=== PATIENT | female | born 1990 | race African-American/Black ===

== ENCOUNTER 2017-10-10 21:17 | Inpatient (IN) ==
[2017-10-23] MEDS ORDERED: Benzonatate 100 MG Capsule PO PRN (00:01)
[2017-10-23] MEDS ORDERED: LORazepam 0.5 MG Tablet PO PRN (00:01)
[2017-10-23] MEDS ORDERED: Acetaminophen 325 MG Tablet PO PRN (00:01)
[2017-10-23] MEDS ORDERED: Heparin Central Flush 100 UNIT/ML 5 ML Syringe IV.FLUSH PRN (00:01)
[2017-10-23] MEDS ORDERED: Sodium Chloride 0.65% Nasal Spray 45 ML Bottle EACH NARE PRN (00:01)
[2017-10-23] MEDS ORDERED: Naloxone Inj 0.4 MG/ML Vial IV.PUSH PRN (00:01)
[2017-10-23 06:29] LABS: Baso # (Auto) 0.1 th/mm3 (0.0-0.2); Baso % (Auto) 0.8 % (0.0-2.0); Eos % (Auto) 0.3 % (0.0-4.0); Hematocrit 26.7 % (35.0-46.0); Lymph # (Auto) 2.8 th/mm3 (1.0-4.8); Mean Corpuscular HGB Conc 33.6 % (32.0-36.0); Mean Corpuscular Hemoglobin 32.7 pg (27.0-34.0); Mean Corpuscular Volume 97.4 fL (80.0-100.0); Mean Platelet Volume 7.2 fL (7.0-11.0); Mono # (Auto) 2.1 th/mm3 (0.0-0.9); Mono % (Auto) 14.2 % (0.0-8.0); Neut # (Auto) 9.6 th/mm3 (1.8-7.7); Neut % (Auto) 65.7 % (16.0-70.0); Platelet Count 327 th/mm3 (150-450); Red Blood Count 2.74 mil/mm3 (4.00-5.30); Red Cell Distribution Width 20.8 % (11.6-17.2); White Blood Count 14.7 th/mm3 (4.0-11.0)
[2017-10-23 06:35] LABS: Anion Gap 9 meq/L (5-15); Blood Urea Nitrogen 7 mg/dL (7-18); Calcium 8.3 mg/dL (8.5-10.1); Carbon Dioxide 21.8 meq/L (21.0-32.0); Chloride 110 meq/L (98-107); Glomerular Filtration Rate Greater Than 89 mL/min (>89); Glucose,Random 105 mg/dL (74-106); Potassium 3.8 meq/L (3.5-5.1); Sodium 141 meq/L (136-145)
[2017-10-23 08:15] LABS: Blast Cells 2 % (0-0); Lymphocytes 5 % (9-44); Monocytes 6 % (0-8); Myelocytes 4 % (0-0); Platelet Estimate Normal (Normal); Platelet Morphology Normal (Normal); Tallied Nucleated RBC 21 (0-0)
[2017-10-23 08:16] LABS: Ovalocytes 1+; Polychromasia 2.3 % (0.0-1.9); Toxic Granulation 1+
--- NOTE | 2017-10-23 09:10 | P.PNONC ---
Subjective Interval history: Afebrile Patient denies any acute complaints Committed to staying in the hospital as long as needed Denies shortness of breath, chest pain or any GI symptoms Objective Vital Signs/Intake & Output: Vital Signs 10/23/17 04:00 10/23/17 07:31 Temperature 98 F 97.9 F Pulse Rate 102 H 121 H Respiratory Rate 18 16 Blood Pressure 112/63 121/68 Pulse Oximetry 96 99 Intake & Output 10/22/17 10/23/17 10/23/17 18:59 06:59 18:59 Intake Total 1919 Balance 1919 Intake: Oral 1919 Other: # Voids 4 Date of Last Bowel Movement 10/22/17 Result Diagrams: 10/23/17 03:45 10/23/17 03:45 Laboratory Results: Laboratory Results - last 24 hr 10/19/17 10/20/17 10/20/17 18:45 04:35 04:35 WBC 23.1 H RBC 2.90 L Hgb 9.0 L Hct 27.3 L MCV 94.2 MCH 31.1 MCHC 33.0 RDW 20.8 H Plt Count 486 H MPV 7.1 Prelim Diff (Auto) Neut % (Auto) Lymph % (Auto) [place] % (Auto) Eos % (Auto) Baso % (Auto) Neut # (Auto) Lymph # (Auto) [place] # (Auto) Eos # (Auto) Baso # (Auto) CBC Comment AUTO DIFF WBC Differential Total Counted 100 Neutrophils % (Manual) 26 Seg Neuts % (Manual) Band Neutrophils % 32 H Band Neuts % (Manual) Lymphocytes % 6 L Lymphocytes % (Manual) Monocytes % 13 H Monocytes % (Manual) Myelocytes % (Man) Blast Cells % (Manual) Neutrophils # (Manual) 17.8 H Abs Neuts (Manual) Metamyelocytes 11 H Myelocytes 6 H Promyelocytes 2 H Nucleated RBCs 17 H Nucleated RBCs/100 WBC Differential Comment FINAL DIFF MANUAL Blast Cells 4 H Toxic Granulation Platelet Estimate HIGH H Platelet Morphology Plt Morphology Comment NORMAL Polychromasia Spherocytes OCC H Ovalocytes Sodium 138 Potassium 4.0 Chloride 106 Carbon Dioxide 23.1 Anion Gap 9 BUN 6 L Creatinine 0.72 Estimated GFR 117 Random Glucose 112 H Calcium 9.0 Lactate Dehydrogenase Urine Color YELLOW Urine Turbidity CLEAR Urine pH 5.0 Ur Specific [place] 1.019 Urine Protein NEG Urine Glucose (UA) NEG Urine Ketones TRACE H Urine Occult Blood SMALL H Urine Nitrite NEG Urine Bilirubin NEG Urine Urobilinogen LESS THAN 2 Ur Leukocyte Esterase NEG Urine WBC 1 Ur Squamous Epith Cells 2 Urine Mucus MOD H Micro UA Comment CULT NOT INDICATED 10/20/17 10/21/17 10/21/17 04:35 05:20 05:20 WBC 22.4 H RBC 2.89 L Hgb 8.9 L Hct 27.2 L MCV 94.0 MCH 30.6 MCHC 32.6 RDW 21.0 H Plt Count 443 MPV 7.1 Prelim Diff (Auto) Neut % (Auto) Lymph % (Auto) [place] % (Auto) Eos % (Auto) Baso % (Auto) Neut # (Auto) Lymph # (Auto) [place] # (Auto) Eos # (Auto) Baso # (Auto) CBC Comment AUTO DIFF WBC Differential Total Counted 100 Neutrophils % (Manual) 41 Seg Neuts % (Manual) Band Neutrophils % 17 H Band Neuts % (Manual) Lymphocytes % 11 Lymphocytes % (Manual) Monocytes % 9 H Monocytes % (Manual) Myelocytes % (Man) Blast Cells % (Manual) Neutrophils # (Manual) 17.2 H Abs Neuts (Manual) Metamyelocytes 12 H Myelocytes 6 H Promyelocytes 1 H Nucleated RBCs 12 H Nucleated RBCs/100 WBC Differential Comment FINAL DIFF MANUAL Blast Cells 3 H Toxic Granulation Platelet Estimate NORMAL Platelet Morphology Plt Morphology Comment NORMAL Polychromasia 2.1 H Spherocytes Ovalocytes Sodium 140 Potassium 3.9 Chloride 106 Carbon Dioxide 25.5 Anion Gap 9 BUN 7 Creatinine 0.70 Estimated GFR 121 Random Glucose 116 H Calcium 8.5 Lactate Dehydrogenase 893 H Urine Color Urine Turbidity Urine pH Ur Specific [place] Urine Protein Urine Glucose (UA) Urine Ketones Urine Occult Blood Urine Nitrite Urine Bilirubin Urine Urobilinogen Ur Leukocyte Esterase Urine WBC Ur Squamous Epith Cells Urine Mucus Micro UA Comment 10/22/17 10/22/17 10/23/17 04:11 04:11 03:45 WBC 16.6 H 14.7 H RBC 2.77 L 2.74 L Hgb 8.7 L 9.0 L Hct 26.3 L 26.7 L MCV 94.9 97.4 MCH 31.5 32.7 MCHC 33.2 33.6 RDW 20.3 H 20.8 H Plt Count 369 327 MPV 7.4 7.2 Prelim Diff (Auto) Slide review pending Neut % (Auto) 65.7 Lymph % (Auto) 19.0 [place] % (Auto) 14.2 H Eos % (Auto) 0.3 Baso % (Auto) 0.8 Neut # (Auto) 9.6 H Lymph # (Auto) 2.8 [place] # (Auto) 2.1 H Eos # (Auto) 0.0 Baso # (Auto) 0.1 CBC Comment AUTO DIFF WBC Differential Manual diff final Total Counted 100 Neutrophils % (Manual) 44 Seg Neuts % (Manual) 70 Band Neutrophils % 14 H Band Neuts % (Manual) 13 H Lymphocytes % 16 Lymphocytes % (Manual) 5 L Monocytes % 12 H Monocytes % (Manual) 6 Myelocytes % (Man) 4 H Blast Cells % (Manual) 2 H Neutrophils # (Manual) 12.0 H Abs Neuts (Manual) 12.8 H Metamyelocytes 8 H Myelocytes 6 H Promyelocytes Nucleated RBCs 10 H Nucleated RBCs/100 WBC 21 H Differential Comment FINAL DIFF MANUAL . Blast Cells Toxic Granulation 2+ H 1+ H Platelet Estimate NORMAL Normal Platelet Morphology Normal Plt Morphology Comment NORMAL Polychromasia 3.3 H 2.3 H Spherocytes Ovalocytes 1+ H 1+ H Sodium 140 Potassium 3.7 Chloride 106 Carbon Dioxide 21.8 Anion Gap 12 BUN 7 Creatinine 0.68 Estimated GFR 125 Random Glucose 109 H Calcium 8.3 L Lactate Dehydrogenase Urine Color Urine Turbidity Urine pH Ur Specific [place] Urine Protein Urine Glucose (UA) Urine Ketones Urine Occult Blood Urine Nitrite Urine Bilirubin Urine Urobilinogen Ur Leukocyte Esterase Urine WBC Ur Squamous Epith Cells Urine Mucus Micro UA Comment 10/23/17 03:45 WBC RBC Hgb Hct MCV MCH MCHC RDW Plt Count MPV Prelim Diff (Auto) Neut % (Auto) Lymph % (Auto) [place] % (Auto) Eos % (Auto) Baso % (Auto) Neut # (Auto) Lymph # (Auto) [place] # (Auto) Eos # (Auto) Baso # (Auto) CBC Comment WBC Differential Total Counted Neutrophils % (Manual) Seg Neuts % (Manual) Band Neutrophils % Band Neuts % (Manual) Lymphocytes % Lymphocytes % (Manual) Monocytes % Monocytes % (Manual) Myelocytes % (Man) Blast Cells % (Manual) Neutrophils # (Manual) Abs Neuts (Manual) Metamyelocytes Myelocytes Promyelocytes Nucleated RBCs Nucleated RBCs/100 WBC Differential Comment Blast Cells Toxic Granulation Platelet Estimate Platelet Morphology Plt Morphology Comment Polychromasia Spherocytes Ovalocytes Sodium 141 Potassium 3.8 Chloride 110 H Carbon Dioxide 21.8 Anion Gap 9 BUN 7 Creatinine 0.68 Estimated GFR Greater than 89 Random Glucose 105 Calcium 8.3 L Lactate Dehydrogenase Urine Color Urine Turbidity Urine pH Ur Specific [place] Urine Protein Urine Glucose (UA) Urine Ketones Urine Occult Blood Urine Nitrite Urine Bilirubin Urine Urobilinogen Ur Leukocyte Esterase Urine WBC Ur Squamous Epith Cells Urine Mucus Micro UA Comment Medications: Active Medications Generic Name Dose Route Start Last Admin Trade Name Freq PRN Reason Stop Dose Admin Cefepime HCl 2,000 mg/ Sodium 100 mls @ 200 mls/hr 10/23/17 04:00 10/23/17 04 :33 Chloride IV.SIG 200 mls/hr Q8H SHELLEY Administration Objective Remarks: GENERAL: Overweight female resting in bed in no obvious distress SKIN: Warm and dry. HEAD: Normocephalic. EYES: No injection or drainage. NECK: Supple, trachea midline. CARDIOVASCULAR: Regular rate and rhythm without murmurs. RESPIRATORY: Breath sounds equal bilaterally. No accessory muscle use. GASTROINTESTINAL: Abdomen obese, soft, non-tender. EXTREMITIES: No cyanosis, or edema. MUSCULOSKELETAL: Adequate muscle tone. NEUROLOGICAL: No obvious focal deficit. Awake, alert, and oriented x3. 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 was discharged on 09/24 from [facility] and has been following up outpatient. last seen at [facility] 6.11 when she received Cytarabine 196mg. --had LP with IT chemo on 09/27 --repeat bone marrow biopsy on 09/28 showed no residual B-cell ALL. --Bone marrow biopsy on 10/21 pending --on prophylactic Bactrim, Fluconazole. 2. Bilateral PE: diagnosed during her August 2017 admission at [facility]--has been on Lovenox 150mg SQ BID since that time. 3. Pancytopenia: d/t chemotherapy + B-cell ALL --Transfuse for hemoglobin less than 7, platelets less than 10,000 - Attending Statement The exam, history, and the medical decision-making described in the above note were completed with the assistance of the mid-level provider. I reviewed and agree with the findings presented. I attest that I had a [id number] encounter with the patient on the same day, and personally performed and documented my assessment and findings in the medical record. Afebrile, counts decreasing bone marrow biopsy pending. Awaiting return call from Dr. Malhotra at [facility]. Follow up cultures.
[2017-10-23] MEDS: Gabapentin 300 MG Capsule PO SCH ×3 (09:20→17:00)
[2017-10-23] MEDS: amLODIPine 5 MG Tablet PO SCH (09:20)
[2017-10-23] MEDS: Senna/Docusate Sodium 8.6/50 MG Tablet PO SCH ×2 (09:20→21:18)
[2017-10-23] MEDS: valACYclovir 500 MG Tab PO SCH ×2 (09:20→21:17)
[2017-10-23] MEDS: Sulfamethoxazole/Trimethoprim 400/80 MG Tablet PO SCH (09:20)
--- NOTE | 2017-10-23 10:10 | P.PNFP ---
Subjective Interval history: Patient was seen and examined this morning with Dr. Sweeney. She has been afebrile and denies any new symptoms. She had a temper time sleeping last night but denies fevers, chills, nausea, vomiting, chest pain, shortness of breath, lower extremity edema, abdominal pain. She has been ambulating urinating and defecating without difficulty. Normal appetite. She continues to be ready to go home but we discussed that pathology reports are still pending from bone marrow biopsy. She denies pain or irritation around biopsy site. Results - Labs Result diagrams: 10/23/17 03:45 10/23/17 03:45 Abnormal lab results 10/19/17 10/20/17 10/20/17 Range/Units 18:45 04:35 04:35 WBC 23.1 H (4.0-11.0) TH/MM3 RBC 2.90 L (4.00-5.30) MIL/MM3 Hgb 9.0 L (11.6-15.3) GM/DL Hct 27.3 L (35.0-46.0) % RDW 20.8 H (11.6-17.2) % Plt Count 486 H (150-450) TH/MM3 [place] % (Auto) (0.0-8.0) % Neut # (Auto) (1.8-7.7) th/mm3 [place] # (Auto) (0.0-0.9) th/mm3 Band Neutrophils % 32 H (0-6) % Band Neuts % (Manual) (0-6) % Lymphocytes % 6 L (9-44) % Lymphocytes % (Manual) (9-44) % Monocytes % 13 H (0-8) % Myelocytes % (Man) (0-0) % Blast Cells % (Manual) (0-0) % Neutrophils # (Manual) 17.8 H (1.8-7.7) TH/MM3 Abs Neuts (Manual) (1.8-7.7) th/mm3 Metamyelocytes 11 H (0-1) % Myelocytes 6 H (0-0) % Promyelocytes 2 H (0-0) % Nucleated RBCs 17 H (0-0) /100 WBC Nucleated RBCs/100 WBC (0-0) /100 WBC Blast Cells 4 H (0-0) % Toxic Granulation (NORMAL) Platelet Estimate HIGH H (NORMAL) Polychromasia (0.0-1.9) % Spherocytes OCC H (NORMAL) Ovalocytes (NORMAL) Chloride (98-107) meq/L BUN 6 L (7-18) MG/DL Random Glucose 112 H (74-106) MG/DL Calcium (8.5-10.1) MG/DL Lactate Dehydrogenase (84-246) U/L Urine Ketones TRACE H (NEG) mg/dL Urine Occult Blood SMALL H (NEG) Urine Mucus MOD H (OCC) /lpf 10/20/17 10/21/17 10/21/17 Range/Units 04:35 05:20 05:20 WBC 22.4 H (4.0-11.0) TH/MM3 RBC 2.89 L (4.00-5.30) MIL/MM3 Hgb 8.9 L (11.6-15.3) GM/DL Hct 27.2 L (35.0-46.0) % RDW 21.0 H (11.6-17.2) % Plt Count (150-450) TH/MM3 [place] % (Auto) (0.0-8.0) % Neut # (Auto) (1.8-7.7) th/mm3 [place] # (Auto) (0.0-0.9) th/mm3 Band Neutrophils % 17 H (0-6) % Band Neuts % (Manual) (0-6) % Lymphocytes % (9-44) % Lymphocytes % (Manual) (9-44) % Monocytes % 9 H (0-8) % Myelocytes % (Man) (0-0) % Blast Cells % (Manual) (0-0) % Neutrophils # (Manual) 17.2 H (1.8-7.7) TH/MM3 Abs Neuts (Manual) (1.8-7.7) th/mm3 Metamyelocytes 12 H (0-1) % Myelocytes 6 H (0-0) % Promyelocytes 1 H (0-0) % Nucleated RBCs 12 H (0-0) /100 WBC Nucleated RBCs/100 WBC (0-0) /100 WBC Blast Cells 3 H (0-0) % Toxic Granulation (NORMAL) Platelet Estimate (NORMAL) Polychromasia 2.1 H (0.0-1.9) % Spherocytes (NORMAL) Ovalocytes (NORMAL) Chloride (98-107) meq/L BUN (7-18) MG/DL Random Glucose 116 H (74-106) MG/DL Calcium (8.5-10.1) MG/DL Lactate Dehydrogenase 893 H (84-246) U/L Urine Ketones (NEG) mg/dL Urine Occult Blood (NEG) Urine Mucus (OCC) /lpf 10/22/17 10/22/17 10/23/17 Range/Units 04:11 04:11 03:45 WBC 16.6 H 14.7 H (4.0-11.0) TH/MM3 RBC 2.77 L 2.74 L (4.00-5.30) MIL/MM3 Hgb 8.7 L 9.0 L (11.6-15.3) GM/DL Hct 26.3 L 26.7 L (35.0-46.0) % RDW 20.3 H 20.8 H (11.6-17.2) % Plt Count (150-450) TH/MM3 [place] % (Auto) 14.2 H (0.0-8.0) % Neut # (Auto) 9.6 H (1.8-7.7) th/mm3 [place] # (Auto) 2.1 H (0.0-0.9) th/mm3 Band Neutrophils % 14 H (0-6) % Band Neuts % (Manual) 13 H (0-6) % Lymphocytes % (9-44) % Lymphocytes % (Manual) 5 L (9-44) % Monocytes % 12 H (0-8) % Myelocytes % (Man) 4 H (0-0) % Blast Cells % (Manual) 2 H (0-0) % Neutrophils # (Manual) 12.0 H (1.8-7.7) TH/MM3 Abs Neuts (Manual) 12.8 H (1.8-7.7) th/mm3 Metamyelocytes 8 H (0-1) % Myelocytes 6 H (0-0) % Promyelocytes (0-0) % Nucleated RBCs 10 H (0-0) /100 WBC Nucleated RBCs/100 WBC 21 H (0-0) /100 WBC Blast Cells (0-0) % Toxic Granulation 2+ H 1+ H (NORMAL) Platelet Estimate (NORMAL) Polychromasia 3.3 H 2.3 H (0.0-1.9) % Spherocytes (NORMAL) Ovalocytes 1+ H 1+ H (NORMAL) Chloride (98-107) meq/L BUN (7-18) MG/DL Random Glucose 109 H (74-106) MG/DL Calcium 8.3 L (8.5-10.1) MG/DL Lactate Dehydrogenase (84-246) U/L Urine Ketones (NEG) mg/dL Urine Occult Blood (NEG) Urine Mucus (OCC) /lpf 10/23/17 Range/Units 03:45 WBC (4.0-11.0) TH/MM3 RBC (4.00-5.30) MIL/MM3 Hgb (11.6-15.3) GM/DL Hct (35.0-46.0) % RDW (11.6-17.2) % Plt Count (150-450) TH/MM3 [place] % (Auto) (0.0-8.0) % Neut # (Auto) (1.8-7.7) th/mm3 [place] # (Auto) (0.0-0.9) th/mm3 Band Neutrophils % (0-6) % Band Neuts % (Manual) (0-6) % Lymphocytes % (9-44) % Lymphocytes % (Manual) (9-44) % Monocytes % (0-8) % Myelocytes % (Man) (0-0) % Blast Cells % (Manual) (0-0) % Neutrophils # (Manual) (1.8-7.7) TH/MM3 Abs Neuts (Manual) (1.8-7.7) th/mm3 Metamyelocytes (0-1) % Myelocytes (0-0) % Promyelocytes (0-0) % Nucleated RBCs (0-0) /100 WBC Nucleated RBCs/100 WBC (0-0) /100 WBC Blast Cells (0-0) % Toxic Granulation (NORMAL) Platelet Estimate (NORMAL) Polychromasia (0.0-1.9) % Spherocytes (NORMAL) Ovalocytes (NORMAL) Chloride 110 H (98-107) meq/L BUN (7-18) MG/DL Random Glucose (74-106) MG/DL Calcium 8.3 L (8.5-10.1) MG/DL Lactate Dehydrogenase (84-246) U/L Urine Ketones (NEG) mg/dL Urine Occult Blood (NEG) Urine Mucus (OCC) /lpf Short CBC 10/20/17 10/21/17 10/22/17 Range/Units 04:35 05:20 04:11 WBC 23.1 H 22.4 H 16.6 H (4.0-11.0) TH/MM3 Hgb 9.0 L 8.9 L 8.7 L (11.6-15.3) GM/DL Hct 27.3 L 27.2 L 26.3 L (35.0-46.0) % Plt Count 486 H 443 369 (150-450) TH/MM3 10/23/17 Range/Units 03:45 WBC 14.7 H (4.0-11.0) TH/MM3 Hgb 9.0 L (11.6-15.3) GM/DL Hct 26.7 L (35.0-46.0) % Plt Count 327 (150-450) TH/MM3 BMP 10/20/17 10/21/17 10/22/17 04:35 05:20 04:11 Sodium 138 140 140 Potassium 4.0 3.9 3.7 Chloride 106 106 106 Carbon Dioxide 23.1 25.5 21.8 BUN 6 L 7 7 Creatinine 0.72 0.70 0.68 Calcium 9.0 8.5 8.3 L 10/23/17 03:45 Sodium 141 Potassium 3.8 Chloride 110 H Carbon Dioxide 21.8 BUN 7 Creatinine 0.68 Calcium 8.3 L Urine 10/19/17 Range/Units 18:45 Urine Color YELLOW (YELLW/STRAW) Urine pH 5.0 (5.0-8.5) Ur Specific [place] 1.019 (1.002-1.035) Urine Protein NEG (NEG-TRACE) mg/dL Urine Glucose (UA) NEG (NEG) mg/dL Physical Exam Vital signs: Vital Signs 10/23/17 04:00 10/23/17 07:31 Temperature 98 F 97.9 F Pulse Rate 102 H 121 H Respiratory Rate 18 16 Blood Pressure 112/63 121/68 Pulse Oximetry 96 99 Intake & Output 10/22/17 10/23/17 10/23/17 18:59 06:59 18:59 Intake Total 1919 Balance 1919 Intake: Oral 1919 Other: # Voids 4 Date of Last Bowel Movement 10/22/17 Narrative: GENERAL: No acute distress Skin: No visible lesions CARDIOVASCULAR: sinus tachycardia, regular rhythm without murmurs to auscultation. Normal LE perfusion grossly. RESPIRATORY: Normal rate. Clear to auscultation bilaterally without wheezes or congestion GASTROINTESTINAL: Abdomen soft, non-tender, obese, normal bowel sounds MUSCULOSKELETAL: Extremities without edema. No calf tenderness. NEUROLOGICAL: Awake and alert. 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 Bone marrow biopsy was performed 10/21 with results pending. -Discharge pending bone marrow biopsy results and oncology team clearance. Patient will follow up with Dr. Wilkerson upon discharge -CT angiogram 10/10 negative for PE -PICC line placed 10/19/17 right chest Impression: 2-month history of B-Cell ALL; s/p treatment at [facility] with CALG; patient has been following up as outpatient 09/2017 with [facility]. s/p 4 -5 rounds of chemotherapy and w/ multiple intrathecal treatments Per Heme Onc documentation, had intrathecal chemotherapy 09/27, repeat BM biopsy showing no residual B cell ALL, and was last seen 10/03 when she received Cytarabine Patient no longer treated at [facility] due to insurance issues. -Oncology consulted, appreciated recommendations -Bone marrow biopsy 10/21; results pending -Continue home PPX for immunosuppression -Continue Bactrim 80mg once daily ppx at home -Continue home fluconazole 200mg PO daily ppx -Continue home valacyclovir 500mg PO BID ppx -f/u with Dr. Wilkerson as outpatient Pain control: Roxicodone 5mg PO q4h pain 6-10 -ANC improved, Neupogen discontinued (10/15/17-10/18/17) (2) Neutropenic fever Code(s): D70.9 - Neutropenia, unspecified; R50.81 - Fever presenting with conditions classified elsewhere Status: Resolved Plan: Fever resolved at this time. 10/23 labs showing WBC 14.7, percent neutrophils 70, percent bands 13, with ANC > 12,000. Impression: Intermittent fevers during hospitalization; ANC 1 on admission. Initially on Neupogen ( 10/15/17-10/18/17) but subsequently discontinued with normal WBC's currently CXR negative UA negative Cultures: Blood- 10/12-negative final Urine- 10/12- negative final (10-50K CFUs/mixed GM+) Blood- 10/18- negative 4 days Blood- 10/19- negative 3 days Repeat CXR negative for acute process. UA negative. -Heme/Onc consulted, appreciate recommendations - Continue cefepime 2000 mg IV q8h (started 10/12-) -If blood transfusion is needed, will transfuse leuko-reduced irradiated red blood products for hemoglobin less than 7 and for platelet count of less than 10 ,000 -Continue home Bactrim, Fluconazole, Acyclovir PPX -Continue to monitor VS, blood cultures (3) Pulmonary embolism Code(s): I26.99 - Other pulmonary embolism without acute cor pulmonale Status : Acute Plan: Plan: Continue Lovenox 150mg SQ q12h Impression: Patient reports history of pulmonary embolism 3 weeks ago at [facility]. Patient was started on heparin and transitioned to Lovenox. CTA on 09-19 from [facility] demonstrated bilateral PEs with right lobar, segmental, and subsegmental and left segmental and subsegmental pulmonary emboli involving all lobes of the lungs. No right heart strain. No sufficient change in degree of clot burden compared to CTA on 09-18-17. Normal caliber main pulmonary artery. Normal caliber thoracic. CTA on 10/20- negative for PE Echocardiogram -EF 60%, mild concentric left ventricular hypertrophy, pulmonary pressure 35mmHg (4) Bronchitis Code(s): J40 - Bronchitis, not specified as acute or chronic Status: Resolved Plan: Plan: 10/23: No respiratory complaints. Normal exam and saturations, will monitor closely especially given immunosuppression Impression: Recent productive cough productive of sputum. PMH childhood asthma. Current treatment for bilateral PE CXR negative for signs of PNA, pleural effusion CTA negative for PE. Suspect exacerbation of asthma due to being neutropenic. Patient had initial peak flow of 160 pretreatment on 10/11, peak flow increased to 320 post treatment on 10/12 -Continue PPX antibiotics, Cefepime -Continue Duonebs -Contine Tessalon Perles -Monitor VS, O2 -Spirometry when nonambulatory (5) Anemia Code(s): D64.9 - Anemia, unspecified Status: Chronic Plan: Plan: H&H on 10/23 is 8.7/26.3, stable. Transfuse if Hgb <7.0 with leuko-reduced irradiated products. Impression: History of ALL with chemotherapy induced anemia suspected. On Lovenox due to history of PE. Will continue to monitor CBC closely given complicated history. Hgb: 8.7 (10/22) --> 8.7 (10/23) (6) Morbid obesity Code(s): E66.01 - Morbid (severe) obesity due to excess calories Status: Chronic Plan: Plan: Consider sleep study as outpt Impression: BMI 55 (7) HTN (hypertension) Code(s): I10 - Essential (primary) hypertension Status: Chronic Plan: Plan: Continue home amlodipine 5mg daily Clonidine 0.1 mg p.o. 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 Continue home gabapentin 600mg PO TID - Plan Fluids/Electrolytes/Nutrition/Prophylaxis: Fluids: tolerating PO Electrolytes: monitor and replete as needed Nutrition: Regular diet DVT Prophylaxis: Early ambulation. Lovenox 150mg q12h (wt based) and SCDs GI Prophylaxis: not indicated PRN anti-HTN: Clonidine 0.1mg PO PRN for SBP > 180/ and/or DBP > 100 Tylenol 650mg PO q6h if temp >100.4 (3) Pulmonary embolism Qualifiers: Pulmonary embolism type: other Chronicity: acute Acute cor pulmonale presence: without acute cor pulmonale Qualified Code(s): I26.99 - Other pulmonary embolism without acute cor pulmonale (5) Anemia Qualifiers: Anemia type: unspecified type Qualified Code(s): D64.9 - Anemia, unspecified
[2017-10-23] MEDS: Enoxaparin Inj 150 MG/ML Syringe SQ SCH ×2 (13:12→23:22)
[2017-10-23] MEDS: Heparin Central Flush 100 UNIT/ML 5 ML Syringe IV.FLUSH SCH (13:20)
[2017-10-24 05:09] LABS: Baso # (Auto) 0.1 th/mm3 (0.0-0.2); Baso % (Auto) 0.6 % (0.0-2.0); Eos # (Auto) 0.1 th/mm3 (0.0-0.4); Eos % (Auto) 0.3 % (0.0-4.0); Hematocrit 26.5 % (35.0-46.0); Hemoglobin 8.7 gm/dL (11.6-15.3); Lymph # (Auto) 4.9 th/mm3 (1.0-4.8); Lymph % (Auto) 29.6 % (9.0-44.0); Mean Corpuscular HGB Conc 32.6 % (32.0-36.0); Mean Corpuscular Hemoglobin 30.7 pg (27.0-34.0); Mean Corpuscular Volume 94.2 fL (80.0-100.0); Mean Platelet Volume 7.5 fL (7.0-11.0); Mono # (Auto) 2.5 th/mm3 (0.0-0.9); Mono % (Auto) 14.9 % (0.0-8.0); Neut % (Auto) 54.6 % (16.0-70.0); Platelet Count 240 th/mm3 (150-450); Red Blood Count 2.82 mil/mm3 (4.00-5.30); White Blood Count 16.6 th/mm3 (4.0-11.0)
[2017-10-24 08:17] LABS: Blast Cells 1 % (0-0); Lymphocytes 12 % (9-44); Metamyelocytes 8 % (0-1); Monocytes 13 % (0-8); Myelocytes 1 % (0-0); Tallied Nucleated RBC 20 (0-0)
[2017-10-24 08:18] LABS: Ovalocytes 1+; Polychromasia 2.3 % (0.0-1.9)
[2017-10-24 08:19] LABS: Platelet Estimate Normal (Normal); Platelet Morphology Normal (Normal); Tear Drop Cells 1+; Toxic Granulation 2+
--- NOTE | 2017-10-24 09:25 | P.PNFP ---
<Marian Billingsley - Last Filed: 10/24/17 09:39> Subjective Interval history: Patient was seen and examined this morning. She has no complaints or concerns. She has been afebrile for greater than 48 hours and denies subjective fevers, chills, nausea, vomiting, shortness of breath, rash, fatigue. She is ambulating without difficulty. She notes that she is hopeful to go home today. Results - Labs Result diagrams: 10/24/17 04:20 10/23/17 03:45 Abnormal lab results 10/24/17 Range/Units 04:20 WBC 16.6 H (4.0-11.0) th/mm3 RBC 2.82 L (4.00-5.30) mil/mm3 Hgb 8.7 L (11.6-15.3) gm/dL Hct 26.5 L (35.0-46.0) % RDW 21.0 H (11.6-17.2) % Traill % (Auto) 14.9 H (0.0-8.0) % Neut # (Auto) 9.0 H (1.8-7.7) th/mm3 Lymph # (Auto) 4.9 H (1.0-4.8) th/mm3 Traill # (Auto) 2.5 H (0.0-0.9) th/mm3 Band Neuts % (Manual) 23 H (0-6) % Monocytes % (Manual) 13 H (0-8) % Metamyelocytes % (Man) 8 H (0-1) % Myelocytes % (Man) 1 H (0-0) % Blast Cells % (Manual) 1 H (0-0) % Abs Neuts (Manual) 12.3 H (1.8-7.7) th/mm3 Nucleated RBCs/100 WBC 20 H (0-0) /100 WBC Toxic Granulation 2+ H (None) Polychromasia 2.3 H (0.0-1.9) % Tear Drop Cells 1+ H (None) Ovalocytes 1+ H (None) Short CBC 10/24/17 Range/Units 04:20 WBC 16.6 H (4.0-11.0) th/mm3 Hgb 8.7 L (11.6-15.3) gm/dL Hct 26.5 L (35.0-46.0) % Plt Count 240 (150-450) th/mm3 - EKG Rate & rhythm: sinus tachycardia Physical Exam Vital signs: Vital Signs 10/23/17 13:37 10/23/17 16:00 10/23/17 20:00 Temperature 98.2 F 98.4 F 99.4 F Pulse Rate 85 98 H 104 H Respiratory Rate 18 18 Blood Pressure 113/72 124/75 131/80 Pulse Oximetry 100 100 99 10/24/17 00:12 10/24/17 04:00 10/24/17 08:00 Temperature 98.1 F 97.7 F 98.1 F Pulse Rate 104 H 84 100 H Respiratory Rate 18 18 Blood Pressure 116/68 98/57 L 113/62 Pulse Oximetry 99 98 100 Intake & Output 10/23/17 10/24/17 10/24/17 18:59 06:59 18:59 Intake Total 2400 / 2400 480 / 480 Balance 2400 / 2400 480 / 480 Weight 153.3 kg 154 kg Intake: Oral 2400 / 2400 480 / 480 Other: # Voids 8 3 # Bowel Movements 2 - Constitutional no acute distress, obese - Routine HEENT Exam Head: Present: normocephalic, atraumatic Eye: Present: EOMI, PERRL ENT: Present: mucous membranes moist - Routine Neck Exam Present: supple, full ROM - Routine Respiratory Exam Present: CTA bilaterally. Absent: accessory muscle use, wheezes, crackles - Routine Cardiovascular Exam Present: S1, S2, tachycardia (Mild, regular) - Routine Abdominal Exam Present: soft, normoactive bowel sounds. Absent: tenderness - Routine Extremities Exam Absent: cyanosis, edema, calf tenderness - Routine Skin Exam Present: intact. 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 Bone marrow biopsy was performed 10/21 with results pending. -Discharge pending bone marrow biopsy results and oncology team clearance. Patient will follow up with Dr. Wilkerson upon discharge -CT angiogram 10/10 negative for PE -PICC line placed 10/19/17 right chest Impression: 2-month history of B-Cell ALL; s/p treatment at [facility] with CALG; patient has been following up as outpatient 09/2017 with [facility]. s/p 4 -5 rounds of chemotherapy and w/ multiple intrathecal treatments Per Heme Onc documentation, had intrathecal chemotherapy 09/27, repeat BM biopsy showing no residual B cell ALL, and was last seen 10/03 when she received Cytarabine Patient no longer treated at [facility] due to insurance issues. -Oncology consulted, appreciated recommendations -Bone marrow biopsy 10/21; results pending -Continue home PPX for immunosuppression -Continue Bactrim 80mg once daily ppx at home -Continue home fluconazole 200mg PO daily ppx -Continue home valacyclovir 500mg PO BID ppx -Per oncology notes they are awaiting follow-up with patient's previous oncology at [facility] Pain control: Roxicodone 5mg PO q4h pain - -ANC improved, Neupogen discontinued (10/15/17-10/18/17) (2) Neutropenic fever Code(s): D70.9 - Neutropenia, unspecified; R50.81 - Fever presenting with conditions classified elsewhere Status: Resolved Plan: Fever resolved >48hr ago 10/24 labs showing WBC 16.6, H&H 8.7/26.5, platelets 240 Impression: Intermittent fevers during hospitalization; ANC 1 on admission. Initially on Neupogen ( 10/15/17-10/18/17) but subsequently discontinued with normal WBC's currently CXR negative UA negative Cultures: Blood- 10/12-negative final Urine- 10/12- final 10-50K CFUs/mixed GM+, probable contaminants Blood- 10/18- negative final Blood- 10/19- negative 4 days Repeat CXR 10/19 negative for acute process. UA negative. -Heme/Onc consulted, appreciate recommendations - Cefepime completed: 2000 mg IV q8h (10/12-10/23) -If blood transfusion is needed, will transfuse leuko-reduced irradiated red blood products for hemoglobin less than 7 and for platelet count of less than 10 ,000 -Continue home Bactrim, Fluconazole, Acyclovir PPX upon discharge -Continue to monitor VS, blood cultures (3) Pulmonary embolism Code(s): I26.99 - Other pulmonary embolism without acute cor pulmonale Status : Acute Plan: Plan: Patient is asymptomatic. Continue Lovenox 150mg SQ q12h at discharge, f/u hematology as outpatient Impression: Patient reports history of pulmonary embolism 3 weeks ago at [facility]. Patient was started on heparin and transitioned to Lovenox. CTA on 09-19 from [facility] demonstrated bilateral PEs with right lobar, segmental, and subsegmental and left segmental and subsegmental pulmonary emboli involving all lobes of the lungs. No right heart strain. No sufficient change in degree of clot burden compared to CTA on 09-18-17. Normal caliber main pulmonary artery. Normal caliber thoracic. CTA on 10/20- negative for PE Echocardiogram -EF 60%, mild concentric left ventricular hypertrophy, pulmonary pressure 35mmHg (4) Bronchitis Code(s): J40 - Bronchitis, not specified as acute or chronic Status: Resolved Plan: Plan: 10/23: No respiratory complaints. Normal exam and saturations, will monitor closely especially given immunosuppression Impression: Recent productive cough productive of sputum. PMH childhood asthma. Current treatment for bilateral PE CXR negative for signs of PNA, pleural effusion CTA negative for PE. Suspect exacerbation of asthma due to being neutropenic. Patient had initial peak flow of 160 pretreatment on 10/11, peak flow increased to 320 post treatment on 10/12 -Continue PPX antibiotics, Cefepime completed 10/23 -Continue Duonebs PRN -Contine Tessalon Perles PRN -Monitor VS, O2 -wnl at this time -Spirometry when nonambulatory (5) Anemia Code(s): D64.9 - Anemia, unspecified Status: Chronic Plan: Plan: H&H on 10/24 is stable. Transfuse if Hgb <7.0 with leuko-reduced irradiated products. Impression: History of ALL with chemotherapy induced anemia suspected. On Lovenox due to history of PE. Will continue to monitor CBC closely given complicated history. Hgb: 8.7 (10/23) --> 8.7 (10/24) (6) Morbid obesity Code(s): E66.01 - Morbid (severe) obesity due to excess calories Status: Chronic Plan: Plan: Consider sleep study as outpt Impression: BMI 55 (7) HTN (hypertension) Code(s): I10 - Essential (primary) hypertension Status: Chronic Plan: Plan: Continue home dose of amlodipine 5mg daily. BP at goal Clonidine 0.1 mg p.o. 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 Continue home gabapentin 600mg PO TID - Plan Fluids/Electrolytes/Nutrition/Prophylaxis: Fluids: tolerating PO Electrolytes: monitor and replete as needed Nutrition: Regular diet DVT Prophylaxis: Early ambulation. Lovenox 150mg q12h (wt based) and ambulation , SCDs ordered but pt not wearing GI Prophylaxis: not indicated PRN anti-HTN: Clonidine 0.1mg PO PRN for SBP > 180/ and/or DBP > 100 Tylenol 650mg PO q6h if temp >100.4 <Manjinder Chavez - Last Filed: 10/24/17 18:02> Results - Labs Result diagrams: 10/24/17 04:20 10/23/17 03:45 Abnormal lab results 10/24/17 Range/Units 04:20 WBC 16.6 H (4.0-11.0) th/mm3 RBC 2.82 L (4.00-5.30) mil/mm3 Hgb 8.7 L (11.6-15.3) gm/dL Hct 26.5 L (35.0-46.0) % RDW 21.0 H (11.6-17.2) % Traill % (Auto) 14.9 H (0.0-8.0) % Neut # (Auto) 9.0 H (1.8-7.7) th/mm3 Lymph # (Auto) 4.9 H (1.0-4.8) th/mm3 Traill # (Auto) 2.5 H (0.0-0.9) th/mm3 Band Neuts % (Manual) 23 H (0-6) % Monocytes % (Manual) 13 H (0-8) % Metamyelocytes % (Man) 8 H (0-1) % Myelocytes % (Man) 1 H (0-0) % Blast Cells % (Manual) 1 H (0-0) % Abs Neuts (Manual) 12.3 H (1.8-7.7) th/mm3 Nucleated RBCs/100 WBC 20 H (0-0) /100 WBC Toxic Granulation 2+ H (None) Polychromasia 2.3 H (0.0-1.9) % Tear Drop Cells 1+ H (None) Ovalocytes 1+ H (None) Short CBC 10/24/17 Range/Units 04:20 WBC 16.6 H (4.0-11.0) th/mm3 Hgb 8.7 L (11.6-15.3) gm/dL Hct 26.5 L (35.0-46.0) % Plt Count 240 (150-450) th/mm3 Physical Exam Vital signs: Vital Signs 10/23/17 20:00 10/24/17 00:12 10/24/17 04:00 Temperature 99.4 F 98.1 F 97.7 F Pulse Rate 104 H 104 H 84 Respiratory Rate 18 18 16 Blood Pressure 131/80 116/68 98/57 L Pulse Oximetry 99 99 98 10/24/17 08:00 10/24/17 11:29 10/24/17 12:00 Temperature 98.1 F 97 F L Pulse Rate 100 H 79 Respiratory Rate 18 18 18 Blood Pressure 113/62 125/68 Pulse Oximetry 100 99 10/24/17 16:00 Temperature 98.1 F Pulse Rate 89 Respiratory Rate Blood Pressure 139/68 Pulse Oximetry Intake & Output 10/23/17 10/24/17 10/24/17 18:59 06:59 18:59 Intake Total 2400 / 2400 480 / 480 Balance 2400 / 2400 480 / 480 Weight 153.3 kg 154 kg Intake: Oral 2400 / 2400 480 / 480 Other: # Voids 8 3 Date of Last Bowel Movement 10/24/17 # Bowel Movements 2 Assessment and Plan - Assessment (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 - Acute lymphoblastic leukemia not having achieved remission Status: Acute (2) Neutropenic fever Code(s): D70.9 - Neutropenia, unspecified; R50.81 - Fever presenting with conditions classified elsewhere Status: Resolved (3) Pulmonary embolism Code(s): I26.99 - Other pulmonary embolism without acute cor pulmonale Status : Acute (4) Bronchitis Code(s): J40 - Bronchitis, not specified as acute or chronic Status: Resolved (5) Anemia Code(s): D64.9 - Anemia, unspecified Status: Chronic (6) Morbid obesity Code(s): E66.01 - Morbid (severe) obesity due to excess calories Status: Chronic (7) HTN (hypertension) Code(s): I10 - Essential (primary) hypertension Status: Chronic (8) Peripheral neuropathy due to chemotherapy Code(s): G62.0 - Drug-induced polyneuropathy; T45.1X5A - Adverse effect of antineoplastic and immunosuppressive drugs, initial encounter Status: Chronic - Attending Attestation Patient examined and case discussed with resident physician I have read the above note and agree with the assessment/plan as discussed with me I was involved in all medical decision making for this patient Waiting final disposition from hematology/oncology prior to discharge Manjinder Chavez MD <Marian Billingsley - Last Filed: 10/24/17 09:39> (3) Pulmonary embolism Qualifiers: Pulmonary embolism type: other Chronicity: acute Acute cor pulmonale presence: without acute cor pulmonale Qualified Code(s): I26.99 - Other pulmonary embolism without acute cor pulmonale (5) Anemia Qualifiers: Anemia type: unspecified type Qualified Code(s): D64.9 - Anemia, unspecified <Manjinder Chavez - Last Filed: 10/24/17 18:02> (3) Pulmonary embolism Qualifiers: Pulmonary embolism type: other Chronicity: acute Acute cor pulmonale presence: without acute cor pulmonale Qualified Code(s): I26.99 - Other pulmonary embolism without acute cor pulmonale (5) Anemia Qualifiers: Anemia type: unspecified type Qualified Code(s): D64.9 - Anemia, unspecified
[2017-10-24] MEDS: amLODIPine 5 MG Tablet PO SCH (09:41)
[2017-10-24] MEDS: valACYclovir 500 MG Tab PO SCH ×2 (09:42→21:20)
[2017-10-24] MEDS: Sulfamethoxazole/Trimethoprim 400/80 MG Tablet PO SCH (09:45)
[2017-10-24] MEDS: Senna/Docusate Sodium 8.6/50 MG Tablet PO SCH ×2 (09:45→21:20)
[2017-10-24] MEDS: Gabapentin 300 MG Capsule PO SCH ×3 (09:45→19:06)
[2017-10-24] MEDS: Enoxaparin Inj 150 MG/ML Syringe SQ SCH (11:37)
[2017-10-25] MEDS: Enoxaparin Inj 150 MG/ML Syringe SQ SCH ×2 (00:16→11:47)
[2017-10-25] MEDS: Heparin Central Flush 100 UNIT/ML 5 ML Syringe IV.FLUSH SCH ×2 (03:49→09:08)
[2017-10-25 04:41] LABS: Baso # (Auto) 0.1 th/mm3 (0.0-0.2); Baso % (Auto) 0.6 % (0.0-2.0); Eos % (Auto) 0.4 % (0.0-4.0); Hemoglobin 9.2 gm/dL (11.6-15.3); Lymph # (Auto) 2.8 th/mm3 (1.0-4.8); Lymph % (Auto) 21.8 % (9.0-44.0); Mean Corpuscular HGB Conc 32.9 % (32.0-36.0); Mean Corpuscular Hemoglobin 31.1 pg (27.0-34.0); Mean Corpuscular Volume 94.6 fL (80.0-100.0); Mean Platelet Volume 7.3 fL (7.0-11.0); Mono # (Auto) 2.1 th/mm3 (0.0-0.9); Mono % (Auto) 16.3 % (0.0-8.0); Neut # (Auto) 7.9 th/mm3 (1.8-7.7); Neut % (Auto) 60.9 % (16.0-70.0); Platelet Count 243 th/mm3 (150-450); Red Blood Count 2.96 mil/mm3 (4.00-5.30); Red Cell Distribution Width 21.6 % (11.6-17.2); White Blood Count 12.9 th/mm3 (4.0-11.0)
[2017-10-25 05:03] LABS: Albumin 3.1 g/dL (3.4-5.0); Anion Gap 9 meq/L (5-15); Aspartate Aminotransferase 26 U/L (15-37); Blood Urea Nitrogen 5 mg/dL (7-18); Chloride 108 meq/L (98-107); Glomerular Filtration Rate Greater Than 89 mL/min (>89); Glucose,Random 102 mg/dL (74-106); Potassium 3.8 meq/L (3.5-5.1); Sodium 142 meq/L (136-145)
[2017-10-25 05:04] LABS: Alanine Aminotransferase 25 U/L (10-53)
[2017-10-25 05:07] LABS: Alkaline Phosphatase 62 U/L (45-117); Total Protein 6.4 g/dL (6.4-8.2)
[2017-10-25 05:58] LABS: Eosinophils 2 % (0-4); Lymphocytes 25 % (9-44); Metamyelocytes 4 % (0-1); Monocytes 6 % (0-8); Myelocytes 2 % (0-0); Platelet Estimate Normal (Normal); Platelet Morphology Normal (Normal); Tallied Nucleated RBC 27 (0-0)
[2017-10-25 06:00] LABS: Polychromasia 2.2 % (0.0-1.9)
[2017-10-25] MEDS: valACYclovir 500 MG Tab PO SCH (08:10)
[2017-10-25] MEDS: Gabapentin 300 MG Capsule PO SCH (08:10)
[2017-10-25] MEDS: Sulfamethoxazole/Trimethoprim 400/80 MG Tablet PO SCH (08:10)
[2017-10-25] MEDS: amLODIPine 5 MG Tablet PO SCH (08:10)
[2017-10-25] MEDS: Senna/Docusate Sodium 8.6/50 MG Tablet PO SCH (08:10)
--- NOTE | 2017-10-25 09:29 | P.DCO ---
- Home Health Nursing Order: Nursing assessment with vital signs, IV medication administration Instructions: Patient with PICC line in RUE who will need daily heparin flushes to maintain patency of line for one week. - Certification I have seen patient Tobias Wallace on 10/25/17. My clinical findings support the need for the requested home health care services because: Injectable medication education/administration I certify that my clinical findings support that this patient is homebound because: Unsafe to leave home unassisted
--- NOTE | 2017-10-25 09:40 | P.PNFP ---
Subjective Interval history: Patient was seen and examined this morning. She has no complaints and has been afebrile since 10/18. Neutropenia resolved. Patient denies fevers, chills, nausea, vomiting, chest pain, shortness of breath, fatigue, rash and is ambulatory. She is made aware of preliminary flow cytometry results and final pathology is pending from 10/21. She is aware of the importance of close follow- up after discharge Results - Labs Result diagrams: 10/25/17 03:45 10/25/17 03:45 Abnormal lab results 10/25/17 10/25/17 Range/Units 03:45 03:45 WBC 12.9 H (4.0-11.0) th/mm3 RBC 2.96 L (4.00-5.30) mil/mm3 Hgb 9.2 L (11.6-15.3) gm/dL Hct 28.0 L (35.0-46.0) % RDW 21.6 H (11.6-17.2) % Anderson % (Auto) 16.3 H (0.0-8.0) % Neut # (Auto) 7.9 H (1.8-7.7) th/mm3 Anderson # (Auto) 2.1 H (0.0-0.9) th/mm3 Band Neuts % (Manual) 20 H (0-6) % Metamyelocytes % (Man) 4 H (0-1) % Myelocytes % (Man) 2 H (0-0) % Abs Neuts (Manual) 8.6 H (1.8-7.7) th/mm3 Nucleated RBCs/100 WBC 27 H (0-0) /100 WBC Polychromasia 2.2 H (0.0-1.9) % Chloride 108 H (98-107) meq/L BUN 5 L (7-18) mg/dL Albumin 3.1 L (3.4-5.0) g/dL Short CBC 10/25/17 Range/Units 03:45 WBC 12.9 H (4.0-11.0) th/mm3 Hgb 9.2 L (11.6-15.3) gm/dL Hct 28.0 L (35.0-46.0) % Plt Count 243 (150-450) th/mm3 BMP 10/25/17 03:45 Sodium 142 Potassium 3.8 Chloride 108 H Carbon Dioxide 25.0 BUN 5 L Creatinine 0.65 Calcium 9.0 Liver Function 10/25/17 Range/Units 03:45 Total Bilirubin 0.4 (0.2-1.0) mg/dL AST 26 (15-37) U/L ALT 25 (10-53) U/L Alkaline Phosphatase 62 (45-117) U/L Albumin 3.1 L (3.4-5.0) g/dL Physical Exam Vital signs: Vital Signs 10/24/17 11:29 10/24/17 12:00 10/24/17 16:00 Temperature 97 F L 98.1 F Pulse Rate 79 89 Respiratory Rate 18 18 Blood Pressure 125/68 139/68 Pulse Oximetry 99 10/24/17 20:00 10/25/17 00:00 10/25/17 03:41 Temperature 98.1 F 98 F 97.9 F Pulse Rate 97 H 91 H 96 H Respiratory Rate 18 16 Blood Pressure 124/74 120/67 117/70 Pulse Oximetry 99 97 99 Intake & Output 10/24/17 10/25/17 10/25/17 18:59 06:59 18:59 Intake Total 702 / 702 240 / 240 Output Total 2 / 2 Balance 702 / 702 238 / 238 Weight 154.2 kg Intake: Oral 702 / 702 240 / 240 Output: Urine 2 / 2 Other: Date of Last Bowel Movement 10/24/17 - Constitutional no acute distress - Routine HEENT Exam Head: Present: normocephalic, atraumatic - Routine Neck Exam Present: supple, full ROM. Absent: JVD - Routine Respiratory Exam Present: CTA bilaterally. Absent: accessory muscle use, wheezes, crackles - Routine Cardiovascular Exam Present: tachycardia (mild). Absent: S1, S2 - Routine Abdominal Exam Present: soft, normoactive bowel sounds. Absent: guarding - Routine Extremities Exam Present: full ROM, pulses intact, vascular access (PICC right upper arm). Absent: cyanosis, edema - Routine Skin Exam Present: intact. Absent: cyanosis, erythema - Routine Neurological Exam Present: alert, oriented X3, CN II-XII intact, normal speech. 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 Bone marrow biopsy was performed 10/21 with preliminary results showing no evidence of neoplastic leukocytes, and patient was made aware of this today. -Discharge 10/25 to home. Oncology team has cleared patient for follow-up with Dr. Wilkerson next week. The patient is aware that final bone marrow biopsy results are still pending. -CT angiogram 10/10 negative for PE -PICC line placed 10/19/17 right chest, to maintain at discharge. She has order for home health nursing staff to flush the PICC daily given patient may need this access as early as next week for continued chemotherapy. Impression: 2-month history of B-Cell ALL; s/p treatment at [facility] with CALG; patient has been following up as outpatient 09/2017 with [facility]. s/p 4 -5 rounds of chemotherapy and w/ multiple intrathecal treatments Per Heme Onc documentation, had intrathecal chemotherapy 09/27, repeat BM biopsy showing no residual B cell ALL, and was last seen 10/03 when she received Cytarabine Patient no longer treated at [facility] due to insurance issues. Oncologist there was Dr. Malhotra. -Oncology consulted, appreciated recommendations -Bone marrow biopsy 10/21; results pending -Continue home PPX for immunosuppression -Continue Bactrim 80mg once daily ppx at home -Continue home fluconazole 200mg PO daily ppx -Continue home valacyclovir 500mg PO BID ppx -Per oncology notes they are awaiting follow-up with patient's previous oncology at [facility], for now will f/u as outpt with Dr. Wilkerson Pain control: Roxicodone 5mg PO q4h pain 6-10 while inpt. She states she is not due for a new pain medication script at discharge. -ANC improved, Neupogen discontinued (10/15/17-10/18/17) (2) Neutropenic fever Code(s): D70.9 - Neutropenia, unspecified; R50.81 - Fever presenting with conditions classified elsewhere Status: Resolved Plan: Fever resolved >48hr ago 10/25 labs showing WBC 12.9, H&H 9.2, platelets 243, improving Impression: Intermittent fevers during hospitalization; ANC 1 on admission. Initially on Neupogen ( 10/15/17-10/18/17) but subsequently discontinued with normal WBC's currently CXR negative UA negative Cultures: Blood- 10/12-negative final Urine- 10/12- final 10-50K CFUs/mixed GM+, probable contaminants Blood- 10/18- negative final Blood- 10/19- negative final Repeat CXR 10/19 negative for acute process. UA negative. -Heme/Onc consulted, appreciate recommendations - Cefepime completed: 2000 mg IV q8h (10/12-10/23) -If blood transfusion is needed, will transfuse leuko-reduced irradiated red blood products for hemoglobin less than 7 and for platelet count of less than 10 ,000 -Continue home Bactrim, Fluconazole, Acyclovir PPX upon discharge (3) Pulmonary embolism Code(s): I26.99 - Other pulmonary embolism without acute cor pulmonale Status : Acute Plan: Plan: Patient is asymptomatic. Continue Lovenox 150mg SQ q12h at discharge, f/u hematology as outpatient. Will give new script for Lovenox at discharge to continue. Impression: Patient reports history of pulmonary embolism 3 weeks ago at [facility]. Patient was started on heparin and transitioned to Lovenox. CTA on 09-19 from [facility] demonstrated bilateral PEs with right lobar, segmental, and subsegmental and left segmental and subsegmental pulmonary emboli involving all lobes of the lungs. No right heart strain. No sufficient change in degree of clot burden compared to CTA on 09-18-17. Normal caliber main pulmonary artery. Normal caliber thoracic. CTA on 10/20- negative for PE Echocardiogram -EF 60%, mild concentric left ventricular hypertrophy, pulmonary pressure 35mmHg (4) Bronchitis Code(s): J40 - Bronchitis, not specified as acute or chronic Status: Resolved Plan: Plan: Resolved. No respiratory complaints. Normal exam and saturations. Continue to monitor closely as outpt for new sx Impression: Recent productive cough productive of sputum. PMH childhood asthma. Current treatment for bilateral PE CXR negative for signs of PNA, pleural effusion CTA negative for PE. Suspect exacerbation of asthma due to being neutropenic. Patient had initial peak flow of 160 pretreatment on 10/11, peak flow increased to 320 post treatment on 10/12 -Continue PPX antibiotics, Cefepime completed 10/23 -Continue Duonebs PRN -Contine Tessalon Perles PRN -Monitor VS, O2 -wnl at this time -Spirometry when nonambulatory (5) Anemia Code(s): D64.9 - Anemia, unspecified Status: Chronic Plan: Plan: H&H on 10/24 is stable. In future, transfuse if Hgb <7.0 with leuko-reduced irradiated products. Impression: History of ALL with chemotherapy induced anemia suspected. On Lovenox due to history of PE. Will continue to monitor CBC closely given complicated history. H&H 9.06/22, platelets 243, improving <-- Hgb was 8.7 on 10/24 (6) Morbid obesity Code(s): E66.01 - Morbid (severe) obesity due to excess calories Status: Chronic Plan: Plan: Consider sleep study as outpt Impression: BMI 55 (7) HTN (hypertension) Code(s): I10 - Essential (primary) hypertension Status: Chronic Plan: Plan: Continue home dose of amlodipine 5mg daily. BP at goal Clonidine 0.1 mg p.o. 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 Continue home gabapentin 600mg PO TID - Plan Fluids/Electrolytes/Nutrition/Prophylaxis: Fluids: tolerating PO Electrolytes: monitor and replete as needed Nutrition: Regular diet DVT Prophylaxis: Early ambulation. Lovenox 150mg q12h (wt based) and ambulation , SCDs ordered but pt not wearing GI Prophylaxis: not indicated PRN anti-HTN: Clonidine 0.1mg PO PRN for SBP > 180/ and/or DBP > 100 Tylenol 650mg PO q6h if temp >100.4 (3) Pulmonary embolism Qualifiers: Pulmonary embolism type: other Chronicity: acute Acute cor pulmonale presence: without acute cor pulmonale Qualified Code(s): I26.99 - Other pulmonary embolism without acute cor pulmonale (5) Anemia Qualifiers: Anemia type: unspecified type Qualified Code(s): D64.9 - Anemia, unspecified
--- NOTE | 2017-10-25 09:43 | P.DCO ---
- Home Health Nursing Order: IV medication administration Instructions: Flush PICC in right chest once daily with heparin flush, to maintain patency. Duration of home health care = 7 days. - Certification I have seen patient Tboias Wallace on 10/25/17. My clinical findings support the need for the requested home health care services because: Injectable medication education/administration I certify that my clinical findings support that this patient is homebound because: Unsafe to leave home unassisted, Poor cardiac reserve
--- NOTE | 2017-10-25 10:13 | P.DS ---
Date of admission: 10/10/17 21:18 Primary care physician: Suni Solo MD, R3 at time of admission. At time of discharge will now be Danae Pike MD, R2 Attending physician on discharge: Manjinder Chavez Anticipated date of discharge: 10/25/17 Brief History from admission: Ms. 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 At that time she reported a one-week history of progressively worsening productive cough and exertional shortness of breath. She is noted to have been receiving chemotherapy at [facility] with supervising physician Dr. Malhotra and is status post at least 4-5 weeks of treatment. She is also been receiving Lovenox therapy as outpatient for previously diagnosed PE. At time of admission to our hospital she had been evaluated for cough in the outpatient setting with her PCP Dr. Suni Solo. Initial ED evaluation on 10/10 included chest x-ray which was unremarkable, CT pulmonary angiogram which showed no PE. However, lab work showed that she was severely neutropenic suspected secondary to chemotherapy. Oncology team was consulted at time of admission. 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 s/p treatment at [facility] with CALG; patient has been following up as outpatient 09/2017 with [facility]. s/p 4-5 rounds of chemotherapy and w/ multiple intrathecal treatments. Per Heme Onc documentation, had intrathecal chemotherapy 09/27, repeat BM biopsy 09/28 showing no residual B cell ALL, and was last seen 10/03 when she received Cytarabine. Patient no longer treated at [facility] due to insurance issues. Oncologist there was Dr. Malhotra. Patient also presented with history of asthma, hypertension, morbid obesity, and recent diagnosis of bilateral PE. She was admitted on 10/10 for evaluation of cough, shortness of breath, and neutropenic fever. During this hospitalization, oncology consulted due to neutropenic fever and hx of ALL: -Bone marrow biopsy 10/21; final results pending but preliminary flow cytometry showing no evidence of abnormal leukocytes -Bronchitis treated with Cefepime given immunosuppression: 2000 mg IV q8h (-10/23). Suspect asthma exacerbation at time of admission, resolved. -ANC improved and afebrile since 10/18/2017, Neupogen discontinued (course was 10/15/17-10/18/17) - Bone marrow biopsy was performed 10/21 with preliminary results showing no evidence of neoplastic leukocytes, and patient was made aware of this -October 25, 2017 labs showing WBC 12.9, H&H 9.2, platelets 243, improving - Continue home PPX for immunosuppression -Continue Bactrim 80mg once daily ppx -Continue home fluconazole 200mg PO daily ppx -Continue home valacyclovir 500mg PO BID ppx -CT angiogram 10/10 negative for PE -PICC line placed 10/19/17 right chest, to maintain at discharge. -No blood transfusions required this hospitalization. If she requires blood transfusion in the future, she requires leuko-reduced irradiated red blood products. Goal hemoglobin greater than 7. Goal platelet count of greater than 10,000 -She has order for home health nursing staff to flush the PICC daily given patient may need this access as early as next week for continued chemotherapy. -F/u as outpt with Dr. Wilkerson. Notably they are awaiting consultation with her physician at [facility] but they will f/u as outpt Pain control: Roxicodone 5mg PO q4h pain 6-10 PRN while inpt. She states she is not due for a new pain medication script at discharge. History of Pulmonary Embolism: Patient reports history of pulmonary embolism diagnosed 3 weeks prior to admission at [facility]. Patient was started on heparin and transitioned to Lovenox. CTA on 09-19-17 from [facility] demonstrated bilateral PEs with right lobar, segmental, and subsegmental and left segmental and subsegmental pulmonary emboli involving all lobes of the lungs. No right heart strain. No sufficient change in degree of clot burden compared to CTA on 09-18-17. Normal caliber main pulmonary artery. Normal caliber thoracic. CTA on 10/10- negative for PE Echocardiogram -EF 60%, mild concentric left ventricular hypertrophy, pulmonary pressure 35mmHg Continue Lovenox 150mg SQ q12h at discharge, f/u hematology as outpatient. Will give new script for Lovenox at discharge to continue. Chronic conditions: HTN treated with home dose amlodipine 5 mg daily with BP at goal this hospitalization. Chronic peripheral neuropathy related to chemotherapy treated with gabapentin 600 mg p.o. 3 times daily, continued at time of discharge. Studies noted this hospitalization: CXRs negative CTA 10/10 negative for PE UA negative Cultures: Blood- 10/12-negative final Urine- 10/12- final 10-50K CFUs/mixed GM+, probable contaminants Blood- 10/18- negative final Blood- 10/19- negative final Repeat CXR 10/19 negative for acute process. UA negative. Attending physician at time of discharge is Dr. Manjinder Chavez. - Time Spent with Patient Total time spent providing and/or coordinating discharge services: Exam Vital signs: Vital Signs 10/24/17 11:29 10/24/17 12:00 10/24/17 16:00 Temperature 97 F L 98.1 F Pulse Rate 79 89 Respiratory Rate 18 18 Blood Pressure 125/68 139/68 Pulse Oximetry 99 10/24/17 20:00 10/25/17 00:00 10/25/17 03:41 Temperature 98.1 F 98 F 97.9 F Pulse Rate 97 H 91 H 96 H Respiratory Rate 18 16 Blood Pressure 124/74 120/67 117/70 Pulse Oximetry 99 97 99 10/25/17 08:00 Temperature 98.2 F Pulse Rate 91 H Respiratory Rate 16 Blood Pressure Pulse Oximetry Intake & Output 10/24/17 10/25/17 10/25/17 18:59 06:59 18:59 Intake Total 702 / 702 240 / 240 Output Total 2 / 2 Balance 702 / 702 238 / 238 Weight 154.2 kg Intake: Oral 702 / 702 240 / 240 Output: Urine 2 / 2 Other: Date of Last Bowel Movement 10/24/17 10/24/17 Results Procedures completed during hospitalization: PICC placement right chest Labs on day of discharge: Labs from last 24 hours 10/25/17 10/25/17 03:45 03:45 WBC 12.9 H RBC 2.96 L Hgb 9.2 L Hct 28.0 L MCV 94.6 MCH 31.1 MCHC 32.9 RDW 21.6 H Plt Count 243 MPV 7.3 Prelim Diff (Auto) Slide review pending Neut % (Auto) 60.9 Lymph % (Auto) 21.8 Bay % (Auto) 16.3 H Eos % (Auto) 0.4 Baso % (Auto) 0.6 Neut # (Auto) 7.9 H Lymph # (Auto) 2.8 Bay # (Auto) 2.1 H Eos # (Auto) 0.0 Baso # (Auto) 0.1 WBC Differential Manual diff final Seg Neuts % (Manual) 41 Band Neuts % (Manual) 20 H Lymphocytes % (Manual) 25 Monocytes % (Manual) 6 Eosinophils % (Manual) 2 Metamyelocytes % (Man) 4 H Myelocytes % (Man) 2 H Abs Neuts (Manual) 8.6 H Nucleated RBCs/100 WBC 27 H Differential Comment . Platelet Estimate Normal Platelet Morphology Normal Polychromasia 2.2 H Sodium 142 Potassium 3.8 Chloride 108 H Carbon Dioxide 25.0 Anion Gap 9 BUN 5 L Creatinine 0.65 Estimated GFR Greater than 89 Random Glucose 102 Calcium 9.0 Total Bilirubin 0.4 AST 26 ALT 25 Alkaline Phosphatase 62 Total Protein 6.4 Albumin 3.1 L Discharge Plan - Discharge Disposition Patient Disposition: /Home Health Service - Discharge Condition Condition: Stable - Discharge Order Discharge Orders: Discharge Order (Routine); Ordered 10/25/17 Ordered By: Marian Billingsley - Discharge Details Anticipated Discharge Date: 10/25/17 - Physicians Team Primary Care Provider: Suni Solo Attending Provider: Manjinder Chavez Other Providers: Hannah Wilkerson - Rxs /Orders / Referrals /Forms Prescriptions: New benzonatate [Tessalon Perles] 100 mg Capsule 100 mg PO TID PRN (Reason: Cough) Qty: 60 RF: 0 fluconazole 200 mg Tablet 200 mg PO DAILY Qty: 30 RF: 0 Continue amlodipine [Norvasc] 5 mg Tablet 5 mg PO DAILY 30 Days Qty: 30 enoxaparin 150 mg/mL Syringe 150 mg SUB-Q DAILY Qty: 30 RF: 1 gabapentin 600 mg Tablet 600 mg PO TID 30 Days Qty: 90 prochlorperazine maleate 10 mg Tablet 10 mg PO Q8HR PRN (Reason: Nausea) Qty: 90 sulfamethoxazole-trimethoprim 400-80 mg Tablet 1 tab PO DAILY 30 Days Qty: 30 valacyclovir 500 mg Tablet 500 mg PO BID Qty: 60 Discontinued fluconazole 200 mg Tablet 200 mg PO DAILY Referrals: Danae Pike MD, R1 [FAMILY MEDICINE] - See Instructions (Please call our office at [phone] to schedule follow-up appointment within [address] Danae Pike, Dr. Marian Billingsley, or other available provider for your hospital follow-up.) Paulette Wilkerson [Physical Therapist] - See Instructions (Please call Dr. Wilkerson's office to schedule follow-up appointment within 1 week. Phone number is listed above.) [facility], [AGENCY] - See Instructions Suni Solo MD, R3 [Primary Care Provider] - See Instructions - Discharge Instructions Additional Instructions: Home health care will be provided by [facility] [place] [phone] - Post Discharge Care Plan Care Plan Goals: Your Health Problems: Fever, shortness of breath, history of leukemia, history of pulmonary embolism Goals to Promote Your Health: * To prevent worsening of your condition, please maintain follow-ups as scheduled * To maintain your health at the optimal level, please take all medications as prescribed Directions to Meet Your Goals: * Take your medications as prescribed * Follow your dietary instruction * Follow activity as directed * Keep your appointments as scheduled * Take your immunizations and boosters as scheduled * If your symptoms worsen call your PCP * If no PCP go to Urgent Care or Emergency Room Smoking is dangerous to your health. Avoid second hand smoke. You may reach the 24-hour crisis hotline for domestic abuse at .
== END 2017-10-25 13:30 | disposition home health service (06) ==
LOC: HCIN 21:18
PROVIDERS: ADMIT Family Medicine; ATTEND Family Medicine

== ENCOUNTER 2017-11-28 09:43 | Inpatient (IN) ==
[2017-11-28] MEDS: Sod Chloride 0.9% Inj 1,000 ML IV.CONT SCH ×2 (11:51→23:48)
--- NOTE | 2017-11-28 16:14 | CT ---
EXAM DATE: 11/28/2017 4:12 PM EDT AGE/SEX: 27 years / Female INDICATIONS: Cephalgia. CLINICAL DATA: This is the patient's initial encounter. Patient reports that signs and symptoms have been present for 1 day and indicates a pain score of 4/10. MEDICAL/SURGICAL HISTORY: None. Cholecystectomy. RADIATION DOSE: 43.22 CTDI (mGy) COMPARISON: No prior exams available for comparison. TECHNIQUE: CT of the head without contrast. Using automated exposure control and adjustment of the mA and/or kV according to patient size, radiation dose was kept as low as reasonably achievable to ob tain optimal diagnostic quality images. DICOM format image data is available electronically for revi ew and comparison. FINDINGS: Cerebrum: The ventricles are normal for age. No evidence of midline shift, mass lesion, hemorrhage or acute infarction. No extraaxial fluid collections are seen. Posterior Fossa: The cerebellum and brainstem are intact. The 4th ventricle is midline. The cerebe llopontine angle is unremarkable. Extracranial: The visualized portion of the orbits is intact. Skull: The calvaria is intact. No evidence of skull fracture. CONCLUSION: 1. Unremarkable CT brain. . Electronically signed by: Santos Servin MD 11/28/2017 4:13 PM EDT
--- NOTE | 2017-11-28 18:58 | MB ---
cc: Hannah Wilkerson MD DATE: 11/28/2017 CHIEF COMPLAINT: 1. B-cell ALL. 2. Intractable nausea and vomiting. 3. Headache. 4. Failure to thrive. HISTORY OF PRESENT ILLNESS: Ms. 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 She was previously admitted to the hospital at [facility] on 08/26/2017 and was initiated on the [id number] treatment protocol. She was recently started on consolidation phase 2 with cyclophosphamide 1000 mg/m2 day IV on day 1 and day 29, cytarabine 75 mg/m2 IV on day 1 through 4, 8 through 11, 29 through 32 and 36 through 39, 6-mercaptopurine 60 mg/m2 orally on days 1 through 14 and 29 through 42, intrathecal methotrexate on days 1, 8, 15 and 22 and vincristine given 1.5 mg/m2 IV on days 15, 22, 43 and 50 and PEG-asparaginase IV on day 15 and day 43. Since she had her lumbar puncture, she has been having headache, intractable nausea and vomiting and failure to thrive. LABORATORY STUDIES: Drawn today, revealed white blood cell count 3.9, hemoglobin 11.2 and platelet count of 359,000. Chemistry studies with slight elevation of the AST and ALT at 39 and 81 respectively, total bilirubin is 1.0. IMAGING: CT scan of the head was negative for any acute process. PAST MEDICAL HISTORY: 1. Precursor B-cell acute lymphoblastic leukemia. 2. Venous thromboembolism. 3. Hypertension. 4. Morbid obesity. PAST SURGICAL HISTORY: Cholecystectomy in 2007. ALLERGIES: NO KNOWN DRUG ALLERGIES. HOME MEDICATIONS: Amlodipine, Bactrim, fluconazole, gabapentin, Lovenox, Valtrex. FAMILY HISTORY: No family history of leukemia. SOCIAL HISTORY: She is . She has 1 child. She has a good support system with her family. REVIEW OF SYSTEMS: As above in the HPI. All other review of systems negative. PHYSICAL EXAMINATION: GENERAL: Well-developed, well-nourished lady, in no distress, sitting comfortably in bedside chair. HEENT: Head normocephalic, atraumatic. Eyes, PERRLA, EOMI. Oropharynx clear. NECK: Supple. No palpable lymphadenopathy. RESPIRATORY: Clear to auscultation bilaterally. CARDIOVASCULAR: Regular rate and rhythm. No murmurs. HEMATOLOGIC: There is no bruising. ABDOMEN: Soft, nontender, nondistended. Bowel sounds present. EXTREMITIES: With no edema. NEUROLOGIC: Grossly nonfocal. PSYCHIATRIC: Appropriate mood and affect. ASSESSMENT AND PLAN: 1. PRECURSOR B PRE-B-CELL ACUTE LYMPHOBLASTIC LEUKEMIA: Currently status post induction therapy, with remission on [id number] and entering consolidation phase 2. She has high risk cytogenetics and will plan for transplant under the direction of Dr. Malhotra in the [facility] team. [facility] is currently working her siblings up to discover an eligible donor. Once clinical symptoms improve, we will initiate on schedule cytarabine while inpatient tomorrow and we will also start patient on 6-mercaptopurine. 2. PULMONARY EMBOLISM: Holding Lovenox injections at this time due to planned intrathecal procedures. 3. HYPERTENSION: We will continue amlodipine. 4. INFECTIOUS DISEASE: We will continue Bactrim, Diflucan and Valtrex. 5. HEMATOLOGIC: No need for transfusion currently, but if she does need transfusion, she will need leukoreduced and irradiated blood products. 6. HEADACHE, FAILURE TO THRIVE, LIKELY DUE TO LUMBAR PUNCTURE: We will administer blood patch tomorrow under the direction of Anesthesia. MD JASVIR Bhandari/HUNTER , 06:08 PM , 06:19 PM IFEANYI
[2017-11-28] MEDS ORDERED: Temazepam 15 MG Capsule PO PRN (21:00)
[2017-11-29 05:24] LABS: Baso % (Auto) 0.5 % (0.0-2.0); Eos # (Auto) 0.2 th/mm3 (0.0-0.4); Eos % (Auto) 4.5 % (0.0-4.0); Hematocrit 29.1 % (35.0-46.0); Hemoglobin 9.7 gm/dL (11.6-15.3); Lymph # (Auto) 0.7 th/mm3 (1.0-4.8); Mean Corpuscular HGB Conc 33.3 % (32.0-36.0); Mean Corpuscular Hemoglobin 28.9 pg (27.0-34.0); Mean Platelet Volume 7.7 fL (7.0-11.0); Mono # (Auto) 0.1 th/mm3 (0.0-0.9); Mono % (Auto) 3.9 % (0.0-8.0); Neut # (Auto) 2.5 th/mm3 (1.8-7.7); Neut % (Auto) 70.1 % (16.0-70.0); Platelet Count 261 th/mm3 (150-450); Red Blood Count 3.34 mil/mm3 (4.00-5.30); Red Cell Distribution Width 18.4 % (11.6-17.2); White Blood Count 3.5 th/mm3 (4.0-11.0)
[2017-11-29 05:46] LABS: Anion Gap 8 meq/L (5-15); Blood Urea Nitrogen 10 mg/dL (7-18); Calcium 8.6 mg/dL (8.5-10.1); Carbon Dioxide 26.6 meq/L (21.0-32.0); Chloride 106 meq/L (98-107); Glomerular Filtration Rate Greater Than 89 mL/min (>89); Glucose,Random 96 mg/dL (74-106); Potassium 3.8 meq/L (3.5-5.1); Sodium 141 meq/L (136-145)
[2017-11-29] MEDS: amLODIPine 10 MG Tablet PO SCH (08:00)
[2017-11-29] MEDS: valACYclovir 500 MG Tab PO SCH (08:00)
[2017-11-29] MEDS: Gabapentin 300 MG Capsule PO SCH ×3 (08:00→17:59)
[2017-11-29] MEDS: Sulfamethoxazole/Trimethoprim 400/80 MG Tablet PO SCH (08:00)
--- NOTE | 2017-11-29 09:40 | P.PNONC ---
Subjective Interval history: Sitting comfortably in bedside chair. Reports that headache has greatly improved. She is no longer having nausea. Objective Vital Signs/Intake & Output: Vital Signs 11/28/17 10:20 11/28/17 12:00 11/28/17 15:47 Temperature 98.8 F 97.6 F Pulse Rate 94 H 86 70 Respiratory Rate 20 18 Blood Pressure 148/98 H 114/75 Pulse Oximetry 97 97 11/28/17 20:00 11/28/17 20:25 11/29/17 00:00 Temperature 99.2 F 98.8 F Pulse Rate 82 97 H Respiratory Rate 17 16 17 Blood Pressure 129/83 143/85 H Pulse Oximetry 99 99 11/29/17 00:11 11/29/17 04:00 11/29/17 04:51 Temperature 98.2 F Pulse Rate 92 H 68 87 Respiratory Rate 17 Blood Pressure 130/71 Pulse Oximetry 98 11/29/17 07:20 11/29/17 07:38 11/29/17 07:54 Temperature 98.2 F Pulse Rate 83 84 Respiratory Rate 18 20 Blood Pressure 152/89 H Pulse Oximetry Intake & Output 11/28/17 11/29/17 11/29/17 18:59 06:59 18:59 Intake Total 240 / 240 1240 / 1240 Output Total 300 / 300 Balance 240 / 240 940 / 940 Weight 149.3 kg 151.2 kg Intake: IV 1000 / 1000 NS Inj 1,000 ML @ 84 mls/hr IV. 1000 / 1000 CONT .[id number] [facility] Rx#:[id number] Oral 240 / 240 240 / 240 Output: Urine 300 / 300 Other: # Voids 3 Date of Last Bowel Movement 11/25/17 11/25/17 Weight On Admission 152.407 kg Result Diagrams: 11/29/17 04:20 11/29/17 04:20 Laboratory Results: Laboratory Results - last 24 hr 11/29/17 11/29/17 04:20 04:20 WBC 3.5 L RBC 3.34 L Hgb 9.7 L Hct 29.1 L MCV 87.0 MCH 28.9 MCHC 33.3 RDW 18.4 H Plt Count 261 MPV 7.7 Neut % (Auto) 70.1 H Lymph % (Auto) 21.0 [place]borne % (Auto) 3.9 Eos % (Auto) 4.5 H Baso % (Auto) 0.5 Neut # (Auto) 2.5 Lymph # (Auto) 0.7 L [place]borne # (Auto) 0.1 Eos # (Auto) 0.2 Baso # (Auto) 0.0 WBC Differential . Differential Comment Auto diff final Sodium 141 Potassium 3.8 Chloride 106 Carbon Dioxide 26.6 Anion Gap 8 BUN 10 Creatinine 0.63 Estimated GFR Greater than 89 Random Glucose 96 Calcium 8.6 Imaging Studies: Impressions Head CT 11/28/17 00:00 CONCLUSION: 1. Unremarkable CT brain. . Medications: Active Medications Generic Name Dose Route Start Last Admin Trade Name Freq PRN Reason Stop Dose Admin Amlodipine Besylate 10 mg 11/29/17 09:00 11/29/17 08:00 Norvasc PO 10 mg DAILY SHELLEY Administration Fluconazole 200 mg 11/29/17 09:00 11/29/17 08:00 Diflucan PO 200 mg DAILY SHELLEY Administration Gabapentin 600 mg 11/29/17 09:00 11/29/17 08:00 Neurontin PO 600 mg TID SHELLEY Administration Sodium Chloride 1,000 mls @ 84 mls/hr 11/28/17 11:30 11/28/17 23:48 Ns Inj IV.CONT 84 mls/hr .[id number] SHELLEY Administration Ondansetron HCl 4 mg 11/28/17 10:33 11/28/17 19:19 Zofran Inj IV.PUSH 4 mg Q6H PRN Administration NAUSEA Oxycodone/Acetaminophen 1 tab 11/28/17 12:00 11/28/17 19:19 Percocet 7.5/325 Mg PO 1 tab Q4H PRN Administration Pain Scale 3 To 10 Trimethoprim/Sulfamethoxazole 1 tab 11/29/17 09:00 11/29/17 08:00 Bactrim PO 1 tab DAILY SHELLEY Administration Valacyclovir HCl 500 mg 11/29/17 09:00 11/29/17 08:00 Valtrex PO 500 mg DAILY SHELLEY Administration Objective Remarks: GENERAL: Well-nourished, well-developed patient. SKIN: Warm and dry. HEAD: Normocephalic. EYES: No scleral icterus. No injection or drainage. NECK: Supple, trachea midline. No JVD or lymphadenopathy. LYMPHATIC: No adenopathy. CARDIOVASCULAR: Regular rate and rhythm without murmurs. RESPIRATORY: Breath sounds equal bilaterally. No accessory muscle use. GASTROINTESTINAL: Abdomen soft, non-tender, nondistended. EXTREMITIES: No cyanosis, or edema. MUSCULOSKELETAL: Adequate muscle tone. NEUROLOGICAL: No obvious focal deficit. Awake, alert, and oriented x3. PSYCHIATRIC: Appropriate mood and affect; insight and judgment normal. Assessment/Plan - Plan 1. PRECURSOR B PRE-B-CELL ACUTE LYMPHOBLASTIC LEUKEMIA: with high risk features. s/p induction chemotherapy and now receiving consolidation phase II per CALGB 01472 protocol. She undergoing work up for transplant under the direction of the [facility] team. Will plan to move forward with IT MTX, cytarabine and 6-MP. 2. PULMONARY EMBOLISM: Holding Lovenox injections at this time due to planned intrathecal procedures. 3. HYPERTENSION: We will continue amlodipine. 4. INFECTIOUS DISEASE: We will continue Bactrim, Diflucan and Valtrex. 5. HEMATOLOGIC: No need for transfusion currently, but if she does need transfusion, she will need leukoreduced and irradiated blood products. 6. HEADACHE, FAILURE TO THRIVE: resolved.
[2017-11-29] MEDS: Sod Chloride 0.9% Inj 1,000 ML IV.CONT SCH (12:17)
[2017-11-29] MEDS ORDERED: METHOTREXATE IT ONE ×2 (15:00)
[2017-11-29] MEDS ORDERED: SODIUM CHLOR 0.9% IT ONE ×2 (15:00)
--- NOTE | 2017-11-29 16:21 | P.RAD ---
Post Procedure Progress Note - Pre Procedure Diagnosis (1) B-cell acute lymphoblastic leukemia (ALL) - Post Procedure Diagnosis (1) B-cell acute lymphoblastic leukemia (ALL) - Procedure Information Procedure Date: 11/29/17 Supervising Radiologist: Helio Lester Jr, MD Estimated blood loss (mL): 0 Anesthesia: Local - Plan of Activity Patient to Unit: Nursing Unit Patient Condition: Good See PACS Report for procedural detail/treatment. Spinal Procedure Lumbar Puncture L3-L4 Fluid Description: Clear Puncture Time: 16:09 Findings: Clear CSF noted. CSF sampling not requested 15 mg of Methotrexate administered intrathecally.
[2017-11-29] MEDS: Granisetron 1 MG/ML Vial IV.PUSH SCH (16:39)
[2017-11-29] MEDS: Dexamethasone Inj 12 MG in Sodium Chlor 0.9% Inj 50 ML IV.SIG SCH (16:39)
--- NOTE | 2017-11-29 16:54 | IR ---
EXAM DATE: 11/29/2017 4:33 PM EDT AGE/SEX: 27 years / Female INDICATIONS: Patient presents with leukemia in need of lumbar puncture for chemo treatment. CLINICAL DATA: This is the patient's subsequent encounter. Patient reports that signs and symptoms h ave been present for 3 months and indicates a pain score of 0/10. MEDICAL/SURGICAL HISTORY: Leukemia. Hypertension. Obesity, Migraines, Neutropenia Cholecystec jermaine. Bone marrow biopsy COMPARISON: [facility], LUMBAR PUNCTURE W CHEMO, 11/21/2017. . FLUORO TIME (min): 0.9 IMAGE SERIES: 1 ACCESS SITE: L3-4 LUMBAR PUNCTURE TIME: 16:09 hours MEDICATION(S): 5cc lidocaine . . PROCEDURE: 1. Fluoroscopic guided lumbar puncture. 2. Instillation of chemotherapy. The risks, benefits and alternatives to the procedure were explained and verbal and written consent w as obtained. The site was prepped in sterile fashion. Full sterile technique was used, including ca p, mask, sterile gloves and gown and a large sterile sheet. Hand hygiene and 2% chlorhexidine and/or betadine/alcohol prep was utilized per protocol for cutaneous antisepsis. The skin and subcutaneous tissues were infiltrated with local anesthetic solution. With fluoroscopic guidance the lumbar thecal sac was punctured at the L3-L4 level. A 22-gauge spinal needle was utilized. Clear CSF was noted. Sampling was not requested. The prescribed 15 mg of methotr exate was injected. The patient tolerated the procedure well and there were no complications. CONCLUSION: 1. Uncomplicated fluoroscopically guided lumbar puncture for chemotherapy injection. Electronically signed by: Helio Lester MD 11/29/2017 4:52 PM EDT
[2017-11-29] MEDS: CYTARABINE IV.SIG SCH (17:58)
[2017-11-29] MEDS: SODIUM CHLOR 0.9% IV.SIG SCH (17:58)
[2017-11-29] MEDS: Heparin Central Flush 100 UNIT/ML 5 ML Vial IV.FLUSH PRN (20:17)
[2017-11-30] MEDS: Sod Chloride 0.9% Inj 1,000 ML IV.CONT SCH ×2 (03:45→15:58)
[2017-11-30 05:44] LABS: Baso % (Auto) 0.1 % (0.0-2.0); Eos % (Auto) 0.1 % (0.0-4.0); Hematocrit 28.2 % (35.0-46.0); Hemoglobin 9.6 gm/dL (11.6-15.3); Lymph # (Auto) 0.2 th/mm3 (1.0-4.8); Lymph % (Auto) 4.2 % (9.0-44.0); Mean Corpuscular Hemoglobin 29.9 pg (27.0-34.0); Mean Corpuscular Volume 87.8 fL (80.0-100.0); Mean Platelet Volume 7.9 fL (7.0-11.0); Mono # (Auto) 0.1 th/mm3 (0.0-0.9); Mono % (Auto) 1.4 % (0.0-8.0); Neut # (Auto) 3.9 th/mm3 (1.8-7.7); Neut % (Auto) 94.2 % (16.0-70.0); Platelet Count 232 th/mm3 (150-450); Red Blood Count 3.21 mil/mm3 (4.00-5.30); Red Cell Distribution Width 18.2 % (11.6-17.2); White Blood Count 4.1 th/mm3 (4.0-11.0)
[2017-11-30 06:19] LABS: Alanine Aminotransferase 69 U/L (10-53); Alkaline Phosphatase 60 U/L (45-117); Anion Gap 8 meq/L (5-15); Aspartate Aminotransferase 19 U/L (15-37); Blood Urea Nitrogen 9 mg/dL (7-18); Calcium 8.4 mg/dL (8.5-10.1); Carbon Dioxide 24.3 meq/L (21.0-32.0); Chloride 108 meq/L (98-107); Glomerular Filtration Rate Greater Than 89 mL/min (>89); Glucose,Random 170 mg/dL (74-106); Potassium 4.3 meq/L (3.5-5.1); Sodium 140 meq/L (136-145); Total Protein 6.1 g/dL (6.4-8.2)
[2017-11-30] MEDS: Heparin Central Flush 100 UNIT/ML 5 ML Vial IV.FLUSH SCH (09:06)
[2017-11-30] MEDS: Gabapentin 300 MG Capsule PO SCH ×3 (09:06→17:33)
[2017-11-30] MEDS: amLODIPine 10 MG Tablet PO SCH (09:07)
[2017-11-30] MEDS: Sulfamethoxazole/Trimethoprim 400/80 MG Tablet PO SCH (09:07)
[2017-11-30] MEDS: valACYclovir 500 MG Tab PO SCH (09:07)
--- NOTE | 2017-11-30 11:07 | P.PNONC ---
Subjective Interval history: Afebrile. Patient sitting in chair, no complaints at this time. She denies headache, N/V/D, or pain at the LP site Objective Vital Signs/Intake & Output: Vital Signs 11/29/17 12:00 11/29/17 16:18 11/29/17 16:37 Temperature 97.9 F Pulse Rate 81 72 72 Respiratory Rate 18 Blood Pressure 134/64 Pulse Oximetry 100 11/29/17 20:00 11/30/17 00:00 11/30/17 04:00 Temperature 97.5 F L 98.9 F 98.3 F Pulse Rate 91 H 93 H 89 Respiratory Rate 16 16 16 Blood Pressure 133/83 137/87 116/66 Pulse Oximetry 100 99 97 11/30/17 08:00 Temperature 98.2 F Pulse Rate 104 H Respiratory Rate 20 Blood Pressure 148/76 H Pulse Oximetry 99 Intake & Output 11/29/17 11/30/17 11/30/17 18:59 06:59 18:59 Intake Total 1053 / 1053 2240 / 2240 Output Total 800 / 800 Balance 1053 / 1053 1440 / 1440 Weight 152.3 kg Intake: IV 1053 / 1053 1260 / 1260 NS Inj 1,000 ML @ 84 mls/hr IV. 1000 / 1000 1000 / 1000 CONT .[id number] SHELLEY Rx#:[id number] Claudette-C Inj 185 MG In NS Inj 250 260 / 260 ML @ 259.25 mls/hr IV.SIG Q24H SHELLEY Rx#:[id number] Decadron Inj 12 MG In NS Inj 50 53 / 53 ML @ 159 mls/hr IV.SIG Q24H SHELLEY Rx#:[id number] Oral 980 / 980 Output: Urine 800 / 800 Other: # Voids 4 Date of Last Bowel Movement 11/25/17 11/25/17 11/30/17 Result Diagrams: 11/30/17 03:30 11/30/17 03:30 Laboratory Results: Laboratory Results - last 24 hr 11/30/17 11/30/17 03:30 03:30 WBC 4.1 RBC 3.21 L Hgb 9.6 L Hct 28.2 L MCV 87.8 MCH 29.9 MCHC 34.0 RDW 18.2 H Plt Count 232 MPV 7.9 Neut % (Auto) 94.2 H Lymph % (Auto) 4.2 L [place] % (Auto) 1.4 Eos % (Auto) 0.1 Baso % (Auto) 0.1 Neut # (Auto) 3.9 Lymph # (Auto) 0.2 L [place] # (Auto) 0.1 Eos # (Auto) 0.0 Baso # (Auto) 0.0 WBC Differential . Differential Comment Auto diff final Sodium 140 Potassium 4.3 Chloride 108 H Carbon Dioxide 24.3 Anion Gap 8 BUN 9 Creatinine 0.77 Estimated GFR Greater than 89 Random Glucose 170 H Calcium 8.4 L Total Bilirubin 0.3 AST 19 ALT 69 H Alkaline Phosphatase 60 Total Protein 6.1 L D Albumin 3.0 L D Imaging Studies: Impressions Lumbar Puncture 11/29/17 00:00 CONCLUSION: 1. Uncomplicated fluoroscopically guided lumbar puncture for chemotherapy injection. Medications: Active Medications Generic Name Dose Route Start Last Admin Trade Name Freq PRN Reason Stop Dose Admin Amlodipine Besylate 10 mg 11/29/17 09:00 11/30/17 09:07 Norvasc PO 10 mg DAILY SHELLEY Administration Fluconazole 200 mg 11/29/17 09:00 11/30/17 09:07 Diflucan PO 200 mg DAILY SHELLEY Administration Gabapentin 600 mg 11/29/17 09:00 11/30/17 09:06 Neurontin PO 600 mg TID SHELLEY Administration Granisetron HCl 1 mg 11/29/17 15:30 11/29/17 16:39 Kytril Inj IV.PUSH 11/30/17 15:31 1 mg Q24H SHELLEY Administration Heparin Sodium (Porcine) 0 unit 11/30/17 09:00 11/30/17 09:06 Heparin Central Flush IV.FLUSH 500 unit DAILY SHELLEY Administration Heparin Sodium (Porcine) 0 unit 11/29/17 20:11 11/29/17 20:17 Heparin Central Flush IV.FLUSH 200 unit PRN PRN Administration Flush PICC Line Sodium Chloride 1,000 mls @ 84 mls/hr 11/28/17 11:30 11/30/17 03:45 Ns Inj IV.CONT 84 mls/hr .[id number] SHELLEY Administration Cytarabine 185 mg/ Sodium 259.25 mls @ 259.25 mls/hr 11/29/17 16:00 11/29/17 19:40 Chloride IV.SIG 08/08/18 16:59 Infused Q24H SHELLEY Infusion Dexamethasone Sodium Phosphate 53 mls @ 159 mls/hr 11/29/17 15:30 11/29/17 17 :10 12 mg/ Sodium Chloride IV.SIG 11/30/17 15:49 Infused Q24H SHELLEY Infusion Mercaptopurine 150 mg 11/29/17 09:45 11/30/17 09:08 Purinethol PO 150 mg DAILY SHELLEY Administration Ondansetron HCl 4 mg 11/28/17 10:33 11/28/17 19:19 Zofran Inj IV.PUSH 4 mg Q6H PRN Administration NAUSEA Oxycodone/Acetaminophen 1 tab 11/28/17 12:00 11/28/17 19:19 Percocet 7.5/325 Mg PO 1 tab Q4H PRN Administration Pain Scale 3 To 10 Sodium Chloride 0 ml 11/30/17 09:00 11/30/17 09:08 Ns Flush IV.FLUSH 10 ml DAILY SHELLEY Administration Trimethoprim/Sulfamethoxazole 1 tab 11/29/17 09:00 11/30/17 09:07 Bactrim PO 1 tab DAILY SHELLEY Administration Valacyclovir HCl 500 mg 11/29/17 09:00 11/30/17 09:07 Valtrex PO 500 mg DAILY SHELLEY Administration Objective Remarks: GENERAL: Well-nourished, well-developed young female patient. In no acute distress. SKIN: Warm and dry. Clean/dry Band-Aid to medial lower back. HEAD: Normocephalic. EYES: No scleral icterus. No injection or drainage. PERRLA. NECK: Supple, trachea midline. CARDIOVASCULAR: Regular rate and rhythm without murmurs. RESPIRATORY: Breath sounds distant, secondary to large body habitus, equal bilaterally. Non- labored. GASTROINTESTINAL: Abdomen large, soft, non-tender, nondistended. EXTREMITIES: No cyanosis, or edema. MUSCULOSKELETAL: Adequate muscle tone. NEUROLOGICAL: No obvious focal deficit. Awake, alert, and oriented x3. PSYCHIATRIC: Appropriate mood and affect; insight and judgment normal. 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 s/p induction chemotherapy and now receiving consolidation phase II per CALGB 16336 protocol. She undergoing work up for transplant under the direction of the [facility] team. This hospitalization plan to treat with IT MTX, cytarabine and 6-MP. Plan: 1. Pre-B-cell acute lymphoblastic leukemia. Patient underwent LP with intrathecal methotrexate yesterday. Patient tolerated well, denies headache or any other associated symptoms. Pending transfusion of cytarabine today. 2. Pulmonary embolism. Lovenox injections held for intrathecal procedure. 3. Hypertension. We will continue amlodipine. 4. Continue Bactrim, Diflucan and Valtrex. 5. H&H stable. no need for transfusion currently. If transfusion becomes warranted, the patient will need leukoreduced and irradiated blood products. 6. Headache. Now resolved. Continue to monitor. - Attending Statement The exam, history, and the medical decision-making described in the above note were completed with the assistance of the mid-level provider. I reviewed and agree with the findings presented. I attest that I had a [id number] encounter with the patient on the same day, and personally performed and documented my assessment and findings in the medical record. Resting comfortably in bed in no distress. s/p cytarabine on and Tuesday. Will plan for cytarabine tomorrow and discharge home after administration of cytarabine. Will restart Lovenox injections tomorrow morning. Continue 6-MP.
[2017-11-30] MEDS: Dexamethasone Inj 12 MG in Sodium Chlor 0.9% Inj 50 ML IV.SIG SCH (15:58)
[2017-11-30] MEDS: Granisetron 1 MG/ML Vial IV.PUSH SCH (15:59)
[2017-11-30] MEDS: SODIUM CHLOR 0.9% IV.SIG SCH (16:22)
[2017-11-30] MEDS: CYTARABINE IV.SIG SCH (16:22)
[2017-12-01] MEDS: Sod Chloride 0.9% Inj 1,000 ML IV.CONT SCH (02:59)
[2017-12-01 04:28] LABS: Hematocrit 29.2 % (35.0-46.0); Hemoglobin 9.5 gm/dL (11.6-15.3); Lymph # (Auto) 0.2 th/mm3 (1.0-4.8); Lymph % (Auto) 3.7 % (9.0-44.0); Mean Corpuscular HGB Conc 32.4 % (32.0-36.0); Mean Corpuscular Hemoglobin 29.3 pg (27.0-34.0); Mean Corpuscular Volume 90.2 fL (80.0-100.0); Mono # (Auto) 0.2 th/mm3 (0.0-0.9); Mono % (Auto) 2.4 % (0.0-8.0); Neut # (Auto) 6.3 th/mm3 (1.8-7.7); Neut % (Auto) 93.9 % (16.0-70.0); Platelet Count 212 th/mm3 (150-450); Red Blood Count 3.23 mil/mm3 (4.00-5.30); Red Cell Distribution Width 18.2 % (11.6-17.2); White Blood Count 6.7 th/mm3 (4.0-11.0)
[2017-12-01 04:46] VITALS: RESP 16
[2017-12-01 04:48] LABS: Alanine Aminotransferase 52 U/L (10-53); Albumin 3.3 g/dL (3.4-5.0); Anion Gap 8 meq/L (5-15); Aspartate Aminotransferase 7 U/L (15-37); Blood Urea Nitrogen 9 mg/dL (7-18); Calcium 8.2 mg/dL (8.5-10.1); Carbon Dioxide 23.1 meq/L (21.0-32.0); Chloride 109 meq/L (98-107); Glomerular Filtration Rate Greater Than 89 mL/min (>89); Glucose,Random 146 mg/dL (74-106); Potassium 4.1 meq/L (3.5-5.1); Sodium 140 meq/L (136-145)
[2017-12-01 04:50] LABS: Alkaline Phosphatase 58 U/L (45-117); Total Protein 6.3 g/dL (6.4-8.2)
[2017-12-01] MEDS: Gabapentin 300 MG Capsule PO SCH ×3 (08:52→18:07)
[2017-12-01] MEDS: Sulfamethoxazole/Trimethoprim 400/80 MG Tablet PO SCH (08:52)
[2017-12-01] MEDS: valACYclovir 500 MG Tab PO SCH (08:52)
[2017-12-01] MEDS: amLODIPine 10 MG Tablet PO SCH (08:53)
[2017-12-01] MEDS: Heparin Central Flush 100 UNIT/ML 5 ML Vial IV.FLUSH SCH (08:54)
--- NOTE | 2017-12-01 09:00 | P.PNONC ---
Subjective Interval history: Afebrile. The patient sitting up in chair, RN at bedside. The patient has no complaints at this time she is excited to be up to go home after her chemotherapy today. Objective Vital Signs/Intake & Output: Vital Signs 11/30/17 12:00 11/30/17 16:00 11/30/17 20:00 Temperature 98.9 F 98.8 F 97.1 F L Pulse Rate 97 H 91 H 83 Respiratory Rate 18 20 16 Blood Pressure 155/86 H 150/79 H 146/90 H Pulse Oximetry 99 99 99 12/01/17 00:00 12/01/17 04:00 Temperature 98.3 F 98 F Pulse Rate 92 H 77 Respiratory Rate 15 16 Blood Pressure 128/71 142/87 H Pulse Oximetry 98 98 Intake & Output 11/30/17 12/01/17 12/01/17 18:59 06:59 18:59 Intake Total 1321 / 1321 1720 / 1720 Output Total 3200 / 3200 Balance 1321 / 1321 -1480 / -1480 Weight 152.4 kg Intake: IV 1321 / 1321 1000 / 1000 NS Inj 1,000 ML @ 84 mls/hr IV. 1000 / 1000 1000 / 1000 CONT .[id number] [facility] Rx#:[id number] Claudette-C Inj 185 MG In NS Inj 250 268 / 268 ML @ 259.25 mls/hr IV.SIG Q24H SHELLEY Rx#:[id number] Decadron Inj 12 MG In NS Inj 50 53 / 53 ML @ 159 mls/hr IV.SIG Q24H SHELLEY Rx#:[id number] Oral 720 / 720 Output: Urine 3200 / 3200 Other: Date of Last Bowel Movement 11/30/17 11/30/17 Result Diagrams: 12/01/17 03:00 12/01/17 03:00 Laboratory Results: Laboratory Results - last 24 hr 12/01/17 12/01/17 03:00 03:00 WBC 6.7 D RBC 3.23 L Hgb 9.5 L Hct 29.2 L MCV 90.2 MCH 29.3 MCHC 32.4 RDW 18.2 H Plt Count 212 MPV 8.0 Neut % (Auto) 93.9 H Lymph % (Auto) 3.7 L [place] % (Auto) 2.4 Eos % (Auto) 0.0 Baso % (Auto) 0.0 Neut # (Auto) 6.3 Lymph # (Auto) 0.2 L [place] # (Auto) 0.2 Eos # (Auto) 0.0 Baso # (Auto) 0.0 WBC Differential . Differential Comment Auto diff final Sodium 140 Potassium 4.1 Chloride 109 H Carbon Dioxide 23.1 Anion Gap 8 BUN 9 Creatinine 0.64 Estimated GFR Greater than 89 Random Glucose 146 H Calcium 8.2 L Total Bilirubin 0.4 AST 7 L ALT 52 Alkaline Phosphatase 58 Total Protein 6.3 L Albumin 3.3 L Medications: Active Medications Generic Name Dose Route Start Last Admin Trade Name Freq PRN Reason Stop Dose Admin Amlodipine Besylate 10 mg 11/29/17 09:00 11/30/17 09:07 Norvasc PO 10 mg DAILY SHELLEY Administration Fluconazole 200 mg 11/29/17 09:00 11/30/17 09:07 Diflucan PO 200 mg DAILY SHELLEY Administration Gabapentin 600 mg 11/29/17 09:00 11/30/17 17:33 Neurontin PO 600 mg TID SHELLEY Administration Heparin Sodium (Porcine) 0 unit 11/30/17 09:00 11/30/17 09:06 Heparin Central Flush IV.FLUSH 500 unit DAILY SHELLEY Administration Heparin Sodium (Porcine) 0 unit 11/29/17 20:11 11/29/17 20:17 Heparin Central Flush IV.FLUSH 200 unit PRN PRN Administration Flush PICC Line Sodium Chloride 1,000 mls @ 84 mls/hr 11/28/17 11:30 12/01/17 02:59 Ns Inj IV.CONT 84 mls/hr .[id number] SHELLEY Administration Mercaptopurine 150 mg 11/29/17 09:45 11/30/17 09:08 Purinethol PO 150 mg DAILY SHELLEY Administration Ondansetron HCl 4 mg 11/28/17 10:33 11/28/17 19:19 Zofran Inj IV.PUSH 4 mg Q6H PRN Administration NAUSEA Oxycodone/Acetaminophen 1 tab 11/28/17 12:00 11/28/17 19:19 Percocet 7.5/325 Mg PO 1 tab Q4H PRN Administration Pain Scale 3 To 10 Sodium Chloride 0 ml 11/30/17 09:00 11/30/17 09:08 Ns Flush IV.FLUSH 10 ml DAILY SHELLEY Administration Trimethoprim/Sulfamethoxazole 1 tab 11/29/17 09:00 11/30/17 09:07 Bactrim PO 1 tab DAILY SHELLEY Administration Valacyclovir HCl 500 mg 11/29/17 09:00 11/30/17 09:07 Valtrex PO 500 mg DAILY SHELLEY Administration Objective Remarks: GENERAL: Well-nourished, well-developed young female patient. In no acute distress. SKIN: Warm and dry. HEAD: Normocephalic. EYES: No scleral icterus. No injection or drainage. PERRLA. NECK: Supple, trachea midline. CARDIOVASCULAR: Regular rate and rhythm without murmurs. RESPIRATORY: Breath sounds distant, secondary to large body habitus, equal bilaterally. Non-labored. GASTROINTESTINAL: Abdomen large, soft, non-tender, nondistended. EXTREMITIES: No cyanosis, or edema. MUSCULOSKELETAL: Adequate muscle tone. NEUROLOGICAL: No obvious focal deficit. Awake, alert, and oriented x3. PSYCHIATRIC: Appropriate mood and affect; insight and judgment normal. 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 s/p induction chemotherapy and now receiving consolidation phase II per CALGB 84028 protocol. She undergoing work up for transplant under the direction of the [facility] team. This hospitalization plan to treat with IT MTX, cytarabine and 6-MP. Plan: 1. Pre-B-cell acute lymphoblastic leukemia. Patient underwent LP with intrathecal methotrexate on 11/29/2017. Patient tolerated well, denies headache or any other associated symptoms. Status post cytarabine yesterday. Pending cytarabine infusion today. 2. Pulmonary embolism. Lovenox injections resumed. 3. Hypertension. We will continue amlodipine. 4. H&H stable. no need for transfusion currently. If transfusion becomes warranted, the patient will need leukoreduced and irradiated blood products. 5. After chemotherapy infusion today, the patient will be discharged home. She will follow-up in the [facility] tomorrow for her scheduled third dose of cytarabine. - Attending Statement The exam, history, and the medical decision-making described in the above note were completed with the assistance of the mid-level provider. I reviewed and agree with the findings presented. I attest that I had a [id number] encounter with the patient on the same day, and personally performed and documented my assessment and findings in the medical record. 27 yoF with precursor B cell ALL current undergoing phase II consolidation per CALGB 30432. Discharge today after chemotherapy. Will receive cytarabine tomorrow in clinic.
[2017-12-01] MEDS ORDERED: Enoxaparin Inj 150 MG/ML Syringe SQ SCH ×2 (09:15→11:00)
--- NOTE | 2017-12-01 09:29 | P.DS ---
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 s/p induction chemotherapy and now receiving consolidation phase II per CALGB 21176 protocol. She undergoing work up for transplant under the direction of the [facility] team. This hospitalization treated with IT MTX, cytarabine and 6-MP. 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 s/p induction chemotherapy and now receiving consolidation phase II per CALGB 03940 protocol. She undergoing work up for transplant under the direction of the [facility] team. This hospitalization she was treated with IT MTX, cytarabine and 6-MP. The patient tolerated well. Denies headache or any other toxicity symptoms. She will receive another dose of cytarabine today and then be discharged home. She has an already scheduled appointment for her third dose of cytarabine tomorrow at the [facility]. - Time Spent with Patient Total time spent providing and/or coordinating discharge services: Greater than 30 minutes - Quality: VTE Deep Vein Thrombosis/Pulmonary Embolism Present on Admission: No Exam Vital signs: Vital Signs 11/30/17 12:00 11/30/17 16:00 11/30/17 20:00 Temperature 98.9 F 98.8 F 97.1 F L Pulse Rate 97 H 91 H 83 Respiratory Rate 18 20 16 Blood Pressure 155/86 H 150/79 H 146/90 H Pulse Oximetry 99 99 99 12/01/17 00:00 12/01/17 04:00 Temperature 98.3 F 98 F Pulse Rate 92 H 77 Respiratory Rate 15 16 Blood Pressure 128/71 142/87 H Pulse Oximetry 98 98 Intake & Output 11/30/17 12/01/17 12/01/17 18:59 06:59 18:59 Intake Total 1321 / 1321 1720 / 1720 Output Total 3200 / 3200 Balance 1321 / 1321 -1480 / -1480 Weight 152.4 kg Intake: IV 1321 / 1321 1000 / 1000 NS Inj 1,000 ML @ 84 mls/hr IV. 1000 / 1000 1000 / 1000 CONT .[id number] SHELLEY Rx#:[id number] Claudette-C Inj 185 MG In NS Inj 250 268 / 268 ML @ 259.25 mls/hr IV.SIG Q24H SHELLEY Rx#:[id number] Decadron Inj 12 MG In NS Inj 50 53 / 53 ML @ 159 mls/hr IV.SIG Q24H SHELLEY Rx#:[id number] Oral 720 / 720 Output: Urine 3200 / 3200 Other: Date of Last Bowel Movement 11/30/17 11/30/17 Narrative: See exam under progress note dated 12/01/2017. Results Procedures completed during hospitalization: Intrathecal methotrexate on 11/29/2017. Patient tolerated well denies headache. Neurologically intact. Labs on day of discharge: Labs from last 24 hours 12/01/17 12/01/17 03:00 03:00 WBC 6.7 D RBC 3.23 L Hgb 9.5 L Hct 29.2 L MCV 90.2 MCH 29.3 MCHC 32.4 RDW 18.2 H Plt Count 212 MPV 8.0 Neut % (Auto) 93.9 H Lymph % (Auto) 3.7 L [place] % (Auto) 2.4 Eos % (Auto) 0.0 Baso % (Auto) 0.0 Neut # (Auto) 6.3 Lymph # (Auto) 0.2 L [place] # (Auto) 0.2 Eos # (Auto) 0.0 Baso # (Auto) 0.0 WBC Differential . Differential Comment Auto diff final Sodium 140 Potassium 4.1 Chloride 109 H Carbon Dioxide 23.1 Anion Gap 8 BUN 9 Creatinine 0.64 Estimated GFR Greater than 89 Random Glucose 146 H Calcium 8.2 L Total Bilirubin 0.4 AST 7 L ALT 52 Alkaline Phosphatase 58 Total Protein 6.3 L Albumin 3.3 L - Impressions ITS Impressions Head CT 11/28/17 00:00 CONCLUSION: 1. Unremarkable CT brain. . Lumbar Puncture 11/29/17 00:00 CONCLUSION: 1. Uncomplicated fluoroscopically guided lumbar puncture for chemotherapy injection. Discharge Plan - Discharge Disposition Patient Disposition: 01 Discharge Home - Discharge Condition Condition: Stable - Discharge Order Discharge Orders: Discharge Order (Routine); Ordered 12/01/17 Ordered By: Pearl Colón - Discharge Details Anticipated Discharge Date: 12/01/17 Discharge Comment: Patient may be discharged after her chemotherapy today is complete. - Physicians Team Primary Care Provider: Danae Pike Attending Provider: Hannah Wilkerson Other Providers: [employer],Insurance - Rxs /Orders / Referrals /Forms Prescriptions: New mercaptopurine 50 mg Tablet 150 mg PO DAILY RF: 0 Continue amlodipine [Norvasc] 5 mg Tablet 5 mg PO DAILY enoxaparin 150 mg/mL Syringe 150 mg SUB-Q DAILY fluconazole 200 mg Tablet 200 mg PO DAILY gabapentin 600 mg Tablet 600 mg PO TID hydrocodone-acetaminophen [[place]] 5-325 mg tablet 1 tab PO Q6H PRN (Reason: pain) Qty: 12 RF: 0 potassium chloride 40 mEq/15 mL liquid 53.32 meq PO ONCE Qty: 20 RF: 0 prochlorperazine maleate 10 mg Tablet 10 mg PO Q8HR PRN (Reason: Nausea) prochlorperazine [Compazine] 25 mg suppository 25 mg RECTAL Q12H PRN (Reason: nausea and vomiting) Qty: 12 RF: 0 sulfamethoxazole-trimethoprim 400-80 mg Tablet 80 mg PO DAILY valacyclovir 500 mg Tablet 500 mg PO BID Discontinued prochlorperazine maleate [Compazine] 10 mg tablet 10 mg PO Q6H PRN (Reason: nausea and vomiting) Qty: 14 RF: 0 Referrals: Danae Pike MD, R2 [Primary Care Provider] - See Instructions
[2017-12-01] MEDS ORDERED: DEXAMETHASONE IV.SIG ONE ×2 (15:30)
[2017-12-01] MEDS ORDERED: SODIUM CHLOR 0.9% IV.SIG ONE ×3 (15:30→16:00)
[2017-12-01] MEDS ORDERED: GRANISETRON IV.SIG ONE ×2 (15:30)
[2017-12-01] MEDS ORDERED: Dexamethasone Inj 12 MG in Sodium Chlor 0.9% Inj 50 ML IV.SIG ONE (15:30)
[2017-12-01] MEDS ORDERED: CYTARABINE IV.SIG ONE (16:00)
[2017-12-01] MEDS ORDERED: Granisetron 1 MG/ML Vial IV.PUSH ONE (17:00)
[2017-12-01 17:14] VITALS: BP 137/80; PULSE 76; TEMP 98.5; O2SAT 99
[2017-12-01] MEDS: Heparin Central Flush 100 UNIT/ML 5 ML Vial IV.FLUSH PRN (19:58)
== END 2017-12-01 20:10 | disposition home or self-care (01) ==
LOC: HCIN 10:18
PROVIDERS: ADMIT Internal Medicine; ATTEND Internal Medicine

== ENCOUNTER 2017-12-13 16:09 | Observation (INO) ==
--- NOTE | 2017-12-13 20:53 | MB ---
cc: Hannah Wilkerson MD DATE: 12/13/2017 CHIEF COMPLAINT: 1. Failure to thrive. 2. ALL. 3. Shortness of breath. HISTORY OF PRESENT ILLNESS: Ms. Wallace is a 27-year-old lady with a history of pre-B-cell ALL with high-risk cytogenetics initially diagnosed in August 2017 and she is currently being treated per the CALGB-55817 protocol. She most recently received vincristine today. She is currently being treated with Lovenox for a pulmonary embolism with anticoagulation. She presented to clinic today for her next cycle of chemotherapy which was administered. She has had significant headache, nausea, vomiting, failure to thrive, fatigue, shortness of breath, dizziness at home. REVIEW OF SYSTEMS: As above in the HPI. PAST MEDICAL HISTORY: 1. B-cell ALL. 2. VTE. 3. Hypertension. 4. Migraine headaches. PAST SURGICAL HISTORY: Cholecystectomy in 2007. ALLERGIES: NO KNOWN DRUG ALLERGIES. MEDICATIONS: 1. Amlodipine. 2. Bactrim. 3. Fluconazole. 4. Gabapentin. 5. Lovenox. 6. Valtrex. FAMILY HISTORY: No family history of malignancy. SOCIAL HISTORY: The patient has a good support system with her . She denies tobacco, alcohol or illegal drug use. PHYSICAL EXAMINATION: GENERAL: Overweight lady in no distress. HEAD: Normocephalic, atraumatic. EYES: PERRLA. EOMI. NECK: Supple with no lymphadenopathy. HEART: Regular rate and rhythm. RESPIRATORY: Clear to auscultation bilaterally. ABDOMEN: Soft, nontender, nondistended. Bowel sounds present. EXTREMITIES: No edema. NEUROLOGIC: Grossly nonfocal. ASSESSMENT AND PLAN: 1. Precursor B-cell acute lymphocytic leukemia, currently day 22 of therapy with consolidation phase 2. She is currently being worked up for a transplant by the [facility] team. 2. Pulmonary embolism. Continue with Lovenox injections. 3. Hypertension. Continue amlodipine. 4. Continue Bactrim, Diflucan, Valtrex prophylaxis. 5. Nausea and vomiting. We will admit to the hospital. We will give intravenous fluids and will give intravenous antiemetics. 6. Headache, possibly secondary to lumbar puncture. We will consider a blood patch. We will give intravenous fluids and see if overall symptoms improves. 7. Shortness of breath. We will check a repeat CT scan of the chest, abdomen and pelvis. MD Marie Bhandari , 08:29 PM , 08:34 PM [email or web address]
[2017-12-13] MEDS: Enoxaparin Inj 150 MG/ML Syringe SQ SCH (22:27)
[2017-12-14] MEDS: Sod Chloride 0.9% Inj 1,000 ML IV.SIG SCH ×3 (04:35→16:51)
[2017-12-14 05:49] LABS: Hematocrit 26.9 % (35.0-46.0); Hemoglobin 8.7 gm/dL (11.6-15.3); Mean Corpuscular HGB Conc 32.4 % (32.0-36.0); Mean Corpuscular Hemoglobin 28.6 pg (27.0-34.0); Mean Corpuscular Volume 88.3 fL (80.0-100.0); Mean Platelet Volume 7.8 fL (7.0-11.0); Platelet Count 320 th/mm3 (150-450); Red Blood Count 3.04 mil/mm3 (4.00-5.30); Red Cell Distribution Width 19.3 % (11.6-17.2); White Blood Count 0.6 th/mm3 (4.0-11.0)
[2017-12-14 06:18] LABS: Alanine Aminotransferase 22 U/L (10-53); Albumin 2.8 g/dL (3.4-5.0); Anion Gap 9 meq/L (5-15); Aspartate Aminotransferase 11 U/L (15-37); Blood Urea Nitrogen 12 mg/dL (7-18); Calcium 8.2 mg/dL (8.5-10.1); Carbon Dioxide 22.4 meq/L (21.0-32.0); Chloride 107 meq/L (98-107); Glomerular Filtration Rate Greater Than 89 mL/min (>89); Glucose,Random 95 mg/dL (74-106); Sodium 138 meq/L (136-145)
[2017-12-14 06:20] LABS: Alkaline Phosphatase 66 U/L (45-117); Total Protein 5.3 g/dL (6.4-8.2)
[2017-12-14 07:48] LABS: Lymphocytes 96 % (9-44)
[2017-12-14 07:49] LABS: Ovalocytes 1+; Platelet Estimate Normal (Normal); Platelet Morphology Normal (Normal); Tear Drop Cells 1+
[2017-12-14] MEDS ORDERED: Diatrizoate Meglum/Diatrizoate Sod Liq 9 ML UDC PO SCH (08:45)
[2017-12-14] MEDS: Enoxaparin Inj 150 MG/ML Syringe SQ SCH ×2 (08:58→22:39)
[2017-12-14] MEDS: Gabapentin 300 MG Capsule PO SCH ×3 (08:59→17:00)
[2017-12-14] MEDS: amLODIPine 10 MG Tablet PO SCH (08:59)
[2017-12-14] MEDS: Sulfamethoxazole/Trimethoprim 400/80 MG Tablet PO SCH (08:59)
[2017-12-14] MEDS: valACYclovir 500 MG Tab PO SCH (08:59)
--- NOTE | 2017-12-14 10:14 | P.PNONC ---
Subjective Interval history: Afebrile. Neutropenic precautions in place. Patient reports continuous headache 1 week. Currently "not that bad a 5 out of 10", complains of upper abdominal pain, worse after eating or drinking. Described as a tightening, gnawing pain. Associated nausea. CT abdomen & chest pending. Objective Vital Signs/Intake & Output: Vital Signs 12/13/17 20:00 12/14/17 00:00 12/14/17 04:00 Temperature 98.7 F 98.3 F 98.2 F Pulse Rate 100 H 104 H 95 H Respiratory Rate 16 16 16 Blood Pressure 141/75 H 123/67 130/67 Pulse Oximetry 99 99 98 Intake & Output 12/13/17 12/14/17 12/14/17 18:59 06:59 18:59 Output Total 200 / 200 Balance -200 / -200 Weight 151.6 kg Output: Urine 200 / 200 Other: Date of Last Bowel Movement 12/06/17 Weight On Admission 151.6 kg Result Diagrams: 12/14/17 04:20 12/14/17 04:20 Laboratory Results: Laboratory Results - last 24 hr 12/14/17 12/14/17 04:20 04:20 WBC 0.6 L RBC 3.04 L Hgb 8.7 L Hct 26.9 L MCV 88.3 MCH 28.6 MCHC 32.4 RDW 19.3 H Plt Count 320 MPV 7.8 Prelim Diff (Auto) Manual diff required WBC Differential Manual diff final Seg Neuts % (Manual) 4 L Lymphocytes % (Manual) 96 H Abs Neuts (Manual) 0.0 L* Differential Comment . Platelet Estimate Normal Platelet Morphology Normal Tear Drop Cells 1+ H Ovalocytes 1+ H Sodium 138 Potassium 4.0 Chloride 107 Carbon Dioxide 22.4 Anion Gap 9 BUN 12 Creatinine 0.64 Estimated GFR Greater than 89 Random Glucose 95 Calcium 8.2 L Total Bilirubin 0.7 AST 11 L ALT 22 Alkaline Phosphatase 66 Total Protein 5.3 L Albumin 2.8 L Medications: Active Medications Generic Name Dose Route Start Last Admin Trade Name Freq PRN Reason Stop Dose Admin Amlodipine Besylate 10 mg 12/14/17 09:00 12/14/17 08:59 Norvasc PO 10 mg DAILY SHELLEY Administration Enoxaparin Sodium 150 mg 12/13/17 21:00 12/14/17 08:58 Lovenox Inj SQ 150 mg Q12HR SHELLEY Administration Fluconazole 200 mg 12/14/17 09:00 12/14/17 08:59 Diflucan PO 200 mg DAILY SHELLEY Administration Gabapentin 600 mg 12/14/17 09:00 12/14/17 08:59 Neurontin PO 600 mg TID SHELLEY Administration Sodium Chloride 1,000 mls @ 75 mls/hr 12/14/17 02:00 12/14/17 04:35 Ns Inj IV.SIG 75 mls/hr .[id number] SHELLEY Administration Oxycodone HCl 5 mg 12/13/17 22:41 12/13/17 23:01 Roxicodone PO 5 mg Q4H PRN Administration PAIN 1-10 AND/OR FEVER >101F Trimethoprim/Sulfamethoxazole 1 tab 12/14/17 09:00 12/14/17 08:59 Bactrim PO 1 tab DAILY SHELLEY Administration Valacyclovir HCl 500 mg 12/14/17 09:00 12/14/17 08:59 Valtrex PO 500 mg DAILY SHELLEY Administration Objective Remarks: GENERAL: Well-nourished, well-developed young female patient, in no acute distress. SKIN: Warm and dry. HEAD: Normocephalic. EYES: No scleral icterus. No injection or drainage. PERRLA NECK: Supple, trachea midline. CARDIOVASCULAR: Regular rate and rhythm without murmurs. RESPIRATORY: Posterior breath sounds clear, equal bilaterally. No accessory muscle use. GASTROINTESTINAL: Abdomen soft, non-tender, nondistended. EXTREMITIES: No cyanosis, or edema. MUSCULOSKELETAL: Adequate muscle tone. NEUROLOGICAL: No obvious focal deficit. Awake, alert, and oriented x3. PSYCHIATRIC: Appropriate mood and affect; insight and judgment normal. 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 She is currently being treated per [facility]-59401 protocol. She received vincristine as an outpatient yesterday on 12/13/17. She was admitted for headache, nausea, vomiting , failure to thrive, fatigue, shortness of breath and dizziness at home. Plan: 1. Abdominal pain, pending CT abdomen/pelvis. 2. Headache, status post lumbar puncture on Tuesday. Neurologically intact. We will continue to monitor and hydrate, patient may need blood patch if headache does not improve. 3. History of pulmonary embolism with anticoagulation. Continue Lovenox injections. 4. Neutropenic, continue neutropenic precautions. - Attending Statement The exam, history, and the medical decision-making described in the above note were completed with the assistance of the mid-level provider. I reviewed and agree with the findings presented. I attest that I had a [id number] encounter with the patient on the same day, and personally performed and documented my assessment and findings in the medical record. 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 She is currently being treated per [facility] 60706 with phase II consolidation. She is day 23 today. Admitted for failure to thrive, shortness of breath, abdominal pain. CT CAP unrevaling. Continue supportive care.
--- NOTE | 2017-12-14 14:45 | CT ---
EXAM DATE: 12/14/2017 2:06 PM EDT AGE/SEX: 27 years / Female INDICATIONS: Shortness of breath. CLINICAL DATA: This is the patient's initial encounter. Patient reports that signs and symptoms have been present for 2 days and indicates a pain score of 0/10. MEDICAL/SURGICAL HISTORY: Leukemia. Hypertension. Pulmonary embolism. Cholecystectomy. RADIATION DOSE: 22.22 CTDI (mGy) ; Combined studies COMPARISON: [facility] [place], CT PULMONARY ANGIOGRAM, 10/10/2017. . TECHNIQUE: Multiple contiguous axial images were obtained through the chest during bolus infusion of 70 ml Omnipaque 350 (iohexol) nonionic water-soluble contrast as a cumulative dose for multiple exa ms. Images were obtained in suspended respiration using multiple row detector helical technique. U sing automated exposure control and adjustment of the mA and/or kV according to patient size, radiati on dose was kept as low as reasonably achievable to obtain optimal diagnostic quality images. DICOM format image data is available electronically for review and comparison. FINDINGS: Lungs: The lungs are symmetrically aerated. No infiltrates or nodular densities are seen. Mediastinum: There is good visualization of the great vessels of the middle mediastinum. No evidenc e of mediastinal or hilar adenopathy/mass. Pleurae: No evidence of focal thickening or pleural effusion. Axillae: Unremarkable. Bony Structures: Unremarkable. Miscellaneous: The examination was extended to include the upper abdomen, and both adrenal glands ar e normal in size and configuration. CONCLUSION: 1. Negative for an acute process: Electronically signed by: Valeriy Pickard MD 12/14/2017 2:43 PM EDT
--- NOTE | 2017-12-14 14:49 | CT ---
EXAM DATE: 12/14/2017 2:02 PM EDT AGE/SEX: 27 years / Female INDICATIONS: Abdominal pain, nausea and vomiting. CLINICAL DATA: This is the patient's initial encounter. Patient reports that signs and symptoms have been present for 2 days and indicates a pain score of 5/10. MEDICAL/SURGICAL HISTORY: Leukemia. Hypertension. Pulmonary embolism. Cholecystectomy. ORAL CONTRAST: Partial prescribed oral contrast ingested. RADIATION DOSE: 22.22 CTDI (mGy) ; Combined studies COMPARISON: No prior exams available for comparison. TECHNIQUE: Multiple contiguous axial images were obtained through the abdomen and pelvis following b olus infusion of 70 ml Omnipaque 350 (iohexol) nonionic water-soluble contrast as a cumulative dose for multiple exams. Partial prescribed oral contrast ingested. Using automated exposure control and adjustment of the mA and/or kV according to patient size, radiation dose was kept as low as reasonab ly achievable to obtain optimal diagnostic quality images. DICOM format image data is available elec tronically for review and comparison. FINDINGS: Lower chest: Please refer to chest CT report for description of the supradiaphragmatic findings. Hepatobiliary: Liver is enlarged measuring greater than 21 cm in length. Densities suggest steatosis. No liver lesion is identified. Gallbladder is absent with clips in the fossa. There is no significan t bile duct dilatation. Kidneys: No hydronephrosis, stone, or mass. Adrenal Glands: Within normal limits. Spleen: Within normal limits. Pancreas: Within normal limits. Vascular: The aorta is nonaneurysmal. Bowel/Mesentery: The stomach and small bowel demonstrate no abnormality. No acute colon abnormality i s seen. There is no free intraperitoneal air or fluid. A small hiatal hernia is present. Abdominal Wall: No hernia is visualized. There is subcutaneous stranding on the anterior abdominal wa ll bilaterally likely related to subcutaneous injections. Retroperitoneum: No lymphadenopathy. Bladder: No wall thickening or mass. Reproductive: Within normal limits. Inguinal: No lymphadenopathy or hernia. Musculoskeletal: No acute osseous abnormality is identified. There is degenerative disc disease at L5 -S1. CONCLUSION: 1. No abnormality is identified to explain the clinical symptoms. No acute finding is seen. 2. Nonacute findings include hepatomegaly with steatosis and small hiatal hernia. Electronically signed by: John Ortiz MD 12/14/2017 2:47 PM EDT
[2017-12-15] MEDS: Sod Chloride 0.9% Inj 1,000 ML IV.SIG SCH ×2 (04:17→17:42)
[2017-12-15 05:20] LABS: Hematocrit 25.2 % (35.0-46.0); Hemoglobin 8.4 gm/dL (11.6-15.3); Mean Corpuscular HGB Conc 33.3 % (32.0-36.0); Mean Platelet Volume 7.4 fL (7.0-11.0); Platelet Count 397 th/mm3 (150-450); Red Blood Count 2.89 mil/mm3 (4.00-5.30); Red Cell Distribution Width 19.7 % (11.6-17.2); White Blood Count 0.5 th/mm3 (4.0-11.0)
[2017-12-15 05:50] LABS: Albumin 2.6 g/dL (3.4-5.0); Anion Gap 10 meq/L (5-15); Aspartate Aminotransferase 14 U/L (15-37); Blood Urea Nitrogen 8 mg/dL (7-18); Calcium 7.6 mg/dL (8.5-10.1); Chloride 109 meq/L (98-107); Glomerular Filtration Rate Greater Than 89 mL/min (>89); Glucose,Random 83 mg/dL (74-106); Potassium 3.5 meq/L (3.5-5.1); Sodium 142 meq/L (136-145)
[2017-12-15 05:52] LABS: Alanine Aminotransferase 20 U/L (10-53)
[2017-12-15 05:55] LABS: Alkaline Phosphatase 64 U/L (45-117); Total Protein 4.8 g/dL (6.4-8.2)
[2017-12-15 08:14] LABS: Lymphocytes 80 % (9-44); Monocytes 12 % (0-8); Ovalocytes 1+; Platelet Estimate Normal (Normal); Platelet Morphology Normal (Normal); Tear Drop Cells 1+
[2017-12-15] MEDS: Gabapentin 300 MG Capsule PO SCH ×3 (08:34→17:00)
[2017-12-15] MEDS: valACYclovir 500 MG Tab PO SCH (08:34)
[2017-12-15] MEDS: amLODIPine 10 MG Tablet PO SCH (08:35)
[2017-12-15] MEDS: Sulfamethoxazole/Trimethoprim 400/80 MG Tablet PO SCH (08:35)
[2017-12-15] MEDS: Enoxaparin Inj 150 MG/ML Syringe SQ SCH ×2 (08:35→20:40)
[2017-12-15] MEDS: Acetaminophen 325 MG Tablet PO PRN (11:24)
--- NOTE | 2017-12-15 15:13 | P.PNONC ---
Subjective Interval history: Afebrile Patient resting in bed, reports that her abdominal pain is the same States it is epigastric. It gets worse after eating or drinking with a feeling of fullness States her last bowel movement was Tuesday last week Headache waxes and wanes; she reports that she had this headache prior to her spinal on Tuesday and is overall unchanged. Denies chills, cough or burning with urination. Objective Vital Signs/Intake & Output: Vital Signs 12/14/17 20:00 12/15/17 00:00 12/15/17 04:00 Temperature 99.3 F 99.0 F 98.7 F Pulse Rate 100 H 102 H 98 H Respiratory Rate 18 16 16 Blood Pressure 130/78 126/76 128/72 Pulse Oximetry 99 99 98 12/15/17 08:00 12/15/17 12:00 Temperature 98.3 F 98.5 F Pulse Rate 102 H 104 H Respiratory Rate 18 18 Blood Pressure 121/70 131/62 Pulse Oximetry 100 100 Intake & Output 12/14/17 12/15/17 12/15/17 18:59 06:59 18:59 Intake Total 1580 / 1580 1000 / 1000 Output Total 4 / 4 800 / 800 Balance 1576 / 1576 200 / 200 Weight 333 lb 12.478 oz Intake: IV 1000 / 1000 1000 / 1000 NS Inj 1,000 ML @ 75 mls/hr IV. 1000 / 1000 1000 / 1000 SIG .[id number] [facility] Rx#:[id number] Oral 580 / 580 Output: Urine 4 / 4 800 / 800 Other: Date of Last Bowel Movement 12/06/17 12/06/17 12/06/17 Result Diagrams: 12/15/17 04:20 12/15/17 04:20 Laboratory Results: Laboratory Results - last 24 hr 12/15/17 12/15/17 04:20 04:20 WBC 0.5 L RBC 2.89 L Hgb 8.4 L Hct 25.2 L MCV 87.0 MCH 29.0 MCHC 33.3 RDW 19.7 H Plt Count 397 MPV 7.4 Prelim Diff (Auto) Manual diff required WBC Differential Manual diff final Seg Neuts % (Manual) 8 L Lymphocytes % (Manual) 80 H Monocytes % (Manual) 12 H Abs Neuts (Manual) 0.0 L* Differential Comment . Platelet Estimate Normal Platelet Morphology Normal Tear Drop Cells 1+ H Ovalocytes 1+ H Sodium 142 Potassium 3.5 Chloride 109 H Carbon Dioxide 23.0 Anion Gap 10 BUN 8 Creatinine 0.58 Estimated GFR Greater than 89 Random Glucose 83 Calcium 7.6 L Total Bilirubin 0.5 AST 14 L ALT 20 Alkaline Phosphatase 64 Total Protein 4.8 L Albumin 2.6 L Medications: Active Medications Generic Name Dose Route Start Last Admin Trade Name Freq PRN Reason Stop Dose Admin Acetaminophen 650 mg 12/15/17 10:50 12/15/17 11:24 Tylenol PO 650 mg BID PRN Administration PAIN SCALE 1-10 Amlodipine Besylate 10 mg 12/14/17 09:00 12/15/17 08:35 Norvasc PO 10 mg DAILY SHELLEY Administration Enoxaparin Sodium 150 mg 12/13/17 21:00 12/15/17 08:35 Lovenox Inj SQ 150 mg Q12HR SHELLEY Administration Fluconazole 200 mg 12/14/17 09:00 12/15/17 08:34 Diflucan PO 200 mg DAILY SHELLEY Administration Gabapentin 600 mg 12/14/17 09:00 12/15/17 12:56 Neurontin PO 600 mg TID SHELLEY Administration Sodium Chloride 1,000 mls @ 75 mls/hr 12/14/17 02:00 12/15/17 04:17 Ns Inj IV.SIG 75 mls/hr .[id number] SHELLEY Administration Ondansetron HCl 4 mg 12/13/17 20:19 12/14/17 14:57 Zofran Inj IV.PUSH 4 mg Q6H PRN Administration NAUSEA OR VOMITING Trimethoprim/Sulfamethoxazole 1 tab 12/14/17 09:00 12/15/17 08:35 Bactrim PO 1 tab DAILY SHELLEY Administration Valacyclovir HCl 500 mg 12/14/17 09:00 12/15/17 08:34 Valtrex PO 500 mg DAILY SHELLEY Administration Objective Remarks: GENERAL: Obese young female resting in bed. She appears comfortable. She speaks in easy conversation. SKIN: Warm and dry. HEAD: Normocephalic. EYES: No scleral icterus. No injection or drainage. NECK: Supple, trachea midline. No JVD or lymphadenopathy. CARDIOVASCULAR: Regular rate and rhythm without murmurs. RESPIRATORY: Clear but diminished posteriorly. Breathing unlabored at rest. GASTROINTESTINAL: Abdomen soft. Mildly tender to epigastric area. Nontender to lower quadrants. EXTREMITIES: No cyanosis, or edema. MUSCULOSKELETAL: Adequate muscle tone. NEUROLOGICAL: No obvious focal deficit. Awake, alert, and oriented x3. 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 [facility] She received vincristine as an outpatient on 12/13/17. She was admitted for headache, nausea, vomiting, failure to thrive, fatigue, shortness of breath and dizziness at home. Plan: 1. Patient reports constipation. I will add on daily stool softener as well as MiraLAX. 2. Continue to monitor headache. For now give supportive care. 3. Monitor for fever. Monitor CBC. 4. If patient becomes febrile would recommend chest x-ray, UA and blood cultures 2. - Attending Statement The exam, history, and the medical decision-making described in the above note were completed with the assistance of the mid-level provider. I reviewed and agree with the findings presented. I attest that I had a [id number] encounter with the patient on the same day, and personally performed and documented my assessment and findings in the medical record. 27 yoF with precursor B cell ALL currently being treated per [facility] [address] protocol. Day 24 today. Admitted with failure to thrive, slowly improving. (2) Pulmonary embolism Qualifiers: Pulmonary embolism type: other Chronicity: acute Acute cor pulmonale presence: without acute cor pulmonale Qualified Code(s): I26.99 - Other pulmonary embolism without acute cor pulmonale
[2017-12-15] MEDS: Polyethylene Glycol 3350 17 GM Packet PO SCH (16:57)
[2017-12-15] MEDS: Docusate Sodium 100 MG Capsule PO SCH (20:40)
[2017-12-16 06:02] LABS: Hematocrit 25.2 % (35.0-46.0); Hemoglobin 8.4 gm/dL (11.6-15.3); Mean Corpuscular HGB Conc 33.5 % (32.0-36.0); Mean Corpuscular Hemoglobin 29.2 pg (27.0-34.0); Mean Corpuscular Volume 87.2 fL (80.0-100.0); Mean Platelet Volume 7.7 fL (7.0-11.0); Platelet Count 439 th/mm3 (150-450); Red Blood Count 2.89 mil/mm3 (4.00-5.30); Red Cell Distribution Width 19.7 % (11.6-17.2); White Blood Count 0.7 th/mm3 (4.0-11.0)
[2017-12-16 06:15] LABS: Albumin 2.7 g/dL (3.4-5.0); Anion Gap 13 meq/L (5-15); Aspartate Aminotransferase 12 U/L (15-37); Blood Urea Nitrogen 9 mg/dL (7-18); Carbon Dioxide 23.1 meq/L (21.0-32.0); Chloride 105 meq/L (98-107); Glomerular Filtration Rate Greater Than 89 mL/min (>89); Glucose,Random 92 mg/dL (74-106); Potassium 3.8 meq/L (3.5-5.1); Sodium 141 meq/L (136-145)
[2017-12-16 06:16] LABS: Alanine Aminotransferase 21 U/L (10-53)
[2017-12-16 06:18] LABS: Alkaline Phosphatase 67 U/L (45-117)
[2017-12-16] MEDS: Sod Chloride 0.9% Inj 1,000 ML IV.SIG SCH ×2 (07:50→23:35)
[2017-12-16 08:22] LABS: Eosinophils 4 % (0-4); Lymphocytes 72 % (9-44); Monocytes 4 % (0-8)
[2017-12-16 08:23] LABS: Platelet Estimate Normal (Normal); Platelet Morphology Normal (Normal)
[2017-12-16 08:24] LABS: Ovalocytes 1+; Tear Drop Cells 1+
[2017-12-16] MEDS: Acetaminophen 325 MG Tablet PO PRN ×2 (08:41→21:40)
[2017-12-16] MEDS: Enoxaparin Inj 150 MG/ML Syringe SQ SCH ×2 (08:41→21:03)
[2017-12-16] MEDS: Gabapentin 300 MG Capsule PO SCH ×3 (08:42→17:08)
[2017-12-16] MEDS: Docusate Sodium 100 MG Capsule PO SCH ×2 (08:43→21:03)
[2017-12-16] MEDS: valACYclovir 500 MG Tab PO SCH (08:43)
[2017-12-16] MEDS: amLODIPine 10 MG Tablet PO SCH (08:43)
[2017-12-16] MEDS: Polyethylene Glycol 3350 17 GM Packet PO SCH (08:44)
[2017-12-16] MEDS: Sulfamethoxazole/Trimethoprim 400/80 MG Tablet PO SCH (08:44)
--- NOTE | 2017-12-16 10:47 | P.PNONC ---
Subjective Interval history: Afebrile. Remains neutropenic. Patient with continued abdomen pain, stating "now it is different" she describes it as "gas pains and cramping ". She was able to have a small bowel movement yesterday. She is hopeful for a more formed bowel movement today. Objective Vital Signs/Intake & Output: Vital Signs 12/15/17 12:00 12/15/17 16:00 12/15/17 19:00 Temperature 98.5 F 98.6 F Pulse Rate 108 H 114 H 102 H Respiratory Rate 18 18 Blood Pressure 131/62 149/75 H Pulse Oximetry 100 97 12/15/17 20:31 12/15/17 23:00 12/16/17 00:19 Temperature 98.0 F 98.0 F Pulse Rate 100 H 110 H 108 H Respiratory Rate 18 18 Blood Pressure 117/75 127/69 Pulse Oximetry 100 100 12/16/17 03:00 12/16/17 04:20 12/16/17 08:00 Temperature 98.4 F 98.9 F Pulse Rate 101 H 101 H 122 H Respiratory Rate 17 18 Blood Pressure 114/63 136/75 Pulse Oximetry 98 Intake & Output 12/15/17 12/16/17 12/16/17 18:59 06:59 18:59 Intake Total 1480 / 1480 400 / 400 1000 / 1000 Output Total 2700 / 2700 900 / 900 Balance -1220 / -1220 -500 / -500 1000 / 1000 Weight 152 kg Intake: IV 1000 / 1000 1000 / 1000 NS Inj 1,000 ML @ 75 mls/hr IV. 1000 / 1000 1000 / 1000 SIG .[id number] [facility] Rx#:[id number] Oral 480 / 480 400 / 400 Output: Urine 2700 / 2700 900 / 900 Other: Date of Last Bowel Movement 12/06/17 12/15/17 12/15/17 Result Diagrams: 12/16/17 04:28 12/16/17 04:28 Laboratory Results: Laboratory Results - last 24 hr 12/16/17 12/16/17 04:28 04:28 WBC 0.7 L RBC 2.89 L Hgb 8.4 L Hct 25.2 L MCV 87.2 MCH 29.2 MCHC 33.5 RDW 19.7 H Plt Count 439 MPV 7.7 Prelim Diff (Auto) Manual diff required WBC Differential Manual diff final Seg Neuts % (Manual) 20 Lymphocytes % (Manual) 72 H Monocytes % (Manual) 4 Eosinophils % (Manual) 4 Abs Neuts (Manual) 0.1 L* Differential Comment . Platelet Estimate Normal Platelet Morphology Normal Tear Drop Cells 1+ H Ovalocytes 1+ H Sodium 141 Potassium 3.8 Chloride 105 Carbon Dioxide 23.1 Anion Gap 13 BUN 9 Creatinine 0.64 Estimated GFR Greater than 89 Random Glucose 92 Calcium 8.0 L Total Bilirubin 0.4 AST 12 L ALT 21 Alkaline Phosphatase 67 Total Protein 5.0 L Albumin 2.7 L Medications: Active Medications Generic Name Dose Route Start Last Admin Trade Name Freq PRN Reason Stop Dose Admin Acetaminophen 650 mg 12/15/17 10:50 12/16/17 08:41 Tylenol PO 650 mg BID PRN Administration PAIN SCALE 1-10 Amlodipine Besylate 10 mg 12/14/17 09:00 12/16/17 08:43 Norvasc PO 10 mg DAILY SHELLEY Administration Docusate Sodium 100 mg 12/15/17 21:00 12/16/17 08:43 Colace PO 100 mg BID SHELLEY Administration Enoxaparin Sodium 150 mg 12/13/17 21:00 12/16/17 08:41 Lovenox Inj SQ 150 mg Q12HR SHELLEY Administration Fluconazole 200 mg 12/14/17 09:00 12/16/17 08:43 Diflucan PO 200 mg DAILY SHELLEY Administration Gabapentin 600 mg 12/14/17 09:00 12/16/17 08:42 Neurontin PO 600 mg TID SHELLEY Administration Sodium Chloride 1,000 mls @ 75 mls/hr 12/14/17 02:00 12/16/17 07:50 Ns Inj IV.SIG 75 mls/hr .[id number] SHELLEY Administration Ondansetron HCl 4 mg 12/13/17 20:19 12/14/17 14:57 Zofran Inj IV.PUSH 4 mg Q6H PRN Administration NAUSEA OR VOMITING Polyethylene Glycol 17 gm 12/15/17 15:30 12/16/17 08:44 Miralax PO 17 gm DAILY SHELLEY Administration Trimethoprim/Sulfamethoxazole 1 tab 12/14/17 09:00 12/16/17 08:44 Bactrim PO 1 tab DAILY SHELLEY Administration Valacyclovir HCl 500 mg 12/14/17 09:00 12/16/17 08:43 Valtrex PO 500 mg DAILY SHELLEY Administration Objective Remarks: GENERAL: Well-nourished, well-developed young female patient, lying in bed, in no acute distress. SKIN: Warm and dry. HEAD: Normocephalic. EYES: No scleral icterus. No injection or drainage. NECK: Supple, trachea midline. CARDIOVASCULAR: Regular rate/rhythm. RESPIRATORY: Anterior breath sounds clear, equal bilaterally. No accessory muscle use. GASTROINTESTINAL: Abdomen large, soft, non-tender, nondistended. EXTREMITIES: No cyanosis, or edema. MUSCULOSKELETAL: Adequate muscle tone. NEUROLOGICAL: No obvious focal deficit. Awake, alert, and oriented x3. PSYCHIATRIC: Appropriate mood and affect; insight and judgment normal. 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 She is currently being treated per [id number] protocol. She received vincristine as an outpatient on 12/13/17. She was admitted for headache, nausea, vomiting, failure to thrive, fatigue, shortness of breath and dizziness at home. Plan: 1. Constipation, status post small bowel movement after receiving MiraLAX. Now with intermittent cramping, likely due to medications. We will continue to monitor. 2. We will continue to monitor for headache and provide supportive care as needed. 3. Afebrile at this time, patient continues to be neutropenic. Continue to monitor for fever. 4. If patient becomes febrile would recommend chest x-ray, UA and blood cultures 2. Updated entry at 1530: RN notified this provider of patient with significant headache, requesting Tylenol order. Patient seen and evaluated. Patient reports her entire head is throbbing. She states the headache has been lingering most the day, however she thought the earlier dose of Tylenol would help it, however it has progressed. she describes as different than her normal headaches. She is light sensitive. Upon exam patient is lying in bed, her room is dark. sheis somewhat slower to react to my instructions, neurologically intact.+ Light sensitivity, grimacing in pain. PERRLA. Equal strength bilaterally, no drift. Dr. Wilkerson notified, CT brain with IV contrast, Tylenol 650 mg and urine HCG for CT, ordered. RN aware and at the bedside. - Attending Statement The exam, history, and the medical decision-making described in the above note were completed with the assistance of the mid-level provider. I reviewed and agree with the findings presented. I attest that I had a [id number] encounter with the patient on the same day, and personally performed and documented my assessment and findings in the medical record. 27 yoF with precursor B cell currently being treated with consolidation phase II per [facility] [address]197. She is admitted with failure to thrive. -ALL: after completion of consolidation phase II will obtain marrow biopsy. If in remission she will return to [facility] for transplant. Her siblings are currently being evaluated to be a donor. -Epigastric pain: no evidence of pancreatitis wtih normal pancreatic enzymes. Triclycerides approximately 300. She reports some improvement after bowel movement yesterday continue to monitor. -Headache: CT head negative. Possbily due to side effect from lumbar puncture vs side effect of vincristine. PRN pain medications. (2) Pulmonary embolism Qualifiers: Pulmonary embolism type: other Chronicity: acute Acute cor pulmonale presence: without acute cor pulmonale Qualified Code(s): I26.99 - Other pulmonary embolism without acute cor pulmonale
[2017-12-16] MEDS ORDERED: Acetaminophen 325 MG Tablet PO ONE (15:24)
--- NOTE | 2017-12-16 16:45 | CT ---
EXAM DATE: 12/16/2017 4:38 PM EDT AGE/SEX: 27 years / Female INDICATIONS: Cephalgia post epidural injection. Evaluate for abscess. CLINICAL DATA: This is the patient's initial encounter. Patient reports that signs and symptoms have been present for 1 day and indicates a pain score of 6/10. MEDICAL/SURGICAL HISTORY: Hypertension. Leukemia. None. RADIATION DOSE: 40.11 CTDI (mGy) COMPARISON: No prior exams available for comparison. TECHNIQUE: Axial images of the head were acquired without contrast and after intravenous administrat ion of 75 ml Omnipaque 350 (iohexol) nonionic water-soluble contrast as a single exam dose. Using automated exposure control and adjustment of the mA and/or kV according to patient size, radiation do se was kept as low as reasonably achievable to obtain optimal diagnostic quality images. DICOM forma t image data is available electronically for review and comparison. FINDINGS: There is no evidence for intracranial hemorrhage, mass effect, mass lesions, edema, or extra-axial fl uid collections. The visualized bony structures appear intact. The ventricles are normal size for t he patient's age. There are no signs of acute infarction for technique. CONCLUSION: Unremarkable study. Electronically signed by: Christen Suazo MD 12/16/2017 4:44 PM EDT
[2017-12-16 22:43] LABS: Activated Partial Thrombo Time 41.7 sec (24.3-30.1); INR 1.1 Ratio; Prothrombin Time 11.2 sec (9.8-11.6)
[2017-12-17 06:37] LABS: Hematocrit 25.2 % (35.0-46.0); Hemoglobin 8.7 gm/dL (11.6-15.3); Mean Corpuscular HGB Conc 34.6 % (32.0-36.0); Mean Corpuscular Hemoglobin 30.1 pg (27.0-34.0); Mean Corpuscular Volume 86.9 fL (80.0-100.0); Mean Platelet Volume 7.4 fL (7.0-11.0); Platelet Count 495 th/mm3 (150-450); Red Blood Count 2.91 mil/mm3 (4.00-5.30); Red Cell Distribution Width 19.4 % (11.6-17.2); White Blood Count 0.7 th/mm3 (4.0-11.0)
[2017-12-17 06:58] LABS: Albumin 2.8 g/dL (3.4-5.0); Anion Gap 12 meq/L (5-15); Aspartate Aminotransferase 17 U/L (15-37); Blood Urea Nitrogen 7 mg/dL (7-18); Calcium 8.3 mg/dL (8.5-10.1); Carbon Dioxide 23.1 meq/L (21.0-32.0); Chloride 105 meq/L (98-107); Glomerular Filtration Rate Greater Than 89 mL/min (>89); Glucose,Random 96 mg/dL (74-106); Potassium 4.2 meq/L (3.5-5.1); Sodium 140 meq/L (136-145)
[2017-12-17 06:59] LABS: Alanine Aminotransferase 26 U/L (10-53)
[2017-12-17 07:02] LABS: Alkaline Phosphatase 70 U/L (45-117); Total Protein 5.4 g/dL (6.4-8.2)
[2017-12-17 09:18] LABS: Lymphocytes 77 % (9-44); Monocytes 6 % (0-8); Ovalocytes 1+; Tallied Nucleated RBC 3 (0-0); Tear Drop Cells 1+
[2017-12-17 09:19] LABS: Platelet Morphology Normal (Normal)
--- NOTE | 2017-12-17 10:32 | P.PNONC ---
Subjective Interval history: Afebrile Patient reports her migraine persists. Describes it as a dull ache that encapsulates the front and back of her head Sensitivity to light Abdominal pain improved. States she has some lower abdominal cramping that she is noticed after beginning the Colace and MiraLAX. Objective Vital Signs/Intake & Output: Vital Signs 12/16/17 12:00 12/16/17 16:00 12/16/17 16:15 Temperature 98.7 F 98.5 F Pulse Rate 96 H 125 H Respiratory Rate 18 18 18 Blood Pressure 120/63 116/63 Pulse Oximetry 98 98 12/16/17 20:00 12/17/17 00:00 12/17/17 04:00 Temperature 97.8 F Pulse Rate 94 H 109 H 96 H Respiratory Rate 16 18 18 Blood Pressure 121/76 135/49 L 138/58 L Pulse Oximetry 100 99 99 12/17/17 07:56 Temperature 98.7 F Pulse Rate 102 H Respiratory Rate 22 Blood Pressure 126/78 Pulse Oximetry Intake & Output 12/16/17 12/17/17 12/17/17 18:59 06:59 18:59 Intake Total 2210 / 2210 1480 / 1480 Output Total 1800 / 1800 800 / 800 Balance 410 / 410 680 / 680 Weight 339 lb 8.19 oz Intake: IV 1000 / 1000 1000 / 1000 NS Inj 1,000 ML @ 75 mls/hr IV. 1000 / 1000 1000 / 1000 SIG .[id number] [facility] Rx#:[id number] Oral 1210 / 1210 480 / 480 Output: Urine 1800 / 1800 800 / 800 Other: Date of Last Bowel Movement 12/15/17 12/15/17 Result Diagrams: 12/17/17 06:00 12/17/17 06:00 Laboratory Results: Laboratory Results - last 24 hr 12/16/17 12/17/17 12/17/17 21:45 06:00 06:00 WBC 0.7 L RBC 2.91 L Hgb 8.7 L Hct 25.2 L MCV 86.9 MCH 30.1 MCHC 34.6 RDW 19.4 H Plt Count 495 H MPV 7.4 Prelim Diff (Auto) Manual diff required WBC Differential Manual diff final Seg Neuts % (Manual) 17 Lymphocytes % (Manual) 77 H Monocytes % (Manual) 6 Abs Neuts (Manual) 0.1 L* Nucleated RBCs/100 WBC 3 H Differential Comment . Platelet Estimate High H Platelet Morphology Normal Tear Drop Cells 1+ H Ovalocytes 1+ H PT 11.2 INR 1.1 APTT 41.7 H Fibrinogen 166 L Sodium 140 Potassium 4.2 Chloride 105 Carbon Dioxide 23.1 Anion Gap 12 BUN 7 Creatinine 0.74 Estimated GFR Greater than 89 Random Glucose 96 Calcium 8.3 L Total Bilirubin 0.4 AST 17 ALT 26 Alkaline Phosphatase 70 Total Protein 5.4 L Albumin 2.8 L Imaging Studies: Impressions Head CT 12/16/17 15:26 CONCLUSION: Unremarkable study. Medications: Active Medications Generic Name Dose Route Start Last Admin Trade Name Freq PRN Reason Stop Dose Admin Acetaminophen 650 mg 12/15/17 10:50 12/16/17 21:40 Tylenol PO 650 mg BID PRN Administration PAIN SCALE 1-10 Amlodipine Besylate 10 mg 12/14/17 09:00 12/16/17 08:43 Norvasc PO 10 mg DAILY SHELLEY Administration Docusate Sodium 100 mg 12/15/17 21:00 12/16/17 21:03 Colace PO 100 mg BID SHELLEY Administration Enoxaparin Sodium 150 mg 12/13/17 21:00 12/16/17 21:03 Lovenox Inj SQ 150 mg Q12HR SHELLEY Administration Fluconazole 200 mg 12/14/17 09:00 12/16/17 08:43 Diflucan PO 200 mg DAILY SHELLEY Administration Gabapentin 600 mg 12/14/17 09:00 12/16/17 17:08 Neurontin PO 600 mg TID SHELLEY Administration Sodium Chloride 1,000 mls @ 75 mls/hr 12/14/17 02:00 12/16/17 23:35 Ns Inj IV.SIG 75 mls/hr .[id number] SHELLEY Administration Ondansetron HCl 4 mg 12/13/17 20:19 12/14/17 14:57 Zofran Inj IV.PUSH 4 mg Q6H PRN Administration NAUSEA OR VOMITING Polyethylene Glycol 17 gm 12/15/17 15:30 12/16/17 08:44 Miralax PO 17 gm DAILY SHELLEY Administration Trimethoprim/Sulfamethoxazole 1 tab 12/14/17 09:00 12/16/17 08:44 Bactrim PO 1 tab DAILY SHELLEY Administration Valacyclovir HCl 500 mg 12/14/17 09:00 12/16/17 08:43 Valtrex PO 500 mg DAILY SHELLEY Administration Objective Remarks: GENERAL: Obese young female resting in chair at bedside. She appears to be uncomfortable. SKIN: Warm and dry. HEAD: Normocephalic. EYES: No scleral icterus. No injection or drainage. NECK: Supple, trachea midline. No JVD or lymphadenopathy. CARDIOVASCULAR: Regular rate and rhythm without murmurs. RESPIRATORY: Clear but diminished posteriorly. Breathing unlabored at rest. GASTROINTESTINAL: Abdomen soft. Mildly tender to epigastric area. Nontender to lower quadrants. EXTREMITIES: No cyanosis, or edema. MUSCULOSKELETAL: Adequate muscle tone. NEUROLOGICAL: No obvious focal deficit. Awake, alert, and oriented x3. 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 She is currently being treated per [id number]-66645 protocol. She received vincristine as an outpatient on 12/13/17. She was admitted for headache, nausea, vomiting, failure to thrive, fatigue, shortness of breath and dizziness at home. Plan: 1. Continue MiraLAX and Colace for constipation. 2. Discussed with patient we can trial her on low-dose morphine for persistent migraine. Reviewed CT of the brain yesterday that showed no acute process. 3. Continue to monitor for fever as patient is persistently neutropenic. No transfusions needed today. 4. Supportive care - Attending Statement The exam, history, and the medical decision-making described in the above note were completed with the assistance of the mid-level provider. I reviewed and agree with the findings presented. I attest that I had a [id number] encounter with the patient on the same day, and personally performed and documented my assessment and findings in the medical record. Patient is resting comfortably. She still headache but a little better this morning. She has photophobia. Describes headache as squeezing pain in the front and back. Had headache even prior to treatment of leukemia. Headache improved but increase again after last chemotherapy. CT of the head did not show any acute changes. Continue supportive care. (2) Pulmonary embolism Qualifiers: Pulmonary embolism type: other Chronicity: acute Acute cor pulmonale presence: without acute cor pulmonale Qualified Code(s): I26.99 - Other pulmonary embolism without acute cor pulmonale
[2017-12-17] MEDS: Polyethylene Glycol 3350 17 GM Packet PO SCH (11:05)
[2017-12-17] MEDS: Enoxaparin Inj 150 MG/ML Syringe SQ SCH ×2 (11:05→20:59)
[2017-12-17] MEDS: valACYclovir 500 MG Tab PO SCH (11:05)
[2017-12-17] MEDS: Gabapentin 300 MG Capsule PO SCH ×3 (11:05→19:58)
[2017-12-17] MEDS: amLODIPine 10 MG Tablet PO SCH (11:05)
[2017-12-17] MEDS: Sulfamethoxazole/Trimethoprim 400/80 MG Tablet PO SCH (11:06)
[2017-12-17] MEDS: Docusate Sodium 100 MG Capsule PO SCH ×2 (11:06→22:49)
[2017-12-17] MEDS: Morphine Inj 4 MG/ML Vial IV.PUSH PRN ×2 (11:22→19:50)
[2017-12-17] MEDS: Sod Chloride 0.9% Inj 1,000 ML IV.SIG SCH (11:32)
[2017-12-18 05:11] LABS: Hematocrit 27.1 % (35.0-46.0); Mean Corpuscular HGB Conc 33.2 % (32.0-36.0); Mean Corpuscular Hemoglobin 29.1 pg (27.0-34.0); Mean Corpuscular Volume 87.8 fL (80.0-100.0); Mean Platelet Volume 7.5 fL (7.0-11.0); Platelet Count 540 th/mm3 (150-450); Red Blood Count 3.09 mil/mm3 (4.00-5.30); Red Cell Distribution Width 20.6 % (11.6-17.2)
[2017-12-18 07:57] VITALS: RESP 18
[2017-12-18 08:01] LABS: Blast Cells 2 % (0-0); Lymphocytes 60 % (9-44); Monocytes 10 % (0-8); Tallied Nucleated RBC 5 (0-0)
[2017-12-18 08:02] LABS: Ovalocytes 1+; Platelet Morphology Normal (Normal)
[2017-12-18 08:20] LABS: Anion Gap 12 meq/L (5-15); Blood Urea Nitrogen 8 mg/dL (7-18); Calcium 8.2 mg/dL (8.5-10.1); Carbon Dioxide 21.9 meq/L (21.0-32.0); Chloride 105 meq/L (98-107); Glomerular Filtration Rate Greater Than 89 mL/min (>89); Glucose,Random 122 mg/dL (74-106); Potassium 4.2 meq/L (3.5-5.1); Sodium 139 meq/L (136-145)
--- NOTE | 2017-12-18 09:31 | P.PNONC ---
Subjective Interval history: Afebrile Patient reports she is feeling much better today States her headache is a 3 out of 10 Had a good bowel movement yesterday Abdominal pain much improved; no nausea Feels comfortable to go home today Objective Vital Signs/Intake & Output: Vital Signs 12/17/17 11:12 12/17/17 12:00 12/17/17 16:00 Temperature 98.1 F 99.3 F Pulse Rate 105 H 92 H 114 H Respiratory Rate 18 18 Blood Pressure 124/75 144/73 H Pulse Oximetry 100 99 12/17/17 22:47 12/17/17 23:39 12/18/17 00:00 Temperature 97.7 F Pulse Rate 94 H 92 H Respiratory Rate 18 18 16 Blood Pressure 123/67 132/72 Pulse Oximetry 100 12/18/17 04:00 Temperature Pulse Rate 96 H Respiratory Rate 18 Blood Pressure 138/58 L Pulse Oximetry Intake & Output 12/17/17 12/18/17 12/18/17 18:59 06:59 18:59 Intake Total 2270 / 2270 330 / 330 Output Total 900 / 900 500 / 500 Balance 1370 / 1370 -170 / -170 Weight 339 lb 4.662 oz Intake: IV 1000 / 1000 NS Inj 1,000 ML @ 75 mls/hr IV. 1000 / 1000 SIG .[id number] [facility] Rx#:[id number] Oral 1270 / 1270 330 / 330 Output: Urine 900 / 900 500 / 500 Other: Date of Last Bowel Movement 12/17/17 Result Diagrams: 12/18/17 04:45 12/18/17 04:45 Laboratory Results: Laboratory Results - last 24 hr 12/17/17 12/18/17 12/18/17 06:00 04:45 04:45 WBC 1.0 L RBC 3.09 L Hgb 9.0 L Hct 27.1 L MCV 87.8 MCH 29.1 MCHC 33.2 RDW 20.6 H Plt Count 540 H MPV 7.5 Prelim Diff (Auto) Manual diff required WBC Differential Manual diff final Seg Neuts % (Manual) 25 Band Neuts % (Manual) 3 Lymphocytes % (Manual) 60 H Monocytes % (Manual) 10 H Blast Cells % (Manual) 2 H Abs Neuts (Manual) 0.3 L* Nucleated RBCs/100 WBC 5 H Differential Comment . Platelet Estimate High H Platelet Morphology Normal Ovalocytes 1+ H Sodium 139 Potassium 4.2 Chloride 105 Carbon Dioxide 21.9 Anion Gap 12 BUN 8 Creatinine 0.74 Estimated GFR Greater than 89 Random Glucose 122 H Calcium 8.2 L Beta HCG, Quant Less than 1 Medications: Active Medications Generic Name Dose Route Start Last Admin Trade Name Freq PRN Reason Stop Dose Admin Acetaminophen 650 mg 12/15/17 10:50 12/16/17 21:40 Tylenol PO 650 mg BID PRN Administration PAIN SCALE 1-10 Amlodipine Besylate 10 mg 12/14/17 09:00 12/17/17 11:05 Norvasc PO 10 mg DAILY SHELLEY Administration Docusate Sodium 100 mg 12/15/17 21:00 12/17/17 22:49 Colace PO Not Given BID SHELLEY Enoxaparin Sodium 150 mg 12/13/17 21:00 12/17/17 20:59 Lovenox Inj SQ 150 mg Q12HR SHELLEY Administration Fluconazole 200 mg 12/14/17 09:00 12/17/17 11:06 Diflucan PO 200 mg DAILY SHELLEY Administration Gabapentin 600 mg 12/14/17 09:00 12/17/17 19:58 Neurontin PO 600 mg TID SHELLEY Administration Sodium Chloride 1,000 mls @ 75 mls/hr 12/14/17 02:00 12/17/17 11:32 Ns Inj IV.SIG 75 mls/hr .[id number] SHELLEY Administration Morphine Sulfate 4 mg 12/17/17 10:26 12/17/17 19:50 Morphine Inj IV.PUSH 4 mg Q6H PRN Administration PAIN 6-10;IF UNABLE TO TAKE PO Ondansetron HCl 4 mg 12/13/17 20:19 12/14/17 14:57 Zofran Inj IV.PUSH 4 mg Q6H PRN Administration NAUSEA OR VOMITING Polyethylene Glycol 17 gm 12/15/17 15:30 12/17/17 11:05 Miralax PO 17 gm DAILY SHELLEY Administration Trimethoprim/Sulfamethoxazole 1 tab 12/14/17 09:00 12/17/17 11:06 Bactrim PO 1 tab DAILY SHELLEY Administration Valacyclovir HCl 500 mg 12/14/17 09:00 12/17/17 11:05 Valtrex PO 500 mg DAILY SHELLEY Administration Objective Remarks: GENERAL: Obese young female resting asleep in bed. She wakens easily to verbal stimuli. SKIN: Warm and dry. HEAD: Normocephalic. EYES: No scleral icterus. No injection or drainage. NECK: Supple, trachea midline. No JVD or lymphadenopathy. CARDIOVASCULAR: Regular rate and rhythm without murmurs. RESPIRATORY: Clear but diminished posteriorly. Breathing unlabored at rest. GASTROINTESTINAL: Abdomen soft. Mildly tender to epigastric area. Nontender to lower quadrants. EXTREMITIES: No cyanosis, or edema. MUSCULOSKELETAL: Adequate muscle tone. NEUROLOGICAL: No obvious focal deficit. Awake, alert, and oriented x3. 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 She is currently being treated per theCALGB-36005 protocol. She received vincristine as an outpatient on 12/13/17. She was admitted for headache, nausea, vomiting, failure to thrive, fatigue, shortness of breath and dizziness at home. Plan: 1. Counts slowly improving. She remains afebrile. Her headache is improved as well. Anticipate we can likely discharge her home later today after she is seen by my attending. Follow-up in clinic with Dr. Wilkerson. - Attending Statement The exam, history, and the medical decision-making described in the above note were completed with the assistance of the mid-level provider. I reviewed and agree with the findings presented. I attest that I had a [id number] encounter with the patient on the same day, and personally performed and documented my assessment and findings in the medical record. Patient feeling much better today and she wanted to go home. Her headache is significantly improved. She remains afebrile. ANC up to 0.3. Will discharge her today. She will follow-up at oncology clinic tomorrow with Dr. Wilkerson and to monitor her CBC. (2) Pulmonary embolism Qualifiers: Pulmonary embolism type: other Chronicity: acute Acute cor pulmonale presence: without acute cor pulmonale Qualified Code(s): I26.99 - Other pulmonary embolism without acute cor pulmonale
[2017-12-18] MEDS: Polyethylene Glycol 3350 17 GM Packet PO SCH (11:25)
[2017-12-18] MEDS: valACYclovir 500 MG Tab PO SCH (11:25)
[2017-12-18] MEDS: Sulfamethoxazole/Trimethoprim 400/80 MG Tablet PO SCH (11:25)
[2017-12-18] MEDS: amLODIPine 10 MG Tablet PO SCH (11:25)
[2017-12-18] MEDS: Gabapentin 300 MG Capsule PO SCH (11:25)
[2017-12-18] MEDS: Docusate Sodium 100 MG Capsule PO SCH (11:27)
[2017-12-18] MEDS: Acetaminophen 325 MG Tablet PO PRN (11:35)
[2017-12-18 12:20] VITALS: BP 128/74; O2SAT 99
--- NOTE | 2017-12-18 13:35 | P.DS ---
Date of admission: 12/13/17 19:41 Primary care physician: Danae Pike MD, R2 Attending physician on discharge: Hannah Wilkerson Anticipated date of discharge: 12/18/17 Brief History from admission: 27-year-old female with history of pre-B cell LL admitted with nausea vomiting and headache. She had recently received chemotherapy in the clinic and was doing poorly at home. DS: Diagnosis - Discharge Diagnosis (1) B-cell acute lymphoblastic leukemia (ALL) Status: Acute (2) Pulmonary embolism Status: Acute (3) Morbid obesity Status: Chronic DS: Medications - Discharge Medications Prescriptions: docusate sodium [DOK] 100 mg PO BID 30 Days #60 cap DS: Summary Hospital Course: Patient had CAT scan abdomen pelvis and chest that showed no new disease. She did not have an ileus. She was having bouts of constipation however she was given MiraLAX and Colace with resolution of the constipation. On Tuesday her headache worsened and CT the brain showed no acute process. Over the weekend her symptoms began to improve and she is now stable for discharge. - Time Spent with Patient Total time spent providing and/or coordinating discharge services: Less than 30 minutes - Quality: VTE Deep Vein Thrombosis/Pulmonary Embolism Present on Admission: No Exam Vital signs: Vital Signs 12/17/17 16:00 12/17/17 22:47 12/17/17 23:39 Temperature 99.3 F 97.7 F Pulse Rate 114 H 94 H Respiratory Rate 18 18 18 Blood Pressure 144/73 H 123/67 Pulse Oximetry 99 100 12/18/17 00:00 12/18/17 04:00 12/18/17 08:00 Temperature 98.8 F Pulse Rate 92 H 96 H 92 H Respiratory Rate 16 18 18 Blood Pressure 132/72 138/58 L 128/74 Pulse Oximetry 99 12/18/17 12:00 Temperature Pulse Rate 103 H Respiratory Rate Blood Pressure Pulse Oximetry Intake & Output 12/17/17 12/18/17 12/18/17 18:59 06:59 18:59 Intake Total 2270 / 2270 330 / 330 1000 / 1000 Output Total 900 / 900 500 / 500 Balance 1370 / 1370 -170 / -170 1000 / 1000 Weight 339 lb 4.662 oz Intake: IV 1000 / 1000 1000 / 1000 NS Inj 1,000 ML @ 75 mls/hr IV. 1000 / 1000 1000 / 1000 SIG .[id number] [facility] Rx#:[id number] Oral 1270 / 1270 330 / 330 Output: Urine 900 / 900 500 / 500 Other: Date of Last Bowel Movement 12/17/17 12/17/17 - Additional findings Additional findings: See progress note dated 12/18/17 Results Procedures completed during hospitalization: CT chest abdomen pelvis and brain Labs on day of discharge: Labs from last 24 hours 12/18/17 12/18/17 12/17/17 04:45 04:45 06:00 WBC 1.0 L RBC 3.09 L Hgb 9.0 L Hct 27.1 L MCV 87.8 MCH 29.1 MCHC 33.2 RDW 20.6 H Plt Count 540 H MPV 7.5 Prelim Diff (Auto) Manual diff required WBC Differential Manual diff final Seg Neuts % (Manual) 25 Band Neuts % (Manual) 3 Lymphocytes % (Manual) 60 H Monocytes % (Manual) 10 H Blast Cells % (Manual) 2 H Abs Neuts (Manual) 0.3 L* Nucleated RBCs/100 WBC 5 H Differential Comment . Platelet Estimate High H Platelet Morphology Normal Ovalocytes 1+ H Sodium 139 Potassium 4.2 Chloride 105 Carbon Dioxide 21.9 Anion Gap 12 BUN 8 Creatinine 0.74 Estimated GFR Greater than 89 Random Glucose 122 H Calcium 8.2 L Beta HCG, Quant Less than 1 - Impressions ITS Impressions Abdomen/Pelvis CT 12/14/17 00:00 CONCLUSION: 1. No abnormality is identified to explain the clinical symptoms. No acute finding is seen. 2. Nonacute findings include hepatomegaly with steatosis and small hiatal hernia. Chest CT 12/14/17 00:00 CONCLUSION: 1. Negative for an acute process: Head CT 12/16/17 15:26 CONCLUSION: Unremarkable study. Discharge Plan - Discharge Disposition Patient Disposition: 01 Discharge Home - Discharge Condition Condition: Good - Discharge Order Discharge Orders: Discharge Order (Routine); Ordered 12/18/17 Ordered By: Carolina Best - Discharge Details Anticipated Discharge Date: 12/18/17 - Physicians Team Primary Care Provider: Danae Pike Attending Provider: Hannah Wilkerson Other Providers: [employer],Insurance - Rxs /Orders / Referrals /Forms Prescriptions: New docusate sodium [DOK] 100 mg Capsule 100 mg PO BID 30 Days Qty: 60 RF: 0 fluconazole 200 mg Tablet 200 mg PO DAILY RF: 0 Continue amlodipine [Norvasc] 5 mg Tablet 5 mg PO DAILY enoxaparin 150 mg/mL Syringe 150 mg SUB-Q BID Qty: 0 RF: 0 fluconazole 200 mg Tablet 200 mg PO DAILY gabapentin 600 mg Tablet 600 mg PO TID sulfamethoxazole-trimethoprim 400-80 mg Tablet 80 mg PO DAILY valacyclovir 500 mg Tablet 500 mg PO DAILY Referrals: Danae Pike MD, R2 [Primary Care Provider] - See Instructions
[2017-12-18] MEDS: Enoxaparin Inj 150 MG/ML Syringe SQ SCH (15:40)
[2017-12-18 15:55] VITALS: PULSE 113; TEMP 98.9
== END 2017-12-18 16:02 | disposition home or self-care (01) ==
LOC: HCIN 19:41 → INTOOBSV 19:41 → UNDODISOB 12-18 15:05
PROVIDERS: ADMIT Internal Medicine; ATTEND Internal Medicine
DX: I10 Essential (primary) hypertension; R06.02 Shortness of breath; Z79.01 Long term (current) use of anticoagulants; I26.99 Other pulmonary embolism without acute cor pulmonale; R11.2 Nausea with vomiting, unspecified; G43.909 Migraine, unspecified, not intractable, without status migrainosus; Z79.899 Other long term (current) drug therapy; C91.00 Acute lymphoblastic leukemia not having achieved remission; R62.7 Adult failure to thrive

== ENCOUNTER 2017-12-20 14:23 | Inpatient (IN) ==
[2017-12-20] MEDS ORDERED: Ketorolac Inj 30 MG/ML (IVP) Vial IV.PUSH ONE (15:52)
[2017-12-20] MEDS ORDERED: Sod Chloride 0.9% Inj 1,000 ML IV.SIG ONE (15:52)
[2017-12-20] MEDS ORDERED: Acetaminophen 325 MG Tablet PO ONE (15:52)
--- NOTE | 2017-12-20 16:01 | ED ---
HPI General Chief Complaint: Headache Stated Complaint: headache Time Seen by Provider: 12/20/17 15:37 Source: patient Mode of arrival: ambulatory Limitations: no limitations History of Present Illness HPI Narrative: The patient is a 27-year-old female who presents to the emergency department for headache. The patient has a history of CLL and is followed by her oncologist, Dr. Wilkerson. The patient was recently hospitalized for headache last week, had a CT the brain that was negative. The patient states her headache improved on Tuesday and she was discharged home. However, the headache returned Tuesday night and is progressively worsening. The headache is located over the frontal forehead, top of the head, and radiates to the occipital aspect of her head. The headache is pulsatile, throbbing, and severe. She does complain of photophobia , phonophobia, nausea, vomiting, states that smells will affect her headache. She denies any focal weakness of the upper or lower extremities. The patient's last chemotherapy was a week ago Tuesday, she was scheduled for chemotherapy today when she saw Dr. Wilkerson and was referred to the emergency department. The patient is unsure if she has any history of pseudotumor cerebri or previous workup for pseudotumor cerebri. MD Complaint: headache Onset (ago): week(s) Onset description: gradual Location: frontal and occipital Severity: severe Severity scale (1-10): 9 Quality: throbbing, pulsatile and similar to previous headaches Relieving factors: nothing Exacerbating factors: none Context: occurred at rest Associated symptoms: nausea, vomiting and photophobia Treatments prior to arrival: none Related Data Home Medications Medication Instructions Recorded Confirmed amlodipine [Norvasc] 5 mg PO DAILY 10/22/17 12/20/17 fluconazole 200 mg PO DAILY 10/22/17 12/20/17 gabapentin 600 mg PO TID 10/22/17 12/20/17 sulfamethoxazole-trimethoprim 80 mg PO DAILY 10/22/17 12/20/17 valacyclovir 500 mg PO DAILY 10/22/17 12/20/17 Previous Rx's Medication Instructions Recorded enoxaparin 150 mg SUB-Q BID #0 ml 12/01/17 docusate sodium [DOK] 100 mg PO BID 30 Days #60 cap 12/18/17 fluconazole 200 mg PO DAILY tab 12/18/17 Allergies Allergy/AdvReac Type Severity Reaction Status Date / Time No Known Allergies Allergy Verified 12/09/17 14:03 Review of Systems ROS: all other systems reviewed are negative [facility] Social History Social History Substance History: No History of Abuse Second Hand Smoke Exposure: No Smoking Status: Never smoker How Often Do You Have a Drink Containing Alcohol: Never Recent Travel in [facility] within the Last 8 Weeks: No Recent Out of Country Travel within the Last 8 Weeks: No Immunization History Tetanus Immunization: Unsure Hx Influenza Vaccine This Season: No Exam Narrative Exam Narrative: GENERAL: Awake, alert, pleasant 27-year-old female appears her stated age and appears in moderate discomfort. SKIN: Focused skin assessment warm/dry. HEAD: Atraumatic. Normocephalic. EYES: Pupils equal and round. No scleral icterus. No injection or drainage. ENT: No nasal bleeding or discharge. Mucous membranes pink and moist. NECK: Trachea midline. No JVD. CARDIOVASCULAR: Regular, tachycardic with a heart rate of 125 RESPIRATORY: No accessory muscle use. Clear to auscultation. Breath sounds equal bilaterally. GASTROINTESTINAL: Abdomen soft, non-tender, nondistended. Obese, no rebound tenderness. MUSCULOSKELETAL: No obvious deformities. No clubbing. No cyanosis. No edema. NEUROLOGICAL: Awake and alert. No obvious cranial nerve deficits. Motor grossly within normal limits. Normal speech. Nonfocal. Oriented 4. Follows commands without difficulty. PSYCHIATRIC: Appropriate mood and affect; insight and judgment normal. Course Initial Documented Vital Signs Temperature 98.4 F 12/20/17 14:40 Pulse Rate 105 H 12/20/17 14:40 Respiratory Rate 19 12/20/17 14:40 Blood Pressure 128/80 12/20/17 14:40 Pulse Oximetry 98 12/20/17 14:40 Last Documented Vital Signs Temperature 98.4 F 12/20/17 14:40 Pulse Rate 110 H 12/20/17 15:53 Respiratory Rate 18 12/20/17 15:53 Blood Pressure 139/76 12/20/17 15:53 Pulse Oximetry 98 12/20/17 15:53 Medical Decision Making MDM Narrative Medical decision making narrative: IV was established, labs are drawn and sent, the patient was placed on cardiac telemetry monitoring and continuous pulse oximetry monitoring. I discussed the patient with Dr. Wilkerson who recommends admission with MRI, inpatient neurology evaluation, and pain medications. The patient may receive chemotherapy while admitted to the hospital for ALL. The patient's headache may be secondary to migraine, pseudotumor cerebri, or possibly chemotherapy. Therefore, the patient will undergo admission to the hospital. The patient received Decadron, Benadryl, Reglan, and IV fluids. Medical Screen Exam Complete: Yes Emergency Medical Condition: Yes Lab Data Lab results narrative: Patient's white count is low at 2.5, hemoglobin 10.4, platelets 584. Result diagrams: 12/20/17 16:00 12/20/17 16:00 Lab Results 12/20/17 12/20/17 Range/Units 16:00 16:00 WBC 2.5 L (4.0-11.0) th/mm3 RBC 3.57 L (4.00-5.30) mil/mm3 Hgb 10.4 L (11.6-15.3) gm/dL Hct 30.7 L (35.0-46.0) % MCV 86.1 (80.0-100.0) fL MCH 29.2 (27.0-34.0) pg MCHC 34.0 (32.0-36.0) % RDW 21.3 H (11.6-17.2) % Plt Count 584 H (150-450) th/mm3 MPV 7.4 (7.0-11.0) fL Prelim Diff (Auto) Slide review pending Neut % (Auto) 29.5 (16.0-70.0) % Lymph % (Auto) 48.3 H (9.0-44.0) % [place] % (Auto) 21.9 H (0.0-8.0) % Eos % (Auto) 0.0 (0.0-4.0) % Baso % (Auto) 0.3 (0.0-2.0) % Neut # (Auto) 0.7 L (1.8-7.7) th/mm3 Lymph # (Auto) 1.2 (1.0-4.8) th/mm3 [place] # (Auto) 0.5 (0.0-0.9) th/mm3 Eos # (Auto) 0.0 (0.0-0.4) th/mm3 Baso # (Auto) 0.0 (0.0-0.2) th/mm3 WBC Differential Manual diff final Seg Neuts % (Manual) 40 (16-70) % Band Neuts % (Manual) 2 (0-6) % Lymphocytes % (Manual) 41 (9-44) % Monocytes % (Manual) 16 H (0-8) % Metamyelocytes % (Man) 1 (0-1) % Abs Neuts (Manual) 1.1 L (1.8-7.7) th/mm3 Nucleated RBCs/100 WBC 21 H (0-0) /100 WBC Differential Comment . Platelet Estimate High H (Normal) Platelet Morphology Enlarged H (Normal) Polychromasia 2.8 H (0.0-1.9) % Tear Drop Cells 1+ H (None) Ovalocytes 1+ H (None) Keratocytes Occ H (None) Sodium 137 (136-145) meq/L Potassium 3.8 (3.5-5.1) meq/L Chloride 102 (98-107) meq/L Carbon Dioxide 24.9 (21.0-32.0) meq/L Anion Gap 10 (5-15) meq/L BUN 10 (7-18) mg/dL Creatinine 0.74 (0.50-1.00) mg/dL Estimated GFR Greater than 89 (>89) mL/min Random Glucose 95 (74-106) mg/dL Calcium 8.5 (8.5-10.1) mg/dL Total Bilirubin 0.5 (0.2-1.0) mg/dL AST 26 (15-37) U/L ALT 33 (10-53) U/L Alkaline Phosphatase 84 (45-117) U/L Total Protein 6.3 L D (6.4-8.2) g/dL Albumin 3.0 L (3.4-5.0) g/dL Discharge Plan Physicians Team ED Provider: Moy Frank Primary Care Provider: Danae Pike Rxs /Orders / Referrals /Forms Prescriptions: No Action amlodipine [Norvasc] 5 mg Tablet 5 mg PO DAILY RF: 0 gabapentin 600 mg Tablet 600 mg PO TID RF: 0 sulfamethoxazole-trimethoprim 400-80 mg Tablet 80 mg PO DAILY RF: 0 fluconazole 200 mg Tablet 200 mg PO DAILY RF: 0 valacyclovir 500 mg Tablet 500 mg PO DAILY RF: 0 enoxaparin 150 mg/mL Syringe 150 mg SUB-Q BID Qty: 0 RF: 0 fluconazole 200 mg Tablet 200 mg PO DAILY RF: 0 docusate sodium [DOK] 100 mg Capsule 100 mg PO BID 30 Days Qty: 60 RF: 0 Status ED Status: With Doctor
[2017-12-20 17:09] LABS: Alanine Aminotransferase 33 U/L (10-53); Anion Gap 10 meq/L (5-15); Aspartate Aminotransferase 26 U/L (15-37); Blood Urea Nitrogen 10 mg/dL (7-18); Calcium 8.5 mg/dL (8.5-10.1); Carbon Dioxide 24.9 meq/L (21.0-32.0); Chloride 102 meq/L (98-107); Glomerular Filtration Rate Greater Than 89 mL/min (>89); Glucose,Random 95 mg/dL (74-106); Potassium 3.8 meq/L (3.5-5.1); Sodium 137 meq/L (136-145)
[2017-12-20 17:11] LABS: Alkaline Phosphatase 84 U/L (45-117); Total Protein 6.3 g/dL (6.4-8.2)
[2017-12-20 17:23] LABS: Baso % (Auto) 0.3 % (0.0-2.0); Hematocrit 30.7 % (35.0-46.0); Hemoglobin 10.4 gm/dL (11.6-15.3); Lymph # (Auto) 1.2 th/mm3 (1.0-4.8); Lymph % (Auto) 48.3 % (9.0-44.0); Mean Corpuscular Hemoglobin 29.2 pg (27.0-34.0); Mean Corpuscular Volume 86.1 fL (80.0-100.0); Mean Platelet Volume 7.4 fL (7.0-11.0); Mono # (Auto) 0.5 th/mm3 (0.0-0.9); Mono % (Auto) 21.9 % (0.0-8.0); Neut # (Auto) 0.7 th/mm3 (1.8-7.7); Neut % (Auto) 29.5 % (16.0-70.0); Platelet Count 584 th/mm3 (150-450); Red Blood Count 3.57 mil/mm3 (4.00-5.30); Red Cell Distribution Width 21.3 % (11.6-17.2); White Blood Count 2.5 th/mm3 (4.0-11.0)
[2017-12-20 18:22] LABS: Lymphocytes 41 % (9-44); Metamyelocytes 1 % (0-1); Monocytes 16 % (0-8); Tallied Nucleated RBC 21 (0-0)
[2017-12-20 18:24] LABS: Ovalocytes 1+; Tear Drop Cells 1+
[2017-12-20 18:26] LABS: Polychromasia 2.8 % (0.0-1.9)
[2017-12-20] MEDS ORDERED: Gadobutrol PF 7.5 MMOL/7.5 ML Vial (for RAD) IV.SIG ONE (20:09)
--- NOTE | 2017-12-20 20:42 | MR ---
EXAM DATE: 12/20/2017 8:37 PM EDT AGE/SEX: 27 years / Female INDICATIONS: Cephalgia. CLINICAL DATA: This is the patient's initial encounter. Patient reports that signs and symptoms have been present for 1 day and indicates a pain score of 4/10. MEDICAL/SURGICAL HISTORY: . Cholecystectomy. COMPARISON: . TECHNIQUE: Multiplanar, multisequence examination of the brain was performed without and with 15 ml G adavist (gadobutrol) contrast as a single exam dose. FINDINGS: Cerebrum: The ventricles are normal for age. No evidence of midline shift, mass lesion, hemorrhage or acute infarction. No extraaxial fluid collections are seen. The pituitary gland and suprasellar cistern are normal in configuration. White Matter: No significant signal abnormalities are seen in the white matter. Posterior Fossa: The cerebellum and brainstem are intact. The 4th ventricle is midline. The cerebel lopontine angle is unremarkable. The cerebellar tonsils are normal in position. Diffusion Imaging: No focal areas of restricted diffusion are seen. No evidence of acute infarction . Extracranial: The visualized portions of the orbits and paranasal sinuses are unremarkable. Post Contrast: No abnormal areas of parenchymal or dural enhancement. No evidence of blood-brain ba rrier breakdown. CONCLUSION: 1. Negative MR Brain with and without contrast. Electronically signed by: Tam Monroe MD 12/20/2017 8:41 PM EDT
[2017-12-21] MEDS: Sod Chloride 0.9% Inj 1,000 ML IV.CONT SCH ×3 (00:03→23:39)
[2017-12-21] MEDS: Acetaminophen 325 MG Tablet PO PRN (02:41)
--- NOTE | 2017-12-21 09:12 | P.CONNEU ---
History of Present Illness Service: Neurology Primary Care Provider: Danae Pike MD, R2 Family Provider: Danae Pike MD, R2 Chief Complaint: Headaches History of Present Illness: 27-year-old female followed by oncology locally with a history of CLL admitted for headaches unremitting since September. States it began after chemo treatments at [facility]. Occur daily. Occur when she wake up to the point that she goes to bed. Limited relief with Tylenol. Starts in the vertex region radiates to the upper occipital and will radiate to the frontal region. Associated with photophobia phonophobia. Mild nausea. Denies any visual loss but occasionally gets blurry vision denies any visual scotomas or any focal weakness gait imbalance or vertigo. Denies any excessive steroid or vitamin A intake. Denies any history of tick bites. She does have leukopenia thrombocytosis. MRI brain scan was performed which is unremarkable. Review of Systems All other systems reviewed negative except as stated in HPI [facility] - History History Provided By: Patient - Medical History Medical History: Medical History (Last Reviewed 12/20/17 @ 15:05 by Marita Delgado) Hypertension Leukemia Leukemia Peripheral neuropathy due to chemotherapy Pulmonary embolism - Surgical History Surgical History: Surgical History (Last Reviewed 12/20/17 @ 15:05 by Marita Delgado) Hx of cholecystectomy - Tobacco History Second Hand Smoke Exposure: No Smoking Status: Never smoker - Alcohol History How Often Do You Have a Drink Containing Alcohol: Never - Substance Use History Substance History: No History of Abuse - Travel History Recent Travel in the [place] Within the Last 8 Weeks: No Recent Travel Out of the Country Within the Last 8 Weeks: No - Immunization History Tetanus Immunization: Unsure Hx Influenza Vaccine This Season: No Medications and Allergies Active Medications: Active Medications Acetaminophen (Tylenol) 650 mg PO Q8H PRN PRN Reason: PAIN 1-10 Last Admin: 12/21/17 02:41 Dose: 650 mg Acetaminophen/Butalbital/Caffeine (Fioricet 50-325-40) 1 tab PO Q8H PRN PRN Reason: HEADACHE Amlodipine Besylate (Norvasc) 10 mg PO DAILY SHELLEY Enoxaparin Sodium (Lovenox Inj) 150 mg SQ Q12HR SHELLEY Fluconazole (Diflucan) 200 mg PO DAILY SHELLEY Gabapentin (Neurontin) 600 mg PO TID SHELLEY Sodium Chloride (Ns Inj) 1,000 mls @ 100 mls/hr IV.CONT .Q10H SHELLEY Last Admin: 12/21/17 00:03 Dose: 100 mls/hr Mercaptopurine (Purinethol) 150 mg PO DAILY COUNT INCLUDES THE [facility] Ondansetron HCl (Zofran Inj) 4 mg IV.PUSH Q6H PRN PRN Reason: NAUSEA Sodium Chloride (Ns Flush) 2 ml IV.FLUSH PRN PRN PRN Reason: FLUSH AFTER USING IV ACCESS Trimethoprim/Sulfamethoxazole (Bactrim) 1 tab PO DAILY COUNT INCLUDES THE [facility] Valacyclovir HCl (Valtrex) 500 mg PO DAILY COUNT INCLUDES THE [facility] Allergies Allergy/AdvReac Type Severity Reaction Status Date / Time No Known Allergies Allergy Verified 12/09/17 14:03 Home Medications Medication Instructions Recorded Confirmed Type amlodipine [Norvasc] 5 mg PO DAILY 10/22/17 12/20/17 History fluconazole 200 mg PO DAILY 10/22/17 12/20/17 History gabapentin 600 mg PO TID 10/22/17 12/20/17 History sulfamethoxazole-trimethoprim 80 mg PO DAILY 10/22/17 12/20/17 History valacyclovir 500 mg PO DAILY 10/22/17 12/20/17 History Exam Vital signs: Vital Signs 12/20/17 14:40 12/20/17 15:05 12/20/17 15:53 Temperature 98.4 F Pulse Rate 105 H 103 H 110 H Respiratory Rate 19 18 18 Blood Pressure 128/80 139/76 Pulse Oximetry 98 98 98 12/20/17 19:00 12/20/17 23:00 12/21/17 00:26 Temperature 98.4 F Pulse Rate 99 H 101 H 87 Respiratory Rate 16 18 18 Blood Pressure 142/70 H 133/67 128/77 Pulse Oximetry 97 99 100 12/21/17 04:00 12/21/17 08:00 Temperature 98.1 F 98.3 F Pulse Rate 91 H 92 H Respiratory Rate 18 19 Blood Pressure 109/58 L 130/86 Pulse Oximetry 99 100 Intake & Output 12/20/17 12/21/17 12/21/17 18:59 06:59 18:59 Intake Total 1000 / 1000 480 / 480 Balance 1000 / 1000 480 / 480 Weight 151.5 kg 150.3 kg Intake: IV 1000 / 1000 NS Inj 1,000 ML @ Wide Open IV. 1000 / 1000 SIG BOLUS ONE Rx#:[id number] Oral 480 / 480 Other: # Voids 1 Narrative: Awake alert oriented 3 standing physician brushing her teeth I came in to see her. No aphasia articulate, visual brunson full pupils 3 2 mm bilaterally no temporal tenderness no nuchal rigidity no facial asymmetry no pronator drift gait stable - Constitutional no acute distress - Routine HEENT Exam Head: Present: normocephalic Eye: Present: EOMI Results - Labs CBC & Chem 7: 12/20/17 16:00 12/20/17 16:00 Labs: Laboratory Results - last 24 hr 12/20/17 12/20/17 16:00 16:00 WBC 2.5 L RBC 3.57 L Hgb 10.4 L Hct 30.7 L MCV 86.1 MCH 29.2 MCHC 34.0 RDW 21.3 H Plt Count 584 H MPV 7.4 Prelim Diff (Auto) Slide review pending Neut % (Auto) 29.5 Lymph % (Auto) 48.3 H Nance % (Auto) 21.9 H Eos % (Auto) 0.0 Baso % (Auto) 0.3 Neut # (Auto) 0.7 L Lymph # (Auto) 1.2 Nance # (Auto) 0.5 Eos # (Auto) 0.0 Baso # (Auto) 0.0 WBC Differential Manual diff final Seg Neuts % (Manual) 40 Band Neuts % (Manual) 2 Lymphocytes % (Manual) 41 Monocytes % (Manual) 16 H Metamyelocytes % (Man) 1 Abs Neuts (Manual) 1.1 L Nucleated RBCs/100 WBC 21 H Differential Comment . Platelet Estimate High H Platelet Morphology Enlarged H Polychromasia 2.8 H Tear Drop Cells 1+ H Ovalocytes 1+ H Keratocytes Occ H Sodium 137 Potassium 3.8 Chloride 102 Carbon Dioxide 24.9 Anion Gap 10 BUN 10 Creatinine 0.74 Estimated GFR Greater than 89 Random Glucose 95 Calcium 8.5 Total Bilirubin 0.5 AST 26 ALT 33 Alkaline Phosphatase 84 Total Protein 6.3 L D Albumin 3.0 L - Imaging Impressions Head MRI 12/20/17 16:04 CONCLUSION: 1. Negative MR Brain with and without contrast. Review/Management - Diagnosis (1) Headache Code(s): R51 - Headache Status: Acute Current Visit: Yes (2) B-cell acute lymphoblastic leukemia (ALL) Code(s): C91.00 - Acute lymphoblastic leukemia not having achieved remission Status: Acute Current Visit: No (3) Morbid obesity Code(s): E66.01 - Morbid (severe) obesity due to excess calories Status: Chronic Current Visit: No (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 However with her obesity recent chemotherapy , immunocompromise state exclude intracranial hypertension, superior sagittal venous thrombosis, infectious etiology Recommendation Fioricet as needed MRV Lumbar puncture Pain control Discussed the patient above agrees to the above procedures and treatments
--- NOTE | 2017-12-21 09:18 | MB ---
cc: Hannah Wilkerson MD DATE: 12/20/2017 CHIEF COMPLAINT: 1. Headache. 2. Precursor B-cell ALL. 3. Nausea, vomiting. HISTORY OF PRESENT ILLNESS: Ms. 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 She is currently being treated per CALGB 27636 protocol. I share this patient with Dr. Malhotra at [facility]. She is currently day 29 of therapy. She presented to the clinic today with severe headache, nausea, and vomiting. She was recently hospitalized and discharged for the same symptoms. REVIEW OF SYSTEMS: As above in HPI. PAST MEDICAL HISTORY: 1. B-cell. 2. VTE. 3. Hypertension. 4. Migraine headaches. PAST SURGICAL HISTORY: Cholecystectomy in 2007. ALLERGIES: NO KNOWN DRUG ALLERGIES. MEDICATIONS: 1. Amlodipine. 2. Bactrim. 3. Fluconazole 4. Gabapentin. 5. Lovenox. 6. Valtrex. FAMILY HISTORY: No family history of malignancy. SOCIAL HISTORY: Good support system with her . No tobacco, alcohol, or illegal drug use. PHYSICAL EXAMINATION: GENERAL: Overweight lady in no distress. HEENT: Head is normocephalic, atraumatic. Eyes: PERRLA. EOMI. NECK: Supple with no lymphadenopathy. HEART: Regular rate and rhythm. No murmurs. RESPIRATORY: Clear to auscultation bilaterally. ABDOMEN: Soft, nontender, nondistended. Bowel sounds present. EXTREMITIES: No edema. NEUROLOGIC: Grossly nonfocal. ASSESSMENT AND PLAN: 1. Precursor B-cell acute lymphoblastic leukemia, currently day 29 of therapy with consolidation phase 2. We will plan to initiate treatment with cyclophosphamide and cytarabine tomorrow. 2. Pulmonary embolism. We will continue with Lovenox injections. 3. Hypertension. Continue amlodipine. 4. Infectious disease. Continue prophylactic Bactrim, Diflucan, and Valtrex. 5. Nausea, vomiting. As needed Zofran. We will start IV fluids. 6. Headache, possibly secondary to recurrent lumbar puncture procedures. Migraine headaches, chemotherapy. We will ask neurology to consult. MD JASVIR Bhandari/sofia Solis: 12/20/2017, 10:42 PM , 10:53 PM
[2017-12-21] MEDS ORDERED: Butalbital/APAP/Caff 50/325/40 MG Tablet PO PRN (09:30)
[2017-12-21] MEDS: valACYclovir 500 MG Tab PO SCH (09:45)
[2017-12-21] MEDS: Gabapentin 300 MG Capsule PO SCH ×3 (09:45→22:08)
[2017-12-21] MEDS: Sulfamethoxazole/Trimethoprim 400/80 MG Tablet PO SCH (09:45)
[2017-12-21] MEDS: amLODIPine 10 MG Tablet PO SCH (09:45)
--- NOTE | 2017-12-21 09:57 | P.PNONC ---
Subjective Interval history: Patient sitting in chair, alert and oriented. Reports that she was seen by neurology this a.m. and there proceeding with further testing. Patient reports continued headache, light sensitivity, bilateral foot numbness and right foot tingling. She currently denies any N/V/D. Stating that she did have nausea and vomiting a couple days ago. Objective Vital Signs/Intake & Output: Vital Signs 12/20/17 14:40 12/20/17 15:05 12/20/17 15:53 Temperature 98.4 F Pulse Rate 105 H 103 H 110 H Respiratory Rate 19 18 18 Blood Pressure 128/80 139/76 Pulse Oximetry 98 98 98 12/20/17 19:00 12/20/17 23:00 12/21/17 00:26 Temperature 98.4 F Pulse Rate 99 H 101 H 87 Respiratory Rate 16 18 18 Blood Pressure 142/70 H 133/67 128/77 Pulse Oximetry 97 99 100 12/21/17 04:00 12/21/17 08:00 Temperature 98.1 F 98.3 F Pulse Rate 91 H 92 H Respiratory Rate 18 19 Blood Pressure 109/58 L 130/86 Pulse Oximetry 99 100 Intake & Output 12/20/17 12/21/17 12/21/17 18:59 06:59 18:59 Intake Total 1000 / 1000 480 / 480 Balance 1000 / 1000 480 / 480 Weight 151.5 kg 150.3 kg Intake: IV 1000 / 1000 NS Inj 1,000 ML @ Wide Open IV. 1000 / 1000 SIG BOLUS ONE Rx#:[id number] Oral 480 / 480 Other: # Voids 1 Result Diagrams: 12/21/17 12:25 12/20/17 16:00 Laboratory Results: Laboratory Results - last 24 hr 12/20/17 12/20/17 16:00 16:00 WBC 2.5 L RBC 3.57 L Hgb 10.4 L Hct 30.7 L MCV 86.1 MCH 29.2 MCHC 34.0 RDW 21.3 H Plt Count 584 H MPV 7.4 Prelim Diff (Auto) Slide review pending Neut % (Auto) 29.5 Lymph % (Auto) 48.3 H Bent % (Auto) 21.9 H Eos % (Auto) 0.0 Baso % (Auto) 0.3 Neut # (Auto) 0.7 L Lymph # (Auto) 1.2 Bent # (Auto) 0.5 Eos # (Auto) 0.0 Baso # (Auto) 0.0 WBC Differential Manual diff final Seg Neuts % (Manual) 40 Band Neuts % (Manual) 2 Lymphocytes % (Manual) 41 Monocytes % (Manual) 16 H Metamyelocytes % (Man) 1 Abs Neuts (Manual) 1.1 L Nucleated RBCs/100 WBC 21 H Differential Comment . Platelet Estimate High H Platelet Morphology Enlarged H Polychromasia 2.8 H Tear Drop Cells 1+ H Ovalocytes 1+ H Keratocytes Occ H Sodium 137 Potassium 3.8 Chloride 102 Carbon Dioxide 24.9 Anion Gap 10 BUN 10 Creatinine 0.74 Estimated GFR Greater than 89 Random Glucose 95 Calcium 8.5 Total Bilirubin 0.5 AST 26 ALT 33 Alkaline Phosphatase 84 Total Protein 6.3 L D Albumin 3.0 L Imaging Studies: Impressions Head MRI 12/20/17 16:04 CONCLUSION: 1. Negative MR Brain with and without contrast. Medications: Active Medications Generic Name Dose Route Start Last Admin Trade Name Freq PRN Reason Stop Dose Admin Acetaminophen 650 mg 12/21/17 02:23 12/21/17 02:41 Tylenol PO 650 mg Q8H PRN Administration PAIN 1-10 Sodium Chloride 1,000 mls @ 100 mls/hr 12/20/17 23:00 12/21/17 00:03 Ns Inj IV.CONT 100 mls/hr .Q10H SHELLEY Administration Objective Remarks: GENERAL: Well-nourished, well-developed young female patient, in no acute distress. SKIN: Warm and dry. HEAD: Normocephalic. EYES: No scleral icterus. No injection or drainage. PERRLA. NECK: Supple, trachea midline. No JVD or lymphadenopathy. CARDIOVASCULAR: +S1/S2. RESPIRATORY: Posterior breath sounds clear, equal bilaterally. No accessory muscle use. GASTROINTESTINAL: Abdomen soft, non-tender, nondistended. EXTREMITIES: No cyanosis, or edema. MUSCULOSKELETAL: Adequate muscle tone. NEUROLOGICAL: No obvious focal deficit. A&O x's 3. Moving all extremities. Sensation equal bilaterally. PSYCHIATRIC: Appropriate mood and affect; insight and judgment normal. 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 She is currently being treated per CALGB 17633 protocol. Patient was recently hospitalized for headache, possibly secondary to recurrent lumbar puncture procedures. She was recently readmitted for headache, nausea, vomiting. Plan: 1. Precursor B-cell acute lymphoblastic leukemia, currently day 30 of consolidation phase 2. Patient to begin treatment with cyclophosphamide and cytarabine today. 2. Recurring headache, possibly secondary to lumbar puncture procedures. Neurology has been consulted. Further testing is pending. MRI head was negative for acute process. 3. History of pulmonary embolism. We will continue with Lovenox injections. 4. Hypertension, continue amlodipine. 5. Nausea, vomiting. Continue IV hydration and Zofran as needed. - Attending Statement The exam, history, and the medical decision-making described in the above note were completed with the assistance of the mid-level provider. I reviewed and agree with the findings presented. I attest that I had a [id number] encounter with the patient on the same day, and personally performed and documented my assessment and findings in the medical record. 1. B cell ALL: will continue with chemotherapy per [id number] protocol 2. Headache: work up thus far unrevealing. neurology team following.
--- NOTE | 2017-12-21 10:35 | MR ---
EXAM DATE: 12/21/2017 10:28 AM EDT AGE/SEX: 27 years / Female INDICATIONS: Cephalgia. CLINICAL DATA: This is the patient's subsequent encounter. Patient reports that signs and symptoms h ave been present for 2 days and indicates a pain score of 3/10. MEDICAL/SURGICAL HISTORY: None. Cholecystectomy. [place] [facility] [place]. . TECHNIQUE: 3D [id number] MRA was performed. Source images, multiplanar STS MIP, and 3D volum e MIP reconstructions were reviewed. FINDINGS: Anterior Circulation: Intracranial Carotid Arteries: Patent. YOHANNES: There is no evidence for aneurysm, vessel truncation or stenosis, and no evidence for vascular m alformation. MCA: There is no evidence for aneurysm, vessel truncation or stenosis, and no evidence for vascular m alformation. Posterior Circulation: Distal Vertebral Arteries: Distal Vertebral arteries are symetrical and patent. Basilar Artery: There is no evidence for aneurysm, vessel truncation or stenosis, and no evidence for vascular malformation. DIE [employer]PA[employer] DIES and Cerebellar Branches: Patent bilateral posterior communicating arteries. There is no evidence for aneurysm, vessel truncation or stenosis, and no evidence for vascular malformation. CONCLUSION: 1. Negative MRA [place] ([place]) non contrast. Electronically signed by: Joaquim Huffman MD 12/21/2017 10:34 AM EDT
[2017-12-21] MEDS ORDERED: Gadobutrol PF 10 MMOL/10 ML Vial (for RAD) IV.SIG ONE (10:58)
--- NOTE | 2017-12-21 11:01 | MR ---
EXAM DATE: 12/21/2017 10:56 AM EDT AGE/SEX: 27 years / Female INDICATIONS: Cephalgia. CLINICAL DATA: This is the patient's subsequent encounter. Patient reports that signs and symptoms h ave been present for 2 days and indicates a pain score of 3/10. MEDICAL/SURGICAL HISTORY: None. Cholecystectomy. COMPARISON: [facility] – [place], MRA HEAD W/O CONTRAST, 12/21/2017. [facility] – [place], [place] HEAD W & W/O CONTRAST, 12/20/2017. H , CT HEAD W & W/O CONTRAST, 12/16/2017. . TECHNIQUE: MR cerebral venography is performed without and with 10 ml Gadavist (gadobutrol) contrast (single exam dose). Source images, 3D volume MIP, and sliding thin slab MIP reconstructions were re viewed. FINDINGS: There is excellent visualization of the major intracranial arteries out to the second-order branch ve ssels. There is no evidence for aneurysm, vessel truncation or stenosis, and no evidence for vascula r malformation. CONCLUSION: 1. Negative MRV Brain with and without contrast. Electronically signed by: Theo Cano MD 12/21/2017 11:00 AM EDT
--- NOTE | 2017-12-21 11:16 | P.RAD ---
Post Procedure Progress Note - Procedure Information Procedure Date: 12/21/17 Supervising Radiologist: Joaquim Huffman MD Estimated blood loss (mL): 0 Anesthesia: Local - Plan of Activity Patient to Unit: Nursing Unit See PACS Report for procedural detail/treatment.
[2017-12-21 12:45] LABS: Hematocrit 28.4 % (35.0-46.0); Hemoglobin 9.3 gm/dL (11.6-15.3); Mean Corpuscular HGB Conc 32.9 % (32.0-36.0); Mean Corpuscular Hemoglobin 28.8 pg (27.0-34.0); Mean Corpuscular Volume 87.6 fL (80.0-100.0); Mean Platelet Volume 7.1 fL (7.0-11.0); Platelet Count 500 th/mm3 (150-450); Red Blood Count 3.24 mil/mm3 (4.00-5.30); Red Cell Distribution Width 21.1 % (11.6-17.2); White Blood Count 2.3 th/mm3 (4.0-11.0)
[2017-12-21 12:56] LABS: RBC on Tube 1 47 /mm3
[2017-12-21 12:56] LABS: INR 1.2 Ratio; Prothrombin Time 11.9 sec (9.8-11.6)
[2017-12-21 12:57] LABS: Monocytes,CSF 100 %; Neutrophils,CSF 0 %; RBC on Tube 4 84 /mm3
[2017-12-21] MEDS: Enoxaparin Inj 150 MG/ML Syringe SQ SCH (13:25)
[2017-12-21] MEDS ORDERED: CYCLOPHOSPHAMIDE IV.SIG ONE (17:00)
[2017-12-21] MEDS ORDERED: SODIUM CHLOR 0.9% IV.SIG ONE ×2 (17:00→18:00)
[2017-12-21] MEDS: Granisetron Inj 1 MG, Dexamethasone Inj 20 MG in Sodium Chlor 0.9% Inj 50 ML IV.SIG SCH ×2 (17:36)
[2017-12-21] MEDS ORDERED: CYTARABINE IV.SIG ONE (18:00)
[2017-12-21] MEDS: Morphine Sulfate 15 MG IR Tablet PO PRN (20:37)
[2017-12-22] MEDS: Sod Chloride 0.9% Inj 1,000 ML IV.CONT SCH ×3 (06:37→20:59)
[2017-12-22 07:03] LABS: Baso % (Auto) 0.4 % (0.0-2.0); Eos % (Auto) 0.1 % (0.0-4.0); Hematocrit 29.2 % (35.0-46.0); Hemoglobin 9.4 gm/dL (11.6-15.3); Lymph # (Auto) 0.4 th/mm3 (1.0-4.8); Lymph % (Auto) 19.5 % (9.0-44.0); Mean Corpuscular HGB Conc 32.2 % (32.0-36.0); Mean Corpuscular Hemoglobin 29.1 pg (27.0-34.0); Mean Corpuscular Volume 90.2 fL (80.0-100.0); Mean Platelet Volume 7.3 fL (7.0-11.0); Mono # (Auto) 0.1 th/mm3 (0.0-0.9); Mono % (Auto) 3.2 % (0.0-8.0); Neut # (Auto) 1.6 th/mm3 (1.8-7.7); Neut % (Auto) 76.8 % (16.0-70.0); Platelet Count 413 th/mm3 (150-450); Red Blood Count 3.24 mil/mm3 (4.00-5.30); Red Cell Distribution Width 21.7 % (11.6-17.2); White Blood Count 2.1 th/mm3 (4.0-11.0)
[2017-12-22 07:29] LABS: Alanine Aminotransferase 30 U/L (10-53); Albumin 2.6 g/dL (3.4-5.0); Alkaline Phosphatase 67 U/L (45-117); Anion Gap 11 meq/L (5-15); Aspartate Aminotransferase 13 U/L (15-37); Blood Urea Nitrogen 11 mg/dL (7-18); Calcium 7.9 mg/dL (8.5-10.1); Carbon Dioxide 24.1 meq/L (21.0-32.0); Chloride 105 meq/L (98-107); Glomerular Filtration Rate Greater Than 89 mL/min (>89); Glucose,Random 219 mg/dL (74-106); Potassium 4.1 meq/L (3.5-5.1); Sodium 140 meq/L (136-145); Total Protein 5.6 g/dL (6.4-8.2)
--- NOTE | 2017-12-22 09:07 | IR ---
CORRECTED REPORT 01/17/2018, added Opening/Closing Pressures EXAM DATE: 12/21/2017 11:34 AM EDT AGE/SEX: 27 years / Female INDICATIONS: Patient presents with headaches in need of Lumbar puncture with opening pressures. CLINICAL DATA: This is the patient's initial encounter. Patient reports that signs and symptoms have been present for 1 week and indicates a pain score of 7/10. MEDICAL/SURGICAL HISTORY: Hypertension. Leukemia, Peripheral neuropathy, Pulmonary embolism. C holecystectomy. COMPARISON: [facility], LUMBAR PUNCTURE W CHEMO, 12/12/2017. . FLUORO TIME (min): 0.1 IMAGE SERIES: 1 ACCESS SITE: L3-4 LUMBAR PUNCTURE TIME: 1057 hours OPENING PRESSURE: 22.25 cm of water CLOSING PRESSURE: not requested FLUID: Total volume of 10 cc of clear fluid was removed. Fluid was sent to lab for ordered studies. PROCEDURE: 1. Fluoroscopic guided lumbar puncture. The risks, benefits and alternatives to the procedure were explained and verbal and written consent w as obtained. The site was prepped in sterile fashion. Full sterile technique was used, including ca p, mask, sterile gloves and gown and a large sterile sheet. Hand hygiene and 2% chlorhexidine and/or betadine/alcohol prep was utilized per protocol for cutaneous antisepsis. The skin and subcutaneous tissues were infiltrated with local anesthetic solution. With fluoroscopic guidance the lumbar thecal sac was punctured at the level above. The fluid describ ed above was removed without difficulty. The patient tolerated the procedure well and there were no complications. CONCLUSION: 1. Uncomplicated fluoroscopically guided lumbar puncture. Electronically signed by: Joaquim Huffman MD 01/17/2018 10:19 AM EDT
[2017-12-22 09:10] LABS: Blast Cells 1 % (0-0); Lymphocytes 19 % (9-44); Metamyelocytes 1 % (0-1); Monocytes 7 % (0-8); Tallied Nucleated RBC 6 (0-0)
[2017-12-22 09:13] LABS: Ovalocytes 1+; Platelet Estimate Normal (Normal); Platelet Morphology Normal (Normal); Polychromasia 2.9 % (0.0-1.9)
[2017-12-22] MEDS: amLODIPine 10 MG Tablet PO SCH (09:19)
[2017-12-22] MEDS: valACYclovir 500 MG Tab PO SCH (09:19)
[2017-12-22] MEDS: Gabapentin 300 MG Capsule PO SCH ×3 (09:20→18:00)
[2017-12-22] MEDS: Sulfamethoxazole/Trimethoprim 400/80 MG Tablet PO SCH (09:20)
[2017-12-22] MEDS: Morphine Sulfate 15 MG IR Tablet PO PRN (09:20)
--- NOTE | 2017-12-22 12:06 | P.PNONC ---
Subjective Interval history: Patient lying in bed, groggy from recent morphine administration. Still complains of headache. Objective Vital Signs/Intake & Output: Vital Signs 12/21/17 17:20 12/21/17 20:00 12/22/17 00:00 Temperature 98.9 F 98.5 F 98.1 F Pulse Rate 103 H 111 H 88 Respiratory Rate 21 16 16 Blood Pressure 121/71 137/70 117/71 Pulse Oximetry 99 99 98 12/22/17 04:00 12/22/17 07:44 12/22/17 08:07 Temperature 98.2 F 98.4 F Pulse Rate 95 H 92 H 95 H Respiratory Rate 16 20 Blood Pressure 123/70 143/85 H Pulse Oximetry 98 100 Intake & Output 12/21/17 12/22/17 12/22/17 18:59 06:59 18:59 Intake Total 1796 / 1796 2275 / 2275 1000 / 1000 Output Total 600 / 600 Balance 1796 / 1796 1675 / 1675 1000 / 1000 Intake: IV 956 / 956 1775 / 1775 1000 / 1000 NS Inj 1,000 ML @ 100 mls/hr IV 900 / 900 1000 / 1000 1000 / 1000 .CONT .Q10H [facility] Rx#:[id number] Cytoxan Inj 2,450 MG In NS Inj 515 / 515 500 ML @ 500 mls/hr IV.SIG ONCE ONE Rx#:[id number] Claudette-C Inj 184 MG In NS Inj 250 260 / 260 ML @ 259.2 mls/hr IV.SIG ONCE ONE Rx#:[id number] Kytril Inj 1 MG Decadron Inj 20 56 / 56 MG In NS Inj 50 ML @ 336 mls/ hr IV.SIG DAILY@1630 [facility] Rx#: [id number] Oral 840 / 840 500 / 500 Output: Urine 600 / 600 Other: Date of Last Bowel Movement 12/18/17 Result Diagrams: 12/22/17 05:05 12/22/17 05:05 Laboratory Results: Laboratory Results - last 24 hr 12/21/17 12/21/17 12/21/17 10:57 10:57 10:57 WBC RBC Hgb Hct MCV MCH MCHC RDW Plt Count MPV Prelim Diff (Auto) Neut % (Auto) Lymph % (Auto) [place] % (Auto) Eos % (Auto) Baso % (Auto) Neut # (Auto) Lymph # (Auto) [place] # (Auto) Eos # (Auto) Baso # (Auto) WBC Differential Seg Neuts % (Manual) Band Neuts % (Manual) Lymphocytes % (Manual) Monocytes % (Manual) Metamyelocytes % (Man) Blast Cells % (Manual) Abs Neuts (Manual) Nucleated RBCs/100 WBC Differential Comment Platelet Estimate Platelet Morphology Polychromasia Ovalocytes ESR PT INR APTT Sodium Potassium Chloride Carbon Dioxide Anion Gap BUN Creatinine Estimated GFR Random Glucose Calcium Total Bilirubin AST ALT Alkaline Phosphatase C-Reactive Protein Total Protein Albumin TSH CSF Volume (1) 2.0 CSF Supernat Color (1) Clear CSF WBC (1) 3 CSF RBC (1) 47 H CSF Volume (2) 2.0 CSF Supernat Color (2) Clear CSF Gross Blood (2) 0 CSF Volume (3) 2.0 CSF Supernat Color (3) Clear CSF Gross Blood (3) 0 CSF Volume (4) 4.0 CSF Supernat Color (4) Clear CSF Gross Blood (4) Trace CSF WBC (4) 3 CSF RBC (4) 84 H CSF Neutrophils % 0 CSF Monocytes % 100 CSF Glucose 72 CSF Total Protein CSF Herpes I DNA (PCR) Negative CSF Herpes II DNA (PCR) Negative 12/21/17 12/21/17 12/21/17 10:57 12:25 12:25 WBC RBC Hgb Hct MCV MCH MCHC RDW Plt Count MPV Prelim Diff (Auto) Neut % (Auto) Lymph % (Auto) [place] % (Auto) Eos % (Auto) Baso % (Auto) Neut # (Auto) Lymph # (Auto) [place] # (Auto) Eos # (Auto) Baso # (Auto) WBC Differential Seg Neuts % (Manual) Band Neuts % (Manual) Lymphocytes % (Manual) Monocytes % (Manual) Metamyelocytes % (Man) Blast Cells % (Manual) Abs Neuts (Manual) Nucleated RBCs/100 WBC Differential Comment Platelet Estimate Platelet Morphology Polychromasia Ovalocytes ESR 13 PT INR APTT Sodium Potassium Chloride Carbon Dioxide Anion Gap BUN Creatinine Estimated GFR Random Glucose Calcium Total Bilirubin AST ALT Alkaline Phosphatase C-Reactive Protein Less than 0.29 Total Protein Albumin TSH CSF Volume (1) CSF Supernat Color (1) CSF WBC (1) CSF RBC (1) CSF Volume (2) CSF Supernat Color (2) CSF Gross Blood (2) CSF Volume (3) CSF Supernat Color (3) CSF Gross Blood (3) CSF Volume (4) CSF Supernat Color (4) CSF Gross Blood (4) CSF WBC (4) CSF RBC (4) CSF Neutrophils % CSF Monocytes % CSF Glucose CSF Total Protein 15.9 CSF Herpes I DNA (PCR) CSF Herpes II DNA (PCR) 12/21/17 12/21/17 12/21/17 12:25 12:25 12:25 WBC 2.3 L RBC 3.24 L Hgb 9.3 L Hct 28.4 L MCV 87.6 MCH 28.8 MCHC 32.9 RDW 21.1 H Plt Count 500 H MPV 7.1 Prelim Diff (Auto) Neut % (Auto) Lymph % (Auto) [place] % (Auto) Eos % (Auto) Baso % (Auto) Neut # (Auto) Lymph # (Auto) [place] # (Auto) Eos # (Auto) Baso # (Auto) WBC Differential Seg Neuts % (Manual) Band Neuts % (Manual) Lymphocytes % (Manual) Monocytes % (Manual) Metamyelocytes % (Man) Blast Cells % (Manual) Abs Neuts (Manual) Nucleated RBCs/100 WBC Differential Comment Platelet Estimate Platelet Morphology Polychromasia Ovalocytes ESR PT 11.9 H INR 1.2 APTT 28.0 Sodium Potassium Chloride Carbon Dioxide Anion Gap BUN Creatinine Estimated GFR Random Glucose Calcium Total Bilirubin AST ALT Alkaline Phosphatase C-Reactive Protein Total Protein Albumin TSH 0.751 CSF Volume (1) CSF Supernat Color (1) CSF WBC (1) CSF RBC (1) CSF Volume (2) CSF Supernat Color (2) CSF Gross Blood (2) CSF Volume (3) CSF Supernat Color (3) CSF Gross Blood (3) CSF Volume (4) CSF Supernat Color (4) CSF Gross Blood (4) CSF WBC (4) CSF RBC (4) CSF Neutrophils % CSF Monocytes % CSF Glucose CSF Total Protein CSF Herpes I DNA (PCR) CSF Herpes II DNA (PCR) 12/22/17 12/22/17 05:05 05:05 WBC 2.1 L RBC 3.24 L Hgb 9.4 L Hct 29.2 L MCV 90.2 MCH 29.1 MCHC 32.2 RDW 21.7 H Plt Count 413 MPV 7.3 Prelim Diff (Auto) Slide review pending Neut % (Auto) 76.8 H Lymph % (Auto) 19.5 [place] % (Auto) 3.2 Eos % (Auto) 0.1 Baso % (Auto) 0.4 Neut # (Auto) 1.6 L Lymph # (Auto) 0.4 L [place] # (Auto) 0.1 Eos # (Auto) 0.0 Baso # (Auto) 0.0 WBC Differential Manual diff final Seg Neuts % (Manual) 65 Band Neuts % (Manual) 7 H Lymphocytes % (Manual) 19 Monocytes % (Manual) 7 Metamyelocytes % (Man) 1 Blast Cells % (Manual) 1 H Abs Neuts (Manual) 1.5 L Nucleated RBCs/100 WBC 6 H Differential Comment . Platelet Estimate Normal Platelet Morphology Normal Polychromasia 2.9 H Ovalocytes 1+ H ESR PT INR APTT Sodium 140 Potassium 4.1 Chloride 105 Carbon Dioxide 24.1 Anion Gap 11 BUN 11 Creatinine 0.85 Estimated GFR Greater than 89 Random Glucose 219 H D Calcium 7.9 L Total Bilirubin 0.3 AST 13 L ALT 30 Alkaline Phosphatase 67 C-Reactive Protein Total Protein 5.6 L D Albumin 2.6 L TSH CSF Volume (1) CSF Supernat Color (1) CSF WBC (1) CSF RBC (1) CSF Volume (2) CSF Supernat Color (2) CSF Gross Blood (2) CSF Volume (3) CSF Supernat Color (3) CSF Gross Blood (3) CSF Volume (4) CSF Supernat Color (4) CSF Gross Blood (4) CSF WBC (4) CSF RBC (4) CSF Neutrophils % CSF Monocytes % CSF Glucose CSF Total Protein CSF Herpes I DNA (PCR) CSF Herpes II DNA (PCR) Culture Results: Microbiology 12/21/17 10:57 Fungal Smear - Final Cerebral Spinal Fluid - Lumbar Puncture No fungal elements seen 12/21/17 10:57 Gram Stain - Final Lumbar Puncture CSF Culture - Preliminary No growth in 24 hours Imaging Studies: Impressions Lumbar Puncture Fluoroscopy 12/21/17 09:03 CONCLUSION: 1. Uncomplicated fluoroscopically guided lumbar puncture. Medications: Active Medications Generic Name Dose Route Start Last Admin Trade Name Freq PRN Reason Stop Dose Admin Acetaminophen 650 mg 12/21/17 02:23 12/21/17 02:41 Tylenol PO 650 mg Q8H PRN Administration PAIN 1-10 Amlodipine Besylate 10 mg 12/21/17 09:00 12/22/17 09:19 Norvasc PO 10 mg DAILY [facility] Administration Enoxaparin Sodium 150 mg 12/21/17 09:00 12/21/17 13:25 Lovenox Inj SQ Not Given Q12HR [facility] Fluconazole 200 mg 12/21/17 09:00 12/22/17 09:20 Diflucan PO 200 mg DAILY [facility] Administration Gabapentin 600 mg 12/21/17 09:00 12/22/17 09:20 Neurontin PO 600 mg TID [facility] Administration Sodium Chloride 1,000 mls @ 100 mls/hr 12/20/17 23:00 12/22/17 09:29 Ns Inj IV.CONT 100 mls/hr .Q10H [facility] Administration Granisetron HCl 1 mg/ 56 mls @ 336 mls/hr 12/21/17 16:30 12/21/17 17:55 Dexamethasone Sodium Phosphate IV.SIG 12/24/17 16:39 Infused 20 mg/ Sodium Chloride DAILY@1630 [facility] Infusion Mercaptopurine 150 mg 12/21/17 09:00 12/22/17 09:20 Purinethol PO 150 mg DAILY [facility] Administration Morphine Sulfate 15 mg 12/21/17 19:21 12/22/17 09:20 Msir PO 15 mg Q6H PRN Administration Non-Acute Pain 1-10 Ondansetron HCl 4 mg 12/20/17 22:38 12/22/17 09:21 Zofran Inj IV.PUSH 4 mg Q6H PRN Administration NAUSEA Trimethoprim/Sulfamethoxazole 1 tab 12/21/17 09:00 12/22/17 09:20 Bactrim PO 1 tab DAILY [facility] Administration Valacyclovir HCl 500 mg 12/21/17 09:00 12/22/17 09:19 Valtrex PO 500 mg DAILY [facility] Administration Objective Remarks: GENERAL: Well-nourished, well-developed young female patient, lying in bed, in no acute distress. SKIN: Warm and dry. HEAD: Normocephalic. EYES: No scleral icterus. No injection or drainage. PERRLA. NECK: Supple, trachea midline. No JVD or lymphadenopathy. CARDIOVASCULAR: +S1/S2. RESPIRATORY: Anterior breath sounds clear, equal bilaterally. No accessory muscle use. GASTROINTESTINAL: Abdomen soft, non-tender, nondistended. EXTREMITIES: No cyanosis, or edema. MUSCULOSKELETAL: Adequate muscle tone. NEUROLOGICAL: No obvious focal deficit. A&O x's 3. Moving all extremities. Sensation equal bilaterally. PSYCHIATRIC: Appropriate mood and affect; insight and judgment normal. 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 She is currently being treated per [facility] 04741 protocol. Patient was recently hospitalized for headache, possibly secondary to recurrent lumbar puncture procedures. She was recently readmitted for headache, nausea, vomiting. Plan: 1. 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 Treatment with cyclophosphamide and cytarabine began yesterday. 2. Recurring headache, possibly secondary to lumbar puncture procedures. Neurology has been consulted. MRI head was negative for acute process. No findings thus far. Pt still with h/a not relieved my narcotic pain meds. Requests ice pack-Rn at bedside and will obtain. 3. History of pulmonary embolism. We will continue with Lovenox injections. 4. Hypertension, continue amlodipine. 5. Nausea, vomiting. Continue IV hydration and Zofran as needed. - Attending Statement The exam, history, and the medical decision-making described in the above note were completed with the assistance of the mid-level provider. I reviewed and agree with the findings presented. I attest that I had a [id number] encounter with the patient on the same day, and personally performed and documented my assessment and findings in the medical record. 27 yoF with precursor B cell ALL currently being treated per [facility] 42602 regimen. If still in remission after this round of chemotherapy will plan to move forward with bone marrow biopsy at [facility]. Continue with chemotherapy. Headache, improving, work up unrevealing.
[2017-12-22] MEDS: Granisetron Inj 1 MG, Dexamethasone Inj 20 MG in Sodium Chlor 0.9% Inj 50 ML IV.SIG SCH ×2 (18:04)
[2017-12-22] MEDS: CYTARABINE IV.SIG SCH (19:30)
[2017-12-22] MEDS: SODIUM CHLOR 0.9% IV.SIG SCH (19:30)
[2017-12-22] MEDS ORDERED: Docusate Sodium 100 MG Capsule PO PRN (20:14)
[2017-12-22] MEDS: Enoxaparin Inj 150 MG/ML Syringe SQ SCH (20:55)
[2017-12-22 23:11] LABS: Enterovirus (PCR)Source CSF; Enterovirus RNA Qual (PCR) Negative (Negative)
[2017-12-23 06:38] LABS: Baso % (Auto) 0.4 % (0.0-2.0); Hematocrit 29.1 % (35.0-46.0); Hemoglobin 9.7 gm/dL (11.6-15.3); Lymph # (Auto) 0.4 th/mm3 (1.0-4.8); Lymph % (Auto) 8.5 % (9.0-44.0); Mean Corpuscular HGB Conc 33.4 % (32.0-36.0); Mean Corpuscular Hemoglobin 29.3 pg (27.0-34.0); Mean Corpuscular Volume 87.9 fL (80.0-100.0); Mean Platelet Volume 7.1 fL (7.0-11.0); Mono # (Auto) 0.2 th/mm3 (0.0-0.9); Mono % (Auto) 5.8 % (0.0-8.0); Neut # (Auto) 3.6 th/mm3 (1.8-7.7); Neut % (Auto) 85.3 % (16.0-70.0); Platelet Count 452 th/mm3 (150-450); Red Blood Count 3.31 mil/mm3 (4.00-5.30); Red Cell Distribution Width 21.1 % (11.6-17.2); White Blood Count 4.3 th/mm3 (4.0-11.0)
[2017-12-23 07:09] LABS: Alanine Aminotransferase 35 U/L (10-53); Albumin 2.5 g/dL (3.4-5.0); Alkaline Phosphatase 62 U/L (45-117); Anion Gap 10 meq/L (5-15); Aspartate Aminotransferase 17 U/L (15-37); Blood Urea Nitrogen 12 mg/dL (7-18); Calcium 8.2 mg/dL (8.5-10.1); Carbon Dioxide 25.1 meq/L (21.0-32.0); Chloride 107 meq/L (98-107); Glomerular Filtration Rate Greater Than 89 mL/min (>89); Glucose,Random 117 mg/dL (74-106); Potassium 4.3 meq/L (3.5-5.1); Sodium 142 meq/L (136-145); Total Protein 5.4 g/dL (6.4-8.2)
--- NOTE | 2017-12-23 08:44 | P.PNNEU ---
Subjective Subjective Comments: Slept well still with mild headache did not do well on Fioricet Active Medications: Active Medications Acetaminophen (Tylenol) 650 mg PO Q8H PRN PRN Reason: PAIN 1-10 Last Admin: 12/21/17 02:41 Dose: 650 mg Amlodipine Besylate (Norvasc) 10 mg PO DAILY [facility] Last Admin: 12/22/17 09:19 Dose: 10 mg Docusate Sodium (Colace) 100 mg PO BID PRN PRN Reason: CONSTIPATION Last Admin: 12/22/17 21:01 Dose: 100 mg Enoxaparin Sodium (Lovenox Inj) 150 mg SQ Q12HR [facility] Last Admin: 12/22/17 20:55 Dose: 150 mg Fluconazole (Diflucan) 200 mg PO DAILY [facility] Last Admin: 12/22/17 09:20 Dose: 200 mg Gabapentin (Neurontin) 600 mg PO TID [facility] Last Admin: 12/22/17 18:00 Dose: 600 mg Sodium Chloride (Ns Inj) 1,000 mls @ 100 mls/hr IV.CONT .Q10H [facility] Last Admin: 12/22/17 20:59 Dose: 100 mls/hr Granisetron HCl 1 mg/Dexamethasone Sodium Phosphate 20 mg/ Sodium Chloride 56 mls @ 336 mls/hr IV.SIG DAILY@1630 [facility] Stop: 12/24/17 16:39 Last Infusion: 12/22/17 19:00 Dose: Infused Cytarabine 184 mg/ Sodium (Chloride) 259.2 mls @ 259.2 mls/hr IV.SIG DAILY@ 1700 [facility] Stop: 12/24/17 17:59 Last Infusion: 12/22/17 20:46 Dose: Infused Mercaptopurine (Purinethol) 150 mg PO DAILY [facility] Last Admin: 12/22/17 09:20 Dose: 150 mg Morphine Sulfate (Msir) 15 mg PO Q6H PRN PRN Reason: Non-Acute Pain 1-10 Last Admin: 12/22/17 09:20 Dose: 15 mg Ondansetron HCl (Zofran Inj) 4 mg IV.PUSH Q6H PRN PRN Reason: NAUSEA Last Admin: 12/22/17 09:21 Dose: 4 mg Sodium Chloride (Ns Flush) 2 ml IV.FLUSH PRN PRN PRN Reason: FLUSH AFTER USING IV ACCESS Trimethoprim/Sulfamethoxazole (Bactrim) 1 tab PO DAILY [facility] Last Admin: 12/22/17 09:20 Dose: 1 tab Valacyclovir HCl (Valtrex) 500 mg PO DAILY [facility] Last Admin: 12/22/17 09:19 Dose: 500 mg Allergies/Adverse Reactions: Allergies Allergy/AdvReac Type Severity Reaction Status Date / Time No Known Allergies Allergy Verified 12/09/17 14:03 Review of Systems All other systems reviewed negative except as stated in HPI Physical Exam Vital signs: Vital Signs 12/22/17 12:00 12/22/17 13:02 12/22/17 16:00 Temperature 98.4 F Pulse Rate 88 77 92 H Respiratory Rate 16 Blood Pressure 141/82 H Pulse Oximetry 99 12/22/17 16:56 12/22/17 19:18 12/22/17 19:49 Temperature 98.5 F 98.5 F Pulse Rate 89 76 74 Respiratory Rate 16 18 Blood Pressure 122/72 122/67 Pulse Oximetry 99 99 12/23/17 00:00 12/23/17 00:03 12/23/17 03:54 Temperature 98.4 F Pulse Rate 84 92 H 75 Respiratory Rate 16 Blood Pressure 112/67 Pulse Oximetry 98 12/23/17 04:00 Temperature 98 F Pulse Rate 102 H Respiratory Rate 16 Blood Pressure 111/58 L Pulse Oximetry 97 Intake & Output 12/22/17 12/23/17 12/23/17 18:59 06:59 18:59 Intake Total 1840 / 1840 1555.2 / 1555.2 Output Total 2100 / 2100 Balance 1840 / 1840 -544.8 / -544.8 Weight 159.6 kg Intake: IV 1000 / 1000 1315.2 / 1315.2 NS Inj 1,000 ML @ 100 mls/hr IV 1000 / 1000 1000 / 1000 .CONT .Q10H [facility] Rx#:[id number] Claudette-C Inj 184 MG In NS Inj 250 259.2 / 259.2 ML @ 259.2 mls/hr IV.SIG DAILY@ 1700 [facility] Rx#:[id number] Kytril Inj 1 MG Decadron Inj 20 56 / 56 MG In NS Inj 50 ML @ 336 mls/ hr IV.SIG DAILY@1630 [facility] Rx#: [id number] Oral 840 / 840 240 / 240 Output: Urine 2100 / 2099 Other: Date of Last Bowel Movement 12/18/17 Narrative: Awake alert oriented 3, No aphasia articulate, visual brunson full pupils 3 2 mm bilaterally no temporal tenderness no nuchal rigidity no facial asymmetry no pronator drift - Constitutional no acute distress - Routine HEENT Exam Head: Present: normocephalic Objective Laboratory Results - last 24 hr 12/21/17 12/21/17 12/22/17 10:57 10:57 05:05 WBC RBC Hgb Hct MCV MCH MCHC RDW Plt Count MPV Neut % (Auto) Lymph % (Auto) [place] % (Auto) Eos % (Auto) Baso % (Auto) Neut # (Auto) Lymph # (Auto) [place] # (Auto) Eos # (Auto) Baso # (Auto) WBC Differential Manual diff final Seg Neuts % (Manual) 65 Band Neuts % (Manual) 7 H Lymphocytes % (Manual) 19 Monocytes % (Manual) 7 Metamyelocytes % (Man) 1 Blast Cells % (Manual) 1 H Abs Neuts (Manual) 1.5 L Nucleated RBCs/100 WBC 6 H Differential Comment Platelet Estimate Normal Platelet Morphology Normal Polychromasia 2.9 H Ovalocytes 1+ H Sodium Potassium Chloride Carbon Dioxide Anion Gap BUN Creatinine Estimated GFR Random Glucose Calcium Total Bilirubin AST ALT Alkaline Phosphatase Total Protein Albumin CSF Herpes I DNA (PCR) Negative CSF Herpes II DNA (PCR) Negative Enterovirus Source Csf Enterovirus RNA (PCR) Negative 12/23/17 12/23/17 05:48 05:48 WBC 4.3 RBC 3.31 L Hgb 9.7 L Hct 29.1 L MCV 87.9 MCH 29.3 MCHC 33.4 RDW 21.1 H Plt Count 452 H MPV 7.1 Neut % (Auto) 85.3 H Lymph % (Auto) 8.5 L [place] % (Auto) 5.8 Eos % (Auto) 0.0 Baso % (Auto) 0.4 Neut # (Auto) 3.6 Lymph # (Auto) 0.4 L [place] # (Auto) 0.2 Eos # (Auto) 0.0 Baso # (Auto) 0.0 WBC Differential . Seg Neuts % (Manual) Band Neuts % (Manual) Lymphocytes % (Manual) Monocytes % (Manual) Metamyelocytes % (Man) Blast Cells % (Manual) Abs Neuts (Manual) Nucleated RBCs/100 WBC Differential Comment Auto diff final Platelet Estimate Platelet Morphology Polychromasia Ovalocytes Sodium 142 Potassium 4.3 Chloride 107 Carbon Dioxide 25.1 Anion Gap 10 BUN 12 Creatinine 0.79 Estimated GFR Greater than 89 Random Glucose 117 H D Calcium 8.2 L Total Bilirubin 0.4 AST 17 ALT 35 Alkaline Phosphatase 62 Total Protein 5.4 L Albumin 2.5 L CSF Herpes I DNA (PCR) CSF Herpes II DNA (PCR) Enterovirus Source Enterovirus RNA (PCR) Microbiology 12/21/17 10:57 Gram Stain - Final Lumbar Puncture CSF Culture - Preliminary No growth in 48 hours 12/21/17 10:57 Acid Fast Bacilli Smear - Final Other No acid fast bacilli seen 12/21/17 10:57 Fungal Smear - Final Cerebral Spinal Fluid - Lumbar Puncture No fungal elements seen Review/Management - Diagnosis (1) Headache Code(s): R51 - Headache Status: Acute Current Visit: Yes (2) B-cell acute lymphoblastic leukemia (ALL) Code(s): C91.00 - Acute lymphoblastic leukemia not having achieved remission Status: Acute Current Visit: No (3) Morbid obesity Code(s): E66.01 - Morbid (severe) obesity due to excess calories Status: Chronic Current Visit: No (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 However with her obesity recent chemotherapy , immunocompromise state CSF studies negative thus far. Opening pressure not recorded discussed with radiology they can look into it MRI, MRA, MRV brain negative Recommendation Would suggest Topamax 25 mg p.o. twice daily Could also consider Imitrex 50 mg p.o. as needed severe headache We will defer to oncology to ensure there is no drug drug interaction
[2017-12-23] MEDS: Morphine Sulfate 15 MG IR Tablet PO PRN ×2 (09:50→16:53)
[2017-12-23] MEDS: valACYclovir 500 MG Tab PO SCH (09:50)
[2017-12-23] MEDS: amLODIPine 10 MG Tablet PO SCH (09:50)
[2017-12-23] MEDS: Gabapentin 300 MG Capsule PO SCH ×3 (09:50→17:58)
[2017-12-23] MEDS: Sulfamethoxazole/Trimethoprim 400/80 MG Tablet PO SCH (09:51)
[2017-12-23] MEDS: Enoxaparin Inj 150 MG/ML Syringe SQ SCH ×2 (09:51→21:05)
--- NOTE | 2017-12-23 11:15 | P.PNONC ---
Subjective Interval history: Afebrile Patient sitting up in bed in no obvious distress Reports she has just taken an Imitrex that the neurologist ordered approximately 20 minutes ago She is waiting to see what effect this has prior to taking the morphine Colace last night for constipation and she is planning to take another dose today around 1. Objective Vital Signs/Intake & Output: Vital Signs 12/22/17 12:00 12/22/17 13:02 12/22/17 16:00 Temperature 98.4 F Pulse Rate 88 77 92 H Respiratory Rate 16 Blood Pressure 141/82 H Pulse Oximetry 99 12/22/17 16:56 12/22/17 19:18 12/22/17 19:49 Temperature 98.5 F 98.5 F Pulse Rate 89 76 74 Respiratory Rate 16 18 Blood Pressure 122/72 122/67 Pulse Oximetry 99 99 12/23/17 00:00 12/23/17 00:03 12/23/17 03:54 Temperature 98.4 F Pulse Rate 84 92 H 75 Respiratory Rate 16 Blood Pressure 112/67 Pulse Oximetry 98 12/23/17 04:00 12/23/17 08:00 Temperature 98 F 98.4 F Pulse Rate 102 H 74 Respiratory Rate 16 18 Blood Pressure 111/58 L 130/79 Pulse Oximetry 97 99 Intake & Output 12/22/17 12/23/17 12/23/17 18:59 06:59 18:59 Intake Total 1840 / 1840 1555.2 / 1555.2 Output Total 2100 / 2100 Balance 1840 / 1840 -544.8 / -544.8 Weight 351 lb 13.724 oz Intake: IV 1000 / 1000 1315.2 / 1315.2 NS Inj 1,000 ML @ 100 mls/hr IV 1000 / 1000 1000 / 1000 .CONT .Q10H [facility] Rx#:[id number] Claudette-C Inj 184 MG In NS Inj 250 259.2 / 259.2 ML @ 259.2 mls/hr IV.SIG DAILY@ 1700 [facility] Rx#:[id number] Kytril Inj 1 MG Decadron Inj 20 56 / 56 MG In NS Inj 50 ML @ 336 mls/ hr IV.SIG DAILY@1630 [facility] Rx#: [id number] Oral 840 / 840 240 / 240 Output: Urine 2099 / 2099 Other: Date of Last Bowel Movement 12/18/17 Result Diagrams: 12/23/17 05:48 12/23/17 05:48 Laboratory Results: Laboratory Results - last 24 hr 12/21/17 12/23/17 12/23/17 10:57 05:48 05:48 WBC 4.3 RBC 3.31 L Hgb 9.7 L Hct 29.1 L MCV 87.9 MCH 29.3 MCHC 33.4 RDW 21.1 H Plt Count 452 H MPV 7.1 Neut % (Auto) 85.3 H Lymph % (Auto) 8.5 L [place] % (Auto) 5.8 Eos % (Auto) 0.0 Baso % (Auto) 0.4 Neut # (Auto) 3.6 Lymph # (Auto) 0.4 L [place] # (Auto) 0.2 Eos # (Auto) 0.0 Baso # (Auto) 0.0 WBC Differential . Differential Comment Auto diff final Sodium 142 Potassium 4.3 Chloride 107 Carbon Dioxide 25.1 Anion Gap 10 BUN 12 Creatinine 0.79 Estimated GFR Greater than 89 Random Glucose 117 H D Calcium 8.2 L Total Bilirubin 0.4 AST 17 ALT 35 Alkaline Phosphatase 62 Total Protein 5.4 L Albumin 2.5 L Enterovirus Source Csf Enterovirus RNA (PCR) Negative Culture Results: Microbiology 12/21/17 10:57 Gram Stain - Final Lumbar Puncture CSF Culture - Preliminary No growth in 48 hours 12/21/17 10:57 Acid Fast Bacilli Smear - Final Other No acid fast bacilli seen 12/21/17 10:57 Fungal Smear - Final Cerebral Spinal Fluid - Lumbar Puncture No fungal elements seen Medications: Active Medications Generic Name Dose Route Start Last Admin Trade Name Aungq PRN Reason Stop Dose Admin Acetaminophen 650 mg 12/21/17 02:23 12/21/17 02:41 Tylenol PO 650 mg Q8H PRN Administration PAIN 1-10 Amlodipine Besylate 10 mg 12/21/17 09:00 12/23/17 09:50 Norvasc PO 10 mg DAILY [facility] Administration Docusate Sodium 100 mg 12/22/17 20:14 12/22/17 21:01 Colace PO 100 mg BID PRN Administration CONSTIPATION Enoxaparin Sodium 150 mg 12/21/17 09:00 12/23/17 09:51 Lovenox Inj SQ 150 mg Q12HR [facility] Administration Fluconazole 200 mg 12/21/17 09:00 12/23/17 09:49 Diflucan PO 200 mg DAILY [facility] Administration Gabapentin 600 mg 12/21/17 09:00 12/23/17 09:50 Neurontin PO 600 mg TID [facility] Administration Sodium Chloride 1,000 mls @ 100 mls/hr 12/20/17 23:00 12/22/17 20:59 Ns Inj IV.CONT 100 mls/hr .Q10H [facility] Administration Granisetron HCl 1 mg/ 56 mls @ 336 mls/hr 12/21/17 16:30 12/22/17 19:00 Dexamethasone Sodium Phosphate IV.SIG 12/24/17 16:39 Infused 20 mg/ Sodium Chloride DAILY@1630 [facility] Infusion Cytarabine 184 mg/ Sodium 259.2 mls @ 259.2 mls/hr 12/22/17 17:00 12/22/17 20 :46 Chloride IV.SIG 12/24/17 17:59 Infused DAILY@1700 [facility] Infusion Mercaptopurine 150 mg 12/21/17 09:00 12/23/17 09:57 Purinethol PO 150 mg DAILY [facility] Administration Morphine Sulfate 15 mg 12/21/17 19:21 12/23/17 09:50 Msir PO 15 mg Q6H PRN Administration Non-Acute Pain 1-10 Ondansetron HCl 4 mg 12/20/17 22:38 12/23/17 09:49 Zofran Inj IV.PUSH 4 mg Q6H PRN Administration NAUSEA Trimethoprim/Sulfamethoxazole 1 tab 12/21/17 09:00 12/23/17 09:51 Bactrim PO 1 tab DAILY [facility] Administration Valacyclovir HCl 500 mg 12/21/17 09:00 12/23/17 09:50 Valtrex PO 500 mg DAILY [facility] Administration Objective Remarks: GENERAL: Obese young female resting in bed in dark room in no obvious distress. She speaks in soft sentences. SKIN: Warm and dry. HEAD: Normocephalic. EYES: No scleral icterus. No injection or drainage. PERRLA. NECK: Supple, trachea midline. No JVD or lymphadenopathy. CARDIOVASCULAR: +S1/S2. RESPIRATORY: Anterior breath sounds clear, equal bilaterally. No accessory muscle use. GASTROINTESTINAL: Abdomen soft, non-tender, nondistended. EXTREMITIES: No cyanosis, or edema. MUSCULOSKELETAL: Adequate muscle tone. NEUROLOGICAL: No obvious focal deficit. A&O x's 3. Moving all extremities. Sensation equal bilaterally. 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 She is currently being treated per [facility] 92975 protocol. Patient was recently hospitalized for headache, possibly secondary to recurrent lumbar puncture procedures. She was recently readmitted for headache, nausea, vomiting. Plan: 1. 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 Chemotherapy with cyclophosphamide and cytarabine ongoing. 2. Recurring headache; neurology has been in to evaluate patient. He recommends as needed Imitrex as well as prophylactic dose Topamax twice daily. 3. Continue Lovenox for history of PE 4. Hypertension, continue amlodipine. 5. Nausea, vomiting. Continue IV hydration and Zofran as needed. - Attending Statement The exam, history, and the medical decision-making described in the above note were completed with the assistance of the mid-level provider. I reviewed and agree with the findings presented. I attest that I had a [id number] encounter with the patient on the same day, and personally performed and documented my assessment and findings in the medical record. 27 yoF -precursor b cell ALL with high risk cytogenetics: treating with consolidation phase II per [facility] 11567. Patient shared with Dr. Malhotra at [facility]. After this phase will repeat bone marrow biopsy and if in remission will take to transplant. -VTE: will continue lovenox -ID: continue ppx bactrim, fluconzaole, valtrex
[2017-12-23] MEDS: Granisetron Inj 1 MG, Dexamethasone Inj 20 MG in Sodium Chlor 0.9% Inj 50 ML IV.SIG SCH ×2 (16:52)
[2017-12-23] MEDS: CYTARABINE IV.SIG SCH (17:58)
[2017-12-23] MEDS: SODIUM CHLOR 0.9% IV.SIG SCH (17:58)
[2017-12-23] MEDS: Sod Chloride 0.9% Inj 1,000 ML IV.CONT SCH ×3 (18:14→22:12)
[2017-12-23] MEDS: Topiramate 25 MG Tablet PO SCH (21:05)
[2017-12-24] MEDS: Topiramate 25 MG Tablet PO SCH (08:35)
--- NOTE | 2017-12-24 09:08 | P.PNONC ---
Subjective Interval history: Afebrile Patient resting on right side in bed. She reports her migraine is bad this morning and a 10 out of 10. She is also having some dizziness that started approximately 1 AM. She had one episode of vomiting this morning and feels like she may vomit again. Objective Vital Signs/Intake & Output: Vital Signs 12/23/17 12:00 12/23/17 14:04 12/23/17 16:00 Temperature 98.4 F Pulse Rate 75 76 Respiratory Rate 18 8 L Blood Pressure 108/56 L Pulse Oximetry 100 12/23/17 18:07 12/23/17 19:58 12/23/17 20:00 Temperature 98.4 F Pulse Rate 81 87 82 Respiratory Rate 18 18 Blood Pressure 122/65 133/77 Pulse Oximetry 99 99 12/24/17 00:00 12/24/17 00:37 12/24/17 04:04 Temperature 98.3 F Pulse Rate 96 H 79 71 Respiratory Rate 16 Blood Pressure 126/75 Pulse Oximetry 97 12/24/17 04:43 12/24/17 07:00 12/24/17 08:18 Temperature 98.1 F 98.4 F Pulse Rate 77 72 80 Respiratory Rate 18 18 Blood Pressure 102/58 L 128/68 Pulse Oximetry 99 100 Intake & Output 12/23/17 12/24/17 12/24/17 18:59 06:59 18:59 Intake Total 1836 / 1836 1499.2 / 1499.2 Output Total 1600 / 1600 1600 / 1600 Balance 236 / 236 -100.8 / -100.8 Weight 350 lb 5.032 oz Intake: IV 1056 / 1056 1259.2 / 1259.2 NS Inj 1,000 ML @ 100 mls/hr IV 1000 / 1000 1000 / 1000 .CONT .Q10H [facility] Rx#:[id number] Claudette-C Inj 184 MG In NS Inj 250 259.2 / 259.2 ML @ 259.2 mls/hr IV.SIG DAILY@ 1700 [facility] Rx#:[id number] Kytril Inj 1 MG Decadron Inj 20 56 / 56 MG In NS Inj 50 ML @ 336 mls/ hr IV.SIG DAILY@1630 [facility] Rx#: [id number] Oral 780 / 780 240 / 240 Output: Urine 1600 / 1600 1600 / 1600 Other: Date of Last Bowel Movement 12/18/17 12/23/17 Result Diagrams: 12/23/17 05:48 12/23/17 05:48 Laboratory Results: Laboratory Results - last 24 hr 12/21/17 12/21/17 12/21/17 10:57 10:57 10:57 CSF VDRL Non-reactive CSF Lyme Disease DNA Not detected CSF Cryptococcus Ag Not detected Culture Results: Microbiology 12/21/17 10:57 Gram Stain - Final Lumbar Puncture CSF Culture - Final No growth in 72 hours 12/21/17 10:57 Acid Fast Bacilli Smear - Final Other No acid fast bacilli seen 12/21/17 10:57 Fungal Smear - Final Cerebral Spinal Fluid - Lumbar Puncture No fungal elements seen Medications: Active Medications Generic Name Dose Route Start Last Admin Trade Name Freq PRN Reason Stop Dose Admin Acetaminophen 650 mg 12/21/17 02:23 12/21/17 02:41 Tylenol PO 650 mg Q8H PRN Administration PAIN 1-10 Amlodipine Besylate 10 mg 12/21/17 09:00 12/23/17 09:50 Norvasc PO 10 mg DAILY [facility] Administration Docusate Sodium 100 mg 12/22/17 20:14 12/22/17 21:01 Colace PO 100 mg BID PRN Administration CONSTIPATION Enoxaparin Sodium 150 mg 12/21/17 09:00 12/23/17 21:05 Lovenox Inj SQ 150 mg Q12HR [facility] Administration Fluconazole 200 mg 12/21/17 09:00 12/23/17 09:49 Diflucan PO 200 mg DAILY [facility] Administration Gabapentin 600 mg 12/21/17 09:00 12/23/17 17:58 Neurontin PO 600 mg TID [facility] Administration Sodium Chloride 1,000 mls @ 100 mls/hr 12/20/17 23:00 12/24/17 04:24 Ns Inj IV.CONT Infused .Q10H [facility] Infusion Granisetron HCl 1 mg/ 56 mls @ 336 mls/hr 12/21/17 16:30 12/23/17 18:02 Dexamethasone Sodium Phosphate IV.SIG 12/24/17 16:39 Infused 20 mg/ Sodium Chloride DAILY@1630 [facility] Infusion Cytarabine 184 mg/ Sodium 259.2 mls @ 259.2 mls/hr 12/22/17 17:00 12/23/17 19 :00 Chloride IV.SIG 12/24/17 17:59 Infused DAILY@1700 [facility] Infusion Mercaptopurine 150 mg 12/21/17 09:00 12/23/17 09:57 Purinethol PO 150 mg DAILY [facility] Administration Morphine Sulfate 15 mg 12/21/17 19:21 12/23/17 16:53 Msir PO 15 mg Q6H PRN Administration Non-Acute Pain 1-10 Ondansetron HCl 4 mg 12/20/17 22:38 12/24/17 08:27 Zofran Inj IV.PUSH 4 mg Q6H PRN Administration NAUSEA Topiramate 50 mg 12/23/17 21:00 12/24/17 08:35 Topamax PO Not Given BID [facility] Trimethoprim/Sulfamethoxazole 1 tab 12/21/17 09:00 12/23/17 09:51 Bactrim PO 1 tab DAILY [facility] Administration Valacyclovir HCl 500 mg 12/21/17 09:00 12/23/17 09:50 Valtrex PO 500 mg DAILY [facility] Administration Objective Remarks: GENERAL: Obese young female resting in bed in dark room retching into an emesis bag. She speaks in soft sentences. She is not opening her eyes due to migraine pain SKIN: Warm and dry. HEAD: Normocephalic. NECK: Supple, trachea midline. No JVD or lymphadenopathy. CARDIOVASCULAR: +S1/S2. RESPIRATORY: Anterior breath sounds clear, equal bilaterally. No accessory muscle use. GASTROINTESTINAL: Abdomen soft, non-tender, nondistended. EXTREMITIES: No cyanosis, or edema. MUSCULOSKELETAL: Adequate muscle tone. NEUROLOGICAL: No obvious focal deficit. A&O x's 3. Moving all extremities. Sensation equal bilaterally. 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 She is currently being treated per [facility] 10619 protocol. Patient was recently hospitalized for headache, possibly secondary to recurrent lumbar puncture procedures. She was recently readmitted for headache, nausea, vomiting. Plan: 1. Precursor B-cell acute lymphoblastic leukemia, currently day 33 of consolidation phase 2. Chemotherapy with cytarabine ongoing. 2. Recurring headache; neurology has been in to evaluate patient. She was given 1 dose of Imitrex and reports this did not help. She was started on Topamax; however after 1 dose she developed dizziness with worsening nausea. I have placed this on hold. The symptoms of her headache are similar to previous migraines. If symptoms change or worsen we can get another CT brain. 3. Patient was given a dose of Zofran this morning. He also added on as needed Compazine for persistent nausea and vomiting. 4. Continue Lovenox for history of PE. - Attending Statement The exam, history, and the medical decision-making described in the above note were completed with the assistance of the mid-level provider. I reviewed and agree with the findings presented. I attest that I had a [id number] encounter with the patient on the same day, and personally performed and documented my assessment and findings in the medical record. Still having headaches. Morphine is helping however she feels that the current dose is too much for her. We discussed using half the dose i.e. 7.5 mg p.o. every 6 hours. We will observe to see if she responds better to this dose. Headaches will be monitored.
[2017-12-24] MEDS: Sulfamethoxazole/Trimethoprim 400/80 MG Tablet PO SCH (09:15)
[2017-12-24] MEDS: valACYclovir 500 MG Tab PO SCH (09:15)
[2017-12-24] MEDS: amLODIPine 10 MG Tablet PO SCH (09:15)
[2017-12-24] MEDS: Gabapentin 300 MG Capsule PO SCH ×3 (09:15→17:29)
[2017-12-24] MEDS: Sod Chloride 0.9% Inj 1,000 ML IV.CONT SCH ×2 (09:17→17:14)
[2017-12-24] MEDS: Enoxaparin Inj 150 MG/ML Syringe SQ SCH ×2 (09:53→23:12)
[2017-12-24] MEDS: Morphine Sulfate 15 MG IR Tablet PO PRN (12:49)
[2017-12-24] MEDS: Granisetron Inj 1 MG, Dexamethasone Inj 20 MG in Sodium Chlor 0.9% Inj 50 ML IV.SIG SCH ×2 (17:05)
[2017-12-24] MEDS: CYTARABINE IV.SIG SCH (17:30)
[2017-12-24] MEDS: SODIUM CHLOR 0.9% IV.SIG SCH (17:30)
[2017-12-25] MEDS: Morphine Sulfate 15 MG IR Tablet PO PRN ×2 (01:12→12:33)
[2017-12-25] MEDS: Sod Chloride 0.9% Inj 1,000 ML IV.CONT SCH ×2 (03:51→23:49)
[2017-12-25 04:48] LABS: Baso # (Auto) 0.1 th/mm3 (0.0-0.2); Baso % (Auto) 4.2 % (0.0-2.0); Eos % (Auto) 0.1 % (0.0-4.0); Hematocrit 28.4 % (35.0-46.0); Hemoglobin 9.2 gm/dL (11.6-15.3); Lymph # (Auto) 0.1 th/mm3 (1.0-4.8); Lymph % (Auto) 4.3 % (9.0-44.0); Mean Corpuscular HGB Conc 32.3 % (32.0-36.0); Mean Corpuscular Hemoglobin 28.9 pg (27.0-34.0); Mean Corpuscular Volume 89.5 fL (80.0-100.0); Mean Platelet Volume 7.7 fL (7.0-11.0); Mono % (Auto) 1.6 % (0.0-8.0); Neut # (Auto) 1.6 th/mm3 (1.8-7.7); Neut % (Auto) 89.8 % (16.0-70.0); Platelet Count 407 th/mm3 (150-450); Red Blood Count 3.18 mil/mm3 (4.00-5.30); Red Cell Distribution Width 21.8 % (11.6-17.2); White Blood Count 1.7 th/mm3 (4.0-11.0)
[2017-12-25 05:12] LABS: Alanine Aminotransferase 87 U/L (10-53); Albumin 2.4 g/dL (3.4-5.0); Alkaline Phosphatase 86 U/L (45-117); Anion Gap 10 meq/L (5-15); Aspartate Aminotransferase 68 U/L (15-37); Blood Urea Nitrogen 17 mg/dL (7-18); Calcium 7.9 mg/dL (8.5-10.1); Carbon Dioxide 28.1 meq/L (21.0-32.0); Chloride 101 meq/L (98-107); Glomerular Filtration Rate Greater Than 89 mL/min (>89); Glucose,Random 136 mg/dL (74-106); Potassium 4.1 meq/L (3.5-5.1); Sodium 139 meq/L (136-145); Total Protein 5.3 g/dL (6.4-8.2)
--- NOTE | 2017-12-25 09:09 | P.PNONC ---
Subjective Interval history: Afebrile Patient reports she had an episode of chest tightness yesterday afternoon Reports it only happened once Cardiac workup negative Currently she complains of light sensitivity however migraine seems somewhat improved today [place] the lower dose of morphine helped Requesting something for constipation as she has not had a bowel movement in several days. She normally takes Gloria-Colace at home. Objective Vital Signs/Intake & Output: Vital Signs 12/24/17 11:00 12/24/17 11:28 12/24/17 15:00 Temperature 97.7 F Pulse Rate 79 88 126 H Respiratory Rate 18 Blood Pressure 123/77 Pulse Oximetry 98 12/24/17 15:05 12/24/17 20:00 12/25/17 00:00 Temperature 98.5 F 98.8 F 98.1 F Pulse Rate 98 H 89 74 Respiratory Rate 18 18 18 Blood Pressure 143/79 H 138/73 114/65 Pulse Oximetry 99 97 98 12/25/17 04:00 12/25/17 04:12 12/25/17 07:00 Temperature 98.4 F Pulse Rate 88 74 69 Respiratory Rate 16 Blood Pressure 121/60 Pulse Oximetry 97 Intake & Output 12/24/17 12/25/17 12/25/17 18:59 06:59 18:59 Intake Total 556 / 556 1899.2 / 1899.2 Output Total 2400 / 2400 4900 / 4900 Balance -1844 / -1844 -3000.8 / -3000.8 Weight 340 lb 9.827 oz Intake: IV 56 / 56 1259.2 / 1259.2 NS Inj 1,000 ML @ 100 mls/hr IV 1000 / 1000 .CONT .Q10H [facility] Rx#:[id number] Claudette-C Inj 184 MG In NS Inj 250 259.2 / 259.2 ML @ 259.2 mls/hr IV.SIG DAILY@ 1700 [facility] Rx#:[id number] Kytril Inj 1 MG Decadron Inj 20 56 / 56 MG In NS Inj 50 ML @ 336 mls/ hr IV.SIG DAILY@1630 [facility] Rx#: [id number] Oral 500 / 500 640 / 640 Output: Urine 2400 / 2400 4900 / 4900 Other: # Voids 4 Date of Last Bowel Movement 12/23/17 12/23/17 Result Diagrams: 12/25/17 03:30 12/25/17 03:30 Laboratory Results: Laboratory Results - last 24 hr 12/24/17 12/24/17 12/25/17 15:30 21:00 03:30 WBC 1.7 L RBC 3.18 L Hgb 9.2 L Hct 28.4 L MCV 89.5 MCH 28.9 MCHC 32.3 RDW 21.8 H Plt Count 407 MPV 7.7 Prelim Diff (Auto) Slide review pending Neut % (Auto) 89.8 H Lymph % (Auto) 4.3 L [place] % (Auto) 1.6 Eos % (Auto) 0.1 Baso % (Auto) 4.2 H Neut # (Auto) 1.6 L Lymph # (Auto) 0.1 L [place] # (Auto) 0.0 Eos # (Auto) 0.0 Baso # (Auto) 0.1 Differential Comment . Sodium Potassium Chloride Carbon Dioxide Anion Gap BUN Creatinine Estimated GFR Random Glucose Calcium Total Bilirubin AST ALT Alkaline Phosphatase Troponin I Less than 0.02 L Less than 0.02 L Total Protein Albumin 12/25/17 03:30 WBC RBC Hgb Hct MCV MCH MCHC RDW Plt Count MPV Prelim Diff (Auto) Neut % (Auto) Lymph % (Auto) [place] % (Auto) Eos % (Auto) Baso % (Auto) Neut # (Auto) Lymph # (Auto) [place] # (Auto) Eos # (Auto) Baso # (Auto) Differential Comment Sodium 139 Potassium 4.1 Chloride 101 Carbon Dioxide 28.1 Anion Gap 10 BUN 17 Creatinine 0.79 Estimated GFR Greater than 89 Random Glucose 136 H Calcium 7.9 L Total Bilirubin 1.2 H AST 68 H ALT 87 H Alkaline Phosphatase 86 Troponin I Less than 0.02 L Total Protein 5.3 L Albumin 2.4 L Culture Results: Microbiology 12/21/17 10:57 Gram Stain - Final Lumbar Puncture CSF Culture - Final No growth in 72 hours 12/21/17 10:57 Acid Fast Bacilli Smear - Final Other No acid fast bacilli seen 12/21/17 10:57 Fungal Smear - Final Cerebral Spinal Fluid - Lumbar Puncture No fungal elements seen Medications: Active Medications Generic Name Dose Route Start Last Admin Trade Name Freq PRN Reason Stop Dose Admin Acetaminophen 650 mg 12/21/17 02:23 12/21/17 02:41 Tylenol PO 650 mg Q8H PRN Administration PAIN 1-10 Amlodipine Besylate 10 mg 12/21/17 09:00 12/24/17 09:15 Norvasc PO 10 mg DAILY [facility] Administration Docusate Sodium 100 mg 12/22/17 20:14 12/22/17 21:01 Colace PO 100 mg BID PRN Administration CONSTIPATION Enoxaparin Sodium 150 mg 12/21/17 09:00 12/24/17 23:12 Lovenox Inj SQ 150 mg Q12HR [facility] Administration Fluconazole 200 mg 12/21/17 09:00 12/24/17 09:15 Diflucan PO 200 mg DAILY [facility] Administration Gabapentin 600 mg 12/21/17 09:00 12/24/17 17:29 Neurontin PO 600 mg TID [facility] Administration Sodium Chloride 1,000 mls @ 100 mls/hr 12/20/17 23:00 12/25/17 03:51 Ns Inj IV.CONT 100 mls/hr .Q10H [facility] Administration Mercaptopurine 150 mg 12/21/17 09:00 12/24/17 09:16 Purinethol PO 150 mg DAILY [facility] Administration Morphine Sulfate 7.5 mg 12/24/17 18:11 12/25/17 01:12 Msir PO 12/25/17 19:00 7.5 mg Q6H PRN Administration Non-Acute Pain 1-10 Ondansetron HCl 4 mg 12/20/17 22:38 12/24/17 08:27 Zofran Inj IV.PUSH 4 mg Q6H PRN Administration NAUSEA Topiramate 50 mg 12/23/17 21:00 12/24/17 08:35 Topamax PO Not Given BID [facility] Trimethoprim/Sulfamethoxazole 1 tab 12/21/17 09:00 12/24/17 09:15 Bactrim PO 1 tab DAILY [facility] Administration Valacyclovir HCl 500 mg 12/21/17 09:00 12/24/17 09:15 Valtrex PO 500 mg DAILY [facility] Administration Objective Remarks: GENERAL: Obese young female sitting in chair at bedside attempting to eat breakfast. SKIN: Warm and dry. HEAD: Normocephalic. NECK: Supple, trachea midline. CARDIOVASCULAR: +S1/S2. RESPIRATORY: Anterior breath sounds clear, equal bilaterally. No accessory muscle use. GASTROINTESTINAL: Abdomen soft, non-tender, nondistended. EXTREMITIES: No cyanosis, or edema. MUSCULOSKELETAL: Adequate muscle tone. NEUROLOGICAL: No obvious focal deficit. A&O x's 3. Moving all extremities. Sensation equal bilaterally. 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 She is currently being treated per [facility] 01566 protocol. Patient was recently hospitalized for headache, possibly secondary to recurrent lumbar puncture procedures. She was recently readmitted for headache, nausea, vomiting. Plan: 1. Precursor B-cell acute lymphoblastic leukemia, currently day 34 of consolidation phase 2. 2. Recurring headache; patient getting 7.5 mg MSIR as needed every 6 hours. 3. Add on Gloria-Colace scheduled twice daily until patient has bowel movement. 4. Noted liver enzymes are slightly elevated today. The patient is having epigastric pain. Denies right quadrant pain. She has previously had a cholecystectomy. - Attending Statement The exam, history, and the medical decision-making described in the above note were completed with the assistance of the mid-level provider. I reviewed and agree with the findings presented. I attest that I had a [id number] encounter with the patient on the same day, and personally performed and documented my assessment and findings in the medical record. Headache is better on 1/2 dose morphine. Still using ice which helps. Noted increase bilirubin and LFT. Check US liver. No appetite. No abdominal pain.
[2017-12-25] MEDS: Enoxaparin Inj 150 MG/ML Syringe SQ SCH ×2 (09:17→21:39)
[2017-12-25] MEDS: amLODIPine 10 MG Tablet PO SCH (09:18)
[2017-12-25] MEDS: Sulfamethoxazole/Trimethoprim 400/80 MG Tablet PO SCH (09:18)
[2017-12-25] MEDS: valACYclovir 500 MG Tab PO SCH (09:18)
[2017-12-25] MEDS: Gabapentin 300 MG Capsule PO SCH ×3 (09:18→18:13)
[2017-12-25] MEDS: Senna/Docusate Sodium 8.6/50 MG Tablet PO SCH ×2 (09:21→21:39)
[2017-12-25 10:06] LABS: Lymphocytes 1 % (9-44); Ovalocytes 1+; Platelet Estimate Normal (Normal); Platelet Morphology Normal (Normal); Tallied Nucleated RBC 1 (0-0); Target Cells 1+
[2017-12-25] MEDS ORDERED: Cathflo Activase Inj 2 MG Vial I-CATHETER PRN (12:00)
--- NOTE | 2017-12-25 15:07 | ECG ---
Date Performed: 12/24/2017 Time Performed: 15:27:22 PTAGE: 27 years EKG: Sinus rhythm Inferior and anterior ST-T changes are nonspecific Borderline ECG Compared to PREVIOUS TRACING , heart rate is slower, T-wave changes have improved anterolaterally, ot herwise no significant change. PREVIOUS TRACIN10/13/2017 09.22 DOCTOR: Gary Bryson Interpretating Date/Time 12/25/2017 15:05:11
[2017-12-25] MEDS: Acetaminophen 325 MG Tablet PO PRN (20:11)
--- NOTE | 2017-12-25 21:22 | US ---
EXAM DATE: 12/25/2017 9:10 PM EDT AGE/SEX: 27 years / Female INDICATIONS: Elevated liver enzymes. Abdominal pain. CLINICAL DATA: This is the patient's initial encounter. Patient reports that signs and symptoms have been present for 1 day and indicates a pain score of 9/10. MEDICAL/SURGICAL HISTORY: Hypertension. Leukemia. 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 Pulmonar y embolism. Cholecystectomy. COMPARISON: No prior exams available for comparison. MEASUREMENTS: Liver:__ 22.1 cm. Common Bile Duct:___ 4mm. Right Kidney:___9.8 x 4.5 x 4.3 cm. Left Kidney:___11.3 x 5.5 x 5.3 cm. Spleen:___11.2 cm. FINDINGS: Liver: Increased echotexture without focal lesion or ductal dilation. Portal Vein: Hepatopedal flow seen in portal vein. Common Duct: No intraluminal mass or stone visualized. Gallbladder: Surgically absent. Pancreas: Not well visualized. Right Kidney: Normal echotexture and cortical thickness. No mass or hydronephrosis. Left Kidney: Increased echotexture. No mass or hydronephrosis. Ascites: None Pleural Effusion: None Spleen: No focal lesion. Aorta: Not visualized. IVC: Within normal limits Other: None. CONCLUSION: The liver is slightly echogenic which may be due to fatty infiltration and or hepatocellular dysfu nction. Electronically signed by: Christen Suazo MD 12/25/2017 9:20 PM EDT
[2017-12-26] MEDS: Acetaminophen 325 MG Tablet PO PRN ×2 (05:36→13:07)
[2017-12-26] MEDS: Morphine Sulfate 15 MG IR Tablet PO PRN ×2 (05:36→11:50)
[2017-12-26 06:45] LABS: Hematocrit 23.8 % (35.0-46.0); Hemoglobin 7.9 gm/dL (11.6-15.3); Mean Corpuscular HGB Conc 33.2 % (32.0-36.0); Mean Corpuscular Hemoglobin 29.1 pg (27.0-34.0); Mean Corpuscular Volume 87.6 fL (80.0-100.0); Mean Platelet Volume 7.9 fL (7.0-11.0); Platelet Count 346 th/mm3 (150-450); Red Blood Count 2.71 mil/mm3 (4.00-5.30); Red Cell Distribution Width 22.8 % (11.6-17.2); White Blood Count 1.6 th/mm3 (4.0-11.0)
[2017-12-26 07:01] LABS: Aspartate Aminotransferase 28 U/L (15-37); Chloride 104 meq/L (98-107); Glomerular Filtration Rate Greater Than 89 mL/min (>89); Potassium 3.8 meq/L (3.5-5.1); Sodium 140 meq/L (136-145)
[2017-12-26 07:11] LABS: Alanine Aminotransferase 56 U/L (10-53); Albumin 2.2 g/dL (3.4-5.0); Alkaline Phosphatase 64 U/L (45-117); Anion Gap 8 meq/L (5-15); Blood Urea Nitrogen 19 mg/dL (7-18); Calcium 7.4 mg/dL (8.5-10.1); Carbon Dioxide 27.7 meq/L (21.0-32.0); Glucose,Random 67 mg/dL (74-106); Total Protein 4.7 g/dL (6.4-8.2)
[2017-12-26] MEDS: valACYclovir 500 MG Tab PO SCH (08:10)
[2017-12-26] MEDS: Gabapentin 300 MG Capsule PO SCH ×3 (08:10→17:13)
[2017-12-26] MEDS: amLODIPine 10 MG Tablet PO SCH (08:10)
[2017-12-26] MEDS: Senna/Docusate Sodium 8.6/50 MG Tablet PO SCH ×2 (08:11→20:54)
[2017-12-26] MEDS: Enoxaparin Inj 150 MG/ML Syringe SQ SCH ×2 (08:11→20:54)
[2017-12-26] MEDS: Sulfamethoxazole/Trimethoprim 400/80 MG Tablet PO SCH (08:11)
[2017-12-26] MEDS: Sod Chloride 0.9% Inj 1,000 ML IV.CONT SCH ×2 (08:19→21:01)
[2017-12-26 12:10] LABS: Blast Cells 1 % (0-0); Lymphocytes 5 % (9-44); Monocytes 3 % (0-8)
[2017-12-26 12:11] LABS: Ovalocytes 1+; Platelet Estimate Normal (Normal); Platelet Morphology Normal (Normal); Tear Drop Cells 1+; Toxic Granulation 1+
--- NOTE | 2017-12-26 14:06 | P.PNONC ---
Subjective Interval history: Resting in bed. Reports headache and light sensitivty. Neurologically intact Objective Vital Signs/Intake & Output: Vital Signs 12/25/17 15:01 12/25/17 20:00 12/26/17 00:00 Temperature 98.6 F 97.7 F 97.9 F Pulse Rate 81 76 79 Respiratory Rate 18 18 16 Blood Pressure 128/71 119/70 126/64 Pulse Oximetry 98 100 100 12/26/17 00:56 12/26/17 04:00 12/26/17 08:00 Temperature 98.2 F 98.5 F Pulse Rate 67 72 71 Respiratory Rate 16 16 Blood Pressure 125/71 109/52 L Pulse Oximetry 98 99 12/26/17 11:50 Temperature 97.7 F Pulse Rate 97 H Respiratory Rate 16 Blood Pressure 122/71 Pulse Oximetry 99 Intake & Output 12/25/17 12/26/17 12/26/17 18:59 06:59 18:59 Intake Total 1750 / 1750 600 / 600 1000 / 1000 Output Total 4600 / 4600 1999 Balance -2850 / -2850 -1400 / -1400 1000 / 1000 Weight 153.7 kg Intake: IV 1000 / 1000 NS Inj 1,000 ML @ 50 mls/hr IV. 1000 / 1000 CONT .Q20H [facility] Rx#:[id number] Oral 1750 / 1750 600 / 600 Output: Urine 4600 / 4600 1999 Other: Date of Last Bowel Movement 12/25/17 12/25/17 12/25/17 Result Diagrams: 12/26/17 05:00 12/26/17 05:00 Laboratory Results: Laboratory Results - last 24 hr 12/26/17 12/26/17 05:00 05:00 WBC 1.6 L RBC 2.71 L Hgb 7.9 L Hct 23.8 L MCV 87.6 MCH 29.1 MCHC 33.2 RDW 22.8 H Plt Count 346 MPV 7.9 Prelim Diff (Auto) Manual diff required WBC Differential Manual diff final Seg Neuts % (Manual) 89 H Band Neuts % (Manual) 2 Lymphocytes % (Manual) 5 L Monocytes % (Manual) 3 Blast Cells % (Manual) 1 H Abs Neuts (Manual) 1.5 L Differential Comment . Toxic Granulation 1+ H Platelet Estimate Normal Platelet Morphology Normal Tear Drop Cells 1+ H Ovalocytes 1+ H Sodium 140 Potassium 3.8 Chloride 104 Carbon Dioxide 27.7 Anion Gap 8 BUN 19 H Creatinine 0.59 Estimated GFR Greater than 89 Random Glucose 67 L Calcium 7.4 L* Prot Corrected Calcium 8.8 Total Bilirubin 1.1 H AST 28 ALT 56 H Alkaline Phosphatase 64 Total Protein 4.7 L D Albumin 2.2 L Culture Results: Microbiology 12/21/17 10:57 Gram Stain - Final Lumbar Puncture CSF Culture - Final No growth in 72 hours Imaging Studies: Impressions Abdomen Ultrasound 12/25/17 00:00 CONCLUSION: The liver is slightly echogenic which may be due to fatty infiltration and or hepatocellular dysfunction. Medications: Active Medications Generic Name Dose Route Start Last Admin Trade Name Freq PRN Reason Stop Dose Admin Acetaminophen 650 mg 12/21/17 02:23 12/26/17 13:07 Tylenol PO 650 mg Q8H PRN Administration PAIN 1-10 Alteplase, Recombinant 2 mg 12/25/17 12:00 12/25/17 13:36 Cathflo Activase Inj I-CATHETER 2 mg Q2H PRN Administration non-functioning lumen of port Amlodipine Besylate 10 mg 12/21/17 09:00 12/26/17 08:10 Norvasc PO 10 mg DAILY [facility] Administration Enoxaparin Sodium 150 mg 12/21/17 09:00 12/26/17 08:11 Lovenox Inj SQ 150 mg Q12HR [facility] Administration Fluconazole 200 mg 12/21/17 09:00 12/26/17 08:10 Diflucan PO 200 mg DAILY [facility] Administration Gabapentin 600 mg 12/21/17 09:00 12/26/17 13:06 Neurontin PO 600 mg TID [facility] Administration Sodium Chloride 1,000 mls @ 50 mls/hr 12/20/17 23:00 12/26/17 08:19 Ns Inj IV.CONT 50 mls/hr .Q20H [facility] Administration Mercaptopurine 150 mg 12/21/17 09:00 12/26/17 08:11 Purinethol PO 150 mg DAILY [facility] Administration Morphine Sulfate 7.5 mg 12/25/17 23:28 12/26/17 11:50 Msir PO 7.5 mg Q6H PRN Administration PAIN SCALE 1 TO 10 Ondansetron HCl 4 mg 12/20/17 22:38 12/26/17 11:42 Zofran Inj IV.PUSH 4 mg Q6H PRN Administration NAUSEA Senna/Docusate Sodium 1 tab 12/25/17 09:15 12/26/17 08:11 Gloria-Colace PO 1 tab BID [facility] Administration Topiramate 50 mg 12/23/17 21:00 12/24/17 08:35 Topamax PO Not Given BID [facility] Trimethoprim/Sulfamethoxazole 1 tab 12/21/17 09:00 12/26/17 08:11 Bactrim PO 1 tab DAILY [facility] Administration Valacyclovir HCl 500 mg 12/21/17 09:00 12/26/17 08:10 Valtrex PO 500 mg DAILY [facility] Administration Objective Remarks: GENERAL: Well-nourished, well-developed patient. SKIN: Warm and dry. HEAD: Normocephalic. EYES: No scleral icterus. No injection or drainage. NECK: Supple, trachea midline. No JVD or lymphadenopathy. LYMPHATIC: No adenopathy. CARDIOVASCULAR: Regular rate and rhythm without murmurs. RESPIRATORY: Breath sounds equal bilaterally. No accessory muscle use. GASTROINTESTINAL: Abdomen soft, non-tender, nondistended. EXTREMITIES: No cyanosis, or edema. MUSCULOSKELETAL: Adequate muscle tone. NEUROLOGICAL: No obvious focal deficit. Awake, alert, and oriented x3. PSYCHIATRIC: Appropriate mood and affect; insight and judgment normal. 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 She is currently being treated per [facility] 02040 protocol. Patient was recently hospitalized for headache, possibly secondary to recurrent lumbar puncture procedures. She was recently readmitted for headache, nausea, vomiting. Plan: 1. 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 2. Recurring headache; patient getting 7.5 mg MSIR as needed every 6 hours. 3. Add on Gloria-Colace scheduled twice daily until patient has bowel movement. 4. Elevated AST, ALT: possibly due to 6-MP. Continue to trend.
[2017-12-27 05:53] LABS: White Blood Count 1.2 th/mm3 (4.0-11.0)
[2017-12-27 05:54] LABS: Baso % (Auto) 0.3 % (0.0-2.0); Hematocrit 23.3 % (35.0-46.0); Hemoglobin 8.1 gm/dL (11.6-15.3); Lymph # (Auto) 0.4 th/mm3 (1.0-4.8); Lymph % (Auto) 35.8 % (9.0-44.0); Mean Corpuscular HGB Conc 34.8 % (32.0-36.0); Mean Corpuscular Hemoglobin 30.1 pg (27.0-34.0); Mean Corpuscular Volume 86.6 fL (80.0-100.0); Mean Platelet Volume 7.2 fL (7.0-11.0); Mono # (Auto) 0.1 th/mm3 (0.0-0.9); Mono % (Auto) 4.9 % (0.0-8.0); Neut # (Auto) 0.7 th/mm3 (1.8-7.7); Platelet Count 324 th/mm3 (150-450); Red Blood Count 2.69 mil/mm3 (4.00-5.30)
[2017-12-27 06:22] LABS: Albumin 2.3 g/dL (3.4-5.0); Anion Gap 11 meq/L (5-15); Aspartate Aminotransferase 21 U/L (15-37); Blood Urea Nitrogen 20 mg/dL (7-18); Calcium 7.6 mg/dL (8.5-10.1); Carbon Dioxide 26.2 meq/L (21.0-32.0); Chloride 103 meq/L (98-107); Glomerular Filtration Rate Greater Than 89 mL/min (>89); Glucose,Random 90 mg/dL (74-106); Potassium 4.1 meq/L (3.5-5.1); Sodium 140 meq/L (136-145)
[2017-12-27 06:25] LABS: Alanine Aminotransferase 49 U/L (10-53); Alkaline Phosphatase 62 U/L (45-117); Total Protein 4.8 g/dL (6.4-8.2)
[2017-12-27] MEDS ORDERED: Heparin Central Flush 100 UNIT/ML 5 ML Vial IV.FLUSH PRN (07:55)
[2017-12-27] MEDS: Enoxaparin Inj 150 MG/ML Syringe SQ SCH ×2 (08:01→22:22)
[2017-12-27] MEDS: Gabapentin 300 MG Capsule PO SCH ×3 (08:02→17:24)
[2017-12-27] MEDS: valACYclovir 500 MG Tab PO SCH (08:02)
[2017-12-27] MEDS: Senna/Docusate Sodium 8.6/50 MG Tablet PO SCH ×2 (08:02→22:23)
[2017-12-27] MEDS: amLODIPine 10 MG Tablet PO SCH (08:02)
[2017-12-27] MEDS: Sulfamethoxazole/Trimethoprim 400/80 MG Tablet PO SCH (08:02)
--- NOTE | 2017-12-27 08:37 | P.PNONC ---
Subjective Interval history: Afebrile. Patient lying in bed with eyes closed. Responds to voice. She reports continued headache. Neurologically intact. Objective Vital Signs/Intake & Output: Vital Signs 12/26/17 11:50 12/26/17 15:57 12/26/17 20:02 Temperature 97.7 F 98.3 F Pulse Rate 97 H 80 107 H Respiratory Rate 16 16 Blood Pressure 122/71 130/58 L Pulse Oximetry 99 98 12/26/17 20:49 12/26/17 23:30 12/27/17 00:42 Temperature 98.4 F 98.5 F Pulse Rate 89 97 H 93 H Respiratory Rate 18 16 Blood Pressure 116/68 120/70 Pulse Oximetry 99 99 12/27/17 04:16 12/27/17 04:45 12/27/17 07:59 Temperature 98.3 F 98.4 F Pulse Rate 88 86 94 H Respiratory Rate 18 16 Blood Pressure 116/67 128/69 Pulse Oximetry 98 99 Intake & Output 12/26/17 12/27/17 12/27/17 18:59 06:59 18:59 Intake Total 2080 / 2080 1000 / 1000 Output Total 500 / 500 Balance 2080 / 2080 500 / 500 Intake: IV 1000 / 1000 1000 / 1000 NS Inj 1,000 ML @ 50 mls/hr IV. 1000 / 1000 1000 / 1000 CONT .Q20H [facility] Rx#:[id number] Oral 1080 / 1080 Output: Urine 500 / 500 Other: # Voids 6 Date of Last Bowel Movement 12/26/17 12/26/17 # Bowel Movements 1 Result Diagrams: 12/27/17 05:40 12/27/17 05:40 Laboratory Results: Laboratory Results - last 24 hr 12/21/17 12/26/17 12/27/17 10:57 05:00 05:40 WBC 1.2 L RBC 2.69 L Hgb 8.1 L Hct 23.3 L MCV 86.6 MCH 30.1 MCHC 34.8 RDW 22.0 H Plt Count 324 MPV 7.2 Prelim Diff (Auto) Slide review pending Neut % (Auto) 59.0 Lymph % (Auto) 35.8 [place] % (Auto) 4.9 Eos % (Auto) 0.0 Baso % (Auto) 0.3 Neut # (Auto) 0.7 L Lymph # (Auto) 0.4 L [place] # (Auto) 0.1 Eos # (Auto) 0.0 Baso # (Auto) 0.0 WBC Differential Manual diff final Seg Neuts % (Manual) 89 H Band Neuts % (Manual) 2 Lymphocytes % (Manual) 5 L Monocytes % (Manual) 3 Blast Cells % (Manual) 1 H Abs Neuts (Manual) 1.5 L Differential Comment . Toxic Granulation 1+ H Platelet Estimate Normal Platelet Morphology Normal Tear Drop Cells 1+ H Ovalocytes 1+ H Sodium Potassium Chloride Carbon Dioxide Anion Gap BUN Creatinine Estimated GFR Random Glucose Calcium Total Bilirubin AST ALT Alkaline Phosphatase Total Protein Albumin CSF Myelin Basic Protein Less than 2.0 L 12/27/17 05:40 WBC RBC Hgb Hct MCV MCH MCHC RDW Plt Count MPV Prelim Diff (Auto) Neut % (Auto) Lymph % (Auto) [place] % (Auto) Eos % (Auto) Baso % (Auto) Neut # (Auto) Lymph # (Auto) [place] # (Auto) Eos # (Auto) Baso # (Auto) WBC Differential Seg Neuts % (Manual) Band Neuts % (Manual) Lymphocytes % (Manual) Monocytes % (Manual) Blast Cells % (Manual) Abs Neuts (Manual) Differential Comment Toxic Granulation Platelet Estimate Platelet Morphology Tear Drop Cells Ovalocytes Sodium 140 Potassium 4.1 Chloride 103 Carbon Dioxide 26.2 Anion Gap 11 BUN 20 H Creatinine 0.67 Estimated GFR Greater than 89 Random Glucose 90 Calcium 7.6 L Total Bilirubin 0.6 AST 21 ALT 49 Alkaline Phosphatase 62 Total Protein 4.8 L Albumin 2.3 L CSF Myelin Basic Protein Culture Results: Microbiology 12/21/17 10:57 Gram Stain - Final Lumbar Puncture CSF Culture - Final No growth in 72 hours Medications: Active Medications Generic Name Dose Route Start Last Admin Trade Name Freq PRN Reason Stop Dose Admin Acetaminophen 650 mg 12/21/17 02:23 12/26/17 13:07 Tylenol PO 650 mg Q8H PRN Administration PAIN 1-10 Alteplase, Recombinant 2 mg 12/25/17 12:00 12/25/17 13:36 Cathflo Activase Inj I-CATHETER 2 mg Q2H PRN Administration non-functioning lumen of port Amlodipine Besylate 10 mg 12/21/17 09:00 12/27/17 08:02 Norvasc PO 10 mg DAILY [facility] Administration Enoxaparin Sodium 150 mg 12/21/17 09:00 12/27/17 08:01 Lovenox Inj SQ 150 mg Q12HR [facility] Administration Fluconazole 200 mg 12/21/17 09:00 12/27/17 08:02 Diflucan PO 200 mg DAILY [facility] Administration Gabapentin 600 mg 12/21/17 09:00 12/27/17 08:02 Neurontin PO 600 mg TID [facility] Administration Sodium Chloride 1,000 mls @ 50 mls/hr 12/20/17 23:00 12/26/17 21:01 Ns Inj IV.CONT 50 mls/hr .Q20H [facility] Administration Mercaptopurine 150 mg 12/21/17 09:00 12/27/17 08:02 Purinethol PO 150 mg DAILY [facility] Administration Morphine Sulfate 7.5 mg 12/25/17 23:28 12/26/17 11:50 Msir PO 7.5 mg Q6H PRN Administration PAIN SCALE 1 TO 10 Ondansetron HCl 4 mg 12/20/17 22:38 12/26/17 11:42 Zofran Inj IV.PUSH 4 mg Q6H PRN Administration NAUSEA Prochlorperazine Edisylate 10 mg 12/24/17 08:47 12/26/17 15:59 Compazine Inj IV.PUSH 10 mg Q6H PRN Administration NAUSEA Senna/Docusate Sodium 1 tab 12/25/17 09:15 12/27/17 08:02 Gloria-Colace PO 1 tab BID [facility] Administration Topiramate 50 mg 12/23/17 21:00 12/24/17 08:35 Topamax PO Not Given BID [facility] Trimethoprim/Sulfamethoxazole 1 tab 12/21/17 09:00 12/27/17 08:02 Bactrim PO 1 tab DAILY [facility] Administration Valacyclovir HCl 500 mg 12/21/17 09:00 12/27/17 08:02 Valtrex PO 500 mg DAILY [facility] Administration Objective Remarks: GENERAL: Well-nourished, well-developed young female patient, lying in bed, in no acute distress. SKIN: Warm and dry. HEAD: Normocephalic. EYES: No scleral icterus. No injection or drainage. NECK: Supple, trachea midline. CARDIOVASCULAR: +S1/S2. RESPIRATORY: Anterior breath sounds clear, equal bilaterally. No accessory muscle use. GASTROINTESTINAL: Abdomen soft, non-tender, nondistended. EXTREMITIES: No cyanosis, or edema. MUSCULOSKELETAL: Adequate muscle tone. NEUROLOGICAL: No obvious focal deficit. A&O x's 3. Moving all extremities. PSYCHIATRIC: Appropriate mood and affect; insight and judgment normal. 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 She is currently being treated per [facility] 15412 protocol. Patient was recently hospitalized for headache, possibly secondary to recurrent lumbar puncture procedures. She was recently readmitted for headache, nausea, vomiting. Plan: 1. Precursor B-cell acute lymphoblastic leukemia, currently day 36 of consolidation phase 2. 2. Headache, continues. Patient getting 7.5 mg MSIR as needed every 6 hours. 3. Elevated AST, ALT: Has normalized. 4. CBC differential pending, initiate neutropenic precautions if ANC < 1000. - Attending Statement The exam, history, and the medical decision-making described in the above note were completed with the assistance of the mid-level provider. I reviewed and agree with the findings presented. I attest that I had a [id number] encounter with the patient on the same day, and personally performed and documented my assessment and findings in the medical record. 1. precursor b cell ALL: will plan to initate treatment with cytarabine tomorrow. Orders in place. Continue 6-MP 2. VTE: continue with lovenox 3. Headache: mild improvement. Continue fluids. Continue as needed MSIR. Neuro work up negative. Will consult for consideration of blood patch tomorrow.
[2017-12-27 09:05] LABS: Lymphocytes 42 % (9-44); Monocytes 2 % (0-8)
[2017-12-27 09:06] LABS: Spherocytes Occ
[2017-12-27 09:07] LABS: Ovalocytes 1+; Platelet Estimate Normal (Normal); Platelet Morphology Normal (Normal); Tear Drop Cells 1+
[2017-12-27] MEDS: Morphine Sulfate 15 MG IR Tablet PO PRN (11:13)
[2017-12-27] MEDS: Acetaminophen 325 MG Tablet PO PRN ×2 (11:13→22:27)
[2017-12-27] MEDS: Sod Chloride 0.9% Inj 1,000 ML IV.CONT SCH (11:16)
[2017-12-28] MEDS: Sod Chloride 0.9% Inj 1,000 ML IV.CONT SCH (05:37)
[2017-12-28] MEDS: Acetaminophen 325 MG Tablet PO PRN (05:37)
[2017-12-28 06:14] LABS: Hematocrit 23.8 % (35.0-46.0); Mean Corpuscular HGB Conc 33.4 % (32.0-36.0); Mean Corpuscular Hemoglobin 28.6 pg (27.0-34.0); Mean Corpuscular Volume 85.6 fL (80.0-100.0); Mean Platelet Volume 7.5 fL (7.0-11.0); Platelet Count 312 th/mm3 (150-450); Red Blood Count 2.78 mil/mm3 (4.00-5.30); Red Cell Distribution Width 22.8 % (11.6-17.2); White Blood Count 1.2 th/mm3 (4.0-11.0)
[2017-12-28 06:42] LABS: Alanine Aminotransferase 42 U/L (10-53); Albumin 2.4 g/dL (3.4-5.0); Anion Gap 8 meq/L (5-15); Aspartate Aminotransferase 17 U/L (15-37); Chloride 101 meq/L (98-107); Glomerular Filtration Rate Greater Than 89 mL/min (>89); Glucose,Random 85 mg/dL (74-106); Potassium 4.3 meq/L (3.5-5.1); Sodium 138 meq/L (136-145)
[2017-12-28 06:54] LABS: Alkaline Phosphatase 62 U/L (45-117); Blood Urea Nitrogen 16 mg/dL (7-18); Total Protein 5.2 g/dL (6.4-8.2)
[2017-12-28] MEDS: Gabapentin 300 MG Capsule PO SCH ×3 (08:14→17:14)
[2017-12-28] MEDS: valACYclovir 500 MG Tab PO SCH (08:14)
[2017-12-28] MEDS: Senna/Docusate Sodium 8.6/50 MG Tablet PO SCH ×2 (08:14→20:11)
[2017-12-28] MEDS: amLODIPine 10 MG Tablet PO SCH (08:14)
[2017-12-28] MEDS: Sulfamethoxazole/Trimethoprim 400/80 MG Tablet PO SCH (08:14)
[2017-12-28 10:09] LABS: Lymphocytes 36 % (9-44); Monocytes 1 % (0-8); Tallied Nucleated RBC 1 (0-0)
[2017-12-28 10:10] LABS: Ovalocytes 1+; Platelet Estimate Normal (Normal); Platelet Morphology Normal (Normal); Target Cells 1+; Tear Drop Cells 1+
[2017-12-28] MEDS: Enoxaparin Inj 150 MG/ML Syringe SQ SCH ×2 (10:11→20:11)
--- NOTE | 2017-12-28 11:59 | P.PNONC ---
Subjective Interval history: Afebrile. Patient lying in bed comfortably. She has the shades open allowing light in the room. This is an improvement from only tolerating a very dark space. Patient states her headache is somewhat improved today, currently 5/10 on the pain scale. She reports less light sensitivity. We have discussed consult to anesthesia for possible blood patch. Objective Vital Signs/Intake & Output: Vital Signs 12/27/17 15:39 12/27/17 22:15 12/27/17 22:57 Temperature 98.3 F 98.6 F Pulse Rate 80 94 H Respiratory Rate 16 18 16 Blood Pressure 122/58 L 113/64 Pulse Oximetry 98 99 12/28/17 00:00 12/28/17 00:24 12/28/17 04:00 Temperature 98.6 F 97.8 F Pulse Rate 98 H 85 84 Respiratory Rate 16 16 Blood Pressure 110/49 L 112/71 Pulse Oximetry 98 98 12/28/17 08:00 Temperature 98.5 F Pulse Rate 93 H Respiratory Rate 18 Blood Pressure 136/77 Pulse Oximetry 99 Intake & Output 12/27/17 12/28/17 12/28/17 18:59 06:59 18:59 Intake Total 900 / 900 480 / 480 Output Total 400 / 400 Balance 900 / 900 80 / 80 Weight 149.2 kg Intake: IV 900 / 900 NS Inj 1,000 ML @ 50 mls/hr IV. 900 / 900 CONT .Q20H [facility] Rx#:[id number] Oral 480 / 480 Output: Urine 400 / 400 Other: # Voids 0 2 Date of Last Bowel Movement 12/26/17 12/27/17 Result Diagrams: 12/28/17 05:15 12/28/17 05:15 Laboratory Results: Laboratory Results - last 24 hr 12/28/17 12/28/17 05:15 05:15 WBC 1.2 L RBC 2.78 L Hgb 8.0 L Hct 23.8 L MCV 85.6 MCH 28.6 MCHC 33.4 RDW 22.8 H Plt Count 312 MPV 7.5 Prelim Diff (Auto) Manual diff required WBC Differential Manual diff final Seg Neuts % (Manual) 63 Lymphocytes % (Manual) 36 Monocytes % (Manual) 1 Abs Neuts (Manual) 0.8 L Nucleated RBCs/100 WBC 1 H Differential Comment . Platelet Estimate Normal Platelet Morphology Normal Target Cells 1+ H Tear Drop Cells 1+ H Ovalocytes 1+ H Sodium 138 Potassium 4.3 Chloride 101 Carbon Dioxide 29.0 Anion Gap 8 BUN 16 Creatinine 0.66 Estimated GFR Greater than 89 Random Glucose 85 Calcium 8.0 L Total Bilirubin 1.0 AST 17 ALT 42 Alkaline Phosphatase 62 Total Protein 5.2 L Albumin 2.4 L Medications: Active Medications Generic Name Dose Route Start Last Admin Trade Name Freq PRN Reason Stop Dose Admin Acetaminophen 650 mg 12/21/17 02:23 12/28/17 05:37 Tylenol PO 650 mg Q8H PRN Administration PAIN 1-10 Alteplase, Recombinant 2 mg 12/25/17 12:00 12/25/17 13:36 Cathflo Activase Inj I-CATHETER 2 mg Q2H PRN Administration non-functioning lumen of port Amlodipine Besylate 10 mg 12/21/17 09:00 12/28/17 08:14 Norvasc PO 10 mg DAILY [facility] Administration Enoxaparin Sodium 150 mg 12/21/17 09:00 12/28/17 10:11 Lovenox Inj SQ 150 mg Q12HR [facility] Administration Fluconazole 200 mg 12/21/17 09:00 12/28/17 10:11 Diflucan PO 200 mg DAILY [facility] Administration Gabapentin 600 mg 12/21/17 09:00 12/28/17 08:14 Neurontin PO 600 mg TID [facility] Administration Sodium Chloride 1,000 mls @ 50 mls/hr 12/20/17 23:00 12/28/17 05:37 Ns Inj IV.CONT 50 mls/hr .Q20H [facility] Administration Mercaptopurine 150 mg 12/21/17 09:00 12/28/17 08:13 Purinethol PO 150 mg DAILY [facility] Administration Morphine Sulfate 7.5 mg 12/25/17 23:28 12/27/17 11:13 Msir PO 7.5 mg Q6H PRN Administration PAIN SCALE 1 TO 10 Ondansetron HCl 4 mg 12/20/17 22:38 12/27/17 11:13 Zofran Inj IV.PUSH 4 mg Q6H PRN Administration NAUSEA Prochlorperazine Edisylate 10 mg 12/24/17 08:47 12/26/17 15:59 Compazine Inj IV.PUSH 10 mg Q6H PRN Administration NAUSEA Senna/Docusate Sodium 1 tab 12/25/17 09:15 12/28/17 08:14 Gloria-Colace PO 1 tab BID [facility] Administration Topiramate 50 mg 12/23/17 21:00 12/24/17 08:35 Topamax PO Not Given BID [facility] Trimethoprim/Sulfamethoxazole 1 tab 12/21/17 09:00 12/28/17 08:14 Bactrim PO 1 tab DAILY [facility] Administration Valacyclovir HCl 500 mg 12/21/17 09:00 12/28/17 08:14 Valtrex PO 500 mg DAILY [facility] Administration Objective Remarks: GENERAL: Well-nourished, well-developed young female patient, lying comfortably in bed, in no acute distress. SKIN: Warm and dry. HEAD: Normocephalic. EYES: No scleral icterus. No injection or drainage. PERRLA. NECK: Supple, trachea midline. CARDIOVASCULAR: +S1/S2 without murmurs. RESPIRATORY: Anterior breath sounds clear, equal bilaterally. No accessory muscle use. GASTROINTESTINAL: Abdomen soft, non-tender, nondistended. EXTREMITIES: No cyanosis, or edema. MUSCULOSKELETAL: Adequate muscle tone. NEUROLOGICAL: No obvious focal deficit. A&O x's 3. Moving all extremities. PSYCHIATRIC: Appropriate mood and affect; insight and judgment normal. 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 She is currently being treated per [facility] 31238 protocol. Patient was recently hospitalized for headache, possibly secondary to recurrent lumbar puncture procedures. She was recently readmitted for headache, nausea, vomiting. Plan: 1. Precursor B-cell acute lymphoblastic leukemia, currently day 37 of consolidation phase 2. Plan for cytarabine today. 2. Headache, with some improvement today. We have consulted anesthesia in regards to possible blood patch. The patient is on Lovenox, we would appreciate their input in regards to a blood patch. Once they have evaluated the patient and offered recommendations the Lovenox will need to be addressed accordingly. 3. Elevated AST, ALT: Has normalized. 4. Neutropenic, ANC today 800. Continue neutropenic precautions. - Attending Statement The exam, history, and the medical decision-making described in the above note were completed with the assistance of the mid-level provider. I reviewed and agree with the findings presented. I attest that I had a [id number] encounter with the patient on the same day, and personally performed and documented my assessment and findings in the medical record. Patient seen at bedside at approximately 430 pm. She reports that her headache returned this afternoon. Light sensitivity, decreased appetite. Constipation improved with two bowel movements today. [facility] move [facility]. Anesthesia consulted for consideration of blood patch. Medications including fioricet, imitrex and topamax did not improve severe headache. Work up negative.
[2017-12-28] MEDS: Morphine Sulfate 15 MG IR Tablet PO PRN (12:26)
[2017-12-28] MEDS: Granisetron 1 MG/ML Vial IV.PUSH SCH (14:39)
[2017-12-28] MEDS: Dexamethasone Inj 20 MG in Sodium Chlor 0.9% Inj 50 ML IV.SIG SCH (14:44)
[2017-12-28] MEDS: SODIUM CHLOR 0.9% IV.SIG SCH (15:00)
[2017-12-28] MEDS: CYTARABINE IV.SIG SCH (15:00)
[2017-12-29] MEDS: Sod Chloride 0.9% Inj 1,000 ML IV.CONT SCH ×2 (03:19→23:24)
[2017-12-29 07:13] LABS: Baso % (Auto) 0.3 % (0.0-2.0); Eos % (Auto) 0.2 % (0.0-4.0); Hematocrit 23.9 % (35.0-46.0); Lymph # (Auto) 0.1 th/mm3 (1.0-4.8); Lymph % (Auto) 11.2 % (9.0-44.0); Mean Corpuscular HGB Conc 33.7 % (32.0-36.0); Mean Corpuscular Volume 86.1 fL (80.0-100.0); Mean Platelet Volume 7.8 fL (7.0-11.0); Mono % (Auto) 3.3 % (0.0-8.0); Platelet Count 274 th/mm3 (150-450); Red Blood Count 2.77 mil/mm3 (4.00-5.30); Red Cell Distribution Width 22.7 % (11.6-17.2); White Blood Count 1.2 th/mm3 (4.0-11.0)
[2017-12-29 08:31] LABS: Lymphocytes 11 % (9-44); Monocytes 3 % (0-8); Ovalocytes 1+; Platelet Estimate Normal (Normal); Platelet Morphology Normal (Normal)
[2017-12-29] MEDS: Gabapentin 300 MG Capsule PO SCH ×3 (08:48→17:49)
[2017-12-29] MEDS: Sulfamethoxazole/Trimethoprim 400/80 MG Tablet PO SCH (08:48)
[2017-12-29] MEDS: Enoxaparin Inj 150 MG/ML Syringe SQ SCH ×2 (08:48→20:15)
[2017-12-29] MEDS: Senna/Docusate Sodium 8.6/50 MG Tablet PO SCH ×2 (08:48→20:15)
[2017-12-29] MEDS: amLODIPine 10 MG Tablet PO SCH (08:48)
[2017-12-29] MEDS: valACYclovir 500 MG Tab PO SCH (08:48)
[2017-12-29] MEDS: Acetaminophen 325 MG Tablet PO PRN (08:49)
--- NOTE | 2017-12-29 12:05 | P.PNONC ---
Subjective Interval history: Afebrile, patient lying in bed with eyes closed on approach, awakens easily to voice. She is lying in a darkened room, reports her headache has returned, "I am just waiting for this Tylenol to kick in." Status post chemotherapy yesterday, tolerated well. Objective Vital Signs/Intake & Output: Vital Signs 12/28/17 12:00 12/28/17 12:23 12/28/17 16:00 Temperature 98.6 F 98.3 F Pulse Rate 104 H 103 H 104 H Respiratory Rate 18 18 Blood Pressure 141/70 H 116/53 L Pulse Oximetry 100 100 12/28/17 20:00 12/29/17 00:00 12/29/17 04:00 Temperature 98.4 F 98.3 F Pulse Rate 99 H 92 H 91 H Respiratory Rate 18 18 Blood Pressure 124/68 130/69 Pulse Oximetry 99 100 12/29/17 05:21 12/29/17 07:00 12/29/17 08:32 Temperature 98.2 F 97.1 F L Pulse Rate 85 106 H 68 Respiratory Rate 16 18 Blood Pressure 136/74 123/72 Pulse Oximetry 100 98 12/29/17 11:00 12/29/17 11:18 Temperature 98.7 F Pulse Rate 88 85 Respiratory Rate 18 Blood Pressure 115/58 L Pulse Oximetry 100 Intake & Output 12/28/17 12/29/17 12/29/17 18:59 06:59 18:59 Intake Total 1395.15 / 1395.15 1240 / 1240 Output Total 2990 / 2990 1999 Balance -1594.85 / -1594.85 -760 / -760 Weight 147.6 kg Intake: IV 314.15 / 314.15 1000 / 1000 NS Inj 1,000 ML @ 50 mls/hr IV. 1000 / 1000 CONT .Q20H [facility] Rx#:[id number] Claudette-C Inj 183 MG In NS Inj 250 259.15 / 259.15 ML @ 259.15 mls/hr IV.SIG Q24H [facility] Rx#:[id number] Decadron Inj 20 MG In NS Inj 50 55 / 55 ML @ 330 mls/hr IV.SIG Q24H [facility] Rx#:[id number] Oral 1081 / 1081 240 / 240 Output: Urine 2990 / 2990 1999 Other: Date of Last Bowel Movement 12/28/17 12/28/17 12/28/17 # Bowel Movements 1 Result Diagrams: 12/30/17 04:30 12/30/17 04:30 Laboratory Results: Laboratory Results - last 24 hr 12/29/17 05:30 WBC 1.2 L RBC 2.77 L Hgb 8.0 L Hct 23.9 L MCV 86.1 MCH 29.0 MCHC 33.7 RDW 22.7 H Plt Count 274 MPV 7.8 Prelim Diff (Auto) Slide review pending Neut % (Auto) 85.0 H Lymph % (Auto) 11.2 Labette % (Auto) 3.3 Eos % (Auto) 0.2 Baso % (Auto) 0.3 Neut # (Auto) 1.0 L Lymph # (Auto) 0.1 L Labette # (Auto) 0.0 Eos # (Auto) 0.0 Baso # (Auto) 0.0 WBC Differential Manual diff final Seg Neuts % (Manual) 85 H Band Neuts % (Manual) 1 Lymphocytes % (Manual) 11 Monocytes % (Manual) 3 Abs Neuts (Manual) 1.0 L Differential Comment . Platelet Estimate Normal Platelet Morphology Normal Ovalocytes 1+ H Culture Results: Microbiology 12/21/17 10:57 Fungal Smear - Final Cerebral Spinal Fluid - Lumbar Puncture No fungal elements seen Fungal Culture - Preliminary No growth in 1 week 12/21/17 10:57 Acid Fast Bacilli Smear - Final Other No acid fast bacilli seen Mycobacterial Culture - Preliminary No growth in 1 week Medications: Active Medications Generic Name Dose Route Start Last Admin Trade Name Freq PRN Reason Stop Dose Admin Acetaminophen 650 mg 12/21/17 02:23 12/29/17 08:49 Tylenol PO 650 mg Q8H PRN Administration PAIN 1-10 Alteplase, Recombinant 2 mg 12/25/17 12:00 12/25/17 13:36 Cathflo Activase Inj I-CATHETER 2 mg Q2H PRN Administration non-functioning lumen of port Amlodipine Besylate 10 mg 12/21/17 09:00 12/29/17 08:48 Norvasc PO 10 mg DAILY [facility] Administration Enoxaparin Sodium 150 mg 12/21/17 09:00 12/29/17 08:48 Lovenox Inj SQ 150 mg Q12HR [facility] Administration Fluconazole 200 mg 12/21/17 09:00 12/29/17 08:48 Diflucan PO 200 mg DAILY [facility] Administration Gabapentin 600 mg 12/21/17 09:00 12/29/17 08:48 Neurontin PO 600 mg TID [facility] Administration Granisetron HCl 1 mg 12/28/17 14:30 12/28/17 14:39 Kytril Inj IV.PUSH 12/31/17 14:31 1 mg Q24H [facility] Administration Sodium Chloride 1,000 mls @ 50 mls/hr 12/20/17 23:00 12/29/17 03:19 Ns Inj IV.CONT 50 mls/hr .Q20H [facility] Administration Dexamethasone Sodium Phosphate 55 mls @ 330 mls/hr 12/28/17 14:30 12/28/17 15 :00 20 mg/ Sodium Chloride IV.SIG 12/31/17 14:39 Infused Q24H [facility] Infusion Cytarabine 183 mg/ Sodium 259.15 mls @ 259.15 mls/hr 12/28/17 15:00 12/28/17 16:31 Chloride IV.SIG 12/31/17 15:59 Infused Q24H [facility] Infusion Mercaptopurine 150 mg 12/21/17 09:00 12/29/17 08:48 Purinethol PO 150 mg DAILY [facility] Administration Morphine Sulfate 7.5 mg 12/25/17 23:28 12/28/17 12:26 Msir PO 7.5 mg Q6H PRN Administration PAIN SCALE 1 TO 10 Ondansetron HCl 4 mg 12/20/17 22:38 12/27/17 11:13 Zofran Inj IV.PUSH 4 mg Q6H PRN Administration NAUSEA Prochlorperazine Edisylate 10 mg 12/24/17 08:47 12/26/17 15:59 Compazine Inj IV.PUSH 10 mg Q6H PRN Administration NAUSEA Senna/Docusate Sodium 1 tab 12/25/17 09:15 12/29/17 08:48 Gloria-Colace PO 1 tab BID [facility] Administration Topiramate 50 mg 12/23/17 21:00 12/24/17 08:35 Topamax PO Not Given BID [facility] Trimethoprim/Sulfamethoxazole 1 tab 12/21/17 09:00 12/29/17 08:48 Bactrim PO 1 tab DAILY [facility] Administration Valacyclovir HCl 500 mg 12/21/17 09:00 12/29/17 08:48 Valtrex PO 500 mg DAILY [facility] Administration Objective Remarks: GENERAL: Well-nourished, well-developed young female patient, lying in bed with eyes closed, awakens easily to voice. In no acute distress. SKIN: Warm and dry. HEAD: Normocephalic. EYES: No scleral icterus. No injection or drainage. PERRLA. NECK: Supple, trachea midline. CARDIOVASCULAR: +S1/S2 without murmurs. RESPIRATORY: Anterior breath sounds clear, equal bilaterally. No accessory muscle use. GASTROINTESTINAL: Abdomen soft, non-tender, nondistended. EXTREMITIES: No cyanosis, or edema. MUSCULOSKELETAL: Adequate muscle tone. NEUROLOGICAL: No obvious focal deficit. A&O x's 3. Moving all extremities. PSYCHIATRIC: Appropriate mood and affect; insight and judgment normal. 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 She is currently being treated per [facility] 18903 protocol. Patient was recently hospitalized for headache, possibly secondary to recurrent lumbar puncture procedures. She was recently readmitted for headache, nausea, vomiting. Plan: 1. 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 Started 4 day cycle of cytarabine yesterday, tolerated well. Will continue today. 2. Headache, continues. We have consulted anesthesia in regards to possible blood patch. The patient is on Lovenox, we would appreciate their input in regards to a blood patch. Once they have evaluated the patient and offered recommendations the Lovenox will need to be addressed accordingly. 3. Neutropenia, resolving, ANC today 1000. - Attending Statement The exam, history, and the medical decision-making described in the above note were completed with the assistance of the mid-level provider. I reviewed and agree with the findings presented. I attest that I had a [id number] encounter with the patient on the same day, and personally performed and documented my assessment and findings in the medical record. 27 yoF with precursor B cell ALL currently being treated with [facility] 13214 protocol. Intractable headache, intermittently improved with MSIR. Neurologically intact, neurologic work up negative.
[2017-12-29] MEDS: Granisetron 1 MG/ML Vial IV.PUSH SCH (15:07)
[2017-12-29] MEDS: Dexamethasone Inj 20 MG in Sodium Chlor 0.9% Inj 50 ML IV.SIG SCH (15:07)
[2017-12-29] MEDS: CYTARABINE IV.SIG SCH (15:59)
[2017-12-29] MEDS: SODIUM CHLOR 0.9% IV.SIG SCH (15:59)
[2017-12-30 05:26] LABS: Baso % (Auto) 0.1 % (0.0-2.0); Hematocrit 22.4 % (35.0-46.0); Hemoglobin 7.4 gm/dL (11.6-15.3); Lymph # (Auto) 0.1 th/mm3 (1.0-4.8); Lymph % (Auto) 18.3 % (9.0-44.0); Mean Corpuscular HGB Conc 33.2 % (32.0-36.0); Mean Corpuscular Hemoglobin 28.6 pg (27.0-34.0); Mean Corpuscular Volume 86.3 fL (80.0-100.0); Mean Platelet Volume 7.5 fL (7.0-11.0); Mono # (Auto) 0.1 th/mm3 (0.0-0.9); Mono % (Auto) 8.6 % (0.0-8.0); Neut # (Auto) 0.6 th/mm3 (1.8-7.7); Platelet Count 243 th/mm3 (150-450); Red Blood Count 2.59 mil/mm3 (4.00-5.30); Red Cell Distribution Width 22.5 % (11.6-17.2); White Blood Count 0.8 th/mm3 (4.0-11.0)
[2017-12-30 05:46] LABS: Albumin 2.5 g/dL (3.4-5.0); Anion Gap 8 meq/L (5-15); Aspartate Aminotransferase 16 U/L (15-37); Blood Urea Nitrogen 13 mg/dL (7-18); Calcium 8.2 mg/dL (8.5-10.1); Carbon Dioxide 27.8 meq/L (21.0-32.0); Chloride 106 meq/L (98-107); Glomerular Filtration Rate Greater Than 89 mL/min (>89); Glucose,Random 110 mg/dL (74-106); Potassium 4.2 meq/L (3.5-5.1); Sodium 142 meq/L (136-145)
[2017-12-30 05:50] LABS: Alanine Aminotransferase 42 U/L (10-53); Alkaline Phosphatase 50 U/L (45-117); Total Protein 5.3 g/dL (6.4-8.2)
[2017-12-30 08:36] LABS: Lymphocytes 16 % (9-44); Monocytes 2 % (0-8)
[2017-12-30 08:37] LABS: Hypersegmented Neutrophils 2+; Ovalocytes 1+; Stomatocytes 1+
[2017-12-30 08:38] LABS: Platelet Estimate Normal (Normal); Platelet Morphology Normal (Normal)
[2017-12-30] MEDS: valACYclovir 500 MG Tab PO SCH (09:00)
[2017-12-30] MEDS: Enoxaparin Inj 150 MG/ML Syringe SQ SCH ×2 (09:00→20:03)
[2017-12-30] MEDS: Gabapentin 300 MG Capsule PO SCH ×3 (09:00→17:43)
[2017-12-30] MEDS: Senna/Docusate Sodium 8.6/50 MG Tablet PO SCH ×2 (09:00→20:03)
[2017-12-30] MEDS: Sulfamethoxazole/Trimethoprim 400/80 MG Tablet PO SCH (09:01)
[2017-12-30] MEDS: amLODIPine 10 MG Tablet PO SCH (09:01)
[2017-12-30] MEDS: Acetaminophen 325 MG Tablet PO PRN ×2 (11:35→20:04)
--- NOTE | 2017-12-30 14:26 | P.PNONC ---
Subjective Interval history: Afebrile. Patient lying in bed with her eyes covered on approach. She states that her headache returned around 10:00 this morning and she feels dizzy if she moves her head. She describes the dizziness as the room spinning. She reports similar symptoms in the past. She denies any nausea or vomiting. She reports that she was feeling much better yesterday evening and this morning until approximately 10:00. Objective Vital Signs/Intake & Output: Vital Signs 12/29/17 15:01 12/29/17 15:45 12/29/17 20:00 Temperature 98.6 F 98.5 F Pulse Rate 89 86 83 Respiratory Rate 18 18 Blood Pressure 139/79 140/79 Pulse Oximetry 99 100 12/30/17 00:00 12/30/17 04:00 12/30/17 08:54 Temperature 98.6 F 98.0 F 98.3 F Pulse Rate 83 67 100 H Respiratory Rate 18 18 18 Blood Pressure 123/79 119/71 147/89 H Pulse Oximetry 99 99 100 12/30/17 09:11 12/30/17 11:22 12/30/17 11:36 Temperature 98.3 F Pulse Rate 108 H 78 76 Respiratory Rate 18 Blood Pressure 121/68 Pulse Oximetry 100 Intake & Output 12/29/17 12/30/17 12/30/17 18:59 06:59 18:59 Intake Total 1394.15 / 1394.15 1240 / 1240 Output Total 2600 / 2600 1700 / 1700 Balance -1205.85 / -1205.85 -460 / -460 Weight 152.9 kg Intake: IV 314.15 / 314.15 1000 / 1000 NS Inj 1,000 ML @ 50 mls/hr IV. 1000 / 1000 CONT .Q20H [facility] Rx#:[id number] Claudette-C Inj 183 MG In NS Inj 250 259.15 / 259.15 ML @ 259.15 mls/hr IV.SIG Q24H [facility] Rx#:[id number] Decadron Inj 20 MG In NS Inj 50 55 / 55 ML @ 330 mls/hr IV.SIG Q24H [facility] Rx#:[id number] Oral 1080 / 1080 240 / 240 Output: Urine 2600 / 2600 1700 / 1700 Other: Date of Last Bowel Movement 12/29/17 12/29/17 12/30/17 # Bowel Movements 2 Result Diagrams: 12/31/17 04:00 12/31/17 04:00 Laboratory Results: Laboratory Results - last 24 hr 12/30/17 12/30/17 04:30 04:30 WBC 0.8 L RBC 2.59 L Hgb 7.4 L Hct 22.4 L MCV 86.3 MCH 28.6 MCHC 33.2 RDW 22.5 H Plt Count 243 MPV 7.5 Prelim Diff (Auto) Slide review pending Neut % (Auto) 73.0 H Lymph % (Auto) 18.3 Hughes % (Auto) 8.6 H Eos % (Auto) 0.0 Baso % (Auto) 0.1 Neut # (Auto) 0.6 L Lymph # (Auto) 0.1 L Hughes # (Auto) 0.1 Eos # (Auto) 0.0 Baso # (Auto) 0.0 WBC Differential Manual diff final Seg Neuts % (Manual) 82 H Lymphocytes % (Manual) 16 Monocytes % (Manual) 2 Abs Neuts (Manual) 0.7 L Differential Comment . Hypersegmented Neuts 2+ H Platelet Estimate Normal Platelet Morphology Normal Ovalocytes 1+ H Stomatocytes 1+ H Sodium 142 Potassium 4.2 Chloride 106 Carbon Dioxide 27.8 Anion Gap 8 BUN 13 Creatinine 0.58 Estimated GFR Greater than 89 Random Glucose 110 H Calcium 8.2 L Total Bilirubin 0.5 AST 16 ALT 42 Alkaline Phosphatase 50 Total Protein 5.3 L Albumin 2.5 L Culture Results: Microbiology 12/21/17 10:57 Fungal Smear - Final Cerebral Spinal Fluid - Lumbar Puncture No fungal elements seen Fungal Culture - Preliminary No growth in 1 week 12/21/17 10:57 Acid Fast Bacilli Smear - Final Other No acid fast bacilli seen Mycobacterial Culture - Preliminary No growth in 1 week Medications: Active Medications Generic Name Dose Route Start Last Admin Trade Name Freq PRN Reason Stop Dose Admin Acetaminophen 650 mg 12/21/17 02:23 12/30/17 11:35 Tylenol PO 650 mg Q8H PRN Administration PAIN 1-10 Alteplase, Recombinant 2 mg 12/25/17 12:00 12/25/17 13:36 Cathflo Activase Inj I-CATHETER 2 mg Q2H PRN Administration non-functioning lumen of port Amlodipine Besylate 10 mg 12/21/17 09:00 09/07/18 09:01 Norvasc PO 10 mg DAILY [facility] Administration Enoxaparin Sodium 150 mg 12/21/17 09:00 12/30/17 09:00 Lovenox Inj SQ 150 mg Q12HR [facility] Administration Fluconazole 200 mg 12/21/17 09:00 12/30/17 09:00 Diflucan PO 200 mg DAILY [facility] Administration Gabapentin 600 mg 12/21/17 09:00 12/30/17 12:08 Neurontin PO 600 mg TID [facility] Administration Granisetron HCl 1 mg 12/28/17 14:30 12/29/17 15:07 Kytril Inj IV.PUSH 12/31/17 14:31 1 mg Q24H [facility] Administration Sodium Chloride 1,000 mls @ 50 mls/hr 12/20/17 23:00 12/29/17 23:24 Ns Inj IV.CONT 50 mls/hr .Q20H [facility] Administration Dexamethasone Sodium Phosphate 55 mls @ 330 mls/hr 12/28/17 14:30 12/29/17 15 :32 20 mg/ Sodium Chloride IV.SIG 12/31/17 14:39 Infused Q24H [facility] Infusion Cytarabine 183 mg/ Sodium 259.15 mls @ 259.15 mls/hr 12/28/17 15:00 12/29/17 17:59 Chloride IV.SIG 12/31/17 15:59 Infused Q24H [facility] Infusion Mercaptopurine 150 mg 12/21/17 09:00 12/30/17 09:01 Purinethol PO 150 mg DAILY [facility] Administration Morphine Sulfate 7.5 mg 12/25/17 23:28 12/28/17 12:26 Msir PO 7.5 mg Q6H PRN Administration PAIN SCALE 1 TO 10 Ondansetron HCl 4 mg 12/20/17 22:38 12/27/17 11:13 Zofran Inj IV.PUSH 4 mg Q6H PRN Administration NAUSEA Prochlorperazine Edisylate 10 mg 12/24/17 08:47 12/26/17 15:59 Compazine Inj IV.PUSH 10 mg Q6H PRN Administration NAUSEA Senna/Docusate Sodium 1 tab 12/25/17 09:15 12/30/17 09:00 Gloria-Colace PO 1 tab BID [facility] Administration Topiramate 50 mg 12/23/17 21:00 09/01/18 08:35 Topamax PO Not Given BID [facility] Trimethoprim/Sulfamethoxazole 1 tab 12/21/17 09:00 12/30/17 09:01 Bactrim PO 1 tab DAILY [facility] Administration Valacyclovir HCl 500 mg 12/21/17 09:00 12/30/17 09:00 Valtrex PO 500 mg DAILY [facility] Administration Objective Remarks: GENERAL: Well-nourished, well-developed young female patient, lying in bed with eyes closed, awakens easily to voice. In no acute distress. SKIN: Warm and dry. HEAD: Normocephalic. EYES: No scleral icterus. No injection or drainage. NECK: Supple, trachea midline. CARDIOVASCULAR: +S1/S2 without murmurs. RESPIRATORY: Anterior breath sounds clear, equal bilaterally. No accessory muscle use. GASTROINTESTINAL: Abdomen soft, non-tender, nondistended. EXTREMITIES: No cyanosis, or edema. MUSCULOSKELETAL: Adequate muscle tone. NEUROLOGICAL: No obvious focal deficit. A&O x's 3. Moving all extremities, equal strength. PSYCHIATRIC: Appropriate mood and affect; insight and judgment normal. 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 She is currently being treated per [facility] 14437 protocol. Patient was recently hospitalized for headache, possibly secondary to recurrent lumbar puncture procedures. She was recently readmitted for headache, nausea, vomiting. Plan: 1. Precursor B-cell acute lymphoblastic leukemia, currently day 39 of consolidation phase 2. 2. Headache, continues. We have consulted anesthesia in regards to possible blood patch. The patient is on Lovenox, we would appreciate their input in regards to a blood patch. Once they have evaluated the patient and offered recommendations the Lovenox will need to be addressed accordingly. RN checking with anesthesia in regards to consult. 3. Neutropenia, ANC 700 today which is down slightly from yesterday. We will continue to monitor, continue neutropenic precautions. - Attending Statement The exam, history, and the medical decision-making described in the above note were completed with the assistance of the mid-level provider. I reviewed and agree with the findings presented. I attest that I had a [id number] encounter with the patient on the same day, and personally performed and documented my assessment and findings in the medical record. 27 yoF with precursor B cell ALL admitted with intractable headache. Work up negative. Fioricit, topamax, imitrex with no relief. Continue chemotherapy per [facility] 12110 protocol
[2017-12-30] MEDS: Dexamethasone Inj 20 MG in Sodium Chlor 0.9% Inj 50 ML IV.SIG SCH (15:10)
[2017-12-30] MEDS: Granisetron 1 MG/ML Vial IV.PUSH SCH (15:10)
[2017-12-30] MEDS: CYTARABINE IV.SIG SCH (15:41)
[2017-12-30] MEDS: SODIUM CHLOR 0.9% IV.SIG SCH (15:41)
[2017-12-30] MEDS: Sod Chloride 0.9% Inj 1,000 ML IV.CONT SCH (17:43)
[2017-12-31 05:50] LABS: Hemoglobin 7.5 gm/dL (11.6-15.3); Mean Corpuscular HGB Conc 32.7 % (32.0-36.0); Mean Corpuscular Hemoglobin 28.6 pg (27.0-34.0); Mean Corpuscular Volume 87.6 fL (80.0-100.0); Mean Platelet Volume 7.5 fL (7.0-11.0); Platelet Count 226 th/mm3 (150-450); Red Blood Count 2.62 mil/mm3 (4.00-5.30); Red Cell Distribution Width 22.3 % (11.6-17.2); White Blood Count 0.5 th/mm3 (4.0-11.0)
[2017-12-31 06:01] LABS: Alanine Aminotransferase 57 U/L (10-53); Albumin 2.4 g/dL (3.4-5.0); Anion Gap 8 meq/L (5-15); Aspartate Aminotransferase 17 U/L (15-37); Blood Urea Nitrogen 14 mg/dL (7-18); Chloride 106 meq/L (98-107); Glomerular Filtration Rate Greater Than 89 mL/min (>89); Glucose,Random 126 mg/dL (74-106); Potassium 4.1 meq/L (3.5-5.1); Sodium 142 meq/L (136-145)
[2017-12-31 06:04] LABS: Alkaline Phosphatase 51 U/L (45-117); Total Protein 5.3 g/dL (6.4-8.2)
[2017-12-31 08:29] LABS: Lymphocytes 33 % (9-44); Monocytes 10 % (0-8)
[2017-12-31 08:30] LABS: Tear Drop Cells 1+
[2017-12-31 08:31] LABS: Ovalocytes 1+; Platelet Estimate Normal (Normal); Platelet Morphology Normal (Normal)
[2017-12-31 08:36] VITALS: RESP 18; O2SAT 100
[2017-12-31] MEDS: Enoxaparin Inj 150 MG/ML Syringe SQ SCH (08:36)
[2017-12-31] MEDS: Gabapentin 300 MG Capsule PO SCH ×2 (08:36→12:18)
[2017-12-31] MEDS: amLODIPine 10 MG Tablet PO SCH (08:36)
[2017-12-31] MEDS: Senna/Docusate Sodium 8.6/50 MG Tablet PO SCH (08:36)
[2017-12-31] MEDS: Sulfamethoxazole/Trimethoprim 400/80 MG Tablet PO SCH (08:37)
[2017-12-31] MEDS: valACYclovir 500 MG Tab PO SCH (08:37)
[2017-12-31] MEDS: Acetaminophen 325 MG Tablet PO PRN (08:42)
--- NOTE | 2017-12-31 09:00 | P.PNONC ---
Subjective Interval history: Afebrile, reports headache has improved. She describes it as intermittent in nature at this point, controlled with darkened room and Tylenol. She has no concerns at this time. She is eager to go home today after her chemotherapy. She reports she already has follow-up appointments with Dr. Wilkerson on Tuesday. Objective Vital Signs/Intake & Output: Vital Signs 12/30/17 09:11 12/30/17 11:22 12/30/17 11:36 Temperature 98.3 F Pulse Rate 108 H 78 76 Respiratory Rate 18 Blood Pressure 121/68 Pulse Oximetry 100 12/30/17 14:59 12/30/17 15:10 12/30/17 20:00 Temperature 98.4 F 98.4 F Pulse Rate 90 90 81 Respiratory Rate 18 18 Blood Pressure 130/74 131/74 Pulse Oximetry 100 100 12/31/17 00:00 12/31/17 00:56 12/31/17 04:00 Temperature 98.3 F 98.2 F Pulse Rate 70 85 85 Respiratory Rate 18 16 Blood Pressure 105/40 L 127/67 Pulse Oximetry 100 99 12/31/17 08:00 Temperature Pulse Rate 83 Respiratory Rate 18 Blood Pressure 137/79 Pulse Oximetry 100 Intake & Output 12/30/17 12/31/17 12/31/17 18:59 06:59 18:59 Intake Total 2074.15 / 2074.15 480 / 480 Output Total 2100 / 2100 1400 / 1400 Balance -25.85 / -25.85 -920 / -920 Weight 153 kg Intake: IV 1114.15 / 1114.15 NS Inj 1,000 ML @ 50 mls/hr IV. 800 / 800 CONT .Q20H [facility] Rx#:[id number] Claudette-C Inj 183 MG In NS Inj 250 259.15 / 259.15 ML @ 259.15 mls/hr IV.SIG Q24H [facility] Rx#:[id number] Decadron Inj 20 MG In NS Inj 50 55 / 55 ML @ 330 mls/hr IV.SIG Q24H [facility] Rx#:[id number] Oral 960 / 960 480 / 480 Output: Urine 2100 / 2100 1400 / 1400 Other: Date of Last Bowel Movement 12/30/17 12/30/17 # Bowel Movements 1 Result Diagrams: 12/31/17 04:00 12/31/17 04:00 Laboratory Results: Laboratory Results - last 24 hr 12/31/17 12/31/17 04:00 04:00 WBC 0.5 L RBC 2.62 L Hgb 7.5 L Hct 23.0 L MCV 87.6 MCH 28.6 MCHC 32.7 RDW 22.3 H Plt Count 226 MPV 7.5 Prelim Diff (Auto) Manual diff required WBC Differential Manual diff final Seg Neuts % (Manual) 57 Lymphocytes % (Manual) 33 Monocytes % (Manual) 10 H Abs Neuts (Manual) 0.3 L* Differential Comment . Platelet Estimate Normal Platelet Morphology Normal Tear Drop Cells 1+ H Ovalocytes 1+ H Sodium 142 Potassium 4.1 Chloride 106 Carbon Dioxide 28.0 Anion Gap 8 BUN 14 Creatinine 0.68 Estimated GFR Greater than 89 Random Glucose 126 H Calcium 8.0 L Total Bilirubin 0.3 AST 17 ALT 57 H Alkaline Phosphatase 51 Total Protein 5.3 L Albumin 2.4 L Culture Results: Microbiology 12/21/17 10:57 Fungal Smear - Final Cerebral Spinal Fluid - Lumbar Puncture No fungal elements seen Fungal Culture - Preliminary No growth in 1 week 12/21/17 10:57 Acid Fast Bacilli Smear - Final Other No acid fast bacilli seen Mycobacterial Culture - Preliminary No growth in 1 week Medications: Active Medications Generic Name Dose Route Start Last Admin Trade Name Freq PRN Reason Stop Dose Admin Acetaminophen 650 mg 12/21/17 02:23 12/31/17 08:42 Tylenol PO 650 mg Q8H PRN Administration PAIN 1-10 Alteplase, Recombinant 2 mg 12/25/17 12:00 12/25/17 13:36 Cathflo Activase Inj I-CATHETER 2 mg Q2H PRN Administration non-functioning lumen of port Amlodipine Besylate 10 mg 12/21/17 09:00 12/31/17 08:36 Norvasc PO 10 mg DAILY [facility] Administration Enoxaparin Sodium 150 mg 12/21/17 09:00 12/31/17 08:36 Lovenox Inj SQ 150 mg Q12HR [facility] Administration Fluconazole 200 mg 12/21/17 09:00 12/31/17 08:36 Diflucan PO 200 mg DAILY [facility] Administration Gabapentin 600 mg 12/21/17 09:00 12/31/17 08:36 Neurontin PO 600 mg TID [facility] Administration Granisetron HCl 1 mg 12/28/17 14:30 12/30/17 15:10 Kytril Inj IV.PUSH 12/31/17 14:31 1 mg Q24H [facility] Administration Sodium Chloride 1,000 mls @ 50 mls/hr 12/20/17 23:00 12/30/17 17:43 Ns Inj IV.CONT 50 mls/hr .Q20H [facility] Administration Dexamethasone Sodium Phosphate 55 mls @ 330 mls/hr 12/28/17 14:30 12/30/17 15 :34 20 mg/ Sodium Chloride IV.SIG 12/31/17 14:39 Infused Q24H [facility] Infusion Cytarabine 183 mg/ Sodium 259.15 mls @ 259.15 mls/hr 12/28/17 15:00 12/30/17 16:57 Chloride IV.SIG 12/31/17 15:59 Infused Q24H [facility] Infusion Mercaptopurine 150 mg 12/21/17 09:00 12/31/17 08:37 Purinethol PO 150 mg DAILY [facility] Administration Morphine Sulfate 7.5 mg 12/25/17 23:28 12/28/17 12:26 Msir PO 7.5 mg Q6H PRN Administration PAIN SCALE 1 TO 10 Ondansetron HCl 4 mg 12/20/17 22:38 12/27/17 11:13 Zofran Inj IV.PUSH 4 mg Q6H PRN Administration NAUSEA Prochlorperazine Edisylate 10 mg 12/24/17 08:47 12/26/17 15:59 Compazine Inj IV.PUSH 10 mg Q6H PRN Administration NAUSEA Senna/Docusate Sodium 1 tab 12/25/17 09:15 12/31/17 08:36 Gloria-Colace PO 1 tab BID [facility] Administration Topiramate 50 mg 12/23/17 21:00 12/24/17 08:35 Topamax PO Not Given BID [facility] Trimethoprim/Sulfamethoxazole 1 tab 12/21/17 09:00 12/31/17 08:37 Bactrim PO 1 tab DAILY [facility] Administration Valacyclovir HCl 500 mg 12/21/17 09:00 12/31/17 08:37 Valtrex PO 500 mg DAILY [facility] Administration Objective Remarks: GENERAL: Well-nourished, well-developed young female patient, sitting up in bed , in no acute distress. SKIN: Warm and dry. HEAD: Normocephalic. EYES: No scleral icterus. No injection or drainage. NECK: Supple, trachea midline. CARDIOVASCULAR: +S1/S2 without murmurs. RESPIRATORY: Anterior breath sounds clear, equal bilaterally. No accessory muscle use. GASTROINTESTINAL: Abdomen soft, non-tender, nondistended. EXTREMITIES: No cyanosis, or edema. MUSCULOSKELETAL: Adequate muscle tone. NEUROLOGICAL: No obvious focal deficit. A&O x's 3. Moving all extremities, equal strength. PSYCHIATRIC: Appropriate mood and affect; insight and judgment normal. 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 She is currently being treated per [facility] 57194 protocol. Patient was recently hospitalized for headache, possibly secondary to recurrent lumbar puncture procedures. She was recently readmitted for headache, nausea, vomiting. Plan: 1. Precursor B-cell acute lymphoblastic leukemia, currently day 40 of consolidation phase 2. 2. Headache, improving. Anesthesia did not recommend a blood patch. 3. Neutropenia, chemo induced. Continue neutropenic precautions. 4. Patient to receive her last dose of cytarabine today. If she continues to improve throughout the day we can discharge her home. She already has a follow- up appointment scheduled for Tuesday with Dr. Wilkerson. - Attending Statement B- Cell ALL--consolidation [facility] 1040 getting cytaribine Headaches better OK to d/c home and f/u with Dr. Wilkerson still neutropenic will go home on Cipro MWF, Bactrim TTh Sat
[2017-12-31] MEDS: Sod Chloride 0.9% Inj 1,000 ML IV.CONT SCH (09:46)
[2017-12-31 12:20] VITALS: BP 141/70; PULSE 94; TEMP 98.7
--- NOTE | 2017-12-31 13:34 | P.DS ---
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 She is currently being treated per [facility] 07070 protocol. Patient was recently hospitalized for headache, possibly secondary to recurrent lumbar puncture procedures. She was recently readmitted for headache, nausea, vomiting. Neurological workup was negative. The patient received consolidation phase 2 per [facility] 03423 protocol during this hospitalization. She tolerated well. Patient still with intermittent headache. She is currently neutropenic related to chemotherapy. 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 She is currently being treated per [facility] 67682 protocol. Patient was recently hospitalized for headache, possibly secondary to recurrent lumbar puncture procedures. She was recently readmitted for headache, nausea, vomiting. Neurological workup was negative. The patient received consolidation phase 2 chemotherapy per CAL[facility] 25584 protocol during this hospitalization. She is receiving her last dose of cytarabine today. She tolerated well. Patient still with intermittent headache, anesthesia consulted and did not recommend a blood patch. The patient feels the headaches, although still intermittent, are controlled with Tylenol, rest in darkened room. She is eager to be discharged home and thinks that she can manage her intermittent headaches at home. She is currently neutropenic related to chemotherapy. She has close follow-up scheduled appointments with Dr. Wilkerson. Prophylactic antibiotics given for neutropenia. Patient instructed to take Bactrim DS on Tuesday, Tuesday, , Tuesday and Cipro 250 mg on Tuesday and Tuesday, this will be further managed with repeat blood work Tuesday, or until ANC>500. Prescriptions have been given. Patient to maintain scheduled appointment with Dr. Wilkerson on Tuesday. - Time Spent with Patient Total time spent providing and/or coordinating discharge services: Greater than 30 minutes Exam Vital signs: Vital Signs 12/30/17 14:59 12/30/17 15:10 12/30/17 20:00 Temperature 98.4 F 98.4 F Pulse Rate 90 90 81 Respiratory Rate 18 18 Blood Pressure 130/74 131/74 Pulse Oximetry 100 100 12/31/17 00:00 12/31/17 00:56 12/31/17 04:00 Temperature 98.3 F 98.2 F Pulse Rate 70 85 85 Respiratory Rate 18 16 Blood Pressure 105/40 L 127/67 Pulse Oximetry 100 99 12/31/17 08:00 12/31/17 12:00 Temperature 98.7 F Pulse Rate 83 94 H Respiratory Rate 18 18 Blood Pressure 137/79 141/70 H Pulse Oximetry 100 100 Intake & Output 12/30/17 12/31/17 12/31/17 18:59 06:59 18:59 Intake Total 2074.15 / 2074.15 480 / 480 Output Total 2100 / 2100 1400 / 1400 Balance -25.85 / -25.85 -920 / -920 Weight 153 kg Intake: IV 1114.15 / 1114.15 NS Inj 1,000 ML @ 50 mls/hr IV. 800 / 800 CONT .Q20H [facility] Rx#:[id number] Claudette-C Inj 183 MG In NS Inj 250 259.15 / 259.15 ML @ 259.15 mls/hr IV.SIG Q24H [facility] Rx#:[id number] Decadron Inj 20 MG In NS Inj 50 55 / 55 ML @ 330 mls/hr IV.SIG Q24H [facility] Rx#:[id number] Oral 960 / 960 480 / 480 Output: Urine 2100 / 2100 1400 / 1400 Other: Date of Last Bowel Movement 12/30/17 12/30/17 12/31/17 # Bowel Movements 1 Narrative: Please see exam on progress note dated 12/31/2017. Results Procedures completed during hospitalization: Diagnostic LP. Labs on day of discharge: Labs from last 24 hours 12/31/17 12/31/17 04:00 04:00 WBC 0.5 L RBC 2.62 L Hgb 7.5 L Hct 23.0 L MCV 87.6 MCH 28.6 MCHC 32.7 RDW 22.3 H Plt Count 226 MPV 7.5 Prelim Diff (Auto) Manual diff required WBC Differential Manual diff final Seg Neuts % (Manual) 57 Lymphocytes % (Manual) 33 Monocytes % (Manual) 10 H Abs Neuts (Manual) 0.3 L* Differential Comment . Platelet Estimate Normal Platelet Morphology Normal Tear Drop Cells 1+ H Ovalocytes 1+ H Sodium 142 Potassium 4.1 Chloride 106 Carbon Dioxide 28.0 Anion Gap 8 BUN 14 Creatinine 0.68 Estimated GFR Greater than 89 Random Glucose 126 H Calcium 8.0 L Total Bilirubin 0.3 AST 17 ALT 57 H Alkaline Phosphatase 51 Total Protein 5.3 L Albumin 2.4 L Preliminary micro results at discharge 12/21/17 10:57 Fungal Culture - Preliminary Cerebral Spinal Fluid - Lumbar Puncture No growth in 1 week 12/21/17 10:57 Mycobacterial Culture - Preliminary Other No growth in 1 week - Impressions ITS Impressions Head MRI 12/20/17 16:04 CONCLUSION: 1. Negative MR Brain with and without contrast. Lumbar Puncture Fluoroscopy 12/21/17 09:03 CONCLUSION: 1. Uncomplicated fluoroscopically guided lumbar puncture. Head/Brain Mag Res Venography 12/21/17 09:04 CONCLUSION: 1. Negative MRV Brain with and without contrast. Head MRA 12/21/17 09:13 CONCLUSION: 1. Negative MRA [place] ([place]) non contrast. Abdomen Ultrasound 12/25/17 00:00 CONCLUSION: The liver is slightly echogenic which may be due to fatty infiltration and or hepatocellular dysfunction. Discharge Plan - Discharge Disposition Patient Disposition: 01 Discharge Home - Discharge Condition Condition: Stable - Discharge Order Discharge Orders: Discharge Order (Routine); Ordered 12/31/17 Ordered By: Pearl Colón - Discharge Details Anticipated Discharge Date: 12/31/17 Discharge Comment: Pt may be discharged today after chemo is completed. - Physicians Team Primary Care Provider: Danae Pike Attending Provider: Hannah Wilkerson Other Providers: Earnest Bland MD ; [place]
[2017-12-31] MEDS: Granisetron 1 MG/ML Vial IV.PUSH SCH (13:36)
[2017-12-31] MEDS: Dexamethasone Inj 20 MG in Sodium Chlor 0.9% Inj 50 ML IV.SIG SCH (13:37)
[2017-12-31] MEDS: SODIUM CHLOR 0.9% IV.SIG SCH ×2 (13:45→14:45)
[2017-12-31] MEDS: CYTARABINE IV.SIG SCH ×2 (13:45→14:45)
== END 2017-12-31 15:27 | disposition home or self-care (01) ==
LOC: NEPE 14:23 → NEDA 19:18 → HCIN 12-21 00:15 → NEDA 12-21 00:17
PROVIDERS: ADMIT Internal Medicine; ATTEND Internal Medicine

== ENCOUNTER 2018-01-04 13:22 | Inpatient (IN) ==
--- NOTE | 2018-01-04 15:00 | P.HP ---
History of Present Illness Primary Care Physician: Danae Pike MD, R2 Chief Complaint: Febrile episode History of Present Illness: 27-year-old female with B-Cell ALL diagnosed in August 2017, who previously received CALBG and currently is on chemotherapy, was sent from Dr. Wilkerson's office today for direct admits for neutropenic fever. Apparently, patient had a temperature of 100.4 this a.m. while visiting her oncologist for chemo therapy. Patient reported that this a.m. when she woke up she was complaining of body ache as well as chills however denies any subjective fever. She also denies any upper respiratory infection. She was recently admitted on October 10, 2017 for pneumonia and was treated for neutropenic fever during that hospitalization. She is currently on Lovenox 150mg subcu twice daily for diagnosis of bilateral PE in August 2017. She denies any symptoms of dysuria, GI bleed. - Diagnosis (1) Neutropenic fever (2) B-cell acute lymphoblastic leukemia (ALL) (3) Pulmonary embolism Inpatient Certification: I certify that the inpatient services were ordered in accordance with Medicare regulations governing the order. This includes certification that hospital inpatient services are reasonable and necessary and in the case of services not specified as inpatient-only under 42 CFR 419.22(n), that they are appropriately provided as inpatient services in accordance to with the 2-midnight benchmark under 43 CFR 412.3(e) Estimated Total Length of Stay (Days): 2 Plans for Post Hospital Care: Not yet determined Review of Systems All other systems reviewed negative except as stated in HPI [facility] - History History Provided By: Patient - Medical History Medical History: Medical History (Last Reviewed 12/20/17 @ 15:05 by Marita Delgado) Hypertension Leukemia Leukemia Peripheral neuropathy due to chemotherapy Pulmonary embolism - Surgical History Surgical History: Surgical History (Last Reviewed 12/20/17 @ 15:05 by Marita Delgado) Hx of cholecystectomy - Family History Family History: Family History (Last Updated 01/04/18 @ 14:48 by Santos Scott MD) Other Hypertension - Tobacco History Second Hand Smoke Exposure: No Smoking Status: Never smoker - Alcohol History How Often Do You Have a Drink Containing Alcohol: Never - Substance Use History Substance History: No History of Abuse Medications and Allergies Active Medications: Active Medications Acetaminophen (Tylenol) 650 mg PO Q4H PRN PRN Reason: Temp > 100.4 Al Hydroxide/Mg Hydroxide (Milk Of [place]) 30 ml PO Q12H PRN PRN Reason: Mild Constipation Cefepime HCl 2,000 mg/ Sodium (Chloride) 100 mls @ 200 mls/hr IV.SIG Q8H [facility] Ondansetron HCl (Zofran Inj) 4 mg IV.PUSH Q6H PRN PRN Reason: NAUSEA OR VOMITING Temazepam (Restoril) 15 mg PO HS PRN PRN Reason: INSOMNIA Allergies Allergy/AdvReac Type Severity Reaction Status Date / Time No Known Allergies Allergy Verified 12/09/17 14:03 Home Medications Medication Instructions Recorded Confirmed Type amlodipine [Norvasc] 5 mg PO DAILY 10/22/17 12/20/17 History fluconazole 200 mg PO DAILY 10/22/17 12/20/17 History gabapentin 600 mg PO TID 10/22/17 12/20/17 History valacyclovir 500 mg PO DAILY 10/22/17 12/20/17 History Exam Narrative: GENERAL: NAD SKIN: Warm and dry. HEAD: Atraumatic. Normocephalic. EYES: Pupils equal and round. No scleral icterus. No injection or drainage. ENT: No nasal bleeding or discharge. Mucous membranes pink and moist. NECK: Trachea midline. No JVD. CARDIOVASCULAR: Regular rate and rhythm. RESPIRATORY: No accessory muscle use. Clear to auscultation. Breath sounds equal bilaterally. GASTROINTESTINAL: Abdomen soft, non-tender, nondistended. Hepatic and splenic margins not palpable. MUSCULOSKELETAL: Extremities without clubbing, cyanosis, or edema. No obvious deformities. NEUROLOGICAL: Awake and alert. No obvious cranial nerve deficits. Motor grossly within normal limits. Five out of 5 muscle strength in the arms and legs. Normal speech. PSYCHIATRIC: Appropriate mood and affect; insight and judgment normal. Caprini VTE Risk Assessment Caprini VTE Risk Assessment: Moderate/High Risk (score >= 2) Caprini Risk Assessment Model: Point Value = 1 Point Value = 2 Point Value = 3 Point Value = 5 Age 41-60 Minor surgery BMI > 25 kg/m2 Swollen legs Varicose veins or History of unexplained or recurrent spontaneous Oral contraceptives or hormone replacement Sepsis (< 1 month) Serious lung disease, including pneumonia (< 1 month) Abnormal pulmonary function Acute myocardial infarction Congestive heart failure (< 1 month) History of inflammatory bowel disease Medical patient at bed rest Age 61-74 Arthroscopic surgery Major open surgery (> 45 min) Laparoscopic surgery (> 45 min) Malignancy Confined to bed (> 72 hours) Immobilizing plaster cast Central venous access Age >= 75 History of VTE Family history of VTE Factor V Leiden Prothrombin [id number] Lupus anticoagulant Anticardiolipin antibodies Elevated serum homocysteine Heparin-induced thrombocytopenia Other congenital or acquired thrombophilia Stroke (< 1 month) Elective arthroplasty Hip, pelvis, or leg fracture Acute spinal cord injury (< 1 month) Prophylaxis Regimen: Total Risk Factor Score Risk Level Prophylaxis Regimen 0-1 Low Early ambulation 2 Moderate Order ONE of the following: *Sequential Compression Device (SCD) *Heparin 5000 units SQ BID 3-4 Higher Order ONE of the following medications: *Heparin 5000 units SQ TID *Enoxaparin/Lovenox 40 mg SQ daily (WT < 150 kg, CrCl > 30 mL/min) *Enoxaparin/Lovenox 30 mg SQ daily (WT < 150 kg, CrCl > 10-29 mL/min) *Enoxaparin/Lovenox 30 mg SQ BID (WT < 150 kg, CrCl > 30 mL/min) AND/OR *Sequential Compression Device (SCD) 5 or more Highest Order ONE of the following medications: *Heparin 5000 units SQ TID (Preferred with Epidurals) *Enoxaparin/Lovenox 40 mg SQ daily (WT < 150 kg, CrCl > 30 mL/min) *Enoxaparin/Lovenox 30 mg SQ daily (WT < 150 kg, CrCl > 10-29 mL/min) *Enoxaparin/Lovenox 30 mg SQ BID (WT < 150 kg, CrCl > 30 mL/min) AND *Sequential Compression Device (SCD) Assessment and Plan - Assessment (1) Neutropenic fever Code(s): D70.9 - Neutropenia, unspecified; R50.81 - Fever presenting with conditions classified elsewhere Status: Resolved (2) B-cell acute lymphoblastic leukemia (ALL) Code(s): C91.00 - Acute lymphoblastic leukemia not having achieved remission Status: Acute (3) Pulmonary embolism Code(s): I26.99 - Other pulmonary embolism without acute cor pulmonale Status : Acute - Plan 27-year-old female with Neutropenic fever Check blood culture, UA, chest x-ray Start cefepime IV every 8 hour Neutropenic precautions Transfer to oncology floor when bed is available History of B-cell ALL Consult oncology, Dr. Wilkerson Chemotherapy on hold pending resolution of infection Resume lactic Bactrim, fluconazole Patient with known history of pancytopenia Secondary to chemotherapy and B-cell ALL Check CBC Transfuse for hemoglobin less than 7, platelets less than 10,000 History of bilateral PE Resume Lovenox 150 mg subcu twice daily Morbid obesity Advise on weight loss management Hypertension Resume Norvasc DVT prophylaxis: Lovenox (3) Pulmonary embolism Qualifiers:
--- NOTE | 2018-01-04 15:19 | XR ---
EXAM DATE: 01/04/2018 3:14 PM EDT AGE/SEX: 27 years / Female INDICATIONS: . Shortness of breath and fever. CLINICAL DATA: This is the patient's initial encounter. Patient reports that signs and symptoms have been present for 2 days and indicates a pain score of 0/10. MEDICAL/SURGICAL HISTORY: . Leukemia. None. [place]PAR[place] [facility] [place]. . FINDINGS: PA and lateral views of the chest demonstrate the lungs to be symmetrically aerated without evidence of mass, infiltrate or effusion. The cardiomediastinal contours are unremarkable. Osseous structures are intact. A right upper extremity PICC line is noted in place. There is a single loop identified in the line wh ich demonstrates upward bowing into the internal jugular vein. The tip of the PICC line is otherwise in good position. There does not appear to be obstructing kink. CONCLUSION: No evidence of acute cardiopulmonary process. Small loop identified in the right upper extremity PICC line. Electronically signed by: Emiliano Fermin MD 01/04/2018 3:18 PM EDT
[2018-01-04 16:21] LABS: Hematocrit 23.7 % (35.0-46.0); Mean Corpuscular HGB Conc 33.8 % (32.0-36.0); Mean Corpuscular Hemoglobin 27.9 pg (27.0-34.0); Mean Corpuscular Volume 82.5 fL (80.0-100.0); Mean Platelet Volume 6.9 fL (7.0-11.0); Platelet Count 42 th/mm3 (150-450); Red Blood Count 2.87 mil/mm3 (4.00-5.30); Red Cell Distribution Width 22.5 % (11.6-17.2); White Blood Count 0.8 th/mm3 (4.0-11.0)
[2018-01-04 16:47] LABS: Albumin 2.9 g/dL (3.4-5.0); Anion Gap 11 meq/L (5-15); Aspartate Aminotransferase 10 U/L (15-37); Blood Urea Nitrogen 12 mg/dL (7-18); Calcium 9.2 mg/dL (8.5-10.1); Chloride 97 meq/L (98-107); Glomerular Filtration Rate Greater Than 89 mL/min (>89); Glucose,Random 97 mg/dL (74-106); Potassium 3.9 meq/L (3.5-5.1); Sodium 134 meq/L (136-145)
[2018-01-04 16:51] LABS: Alanine Aminotransferase 53 U/L (10-53); Alkaline Phosphatase 73 U/L (45-117)
[2018-01-04 17:09] LABS: Lymphocytes 88 % (9-44); Monocytes 12 % (0-8); Ovalocytes 1+; Platelet Morphology Normal (Normal); Stomatocytes 1+; Tear Drop Cells 1+
[2018-01-04] MEDS: Gabapentin 300 MG Capsule PO SCH (20:16)
[2018-01-04] MEDS: Enoxaparin Inj 150 MG/ML Syringe SQ SCH (20:17)
[2018-01-04] MEDS: Acetaminophen 325 MG Tablet PO PRN (20:17)
[2018-01-04] MEDS ORDERED: Temazepam 15 MG Capsule PO PRN (21:00)
[2018-01-04 21:29] LABS: Bacteria,Urine Rare /hpf; Bilirubin,Urine Negative (Negative); Clarity,Urine Hazy (Clear); Color,Urine Yellow (Yellw/Straw); Glucose,Urine (UA) Negative (Negative); Leukocyte Esterase,Urine Negative (Negative); Mucus,Urine Few /lpf (Occasional); Nitrite,Urine Negative (Negative); Specific Gravity,Urine 1.017 (1.002-1.035); Squamous Epithelial Cell,Urine 3 /hpf (0-5); Urobilinogen,Urine 4 or Greater mg/dL (Less than 2)
--- NOTE | 2018-01-04 21:51 | MB ---
cc: Hannah Wilkerson MD DATE: 01/04/2018 CHIEF COMPLAINT: 1. Neutropenic fever. 2. History of precursor B-cell ALL. HISTORY OF PRESENT ILLNESS: The patient is a 27-year-old lady with a history of precursor B-cell ALL diagnosed in 08/2017, currently being treated per CAL[facility] 85155 protocol. She was due for day 43 of chemotherapy which includes PEG L-asparaginase and vincristine. Unfortunately, due to neutropenic fever, we had to hold chemotherapy and direct admit. The patient was previously hospitalized from 12/20/2017 through 12/31/2017 for intractable headache. During the hospital course, her chemotherapy was continued as she was afebrile, workup was unrevealing, and she is young and wanted to keep her chemotherapy on schedule as much as possible. She presented to the clinic today for chemotherapy and was found to be febrile with temperature max in clinic to 101.7. She denies any fever or chills. She reports that her headache has actually improved significantly. She is status post blood cultures, urine and chest x-ray. She has received cefepime. PAST MEDICAL HISTORY: 1. Precursor B-cell ALL with high risk cytogenetics. 2. Venous thromboembolism. 3. Hypertension. 4. Migraine headaches. PAST SURGICAL HISTORY: Cholecystectomy in 2007. ALLERGIES: NO KNOWN DRUG ALLERGIES. HOME MEDICATIONS: Include: 1. Amlodipine. 2. Bactrim. 3. Fluconazole. 4. Gabapentin. 5. Lovenox. 6. Valtrex. FAMILY HISTORY: No family history of malignancy. SOCIAL HISTORY: Good support system with her and siblings. Denies tobacco, alcohol or illegal drug use. PHYSICAL EXAMINATION: GENERAL: Overweight lady in no distress. HEENT: Head is normocephalic, atraumatic. Eyes: No scleral icterus. No conjunctival pallor. NECK: Supple. No palpable lymphadenopathy. CARDIOVASCULAR: Regular rate and rhythm. No murmurs. RESPIRATORY: Clear to auscultation bilaterally. ABDOMEN: Soft, nontender, bowel sounds present. EXTREMITIES: No edema. NEUROLOGIC: Grossly nonfocal. PSYCHIATRIC: Appropriate mood and affect. ASSESSMENT AND PLAN: 1. Precursor B-cell ALL, due today for day 43 of chemotherapy per CAL[facility] 77229 consolidation phase 2. She is currently being worked up for transplant by the [facility] team. After completion of phase 2, will perform bone marrow biopsy. If donors are ready, will plan to proceed with transplant; if not, will likely proceed with phase 3 per clinical trial. We will be in communication with Dr. Malhotra at [facility]. 3. Pulmonary embolism. Continue with Lovenox injections. 4. Hypertension. Continue with amlodipine. 5. Infectious disease. We will continue Bactrim, Diflucan and Valtrex prophylaxis. We will also have patient on cefepime. We will followup cultures. Chest x-ray is negative. Urinalysis pending. If patient spikes further fevers, would add on vancomycin. No evidence for skin infection or mucositis on physical exam. 6. Headache has currently resolved. Inpatient oncology service will continue to follow. MD JASVIR Bhandari/isauro , 06:13 PM , 06:23 PM
[2018-01-05 06:04] LABS: Mean Corpuscular HGB Conc 32.9 % (32.0-36.0); Mean Corpuscular Hemoglobin 27.7 pg (27.0-34.0); Mean Corpuscular Volume 84.1 fL (80.0-100.0); Mean Platelet Volume 8.6 fL (7.0-11.0); Platelet Count 24 th/mm3 (150-450); Red Blood Count 2.49 mil/mm3 (4.00-5.30); Red Cell Distribution Width 22.5 % (11.6-17.2)
[2018-01-05 06:22] LABS: Hematocrit 20.9 % (35.0-46.0); Hemoglobin 6.9 gm/dL (11.6-15.3)
[2018-01-05 06:25] LABS: Albumin 2.5 g/dL (3.4-5.0); Anion Gap 10 meq/L (5-15); Aspartate Aminotransferase 13 U/L (15-37); Blood Urea Nitrogen 11 mg/dL (7-18); Calcium 8.6 mg/dL (8.5-10.1); Carbon Dioxide 26.3 meq/L (21.0-32.0); Chloride 101 meq/L (98-107); Glomerular Filtration Rate Greater Than 89 mL/min (>89); Glucose,Random 109 mg/dL (74-106); Potassium 3.6 meq/L (3.5-5.1); Sodium 137 meq/L (136-145)
[2018-01-05 06:27] LABS: Alanine Aminotransferase 48 U/L (10-53)
[2018-01-05 06:29] LABS: Alkaline Phosphatase 68 U/L (45-117); Total Protein 6.1 g/dL (6.4-8.2)
[2018-01-05 07:21] LABS: Lymphocytes 65 % (9-44); Monocytes 30 % (0-8); Platelet Morphology Normal (Normal); Tallied Nucleated RBC 1 (0-0)
[2018-01-05] MEDS: valACYclovir 500 MG Tab PO SCH (08:07)
[2018-01-05] MEDS: Gabapentin 300 MG Capsule PO SCH ×3 (08:08→17:44)
[2018-01-05] MEDS: Enoxaparin Inj 150 MG/ML Syringe SQ SCH ×2 (08:08→21:34)
[2018-01-05] MEDS: amLODIPine 5 MG Tablet PO SCH (08:08)
[2018-01-05] MEDS ORDERED: Sodium Chlor 0.9% Inj 250 ML IV.SIG SCH (10:00)
--- NOTE | 2018-01-05 10:47 | P.PN ---
Subjective Interval history: Follow-up neutropenic fever January 05, 2018-patient seen and examined, still spiking fevers with T-max 101.3 however currently afebrile. Also endorses shortness of breath without any chest pain. by the bedside Physical Exam Vital signs: Vital Signs 01/04/18 16:00 01/04/18 20:00 01/05/18 00:00 Temperature 99.9 F H 101.3 F H 98.6 F Pulse Rate 138 H 118 H 113 H Respiratory Rate 15 17 17 Blood Pressure 121/74 104/62 103/56 L Pulse Oximetry 98 99 100 01/05/18 04:00 01/05/18 08:00 Temperature 100.2 F H 99.1 F Pulse Rate 114 H 125 H Respiratory Rate 18 18 Blood Pressure 103/59 L 128/65 Pulse Oximetry 97 97 Intake & Output 01/04/18 01/05/18 01/05/18 18:59 06:59 18:59 Intake Total 100 / 100 Balance 100 / 100 Weight 142.088 kg 142 kg Intake: IV 100 / 100 Maxipime Inj 2,000 MG In NS Inj 100 / 100 100 ML @ 200 mls/hr IV.SIG Q8H [facility] Rx#:[id number] Other: # Voids 5 Date of Last Bowel Movement 01/03/18 Weight On Admission 142.088 kg Narrative: GENERAL: NAD SKIN: Warm and dry. HEAD: Normocephalic. EYES: No scleral icterus. No injection or drainage. NECK: Supple, trachea midline. No JVD or lymphadenopathy. CARDIOVASCULAR: Regular rate and rhythm without murmurs, gallops, or rubs. RESPIRATORY: Breath sounds equal bilaterally. No accessory muscle use. GASTROINTESTINAL: Abdomen soft, non-tender, nondistended. MUSCULOSKELETAL: No cyanosis, or edema. BACK: Nontender without obvious deformity. No CVA tenderness. Results - Labs CBC & Chem 7: 01/06/18 05:00 01/05/18 04:14 Laboratory Results - last 24 hr 01/04/18 01/04/18 01/04/18 16:02 16:02 18:40 WBC 0.8 L RBC 2.87 L Hgb 8.0 L Hct 23.7 L MCV 82.5 MCH 27.9 MCHC 33.8 RDW 22.5 H Plt Count 42 L D MPV 6.9 L Prelim Diff (Auto) Slide review pending WBC Differential Manual diff final Seg Neuts % (Manual) Lymphocytes % (Manual) 88 H Monocytes % (Manual) 12 H Abs Neuts (Manual) Nucleated RBCs/100 WBC Differential Comment . Platelet Estimate Low L Platelet Morphology Normal Tear Drop Cells 1+ H Ovalocytes 1+ H Stomatocytes 1+ H Sodium 134 L Potassium 3.9 Chloride 97 L Carbon Dioxide 26.0 Anion Gap 11 BUN 12 Creatinine 0.76 Estimated GFR Greater than 89 Random Glucose 97 Calcium 9.2 Total Bilirubin 0.9 AST 10 L ALT 53 Alkaline Phosphatase 73 Total Protein 7.0 D Albumin 2.9 L Urine Color Yellow Urine Clarity Hazy H Urine pH 6.0 Ur Specific [place] 1.017 Urine Protein Negative Urine Glucose (UA) Negative Urine Ketones Negative Urine Occult Blood Small H Urine Nitrate Negative Urine Bilirubin Negative Urine Urobilinogen 4 or greater Ur Leukocyte Esterase Negative Urine RBC Less than 1 Urine WBC Less than 1 Ur Squamous Epith Cells 3 Urine Bacteria Rare H Urine Mucus Few H Micro UA Comment Culture not ind Ur Microscopic Review Not Reportable Urine Culture Comments Culture not ind 01/05/18 01/05/18 04:14 04:14 WBC 1.0 L RBC 2.49 L Hgb 6.9 L* Hct 20.9 L* MCV 84.1 MCH 27.7 MCHC 32.9 RDW 22.5 H Plt Count 24 L D MPV 8.6 Prelim Diff (Auto) Manual diff required WBC Differential Manual diff final Seg Neuts % (Manual) 5 L Lymphocytes % (Manual) 65 H Monocytes % (Manual) 30 H Abs Neuts (Manual) 0.1 L* Nucleated RBCs/100 WBC 5 H Differential Comment . Platelet Estimate Low L Platelet Morphology Normal Tear Drop Cells Ovalocytes Stomatocytes Sodium 137 Potassium 3.6 Chloride 101 Carbon Dioxide 26.3 Anion Gap 10 BUN 11 Creatinine 0.67 Estimated GFR Greater than 89 Random Glucose 109 H Calcium 8.6 Total Bilirubin 0.5 AST 13 L ALT 48 Alkaline Phosphatase 68 Total Protein 6.1 L D Albumin 2.5 L Urine Color Urine Clarity Urine pH Ur Specific [place] Urine Protein Urine Glucose (UA) Urine Ketones Urine Occult Blood Urine Nitrate Urine Bilirubin Urine Urobilinogen Ur Leukocyte Esterase Urine RBC Urine WBC Ur Squamous Epith Cells Urine Bacteria Urine Mucus Micro UA Comment Ur Microscopic Review Urine Culture Comments - Imaging Impressions Chest X-Ray 01/04/18 14:20 CONCLUSION: No evidence of acute cardiopulmonary process. Small loop identified in the right upper extremity PICC line. Assessment and Plan - Assessment (1) Neutropenic fever Code(s): D70.9 - Neutropenia, unspecified; R50.81 - Fever presenting with conditions classified elsewhere Status: Resolved (2) B-cell acute lymphoblastic leukemia (ALL) Code(s): C91.00 - Acute lymphoblastic leukemia not having achieved remission Status: Acute (3) Pulmonary embolism Code(s): I26.99 - Other pulmonary embolism without acute cor pulmonale Status : Acute - Plan 27-year-old female with Neutropenic fever UA and chest x-ray unremarkable Blood culture report negative to date Continue cefepime IV every 8 hour Neutropenic precautions Transfer to oncology floor when bed is available History of B-cell ALL Appreciate input from oncology, Dr. Wilkerson Chemotherapy on hold pending resolution of infection Continue Bactrim, fluconazole Patient with known history of pancytopenia Secondary to chemotherapy and B-cell ALL Transfuse for hemoglobin less than 7, platelets less than 10,000 Will transfuse 2 units packed red blood cell today January 05, 2018 History of bilateral PE Continue Lovenox 150 mg subcu twice daily Morbid obesity Advise on weight loss management Hypertension Continue Norvasc DVT prophylaxis: Lovenox (3) Pulmonary embolism Qualifiers:
--- NOTE | 2018-01-05 11:26 | P.PNONC ---
Subjective Interval history: T-max 101.3 last night around 8 PM Patient reports overall she is feeling good Denies headache Has minimal shortness of breath; no cough No problems with urination; having regular bowel movements Objective Vital Signs/Intake & Output: Vital Signs 01/04/18 16:00 01/04/18 20:00 01/05/18 00:00 Temperature 99.9 F H 101.3 F H 98.6 F Pulse Rate 138 H 118 H 113 H Respiratory Rate 15 17 17 Blood Pressure 121/74 104/62 103/56 L Pulse Oximetry 98 99 100 01/05/18 04:00 01/05/18 08:00 Temperature 100.2 F H 99.1 F Pulse Rate 114 H 125 H Respiratory Rate 18 18 Blood Pressure 103/59 L 128/65 Pulse Oximetry 97 97 Intake & Output 01/04/18 01/05/18 01/05/18 18:59 06:59 18:59 Intake Total 100 / 100 Balance 100 / 100 Weight 313 lb 4 oz 313 lb 0.902 oz Intake: IV 100 / 100 Maxipime Inj 2,000 MG In NS Inj 100 / 100 100 ML @ 200 mls/hr IV.SIG Q8H [facility] Rx#:[id number] Other: # Voids 5 Date of Last Bowel Movement 01/03/18 Weight On Admission 313 lb 4 oz Result Diagrams: 01/05/18 04:14 01/05/18 04:14 Laboratory Results: Laboratory Results - last 24 hr 01/04/18 01/04/18 01/04/18 16:02 16:02 18:40 WBC 0.8 L RBC 2.87 L Hgb 8.0 L Hct 23.7 L MCV 82.5 MCH 27.9 MCHC 33.8 RDW 22.5 H Plt Count 42 L D MPV 6.9 L Prelim Diff (Auto) Slide review pending WBC Differential Manual diff final Seg Neuts % (Manual) Lymphocytes % (Manual) 88 H Monocytes % (Manual) 12 H Abs Neuts (Manual) Nucleated RBCs/100 WBC Differential Comment . Platelet Estimate Low L Platelet Morphology Normal Tear Drop Cells 1+ H Ovalocytes 1+ H Stomatocytes 1+ H Sodium 134 L Potassium 3.9 Chloride 97 L Carbon Dioxide 26.0 Anion Gap 11 BUN 12 Creatinine 0.76 Estimated GFR Greater than 89 Random Glucose 97 Calcium 9.2 Total Bilirubin 0.9 AST 10 L ALT 53 Alkaline Phosphatase 73 Total Protein 7.0 D Albumin 2.9 L Urine Color Yellow Urine Clarity Hazy H Urine pH 6.0 Ur Specific [place] 1.017 Urine Protein Negative Urine Glucose (UA) Negative Urine Ketones Negative Urine Occult Blood Small H Urine Nitrate Negative Urine Bilirubin Negative Urine Urobilinogen 4 or greater Ur Leukocyte Esterase Negative Urine RBC Less than 1 Urine WBC Less than 1 Ur Squamous Epith Cells 3 Urine Bacteria Rare H Urine Mucus Few H Micro UA Comment Culture not ind Ur Microscopic Review Not Reportable Urine Culture Comments Culture not ind 01/05/18 01/05/18 04:14 04:14 WBC 1.0 L RBC 2.49 L Hgb 6.9 L* Hct 20.9 L* MCV 84.1 MCH 27.7 MCHC 32.9 RDW 22.5 H Plt Count 24 L D MPV 8.6 Prelim Diff (Auto) Manual diff required WBC Differential Manual diff final Seg Neuts % (Manual) 5 L Lymphocytes % (Manual) 65 H Monocytes % (Manual) 30 H Abs Neuts (Manual) 0.1 L* Nucleated RBCs/100 WBC 5 H Differential Comment . Platelet Estimate Low L Platelet Morphology Normal Tear Drop Cells Ovalocytes Stomatocytes Sodium 137 Potassium 3.6 Chloride 101 Carbon Dioxide 26.3 Anion Gap 10 BUN 11 Creatinine 0.67 Estimated GFR Greater than 89 Random Glucose 109 H Calcium 8.6 Total Bilirubin 0.5 AST 13 L ALT 48 Alkaline Phosphatase 68 Total Protein 6.1 L D Albumin 2.5 L Urine Color Urine Clarity Urine pH Ur Specific [place] Urine Protein Urine Glucose (UA) Urine Ketones Urine Occult Blood Urine Nitrate Urine Bilirubin Urine Urobilinogen Ur Leukocyte Esterase Urine RBC Urine WBC Ur Squamous Epith Cells Urine Bacteria Urine Mucus Micro UA Comment Ur Microscopic Review Urine Culture Comments Culture Results: Microbiology 01/04/18 23:06 Aerobic Blood Culture - Preliminary Blood - Peripheral No growth in 1 day Anaerobic Blood Culture - Preliminary No growth in 1 day 01/04/18 16:02 Aerobic Blood Culture - Preliminary Blood - Peripheral No growth in 1 day Anaerobic Blood Culture - Preliminary No growth in 1 day 01/04/18 15:56 Aerobic Blood Culture - Preliminary Blood - Peripheral No growth in 1 day Anaerobic Blood Culture - Preliminary No growth in 1 day Imaging Studies: Impressions Chest X-Ray 01/04/18 14:20 CONCLUSION: No evidence of acute cardiopulmonary process. Small loop identified in the right upper extremity PICC line. Medications: Active Medications Generic Name Dose Route Start Last Admin Trade Name Freq PRN Reason Stop Dose Admin Acetaminophen 650 mg 01/04/18 14:14 01/04/18 20:17 Tylenol PO 650 mg Q4H PRN Administration Temp > 100.4 Amlodipine Besylate 5 mg 01/05/18 09:00 01/05/18 08:08 Norvasc PO 5 mg DAILY [facility] Administration Enoxaparin Sodium 150 mg 01/04/18 21:00 01/05/18 08:08 Lovenox Inj SQ 150 mg BID [facility] Administration Fluconazole 200 mg 01/05/18 09:00 01/05/18 08:08 Diflucan PO 200 mg DAILY [facility] Administration Gabapentin 600 mg 01/04/18 18:00 01/05/18 08:08 Neurontin PO 600 mg TID [facility] Administration Cefepime HCl 2,000 mg/ Sodium 100 mls @ 200 mls/hr 01/04/18 16:00 01/05/18 08 :07 Chloride IV.SIG 200 mls/hr Q8H [facility] Administration Trimethoprim/Sulfamethoxazole 1 tab 01/05/18 09:00 01/05/18 08:08 Bactrim Ds PO 1 tab DAILY [facility] Administration Valacyclovir HCl 500 mg 01/05/18 09:00 01/05/18 08:07 Valtrex PO 500 mg DAILY [facility] Administration Objective Remarks: GENERAL: Young obese female resting in bed in no obvious distress SKIN: Warm and dry. HEAD: Normocephalic. EYES: No scleral icterus. No injection or drainage. NECK: Supple, trachea midline. No JVD or lymphadenopathy. CARDIOVASCULAR: +S1/S2. Tachycardic RESPIRATORY: Breath sounds equal bilaterally. No accessory muscle use. GASTROINTESTINAL: Abdomen obese. Soft. Nontender to palpation. EXTREMITIES: No cyanosis, or edema. MUSCULOSKELETAL: Adequate muscle tone. NEUROLOGICAL: No obvious focal deficit. Awake, alert, and oriented x3. 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 She is currently being treated per CALGB 68799 protocol. The patient was due for day 43 of chemotherapy however was noted to be febrile upon admission for chemotherapy arrival to the clinic. CBC showed that she was neutropenic and she was admitted to the hospital. 1. Transfer patient to oncology floor 2. T-max last night was 101.3. Add on vancomycin with twice daily dosing. If she continues to remain febrile we will consult infectious disease. She currently denies cough or hematuria. Blood cultures negative 1 day. Urinalysis yesterday shows no indication for culture. Chest x-ray yesterday shows no sign of infection. 3. Noted attending has ordered packed red blood cells today for hemoglobin of 6.9. Called blood bank; pt to get irradiated PRBC's as she is a candidate for transplant. Only plan to transfuse 1 unit at this time. Continue to monitor CBC and transfuse as needed to keep platelet count greater than 15,000, hemoglobin greater than 7. - Attending Statement The exam, history, and the medical decision-making described in the above note were completed with the assistance of the mid-level provider. I reviewed and agree with the findings presented. I attest that I had a [id number] encounter with the patient on the same day, and personally performed and documented my assessment and findings in the medical record. 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 Due for day 43 chemotherapy; on hold due to neutropenic fever. Follow up cultures. Continue broad spectrum antibiotics.
[2018-01-05] MEDS: Vancomycin Inj 1,000 MG in Sodium Chlor 0.9% Inj 250 ML IV.SIG SCH (13:38)
[2018-01-06] MEDS: Vancomycin Inj 1,000 MG in Sodium Chlor 0.9% Inj 250 ML IV.SIG SCH ×2 (00:24→11:56)
[2018-01-06 05:52] LABS: Hematocrit 21.4 % (35.0-46.0); Mean Corpuscular HGB Conc 32.9 % (32.0-36.0); Mean Corpuscular Hemoglobin 27.8 pg (27.0-34.0); Mean Corpuscular Volume 84.4 fL (80.0-100.0); Mean Platelet Volume 8.6 fL (7.0-11.0); Platelet Count 20 th/mm3 (150-450); Red Blood Count 2.53 mil/mm3 (4.00-5.30); White Blood Count 1.2 th/mm3 (4.0-11.0)
[2018-01-06 07:39] LABS: Lymphocytes 70 % (9-44); Metamyelocytes 3 % (0-1); Monocytes 17 % (0-8); Tallied Nucleated RBC 3 (0-0)
[2018-01-06 07:41] LABS: Acanthocytes Occ; Ovalocytes 1+; Platelet Morphology Normal (Normal)
[2018-01-06] MEDS: Enoxaparin Inj 150 MG/ML Syringe SQ SCH ×2 (09:03→20:04)
[2018-01-06] MEDS: Acetaminophen 325 MG Tablet PO PRN (09:04)
[2018-01-06] MEDS: amLODIPine 5 MG Tablet PO SCH (09:04)
[2018-01-06] MEDS: Gabapentin 300 MG Capsule PO SCH ×3 (09:04→17:14)
[2018-01-06] MEDS: valACYclovir 500 MG Tab PO SCH (09:04)
--- NOTE | 2018-01-06 12:19 | P.PN ---
Subjective Interval history: Follow-up neutropenic fever January 05, 2018-patient seen and examined, still spiking fevers with T-max 101.3 however currently afebrile. Also endorses shortness of breath without any chest pain. by the bedside January 06, 2018-patient seen and examined, currently afebrile and reported improvement of shortness of breath. Was transfused 1 unit packed RBC yesterday. Physical Exam Vital signs: Vital Signs 01/05/18 13:44 01/05/18 15:47 01/05/18 16:06 Temperature 98.7 F 99.1 F 99.9 F H Pulse Rate 109 H 108 H 114 H Respiratory Rate 16 18 Blood Pressure 124/66 154/89 H 138/92 H Pulse Oximetry 100 100 100 01/05/18 19:40 01/06/18 00:28 01/06/18 04:53 Temperature 99.1 F 99.5 F 98.8 F Pulse Rate 110 H 110 H 99 H Respiratory Rate 19 16 18 Blood Pressure 119/68 102/59 L 114/69 Pulse Oximetry 100 99 99 01/06/18 08:00 01/06/18 09:28 Temperature 99.2 F Pulse Rate 115 H Respiratory Rate 16 16 Blood Pressure 128/94 H Pulse Oximetry 100 Intake & Output 01/05/18 01/06/18 01/06/18 18:59 06:59 18:59 Intake Total 1170 / 1170 1240 / 1240 Output Total 2 / 2 Balance 1170 / 1170 1238 / 1238 Weight 144 kg Intake: IV 450 / 450 600 / 600 Maxipime Inj 2,000 MG In NS Inj 200 / 200 100 / 100 100 ML @ 200 mls/hr IV.SIG Q8H [facility] Rx#:[id number] NS Inj 250 ML @ 15 mls/hr IV. 250 / 250 SIG ONCE [facility] Rx#:[id number] Vancomycin Inj 1,000 MG In NS 250 / 250 250 / 250 Inj 250 ML @ 250 mls/hr IV.SIG Q12H [facility] Rx#:[id number] Oral 720 / 720 240 / 240 Intake (Blood Product) Amt 0 / 0 400 / 400 Rbc As-3 Leukoreduced Irrad 0 / 0 400 / 400 Unit [id number] Output: Urine 2 / 2 Other: # Voids 3 Date of Last Bowel Movement 01/04/18 01/04/18 # Bowel Movements 1 Narrative: GENERAL: NAD SKIN: Warm and dry. HEAD: Normocephalic. EYES: No scleral icterus. No injection or drainage. NECK: Supple, trachea midline. No JVD or lymphadenopathy. CARDIOVASCULAR: Regular rate and rhythm without murmurs, gallops, or rubs. RESPIRATORY: Breath sounds equal bilaterally. No accessory muscle use. GASTROINTESTINAL: Abdomen soft, non-tender, nondistended. MUSCULOSKELETAL: No cyanosis, or edema. BACK: Nontender without obvious deformity. No CVA tenderness. Results - Labs CBC & Chem 7: 01/07/18 06:20 01/07/18 06:20 Laboratory Results - last 24 hr 01/05/18 01/06/18 13:20 05:00 WBC 1.2 L RBC 2.53 L Hgb 7.0 L Hct 21.4 L MCV 84.4 MCH 27.8 MCHC 32.9 RDW 21.0 H Plt Count 20 L MPV 8.6 Prelim Diff (Auto) Manual diff required WBC Differential Manual diff final Seg Neuts % (Manual) 9 L Lymphocytes % (Manual) 70 H Monocytes % (Manual) 17 H Basophils % (Manual) 1 Metamyelocytes % (Man) 3 H Abs Neuts (Manual) 0.1 L* Nucleated RBCs/100 WBC 3 H Differential Comment . Platelet Estimate Low L Platelet Morphology Normal Ovalocytes 1+ H Acanthocytes (Spur) Occ H Blood Type O Positive Antibody Screen Negative MTS Gel Crossmatch See Detail Microbiology 01/04/18 23:06 Blood - Peripheral Aerobic Blood Culture - Preliminary No growth in 2 days 01/04/18 23:06 Blood - Peripheral Anaerobic Blood Culture - Preliminary No growth in 2 days 01/04/18 16:02 Blood - Peripheral Aerobic Blood Culture - Preliminary No growth in 2 days 01/04/18 16:02 Blood - Peripheral Anaerobic Blood Culture - Preliminary No growth in 2 days 01/04/18 15:56 Blood - Peripheral Aerobic Blood Culture - Preliminary No growth in 2 days 01/04/18 15:56 Blood - Peripheral Anaerobic Blood Culture - Preliminary No growth in 2 days Assessment and Plan - Assessment (1) Neutropenic fever Code(s): D70.9 - Neutropenia, unspecified; R50.81 - Fever presenting with conditions classified elsewhere Status: Resolved (2) B-cell acute lymphoblastic leukemia (ALL) Code(s): C91.00 - Acute lymphoblastic leukemia not having achieved remission Status: Acute (3) Pulmonary embolism Code(s): I26.99 - Other pulmonary embolism without acute cor pulmonale Status : Acute - Plan 27-year-old female with Neutropenic fever Currently afebrile UA and chest x-ray unremarkable Blood culture report negative to date Continue cefepime IV every 8 hour Neutropenic precautions History of B-cell ALL Appreciate input from oncology, Dr. Wilkerson Chemotherapy on hold pending resolution of infection Continue Bactrim, fluconazole Patient with known history of pancytopenia Secondary to chemotherapy and B-cell ALL Transfuse for hemoglobin less than 7, platelets less than 10,000 Transfused 1 unit January 05, 2018, monitor H&H History of bilateral PE Continue Lovenox 150 mg subcu twice daily Morbid obesity Advise on weight loss management Hypertension Continue Norvasc DVT prophylaxis: Lovenox (3) Pulmonary embolism Qualifiers:
--- NOTE | 2018-01-06 18:01 | P.PNONC ---
Subjective Interval history: Sitting comfortably in bedside chair. Headache resolved. Afebrile 24 hours Objective Vital Signs/Intake & Output: Vital Signs 01/05/18 19:40 01/06/18 00:28 01/06/18 04:53 Temperature 99.1 F 99.5 F 98.8 F Pulse Rate 110 H 110 H 99 H Respiratory Rate 19 16 18 Blood Pressure 119/68 102/59 L 114/69 Pulse Oximetry 100 99 99 01/06/18 08:00 01/06/18 09:28 01/06/18 12:00 Temperature 99.2 F 98.8 F Pulse Rate 115 H 92 H Respiratory Rate 16 16 16 Blood Pressure 128/94 H 155/91 H Pulse Oximetry 100 100 01/06/18 16:00 Temperature 99.3 F Pulse Rate 95 H Respiratory Rate 16 Blood Pressure 139/84 Pulse Oximetry 100 Intake & Output 01/05/18 01/06/18 01/06/18 18:59 06:59 18:59 Intake Total 1170 / 1170 1240 / 1240 350 / 350 Output Total 2 / 2 Balance 1170 / 1170 1238 / 1238 350 / 350 Weight 144 kg Intake: IV 450 / 450 600 / 600 350 / 350 Maxipime Inj 2,000 MG In NS Inj 200 / 200 100 / 100 100 / 100 100 ML @ 200 mls/hr IV.SIG Q8H [facility] Rx#:[id number] NS Inj 250 ML @ 15 mls/hr IV. 250 / 250 SIG ONCE [facility] Rx#:[id number] Vancomycin Inj 1,000 MG In NS 250 / 250 250 / 250 250 / 250 Inj 250 ML @ 250 mls/hr IV.SIG Q12H [facility] Rx#:[id number] Oral 720 / 720 240 / 240 Intake (Blood Product) Amt 0 / 0 400 / 400 Rbc As-3 Leukoreduced Irrad 0 / 0 400 / 400 Unit [id number] Output: Urine 2 / 2 Other: # Voids 3 Date of Last Bowel Movement 01/04/18 01/04/18 # Bowel Movements 1 Result Diagrams: 01/06/18 05:00 01/05/18 04:14 Laboratory Results: Laboratory Results - last 24 hr 01/06/18 05:00 WBC 1.2 L RBC 2.53 L Hgb 7.0 L Hct 21.4 L MCV 84.4 MCH 27.8 MCHC 32.9 RDW 21.0 H Plt Count 20 L MPV 8.6 Prelim Diff (Auto) Manual diff required WBC Differential Manual diff final Seg Neuts % (Manual) 9 L Lymphocytes % (Manual) 70 H Monocytes % (Manual) 17 H Basophils % (Manual) 1 Metamyelocytes % (Man) 3 H Abs Neuts (Manual) 0.1 L* Nucleated RBCs/100 WBC 3 H Differential Comment . Platelet Estimate Low L Platelet Morphology Normal Ovalocytes 1+ H Acanthocytes (Spur) Occ H Culture Results: Microbiology 01/04/18 23:06 Aerobic Blood Culture - Preliminary Blood - Peripheral No growth in 2 days Anaerobic Blood Culture - Preliminary No growth in 2 days 01/04/18 16:02 Aerobic Blood Culture - Preliminary Blood - Peripheral No growth in 2 days Anaerobic Blood Culture - Preliminary No growth in 2 days 01/04/18 15:56 Aerobic Blood Culture - Preliminary Blood - Peripheral No growth in 2 days Anaerobic Blood Culture - Preliminary No growth in 2 days Medications: Active Medications Generic Name Dose Route Start Last Admin Trade Name Freq PRN Reason Stop Dose Admin Acetaminophen 650 mg 01/04/18 14:14 01/06/18 09:04 Tylenol PO 650 mg Q4H PRN Administration Temp > 100.4 Amlodipine Besylate 5 mg 01/05/18 09:00 01/06/18 09:04 Norvasc PO 5 mg DAILY [facility] Administration Enoxaparin Sodium 150 mg 01/04/18 21:00 01/06/18 09:03 Lovenox Inj SQ 150 mg BID [facility] Administration Fluconazole 200 mg 01/05/18 09:00 01/06/18 09:04 Diflucan PO 200 mg DAILY [facility] Administration Gabapentin 600 mg 01/04/18 18:00 01/06/18 17:14 Neurontin PO 600 mg TID [facility] Administration Cefepime HCl 2,000 mg/ Sodium 100 mls @ 200 mls/hr 01/04/18 16:00 01/06/18 16 :10 Chloride IV.SIG 200 mls/hr Q8H [facility] Administration Vancomycin HCl 1,000 mg/ 250 mls @ 250 mls/hr 01/05/18 12:00 01/06/18 13:35 Sodium Chloride IV.SIG Infused Q12H [facility] Infusion Trimethoprim/Sulfamethoxazole 1 tab 01/05/18 09:00 01/06/18 09:04 Bactrim Ds PO 1 tab DAILY [facility] Administration Valacyclovir HCl 500 mg 01/05/18 09:00 01/06/18 09:04 Valtrex PO 500 mg DAILY [facility] Administration Objective Remarks: GENERAL: Well-nourished, well-developed patient. SKIN: Warm and dry. HEAD: Normocephalic. EYES: No scleral icterus. No injection or drainage. NECK: Supple, trachea midline. No JVD or lymphadenopathy. LYMPHATIC: No adenopathy. CARDIOVASCULAR: Regular rate and rhythm without murmurs. RESPIRATORY: Breath sounds equal bilaterally. No accessory muscle use. GASTROINTESTINAL: Abdomen soft, non-tender, nondistended. EXTREMITIES: No cyanosis, or edema. MUSCULOSKELETAL: Adequate muscle tone. NEUROLOGICAL: No obvious focal deficit. Awake, alert, and oriented x3. PSYCHIATRIC: Appropriate mood and affect; insight and judgment normal. Assessment/Plan - Plan 1. 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 currently being treated per pediatric protocol CALGB 91962 for adolescents and young adults. Initiated phase I in 08/2017 under the direction of Dr. Malhotra at [facility]. Unable to follow up as outpatient due to insurance. Hospitalized for neutropenic fever. Initiated phase II in 10/2017. Initially thought that patient would be able to have transplant care through [facility]. Unfortunately it has recently come to light that she will be unable to have transplant at [facility] due to insurance issues. Will contact [facility] and have patient establish with malignant hematology at that institution. 2. Heme: pancytopenia due to chemotherapy, specifically mercaptopurine. Continue to monitor. Transfuse for hemoglobin less than 7 and platelet count less than 10K. Patient will need leukoreduced and irradiated blood products. 3. ID: admitted on 01/04/2018 with neutropenia fever. Last fever on 01/05/2018. Culture negative. Continue to monitor. 4. Intractable headache: resolved.
[2018-01-07] MEDS: Vancomycin Inj 1,000 MG in Sodium Chlor 0.9% Inj 250 ML IV.SIG SCH ×2 (00:26→12:36)
[2018-01-07 06:37] LABS: Baso % (Auto) 0.6 % (0.0-2.0); Eos % (Auto) 0.6 % (0.0-4.0); Hematocrit 21.6 % (35.0-46.0); Hemoglobin 7.1 gm/dL (11.6-15.3); Lymph # (Auto) 0.5 th/mm3 (1.0-4.8); Mean Corpuscular Hemoglobin 28.1 pg (27.0-34.0); Mean Platelet Volume 8.7 fL (7.0-11.0); Mono # (Auto) 0.3 th/mm3 (0.0-0.9); Mono % (Auto) 31.1 % (0.0-8.0); Neut # (Auto) 0.2 th/mm3 (1.8-7.7); Neut % (Auto) 20.7 % (16.0-70.0); Platelet Count 21 th/mm3 (150-450); Red Blood Count 2.54 mil/mm3 (4.00-5.30); Red Cell Distribution Width 20.8 % (11.6-17.2); White Blood Count 1.1 th/mm3 (4.0-11.0)
[2018-01-07 07:02] LABS: Alanine Aminotransferase 55 U/L (10-53); Albumin 2.3 g/dL (3.4-5.0); Anion Gap 9 meq/L (5-15); Aspartate Aminotransferase 15 U/L (15-37); Blood Urea Nitrogen 7 mg/dL (7-18); Calcium 8.5 mg/dL (8.5-10.1); Carbon Dioxide 25.4 meq/L (21.0-32.0); Chloride 108 meq/L (98-107); Glomerular Filtration Rate Greater Than 89 mL/min (>89); Glucose,Random 92 mg/dL (74-106); Potassium 3.9 meq/L (3.5-5.1); Sodium 142 meq/L (136-145)
[2018-01-07 07:04] LABS: Alkaline Phosphatase 58 U/L (45-117); Total Protein 5.8 g/dL (6.4-8.2)
[2018-01-07 07:32] LABS: Lymphocytes 60 % (9-44); Monocytes 12 % (0-8); Ovalocytes 1+; Platelet Morphology Normal (Normal); Promyelocyte 1 % (0-0); Tallied Nucleated RBC 14 (0-0)
[2018-01-07] MEDS: amLODIPine 5 MG Tablet PO SCH (08:48)
[2018-01-07] MEDS: Gabapentin 300 MG Capsule PO SCH ×3 (08:49→17:25)
[2018-01-07] MEDS: valACYclovir 500 MG Tab PO SCH (08:49)
[2018-01-07] MEDS: Enoxaparin Inj 150 MG/ML Syringe SQ SCH (08:50)
--- NOTE | 2018-01-07 10:19 | P.PNONC ---
Subjective Interval history: Afebrile. Patient sitting up on the side of the bed. She denies headache or any other pain at this time. She reports a normal appetite. Objective Vital Signs/Intake & Output: Vital Signs 01/06/18 12:00 01/06/18 16:00 01/06/18 19:52 Temperature 98.8 F 99.3 F 99 F Pulse Rate 92 H 95 H 90 Respiratory Rate 16 16 18 Blood Pressure 155/91 H 139/84 139/75 Pulse Oximetry 100 100 99 01/07/18 00:27 01/07/18 04:00 01/07/18 08:42 Temperature 98.3 F 98.9 F 98.7 F Pulse Rate 99 H 100 H 96 H Respiratory Rate 16 18 18 Blood Pressure 118/65 117/59 L 138/83 Pulse Oximetry 100 99 99 Intake & Output 01/06/18 01/07/18 01/07/18 18:59 06:59 18:59 Intake Total 1410 / 1410 590 / 590 Balance 1410 / 1410 590 / 590 Weight 143 kg Intake: IV 450 / 450 350 / 350 Maxipime Inj 2,000 MG In NS Inj 200 / 200 100 / 100 100 ML @ 200 mls/hr IV.SIG Q8H [facility] Rx#:[id number] Vancomycin Inj 1,000 MG In NS 250 / 250 250 / 250 Inj 250 ML @ 250 mls/hr IV.SIG Q12H [facility] Rx#:[id number] Oral 960 / 960 240 / 240 Other: # Voids 5 Date of Last Bowel Movement 01/06/18 01/07/18 # Bowel Movements 1 Result Diagrams: 01/07/18 06:20 01/07/18 06:20 Laboratory Results: Laboratory Results - last 24 hr 01/07/18 01/07/18 06:20 06:20 WBC 1.1 L RBC 2.54 L Hgb 7.1 L Hct 21.6 L MCV 85.0 MCH 28.1 MCHC 33.0 RDW 20.8 H Plt Count 21 L MPV 8.7 Prelim Diff (Auto) Slide review pending Neut % (Auto) 20.7 Lymph % (Auto) 47.0 H [place] % (Auto) 31.1 H Eos % (Auto) 0.6 Baso % (Auto) 0.6 Neut # (Auto) 0.2 L* Lymph # (Auto) 0.5 L [place] # (Auto) 0.3 Eos # (Auto) 0.0 Baso # (Auto) 0.0 WBC Differential Manual diff final Seg Neuts % (Manual) 24 Band Neuts % (Manual) 3 Lymphocytes % (Manual) 60 H Monocytes % (Manual) 12 H Promyelocytes % (Man) 1 H Abs Neuts (Manual) 0.3 L* Nucleated RBCs/100 WBC 14 H Differential Comment . Platelet Estimate Low L Platelet Morphology Normal Basophilic Stippling Faint H Ovalocytes 1+ H Sodium 142 Potassium 3.9 Chloride 108 H Carbon Dioxide 25.4 Anion Gap 9 BUN 7 Creatinine 0.65 Estimated GFR Greater than 89 Random Glucose 92 Calcium 8.5 Total Bilirubin 0.4 AST 15 ALT 55 H Alkaline Phosphatase 58 Total Protein 5.8 L Albumin 2.3 L Culture Results: Microbiology 01/04/18 23:06 Aerobic Blood Culture - Preliminary Blood - Peripheral No growth in 2 days Anaerobic Blood Culture - Preliminary No growth in 2 days 01/04/18 16:02 Aerobic Blood Culture - Preliminary Blood - Peripheral No growth in 2 days Anaerobic Blood Culture - Preliminary No growth in 2 days 01/04/18 15:56 Aerobic Blood Culture - Preliminary Blood - Peripheral No growth in 2 days Anaerobic Blood Culture - Preliminary No growth in 2 days Medications: Active Medications Generic Name Dose Route Start Last Admin Trade Name Freq PRN Reason Stop Dose Admin Acetaminophen 650 mg 01/04/18 14:14 01/06/18 09:04 Tylenol PO 650 mg Q4H PRN Administration Temp > 100.4 Amlodipine Besylate 5 mg 01/05/18 09:00 01/07/18 08:48 Norvasc PO 5 mg DAILY [facility] Administration Enoxaparin Sodium 150 mg 01/04/18 21:00 01/07/18 08:50 Lovenox Inj SQ 150 mg BID [facility] Administration Fluconazole 200 mg 01/05/18 09:00 01/07/18 08:48 Diflucan PO 200 mg DAILY [facility] Administration Gabapentin 600 mg 01/04/18 18:00 01/07/18 08:49 Neurontin PO 600 mg TID [facility] Administration Cefepime HCl 2,000 mg/ Sodium 100 mls @ 200 mls/hr 01/04/18 16:00 01/07/18 08 :34 Chloride IV.SIG 200 mls/hr Q8H [facility] Administration Vancomycin HCl 1,000 mg/ 250 mls @ 250 mls/hr 01/05/18 12:00 01/07/18 01:45 Sodium Chloride IV.SIG Infused Q12H [facility] Infusion Trimethoprim/Sulfamethoxazole 1 tab 01/05/18 09:00 01/07/18 08:48 Bactrim Ds PO 1 tab DAILY [facility] Administration Valacyclovir HCl 500 mg 01/05/18 09:00 01/07/18 08:49 Valtrex PO 500 mg DAILY [facility] Administration Objective Remarks: GENERAL: Well-nourished, well-developed young female patient, in no acute distress. SKIN: Warm and dry. HEAD: Normocephalic. EYES: No scleral icterus. No injection or drainage. NECK: Supple, trachea midline. CARDIOVASCULAR: Regular rate and rhythm without murmurs. RESPIRATORY: Posterior breath sounds clear, equal bilaterally. No accessory muscle use. GASTROINTESTINAL: Abdomen soft, non-tender, nondistended. EXTREMITIES: No cyanosis, or edema. MUSCULOSKELETAL: Adequate muscle tone. NEUROLOGICAL: No obvious focal deficit. Awake, alert, and oriented x3. PSYCHIATRIC: Appropriate mood and affect; insight and judgment normal. Assessment/Plan - Plan Mrs. 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 She has currently being treated per pediatric protocol CALGB 79545 for adolescents and young adults. Initiated phase I in 08/2017 under the direction of Dr. Malhotra at [facility]. Unable to follow up as outpatient due to insurance. Hospitalized for neutropenic fever. Initiated phase II in 10/2017. Initially thought that patient would be able to have transplant care through [facility]. Unfortunately , it has recently come to light that she will be unable to have transplant at [facility] due to insurance issues. Will contact [facility] and have patient establish with malignant hematology at that institution. 1. Precursor B-cell ALL. Currently undergoing treatment with protocol CALGB 68617. Patient scheduled for chemotherapy next Tuesday. 2. Pancytopenia due to chemotherapy. Plan to transfuse for hemoglobin < 7 and platelet count < 10K. Patient will need leuko-reduced and irradiated blood products. No transfusions warranted today. We will continue to monitor. 3. Neutropenic fever, afebrile, last fever on 01/05/18. Blood cultures no growth times 2 days. Continue to monitor. 4. Intractable headache: resolved.
--- NOTE | 2018-01-07 11:27 | P.PN ---
Subjective Interval history: Follow-up neutropenic fever January 05, 2018-patient seen and examined, still spiking fevers with T-max 101.3 however currently afebrile. Also endorses shortness of breath without any chest pain. by the bedside January 06, 2018-patient seen and examined, currently afebrile and reported improvement of shortness of breath. Was transfused 1 unit packed RBC yesterday. January 07, 2018-patient seen and examined, no febrile episodes over the past 2 days. Stable and no acute event overnight Physical Exam Vital signs: Vital Signs 01/06/18 12:00 01/06/18 16:00 01/06/18 19:52 Temperature 98.8 F 99.3 F 99 F Pulse Rate 92 H 95 H 90 Respiratory Rate 16 16 18 Blood Pressure 155/91 H 139/84 139/75 Pulse Oximetry 100 100 99 01/07/18 00:27 01/07/18 04:00 01/07/18 08:42 Temperature 98.3 F 98.9 F 98.7 F Pulse Rate 99 H 100 H 96 H Respiratory Rate 16 18 18 Blood Pressure 118/65 117/59 L 138/83 Pulse Oximetry 100 99 99 Intake & Output 01/06/18 01/07/18 01/07/18 18:59 06:59 18:59 Intake Total 1410 / 1410 590 / 590 Balance 1410 / 1410 590 / 590 Weight 143 kg Intake: IV 450 / 450 350 / 350 Maxipime Inj 2,000 MG In NS Inj 200 / 200 100 / 100 100 ML @ 200 mls/hr IV.SIG Q8H [facility] Rx#:[id number] Vancomycin Inj 1,000 MG In NS 250 / 250 250 / 250 Inj 250 ML @ 250 mls/hr IV.SIG Q12H [facility] Rx#:[id number] Oral 960 / 960 240 / 240 Other: # Voids 5 Date of Last Bowel Movement 01/06/18 01/07/18 # Bowel Movements 1 Narrative: GENERAL: NAD SKIN: Warm and dry. HEAD: Normocephalic. EYES: No scleral icterus. No injection or drainage. NECK: Supple, trachea midline. No JVD or lymphadenopathy. CARDIOVASCULAR: Regular rate and rhythm without murmurs, gallops, or rubs. RESPIRATORY: Breath sounds equal bilaterally. No accessory muscle use. GASTROINTESTINAL: Abdomen soft, non-tender, nondistended. MUSCULOSKELETAL: No cyanosis, or edema. BACK: Nontender without obvious deformity. No CVA tenderness. Results - Labs CBC & Chem 7: 01/07/18 06:20 01/07/18 06:20 Laboratory Results - last 24 hr 01/07/18 01/07/18 06:20 06:20 WBC 1.1 L RBC 2.54 L Hgb 7.1 L Hct 21.6 L MCV 85.0 MCH 28.1 MCHC 33.0 RDW 20.8 H Plt Count 21 L MPV 8.7 Prelim Diff (Auto) Slide review pending Neut % (Auto) 20.7 Lymph % (Auto) 47.0 H [place] % (Auto) 31.1 H Eos % (Auto) 0.6 Baso % (Auto) 0.6 Neut # (Auto) 0.2 L* Lymph # (Auto) 0.5 L [place] # (Auto) 0.3 Eos # (Auto) 0.0 Baso # (Auto) 0.0 WBC Differential Manual diff final Seg Neuts % (Manual) 24 Band Neuts % (Manual) 3 Lymphocytes % (Manual) 60 H Monocytes % (Manual) 12 H Promyelocytes % (Man) 1 H Abs Neuts (Manual) 0.3 L* Nucleated RBCs/100 WBC 14 H Differential Comment . Platelet Estimate Low L Platelet Morphology Normal Basophilic Stippling Faint H Ovalocytes 1+ H Sodium 142 Potassium 3.9 Chloride 108 H Carbon Dioxide 25.4 Anion Gap 9 BUN 7 Creatinine 0.65 Estimated GFR Greater than 89 Random Glucose 92 Calcium 8.5 Total Bilirubin 0.4 AST 15 ALT 55 H Alkaline Phosphatase 58 Total Protein 5.8 L Albumin 2.3 L Microbiology 01/04/18 23:06 Blood - Peripheral Aerobic Blood Culture - Preliminary No growth in 3 days 01/04/18 23:06 Blood - Peripheral Anaerobic Blood Culture - Preliminary No growth in 3 days 01/04/18 16:02 Blood - Peripheral Aerobic Blood Culture - Preliminary No growth in 3 days 01/04/18 16:02 Blood - Peripheral Anaerobic Blood Culture - Preliminary No growth in 3 days 01/04/18 15:56 Blood - Peripheral Aerobic Blood Culture - Preliminary No growth in 3 days 01/04/18 15:56 Blood - Peripheral Anaerobic Blood Culture - Preliminary No growth in 3 days Assessment and Plan - Assessment (1) Neutropenic fever Code(s): D70.9 - Neutropenia, unspecified; R50.81 - Fever presenting with conditions classified elsewhere Status: Resolved (2) 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 Wilkerson Chemotherapy currently on hold however plan for next Tuesday, December Continue Bactrim, fluconazole Patient with known history of pancytopenia Secondary to chemotherapy and B-cell ALL Transfuse for hemoglobin less than 7, platelets less than 10,000 She was transfused 1 unit packed red blood cell January 05, 2018 History of bilateral PE Continue Lovenox 150 mg subcu twice daily Morbid obesity Advise on weight loss management Hypertension Continue Norvasc DVT prophylaxis: Lovenox (3) Pulmonary embolism Qualifiers:
--- NOTE | 2018-01-07 16:36 | P.PNONC ---
Subjective Interval history: Ms. Wallace was seen and examined today, vital signs, labs, medications, microbiology and hospitalist notes were reviewed. Subjectively; patient reports feeling well, she in fact feels well enough to go home. She has not had a fever in over 48 hours. Objective Vital Signs/Intake & Output: Vital Signs 01/06/18 19:52 01/07/18 00:27 01/07/18 04:00 Temperature 99 F 98.3 F 98.9 F Pulse Rate 90 99 H 100 H Respiratory Rate 18 16 18 Blood Pressure 139/75 118/65 117/59 L Pulse Oximetry 99 100 99 01/07/18 08:42 01/07/18 12:33 01/07/18 16:11 Temperature 98.7 F 98.5 F 98.6 F Pulse Rate 96 H 102 H 110 H Respiratory Rate 18 17 18 Blood Pressure 138/83 135/76 147/75 H Pulse Oximetry 99 98 100 Intake & Output 01/06/18 01/07/18 01/07/18 18:59 06:59 18:59 Intake Total 1410 / 1410 590 / 590 350 / 350 Balance 1410 / 1410 590 / 590 350 / 350 Weight 143 kg Intake: IV 450 / 450 350 / 350 350 / 350 Maxipime Inj 2,000 MG In NS Inj 200 / 200 100 / 100 100 / 100 100 ML @ 200 mls/hr IV.SIG Q8H [facility] Rx#:[id number] Vancomycin Inj 1,000 MG In NS 250 / 250 250 / 250 250 / 250 Inj 250 ML @ 250 mls/hr IV.SIG Q12H [facility] Rx#:[id number] Oral 960 / 960 240 / 240 Other: # Voids 5 Date of Last Bowel Movement 01/06/18 01/07/18 # Bowel Movements 1 Result Diagrams: 01/07/18 06:20 01/07/18 06:20 Laboratory Results: Laboratory Results - last 24 hr 01/07/18 01/07/18 06:20 06:20 WBC 1.1 L RBC 2.54 L Hgb 7.1 L Hct 21.6 L MCV 85.0 MCH 28.1 MCHC 33.0 RDW 20.8 H Plt Count 21 L MPV 8.7 Prelim Diff (Auto) Slide review pending Neut % (Auto) 20.7 Lymph % (Auto) 47.0 H [place] % (Auto) 31.1 H Eos % (Auto) 0.6 Baso % (Auto) 0.6 Neut # (Auto) 0.2 L* Lymph # (Auto) 0.5 L [place] # (Auto) 0.3 Eos # (Auto) 0.0 Baso # (Auto) 0.0 WBC Differential Manual diff final Seg Neuts % (Manual) 24 Band Neuts % (Manual) 3 Lymphocytes % (Manual) 60 H Monocytes % (Manual) 12 H Promyelocytes % (Man) 1 H Abs Neuts (Manual) 0.3 L* Nucleated RBCs/100 WBC 14 H Differential Comment . Platelet Estimate Low L Platelet Morphology Normal Basophilic Stippling Faint H Ovalocytes 1+ H Sodium 142 Potassium 3.9 Chloride 108 H Carbon Dioxide 25.4 Anion Gap 9 BUN 7 Creatinine 0.65 Estimated GFR Greater than 89 Random Glucose 92 Calcium 8.5 Total Bilirubin 0.4 AST 15 ALT 55 H Alkaline Phosphatase 58 Total Protein 5.8 L Albumin 2.3 L Culture Results: Microbiology 01/04/18 23:06 Aerobic Blood Culture - Preliminary Blood - Peripheral No growth in 3 days Anaerobic Blood Culture - Preliminary No growth in 3 days 01/04/18 16:02 Aerobic Blood Culture - Preliminary Blood - Peripheral No growth in 3 days Anaerobic Blood Culture - Preliminary No growth in 3 days 01/04/18 15:56 Aerobic Blood Culture - Preliminary Blood - Peripheral No growth in 3 days Anaerobic Blood Culture - Preliminary No growth in 3 days Medications: Active Medications Generic Name Dose Route Start Last Admin Trade Name Freq PRN Reason Stop Dose Admin Acetaminophen 650 mg 01/04/18 14:14 01/06/18 09:04 Tylenol PO 650 mg Q4H PRN Administration Temp > 100.4 Amlodipine Besylate 5 mg 01/05/18 09:00 01/07/18 08:48 Norvasc PO 5 mg DAILY [facility] Administration Fluconazole 200 mg 01/05/18 09:00 01/07/18 08:48 Diflucan PO 200 mg DAILY [facility] Administration Gabapentin 600 mg 01/04/18 18:00 01/07/18 12:35 Neurontin PO 600 mg TID [facility] Administration Cefepime HCl 2,000 mg/ Sodium 100 mls @ 200 mls/hr 01/04/18 16:00 01/07/18 15 :14 Chloride IV.SIG 200 mls/hr Q8H [facility] Administration Vancomycin HCl 1,000 mg/ 250 mls @ 250 mls/hr 01/05/18 12:00 01/07/18 13:48 Sodium Chloride IV.SIG Infused Q12H [facility] Infusion Trimethoprim/Sulfamethoxazole 1 tab 01/05/18 09:00 01/07/18 08:48 Bactrim Ds PO 1 tab DAILY [facility] Administration Valacyclovir HCl 500 mg 01/05/18 09:00 01/07/18 08:49 Valtrex PO 500 mg DAILY [facility] Administration Objective Remarks: GENERAL: Young female, sitting up at bedside, she appears to be no acute distress, she is morbidly obese.. SKIN: Warm and dry. HEAD: Normocephalic. Oropharyngeal examination: No ulceration, no erythema no cervical lymphadenopathy. EYES: No scleral icterus. No injection or drainage. NECK: Supple, trachea midline. No JVD or lymphadenopathy. LYMPHATIC: No adenopathy. CARDIOVASCULAR: Regular rate and rhythm without murmurs. RESPIRATORY: Breath sounds equal bilaterally. No accessory muscle use. GASTROINTESTINAL: Abdomen soft, non-tender, nondistended. EXTREMITIES: No cyanosis, or edema. Right upper extremity PICC line in place. MUSCULOSKELETAL: Adequate muscle tone. NEUROLOGICAL: No obvious focal deficit. Awake, alert, and oriented x3. PSYCHIATRIC: Appropriate mood and affect; insight and judgment normal. Assessment/Plan - Plan Mrs. 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 She has currently being treated per pediatric protocol CALGB 47504 for adolescents and young adults. Initiated phase I in 08/2017 under the direction of Dr. Malhotra at [facility]. Unable to follow up as outpatient due to insurance. Hospitalized for neutropenic fever. Initiated phase II in 10/2017. Initially thought that patient would be able to have transplant care through [facility]. Most recently received cytarabine infusion 7 days ago. Completed oral 6-mercaptopurine on 01/03/2018. Presented with neutropenic fever. Has history of pulmonary emboli for which she had been on therapeutic anticoagulation. 1. Precursor B-cell ALL. Currently undergoing treatment with protocol CALGB 57698. Patient scheduled for chemotherapy next Tuesday. 2. Pancytopenia due to chemotherapy. ANC is 0.3 today, platelet count down to 21,000. 3. Neutropenic fever, afebrile, last fever on 01/05/18. Cefepime and vancomycin discontinued. I had considered initiating her on levofloxacin however there are significant interactions with all quinolones and Arianne acyclovir and fluconazole. Therefore I would like to take her off of cefepime and vancomycin and just monitor her. She is on valacyclovir, fluconazole and Bactrim. All cultures are negative thus far. She does not look toxic at all. 4. History of pulmonary emboli diagnosed in late August early September 2017: She had been on Lovenox 120 mg subcu twice daily, I discontinued this because her platelet counts are less than 25,000. Thankfully there is no active bleeding. She tells me she at this time has no evidence of residual pulmonary emboli as noted on repeat CT scans from October 2017. Disposition: Monitor overnight and into tomorrow while off IV antibiotics. If she remains afebrile she may be able to go home later tomorrow evening. If she has recurrent fevers I would consult infectious diseases. This is a high risk patient.
[2018-01-08 05:37] LABS: Hematocrit 21.1 % (35.0-46.0); Mean Corpuscular HGB Conc 32.7 % (32.0-36.0); Mean Corpuscular Hemoglobin 27.9 pg (27.0-34.0); Mean Corpuscular Volume 85.3 fL (80.0-100.0); Mean Platelet Volume 8.7 fL (7.0-11.0); Platelet Count 35 th/mm3 (150-450); Red Blood Count 2.48 mil/mm3 (4.00-5.30); Red Cell Distribution Width 20.5 % (11.6-17.2); White Blood Count 1.1 th/mm3 (4.0-11.0)
[2018-01-08 05:46] LABS: Hemoglobin 6.9 gm/dL (11.6-15.3)
[2018-01-08 06:26] LABS: Albumin 2.3 g/dL (3.4-5.0); Anion Gap 10 meq/L (5-15); Aspartate Aminotransferase 13 U/L (15-37); Blood Urea Nitrogen 4 mg/dL (7-18); Calcium 8.2 mg/dL (8.5-10.1); Carbon Dioxide 26.2 meq/L (21.0-32.0); Chloride 109 meq/L (98-107); Glomerular Filtration Rate Greater Than 89 mL/min (>89); Glucose,Random 99 mg/dL (74-106); Potassium 3.9 meq/L (3.5-5.1); Sodium 145 meq/L (136-145)
[2018-01-08 06:30] LABS: Alanine Aminotransferase 46 U/L (10-53); Alkaline Phosphatase 54 U/L (45-117); Total Protein 5.7 g/dL (6.4-8.2)
[2018-01-08] MEDS ORDERED: Sodium Chlor 0.9% Inj 250 ML IV.SIG SCH ×2 (07:00→08:00)
[2018-01-08] MEDS ORDERED: Acetaminophen 325 MG Tablet PO PRN (07:48)
[2018-01-08 08:11] LABS: Eosinophils 2 % (0-4); Lymphocytes 52 % (9-44); Monocytes 20 % (0-8); Tallied Nucleated RBC 39 (0-0)
[2018-01-08 08:14] LABS: Platelet Morphology Normal (Normal)
--- NOTE | 2018-01-08 09:20 | P.PNONC ---
Subjective Interval history: Afebrile. Patient denies headache or pain. Denies bleeding. States "I feel great, I am ready to go home" Objective Vital Signs/Intake & Output: Vital Signs 01/07/18 12:33 01/07/18 16:11 01/07/18 20:00 Temperature 98.5 F 98.6 F 98.3 F Pulse Rate 102 H 110 H 93 H Respiratory Rate 17 18 20 Blood Pressure 135/76 147/75 H 136/64 Pulse Oximetry 98 100 100 01/08/18 00:00 01/08/18 04:00 Temperature 98.5 F 98.7 F Pulse Rate 100 H 114 H Respiratory Rate 16 16 Blood Pressure 102/80 109/54 L Pulse Oximetry 100 98 Intake & Output 01/07/18 01/08/18 01/08/18 18:59 06:59 18:59 Intake Total 830 / 830 480 / 480 Output Total 3 / 3 Balance 830 / 830 477 / 477 Weight 144 kg Intake: IV 350 / 350 Maxipime Inj 2,000 MG In NS Inj 100 / 100 100 ML @ 200 mls/hr IV.SIG Q8H [facility] Rx#:[id number] Vancomycin Inj 1,000 MG In NS 250 / 250 Inj 250 ML @ 250 mls/hr IV.SIG Q12H [facility] Rx#:[id number] Oral 480 / 480 480 / 480 Output: Urine 3 / 3 Other: # Voids 4 Date of Last Bowel Movement 01/07/18 01/07/18 Result Diagrams: 01/08/18 05:00 01/08/18 05:48 Laboratory Results: Laboratory Results - last 24 hr 01/05/18 01/08/18 01/08/18 13:20 05:00 05:48 WBC 1.1 L RBC 2.48 L Hgb 6.9 L* Hct 21.1 L MCV 85.3 MCH 27.9 MCHC 32.7 RDW 20.5 H Plt Count 35 L D MPV 8.7 Prelim Diff (Auto) Manual diff required WBC Differential Manual diff final Seg Neuts % (Manual) 21 Band Neuts % (Manual) 5 Lymphocytes % (Manual) 52 H Monocytes % (Manual) 20 H Eosinophils % (Manual) 2 Abs Neuts (Manual) 0.3 L* Nucleated RBCs/100 WBC 39 H Differential Comment . Platelet Estimate Low L Platelet Morphology Normal Basophilic Stippling Faint H Sodium 145 Potassium 3.9 Chloride 109 H Carbon Dioxide 26.2 Anion Gap 10 BUN 4 L Creatinine 0.64 Estimated GFR Greater than 89 Random Glucose 99 Calcium 8.2 L Total Bilirubin 0.2 AST 13 L ALT 46 Alkaline Phosphatase 54 Total Protein 5.7 L Albumin 2.3 L Blood Type O Positive Antibody Screen Negative MTS Gel Crossmatch See Detail 01/08/18 08:52 WBC RBC Hgb Hct MCV MCH MCHC RDW Plt Count MPV Prelim Diff (Auto) WBC Differential Seg Neuts % (Manual) Band Neuts % (Manual) Lymphocytes % (Manual) Monocytes % (Manual) Eosinophils % (Manual) Abs Neuts (Manual) Nucleated RBCs/100 WBC Differential Comment Platelet Estimate Platelet Morphology Basophilic Stippling Sodium Potassium Chloride Carbon Dioxide Anion Gap BUN Creatinine Estimated GFR Random Glucose Calcium Total Bilirubin AST ALT Alkaline Phosphatase Total Protein Albumin Blood Type Antibody Screen MTS Gel Crossmatch See Detail Culture Results: Microbiology 01/04/18 23:06 Aerobic Blood Culture - Preliminary Blood - Peripheral No growth in 3 days Anaerobic Blood Culture - Preliminary No growth in 3 days 01/04/18 16:02 Aerobic Blood Culture - Preliminary Blood - Peripheral No growth in 3 days Anaerobic Blood Culture - Preliminary No growth in 3 days 01/04/18 15:56 Aerobic Blood Culture - Preliminary Blood - Peripheral No growth in 3 days Anaerobic Blood Culture - Preliminary No growth in 3 days Medications: Active Medications Generic Name Dose Route Start Last Admin Trade Name Freq PRN Reason Stop Dose Admin Acetaminophen 650 mg 01/04/18 14:14 01/06/18 09:04 Tylenol PO 650 mg Q4H PRN Administration Temp > 100.4 Amlodipine Besylate 5 mg 01/05/18 09:00 01/07/18 08:48 Norvasc PO 5 mg DAILY [facility] Administration Fluconazole 200 mg 01/05/18 09:00 01/07/18 08:48 Diflucan PO 200 mg DAILY [facility] Administration Gabapentin 600 mg 01/04/18 18:00 01/07/18 17:25 Neurontin PO 600 mg TID [facility] Administration Trimethoprim/Sulfamethoxazole 1 tab 01/05/18 09:00 01/07/18 08:48 Bactrim Ds PO 1 tab DAILY [facility] Administration Valacyclovir HCl 500 mg 01/05/18 09:00 01/07/18 08:49 Valtrex PO 500 mg DAILY [facility] Administration Objective Remarks: GENERAL: Young female patient, lying in bed, in no acute distress. SKIN: Warm and dry. HEAD: Normocephalic. EYES: No scleral icterus. No injection or drainage. MOUTH: [place], moist mucous membranes. NECK: Supple, trachea midline. CARDIOVASCULAR: Regular rate and rhythm without murmurs. RESPIRATORY: Breath sounds clear, equal bilaterally. Non-labored. GASTROINTESTINAL: Abdomen soft, non-tender, nondistended. +BS. EXTREMITIES: No cyanosis, or edema. MUSCULOSKELETAL: Adequate muscle tone. NEUROLOGICAL: No obvious focal deficit. Awake, alert, and oriented x3. PSYCHIATRIC: Appropriate mood and affect; insight and judgment normal. Assessment/Plan - Plan Mrs. 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 She has currently being treated per pediatric protocol CALGB 45297 for adolescents and young adults. Initiated phase I in 08/2017 under the direction of Dr. Malhotra at [facility]. Unable to follow up as outpatient due to insurance. Initiated phase II in 10/2017. Initially thought that patient would be able to have transplant care through [facility]. Most recently received cytarabine infusion 7 days ago. Completed oral 6-mercaptopurine on 01/03/2018. Presented with neutropenic fever. Has history of pulmonary emboli for which she had been on therapeutic anticoagulation. Plan: 1. Precursor B-cell ALL. Currently undergoing treatment with protocol CALGB 69118. Patient scheduled for chemotherapy next Tuesday. 2. Pancytopenia due to chemotherapy. ANC remains at 0.3 today, platelet count has increased to 35,000. Hgb 6.9. Pt scheduled to receive 2 units Leuk-reduced/ irradiated/CMV negative pRBC today. CMV testing ordered, per blood bank no CMV testing on file. 3. Neutropenic fever, afebrile, last fever on 01/05/18. Cefepime and vancomycin discontinued on 01/07/2018. She continues on valacyclovir, fluconazole and Bactrim. All cultures are negative thus far. 4. History of pulmonary emboli diagnosed in late August early September 2017, pt reports repeat CT October 2017 showed no evidence of residual p.e. Lovenox discontinued for platelet count less than 50k. 5. Patient cleared for discharge from an oncology standpoint after infusion of PRBCs today. She will continue on valacyclovir, fluconazole and Bactrim. Continue to hold Lovenox. She should follow-up in outpatient clinic early this week. - Attending Statement The exam, history, and the medical decision-making described in the above note were completed with the assistance of the mid-level provider. I reviewed and agree with the findings presented. I attest that I had a [id number] encounter with the patient on the same day, and personally performed and documented my assessment and findings in the medical record. Patient seen and examined, vital signs, labs and medications reviewed. Patient remained afebrile overnight. She reports feeling well. Labs reviewed, hemoglobin down to 6.9 g/dL. I have advised 1 unit packed red blood cell transfusion before discharge home later today. She may be discharged on her oral antibiotic therapy. Should she have recurrent fevers I would advise discontinuation of her PICC line in the right upper extremity, this is been in place since early August 2017. Patient has scheduled follow-up with Dr. Wilkerson on the morning of 01/09/2018. Her next chemotherapy is due mid week, this will consist of vincristine. Lovenox will remain on hold given thrombus cytopenia. Dr. Wilkerson to coordinate anticoagulation in the outpatient setting. Patient is clear for discharge from an hematologic/oncologic standpoint after she received 1 unit packed red blood cell transfusion today.
--- NOTE | 2018-01-08 09:22 | P.PN ---
Subjective Interval history: Follow-up neutropenic fever January 05, 2018-patient seen and examined, still spiking fevers with T-max 101.3 however currently afebrile. Also endorses shortness of breath without any chest pain. by the bedside January 06, 2018-patient seen and examined, currently afebrile and reported improvement of shortness of breath. Was transfused 1 unit packed RBC yesterday. January 07, 2018-patient seen and examined, no febrile episodes over the past 2 days. Stable and no acute event overnight January 08, 2018-patient seen and examined, afebrile times 72 hours. No acute event overnight. Ready for discharge home. Physical Exam Vital signs: Vital Signs 01/07/18 12:33 01/07/18 16:11 01/07/18 20:00 Temperature 98.5 F 98.6 F 98.3 F Pulse Rate 102 H 110 H 93 H Respiratory Rate 17 18 20 Blood Pressure 135/76 147/75 H 136/64 Pulse Oximetry 98 100 100 01/08/18 00:00 01/08/18 04:00 Temperature 98.5 F 98.7 F Pulse Rate 100 H 114 H Respiratory Rate 16 16 Blood Pressure 102/80 109/54 L Pulse Oximetry 100 98 Intake & Output 01/07/18 01/08/18 01/08/18 18:59 06:59 18:59 Intake Total 830 / 830 480 / 480 Output Total 3 / 3 Balance 830 / 830 477 / 477 Weight 144 kg Intake: IV 350 / 350 Maxipime Inj 2,000 MG In NS Inj 100 / 100 100 ML @ 200 mls/hr IV.SIG Q8H [facility] Rx#:[id number] Vancomycin Inj 1,000 MG In NS 250 / 250 Inj 250 ML @ 250 mls/hr IV.SIG Q12H [facility] Rx#:[id number] Oral 480 / 480 480 / 480 Output: Urine 3 / 3 Other: # Voids 4 Date of Last Bowel Movement 01/07/18 01/07/18 Narrative: GENERAL: NAD SKIN: Warm and dry. HEAD: Normocephalic. EYES: No scleral icterus. No injection or drainage. NECK: Supple, trachea midline. No JVD or lymphadenopathy. CARDIOVASCULAR: Regular rate and rhythm without murmurs, gallops, or rubs. RESPIRATORY: Breath sounds equal bilaterally. No accessory muscle use. GASTROINTESTINAL: Abdomen soft, non-tender, nondistended. MUSCULOSKELETAL: No cyanosis, or edema. BACK: Nontender without obvious deformity. No CVA tenderness. Results - Labs CBC & Chem 7: 01/08/18 05:00 01/08/18 05:48 Laboratory Results - last 24 hr 01/05/18 01/08/18 01/08/18 13:20 05:00 05:48 WBC 1.1 L RBC 2.48 L Hgb 6.9 L* Hct 21.1 L MCV 85.3 MCH 27.9 MCHC 32.7 RDW 20.5 H Plt Count 35 L D MPV 8.7 Prelim Diff (Auto) Manual diff required WBC Differential Manual diff final Seg Neuts % (Manual) 21 Band Neuts % (Manual) 5 Lymphocytes % (Manual) 52 H Monocytes % (Manual) 20 H Eosinophils % (Manual) 2 Abs Neuts (Manual) 0.3 L* Nucleated RBCs/100 WBC 39 H Differential Comment . Platelet Estimate Low L Platelet Morphology Normal Basophilic Stippling Faint H Sodium 145 Potassium 3.9 Chloride 109 H Carbon Dioxide 26.2 Anion Gap 10 BUN 4 L Creatinine 0.64 Estimated GFR Greater than 89 Random Glucose 99 Calcium 8.2 L Total Bilirubin 0.2 AST 13 L ALT 46 Alkaline Phosphatase 54 Total Protein 5.7 L Albumin 2.3 L Blood Type O Positive Antibody Screen Negative MTS Gel Crossmatch See Detail 01/08/18 08:52 WBC RBC Hgb Hct MCV MCH MCHC RDW Plt Count MPV Prelim Diff (Auto) WBC Differential Seg Neuts % (Manual) Band Neuts % (Manual) Lymphocytes % (Manual) Monocytes % (Manual) Eosinophils % (Manual) Abs Neuts (Manual) Nucleated RBCs/100 WBC Differential Comment Platelet Estimate Platelet Morphology Basophilic Stippling Sodium Potassium Chloride Carbon Dioxide Anion Gap BUN Creatinine Estimated GFR Random Glucose Calcium Total Bilirubin AST ALT Alkaline Phosphatase Total Protein Albumin Blood Type O Positive Antibody Screen MTS Gel Crossmatch See Detail Microbiology 01/04/18 23:06 Blood - Peripheral Aerobic Blood Culture - Preliminary No growth in 3 days 01/04/18 23:06 Blood - Peripheral Anaerobic Blood Culture - Preliminary No growth in 3 days 01/04/18 16:02 Blood - Peripheral Aerobic Blood Culture - Preliminary No growth in 3 days 01/04/18 16:02 Blood - Peripheral Anaerobic Blood Culture - Preliminary No growth in 3 days 01/04/18 15:56 Blood - Peripheral Aerobic Blood Culture - Preliminary No growth in 3 days 01/04/18 15:56 Blood - Peripheral Anaerobic Blood Culture - Preliminary No growth in 3 days - Procedures none Assessment and Plan - Assessment (1) Neutropenic fever Code(s): D70.9 - Neutropenia, unspecified; R50.81 - Fever presenting with conditions classified elsewhere Status: Resolved (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 Wilkerson Chemotherapy currently on hold however plan for next Tuesday, December Continue Bactrim, fluconazole Patient with known history of pancytopenia Secondary to chemotherapy and B-cell ALL Transfuse for hemoglobin less than 7, platelets less than 10,000 She was transfused 1 unit packed red blood cell January 05, 2018 History of bilateral PE Continue Lovenox 150 mg subcu twice daily Morbid obesity Advise on weight loss management Hypertension Continue Norvasc DVT prophylaxis: Lovenox (3) Pulmonary embolism Qualifiers:
--- NOTE | 2018-01-08 09:27 | P.DS ---
Date of admission: 01/04/18 13:22 Primary care physician: Danae Pike MD, R2 Anticipated date of discharge: 01/08/18 Brief History from admission: 27-year-old female with B-Cell ALL diagnosed in August 2017, who previously received CALBG and currently is on chemotherapy, was sent from Dr. Wilkerson's office today for direct admits for neutropenic fever. Apparently, patient had a temperature of 100.4 this a.m. while visiting her oncologist for chemo therapy. Patient reported that this a.m. when she woke up she was complaining of body ache as well as chills however denies any subjective fever. She also denies any upper respiratory infection. She was recently admitted on October 10, 2017 for pneumonia and was treated for neutropenic fever during that hospitalization. She is currently on Lovenox 150mg subcu twice daily for diagnosis of bilateral PE in August 2017. She denies any symptoms of dysuria, GI bleed. DS: Diagnosis - Discharge Diagnosis (1) Neutropenic fever Status: Resolved (2) B-cell acute lymphoblastic leukemia (ALL) Status: Acute (3) Pulmonary embolism Status: Acute DS: Summary Hospital Course: While in hospital, patient was treated for: Neutropenic fever UA and chest x-ray unremarkable Blood culture report negative to date 4 days Patient's been off antibiotics times 24 hours as she is remained afebrile times 72 hours Neutropenic precautions History of B-cell ALL Appreciate input from oncology, Dr. Wilkerson Chemotherapy currently on hold however plan for next Tuesday, December Continue Bactrim, fluconazole Patient with known history of pancytopenia Secondary to chemotherapy and B-cell ALL Transfuse for hemoglobin less than 7, platelets less than 10,000 She was transfused 1 unit packed red blood cell January 05, 2018 History of bilateral PE Continue Lovenox 150 mg subcu twice daily Morbid obesity Advise on weight loss management Hypertension Continue Norvasc DVT prophylaxis: Lovenox - Time Spent with Patient Total time spent providing and/or coordinating discharge services: Less than 30 minutes - Quality: VTE Deep Vein Thrombosis/Pulmonary Embolism Present on Admission: No Exam Vital signs: Vital Signs 01/07/18 12:33 01/07/18 16:11 01/07/18 20:00 Temperature 98.5 F 98.6 F 98.3 F Pulse Rate 102 H 110 H 93 H Respiratory Rate 17 18 20 Blood Pressure 135/76 147/75 H 136/64 Pulse Oximetry 98 100 100 01/08/18 00:00 01/08/18 04:00 Temperature 98.5 F 98.7 F Pulse Rate 100 H 114 H Respiratory Rate 16 16 Blood Pressure 102/80 109/54 L Pulse Oximetry 100 98 Intake & Output 01/07/18 01/08/18 01/08/18 18:59 06:59 18:59 Intake Total 830 / 830 480 / 480 Output Total 3 / 3 Balance 830 / 830 477 / 477 Weight 144 kg Intake: IV 350 / 350 Maxipime Inj 2,000 MG In NS Inj 100 / 100 100 ML @ 200 mls/hr IV.SIG Q8H [facility] Rx#:[id number] Vancomycin Inj 1,000 MG In NS 250 / 250 Inj 250 ML @ 250 mls/hr IV.SIG Q12H [facility] Rx#:[id number] Oral 480 / 480 480 / 480 Output: Urine 3 / 3 Other: # Voids 4 Date of Last Bowel Movement 01/07/18 01/07/18 Narrative: GENERAL: NAD SKIN: Warm and dry. HEAD: Normocephalic. EYES: No scleral icterus. No injection or drainage. NECK: Supple, trachea midline. No JVD or lymphadenopathy. CARDIOVASCULAR: Regular rate and rhythm without murmurs, gallops, or rubs. RESPIRATORY: Breath sounds equal bilaterally. No accessory muscle use. GASTROINTESTINAL: Abdomen soft, non-tender, nondistended. MUSCULOSKELETAL: No cyanosis, or edema. BACK: Nontender without obvious deformity. No CVA tenderness. Results Procedures completed during hospitalization: none Labs on day of discharge: Labs from last 24 hours 01/08/18 01/08/18 01/08/18 08:52 08:52 05:48 WBC RBC Hgb Hct MCV MCH MCHC RDW Plt Count MPV Prelim Diff (Auto) WBC Differential Seg Neuts % (Manual) Band Neuts % (Manual) Lymphocytes % (Manual) Monocytes % (Manual) Eosinophils % (Manual) Abs Neuts (Manual) Nucleated RBCs/100 WBC Differential Comment Platelet Estimate Platelet Morphology Basophilic Stippling Sodium 145 Potassium 3.9 Chloride 109 H Carbon Dioxide 26.2 Anion Gap 10 BUN 4 L Creatinine 0.64 Estimated GFR Greater than 89 Random Glucose 99 Calcium 8.2 L Total Bilirubin 0.2 AST 13 L ALT 46 Alkaline Phosphatase 54 Total Protein 5.7 L Albumin 2.3 L CMV Qnt PCR IU/mL Pending Blood Type O Positive Antibody Screen Pending MTS Gel Crossmatch See Detail 01/08/18 01/05/18 05:00 13:20 WBC 1.1 L RBC 2.48 L Hgb 6.9 L* Hct 21.1 L MCV 85.3 MCH 27.9 MCHC 32.7 RDW 20.5 H Plt Count 35 L D MPV 8.7 Prelim Diff (Auto) Manual diff required WBC Differential Manual diff final Seg Neuts % (Manual) 21 Band Neuts % (Manual) 5 Lymphocytes % (Manual) 52 H Monocytes % (Manual) 20 H Eosinophils % (Manual) 2 Abs Neuts (Manual) 0.3 L* Nucleated RBCs/100 WBC 39 H Differential Comment . Platelet Estimate Low L Platelet Morphology Normal Basophilic Stippling Faint H Sodium Potassium Chloride Carbon Dioxide Anion Gap BUN Creatinine Estimated GFR Random Glucose Calcium Total Bilirubin AST ALT Alkaline Phosphatase Total Protein Albumin CMV Qnt PCR IU/mL Blood Type O Positive Antibody Screen Negative MTS Gel Crossmatch See Detail Preliminary micro results at discharge 01/04/18 23:06 Aerobic Blood Culture - Preliminary Blood - Peripheral No growth in 3 days Anaerobic Blood Culture - Preliminary No growth in 3 days 01/04/18 16:02 Aerobic Blood Culture - Preliminary Blood - Peripheral No growth in 3 days Anaerobic Blood Culture - Preliminary No growth in 3 days 01/04/18 15:56 Aerobic Blood Culture - Preliminary Blood - Peripheral No growth in 3 days Anaerobic Blood Culture - Preliminary No growth in 3 days - Impressions ITS Impressions Chest X-Ray 01/04/18 14:20 CONCLUSION: No evidence of acute cardiopulmonary process. Small loop identified in the right upper extremity PICC line. Discharge Plan - Discharge Disposition Patient Disposition: 01 Discharge Home - Discharge Condition Condition: Good - Discharge Order Discharge Orders: Discharge Order (Routine); Ordered 01/08/18 Ordered By: Santos Scott - Physicians Team Primary Care Provider: Danae Pike Attending Provider: Santos Scott Other Providers: Hannah Wilkerson ; [employer]urance - Rxs /Orders / Referrals /Forms Prescriptions: New sulfamethoxazole-trimethoprim 800-160 mg Tablet 1 tab PO DAILY Qty: 30 RF: 0 Continue amlodipine [Norvasc] 5 mg Tablet 5 mg PO DAILY docusate sodium [DOK] 100 mg capsule 100 mg PO DAILY enoxaparin 150 mg/mL Syringe 150 mg SUB-Q BID Qty: 0 RF: 0 fluconazole 200 mg Tablet 200 mg PO DAILY gabapentin 600 mg Tablet 600 mg PO TID valacyclovir 500 mg Tablet 500 mg PO DAILY Referrals: Primary Care Provider [Outside] - See Instructions Danae Pike MD, R2 [Primary Care Provider] - See Instructions
[2018-01-08] MEDS: Gabapentin 300 MG Capsule PO SCH ×2 (09:33→13:24)
[2018-01-08] MEDS: valACYclovir 500 MG Tab PO SCH (09:34)
[2018-01-08] MEDS: amLODIPine 5 MG Tablet PO SCH (09:34)
[2018-01-08] MEDS: Acetaminophen 325 MG Tablet PO PRN (10:03)
== END 2018-01-08 14:42 | disposition home or self-care (01) ==
LOC: N06 13:22 → HCIN 01-05 11:36
PROVIDERS: ADMIT Hospitalist; ATTEND Hospitalist